=== PATIENT | female | born 1995 | race Hispanic/Latino ===

== ENCOUNTER 2018-05-22 01:10 | Emergency (ER) | payer OTHER ==
--- NOTE | 2018-05-22 01:23 | ER ---
Nurse's Notes [facility] Name: Roberto Traore Age: 23 yrs Sex: Female : 1995 Arrival Date: 05/22/2018 Time: 01:12 Bed 7 Private MD: Diagnosis: Lower abdominal pain, unspecified;Urinary tract infection, site not specified Presentation: 05/22 01:25 Presenting complaint: Patient states: having back pain pain for 2 weeks on and off. but rr5 today 0100H started severe cramping and back pain pain score of 9/10. . Presenting complaint:. Transition of care: patient was not received from another setting of care. Onset of symptoms was May 22, 2018. Risk Assessment: Do you want to hurt yourself or someone else? Patient reports no desire to harm self or others. Initial Sepsis Screen: Does the patient meet any 2 criteria? No. Patient's initial sepsis screen is negative. Initial Sepsis Screen: Does the patient have a suspected source of infection? No. Patient's initial sepsis screen is negative. Care prior to arrival: None. 01:25 Method Of Arrival: Wheelchair rr5 01:25 Note per ER physician will transport to L\T\D for evaluation. rr5 02:25 Acuity: MARANDA 3 rr5 Triage Assessment: 01:25 General: Appears in no apparent distress. Behavior is calm, cooperative, appropriate rr5 for age. Pain: Complains of pain in lower abdomen and back Pain currently is 9 out of 10 on a pain scale. Quality of pain is described as crampy, Pain began suddenly, Is intermittent. Cardiovascular: Capillary refill < 3 seconds Patient's skin is warm and dry. Respiratory: Airway is patent Respiratory effort is even, unlabored, Respiratory pattern is regular, symmetrical. Musculoskeletal: Capillary refill < 3 seconds, Range of motion: intact in all extremities. 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 - Social history:: Smoking status: Patient/guardian denies using tobacco, Patient/guardian denies using alcohol, street drugs. - Family history:: not pertinent. - Ebola Screening: : Patient negative for fever greater than or equal to 101.5 degrees Fahrenheit, and additional compatible Ebola Virus Disease symptoms Patient denies exposure to infectious person Patient denies travel to an Ebola-affected area in the 21 days before illness onset. - Hospitalizations: : No recent hospitalization is reported. Screenin:25 Abuse screen: Denies threats or abuse. Denies injuries from another. Nutritional rr5 screening: No deficits noted. Tuberculosis screening: No symptoms or risk factors identified. Fall Risk None identified. Assessment: 02:21 Reassessment: came back from Labor and delivery via wheelchair. General: Appears in no rr5 apparent distress. comfortable, Behavior is calm, cooperative, appropriate for age. Pain: Complains of pain in abdomen and lower back Pain currently is 7 out of 10 on a pain scale. Quality of pain is described as crampy, Pain began suddenly, Is intermittent. Neuro: Level of Consciousness is awake, alert, obeys commands, Oriented to person, place, time, situation, Appropriate for age. Cardiovascular: Capillary refill < 3 seconds Patient's skin is warm and dry. Respiratory: Airway is patent Respiratory effort is even, unlabored, Respiratory pattern is regular, symmetrical. GI: Abdomen is round 5 months. : No signs and/or symptoms were reported regarding the genitourinary system. EENT: No signs and/or symptoms were reported regarding the EENT system. Derm: No signs and/or symptoms reported regarding the dermatologic system. Musculoskeletal: Capillary refill < 3 seconds, Range of motion: intact in all extremities. 03:10 Reassessment: performed abdominal ultrasound tolerated well by the patient. rr5 04:14 Reassessment: Patient appears in no apparent distress at this time. discharge rr5 instruction and prescription explained with no question ask. vitally stable. Patient states feeling better. Patient states symptoms have improved. Vital Signs: 01:25 BP 147 / 84; Pulse 110; Resp 18; Pulse Ox 100% on R/A; Pain 9/10; rr5 02:25 BP 127 / 72; Pulse 105; Resp 17; Pulse Ox 99% ; rr5 04:00 BP 117 / 68; Pulse 111; Resp 18; Pulse Ox 99% on R/A; rr5 ED Course: 01:12 Patient arrived in ED. es 01:18 Ric Gentile MD is Attending Physician. rn 01:33 Ruel Recinos, RN is Primary Nurse. rr5 02:25 Patient has correct armband on for positive identification. Pulse ox on. NIBP on. rr5 02:26 Triage completed. rr5 02:31 Arm band placed on right wrist. rr5 04:16 No provider procedures requiring assistance completed. Patient did not have IV access rr5 during this emergency room visit. Administered Medications: No medications were administered Outcome: 03:44 Discharge ordered by MD. rn 04:16 Discharged to home ambulatory, with family. rr5 04:16 Condition: stable 04:16 Discharge instructions given to patient, family, Instructed on discharge instructions, follow up and referral plans. medication usage, Demonstrated understanding of instructions, follow-up care, medications, Prescriptions given X 1. 04:17 Patient left the ED. rr5 Signatures: Audelia Velez Roman, MD MD rn Ruel Recinos, RN RN rr5 Corrections: (The following items were deleted from the chart) 04:17 04:00 BP 117 / 48; Pulse 111bpm; Resp 18bpm; Pulse Ox 99% RA; rr5 rr5
[2018-05-22 03:10] LABS: Urine Culture Reflex Order REFLEXED
[2018-05-22 03:11] LABS: Urine Bacteria 20-50 /HPF (<20); Urine RBC <5 /HPF (NONE SEEN); Urine Volume 0.5 ML
--- NOTE | 2018-05-22 03:44 | EDPHYS ---
Physician Documentation [facility] Name: Roberto Traore Age: 23 yrs Sex: Female : 1995 Arrival Date: 05/22/2018 Time: 01:12 Bed 7 Private MD: ED Physician Ric Gentile HPI: 05/22 01:24 This 23 yrs old Female presents to ER via Unassigned with complaints of Back rn Pain, 5MO PREG. 01:24 The patient presents with pain that is acute. The symptoms are located in the low back. rn Onset: The symptoms/episode began/occurred today. The pain radiates to the abdomen. Severity of symptoms: At their worst the symptoms were mild, moderate, in the emergency department the symptoms are unchanged. The patient has not experienced similar symptoms in the past. Reports 5 months , began with low back and abd cramping tonight, no urinary symptoms, concerned about baby. No trauma. . 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 - Social history:: Smoking status: Patient/guardian denies using tobacco, Patient/guardian denies using alcohol, street drugs. - Family history:: not pertinent. - Ebola Screening: : Patient negative for fever greater than or equal to 101.5 degrees Fahrenheit, and additional compatible Ebola Virus Disease symptoms Patient denies exposure to infectious person Patient denies travel to an Ebola-affected area in the 21 days before illness onset. - Hospitalizations: : No recent hospitalization is reported. ROS: 01:24 Constitutional: Negative for fever, chills, and weight loss, Eyes: Negative for injury, rn pain, redness, and discharge, Neck: Negative for injury, pain, and swelling, Cardiovascular: Negative for chest pain, palpitations, and edema, Respiratory: Negative for shortness of breath, cough, wheezing, and pleuritic chest pain, Abdomen/GI: + lower abd cramping Back: + lower back cramping MS/Extremity: Negative for injury and deformity, Skin: Negative for injury, rash, and discoloration, Neuro: Negative for headache, weakness, numbness, tingling, and seizure. Exam: 01:24 Constitutional: This is a well developed, well nourished patient who is awake, alert, rn and in no acute distress. Abdomen/GI: soft, gravid, non -tender Vital Signs: 01:25 BP 147 / 84; Pulse 110; Resp 18; Pulse Ox 100% on R/A; Pain 9/10; rr5 02:25 BP 127 / 72; Pulse 105; Resp 17; Pulse Ox 99% ; rr5 04:00 BP 117 / 68; Pulse 111; Resp 18; Pulse Ox 99% on R/A; rr5 Procedures: 03:41 Ultrasound: Type: OB, performed by the emergency department physician, FHT 130, good rn fluid and movement. Anterior placenta.. MDM: 01:18 Patient medically screened. rn 01:24 ED course: Pt decided to be evaluated by Labor and delivery given acute lower back and rn abd cramping, is > 20 weeks , L\T\D contacted, will eval patient and if patient wants to return, will be redirected back here. . 03:41 Differential diagnosis: UTI, . Data reviewed: vital signs, nurses notes, technical laboratory asst test result(s), urinalysis, radiologic studies, ultrasound, and as a result, I will discharge patient. Counseling: I had a detailed discussion with the patient and/or guardian regarding: the historical points, exam findings, and any diagnostic results supporting the discharge/admit diagnosis, lab results, radiology results, the need for outpatient follow up, to return to the emergency department if symptoms worsen or persist or if there are any questions or concerns that arise at home. Special discussion: I discussed with the patient/guardian in detail that at this point there is no indication for admission to the hospital. It is understood, however, that if the symptoms persist or worsen the patient needs to return immediately for re-evaluation. ED course: Bedside u/s shows well developed fetus with good movement, FHT 130, good fluid, shown images to mother. . 12 02:31 Order name: Urine Microscopic Only; Complete Time: 03:41 rn 12 02:31 Order name: Urine Dipstick-Ancillary (obtain specimen); Complete Time: 03:00 rn 05/22 03:13 Order name: Urine Culture EDMS Administered Medications: No medications were administered Disposition: 05/22/18 03:44 Discharged to Home. Impression: Lower abdominal pain, unspecified, Urinary tract infection, site not specified. - Condition is Stable. - Discharge Instructions: Urinary Tract Infection, Adult, and Urinary Tract Infection. - Prescriptions for Macrobid 100 mg Oral Capsule - take 1 capsule by ORAL route every 12 hours for 7 days; 14 capsule. - Medication Reconciliation Form, Thank You Letter, Antibiotic Education, Prescription Opioid Use form. - Follow up: Private Physician; When: As needed; Reason: Recheck today's complaints, Re-evaluation by your physician. - Problem is new. - Symptoms have improved. Signatures: Dispatcher [employer] EDMS Ric Gentile MD MD rn Krenek, Amber, RN RN ak1 Ruel Recinos RN RN rr5 Corrections: (The following items were deleted from the chart) 02:19 01:23 05/22/2018 01:23 Patient left the facility after being seen by provider. Reason rn stated they are leaving due to to labor and delivery. ak1 04:17 03:44 05/22/2018 03:44 Discharged to Home. Impression: Lower abdominal pain, rr5 unspecified; Urinary tract infection, site not specified. Condition is Stable. Forms are Medication Reconciliation Form, Thank You Letter, Antibiotic Education, Prescription Opioid Use. Follow up: Private Physician; When: As needed; Reason: Recheck today's complaints, Re-evaluation by your physician. Problem is new. Symptoms have improved. rn
== END 2018-05-22 04:17 | disposition home or self-care (01) ==
LOC: ER 01:10
DX: O23.42 Unspecified infection of urinary tract in pregnancy, second trimester (principal); O26.892 Other specified pregnancy related conditions, second trimester; R10.30 Lower abdominal pain, unspecified; Z3A.20 20 weeks gestation of pregnancy
CPT/HCPCS: 81015; 87086; 87088; 99283

== ENCOUNTER 2019-01-23 14:14 | Emergency (ER) | payer OTHER ==
--- OUTSIDE RECORDS SUMMARY | 2019-01-23 14:17 | XMS REPORT ---
:1995 [facility] Address [address] [place] [address] Dr. Tamayo [address] [place] [id number] Care Team Providers Name Role Phone Unavailable Unavailable Unavailable Problems This patient has no known problems. Allergies, Adverse Reactions, Alerts This patient has no known allergies or adverse reactions. Medications This patient has no known medications.
--- OUTSIDE RECORDS SUMMARY | 2019-01-23 14:17 | XMS REPORT | Summary of Care ---
:1995 Author Organization [facility] Address [address] [place] [id number] Care Team Providers Name Role Phone Ann Adams Insurance [employer] Pcp, Patient Does Not Have A Primary Care Provider Reason for Visit Reason Comments IRREGULAR BLEEDING Heavy Menses with Clots UNPROTECTED SEX 1 week ago Anxiety Encounter Details Date Type Department Care Team Description 01/17/2019 Office Visit [facility] Cassandra, Menorrhagia with irregular cycle (Primary Dx); [facility] [place] [facility] Unprotected sexual intercourse [address] [facility], [address] [facility] [address] [id number] [place], [place] [phone] [id number] Allergies No Known Allergiesdocumented as of this encounter (statuses as of 01/17/2019) Medications Medication Sig Dispensed Refills Start Date End Date Status sod [id number] Use 1 Bottle 1 Each 0 08/26/2017 Active bottle (NEILMED SINUS in each RINSE COMPLETE) pkdv nostril 2 (two) times daily. Use in hot shower 1 hour before bedtime hydroCHLOROthiazide 25 mg Take 1 tablet 42 tablet 0 10/12/2018 Active tabletIndications: by mouth Obesity (BMI 30-39.9), 38 daily. weeks gestation of , Liveborn , of gates , born in hospital by vaginal delivery, Full-term premature rupture of membranes with onset of labor within 24 hours of rupture, Normal labor, Pre-eclampsia, severe, delivered vitamin w/FA Take 1 tablet 100 tablet 3 10/11/2018 Active tabletIndications: by mouth Obesity (BMI 30-39.9), 38 daily. weeks gestation of , Liveborn infant, of gates , born in hospital by vaginal delivery, Full-term premature rupture of membranes with onset of labor within 24 hours of rupture, Normal labor, Pre-eclampsia, severe, delivered docusate calcium 240 mg Take 1 capsule 30 capsule 1 10/11/2018 Active capsuleIndications: by mouth once Obesity (BMI 30-39.9), 38 daily as weeks gestation of needed for , Liveborn Constipation. infant, of gates , born in hospital by vaginal delivery, Full-term premature rupture of membranes with onset of labor within 24 hours of rupture, Normal labor, Pre-eclampsia, severe, delivered ferrous sulfate 325 mg Take 1 tablet 60 tablet 2 10/11/2018 Active (65 mg iron) by mouth 2 tabletIndications: (two) times Obesity (BMI 30-39.9), 38 daily. weeks gestation of , Liveborn infant, of gates , born in hospital by vaginal delivery, Full-term premature rupture of membranes with onset of labor within 24 hours of rupture, Normal labor, Pre-eclampsia, severe, delivered ibuprofen 600 mg Take 1 tablet 30 tablet 1 10/11/2018 Active tabletIndications: by mouth every Obesity (BMI 30-39.9), 38 6 (six) hours weeks gestation of as needed for , Liveborn Pain (scale , of gates 1-3) or Pain , born in (scale 4-6) hospital by vaginal (Pain). Take delivery, Full-term with food or premature rupture of milk. membranes with onset of labor within 24 hours of rupture, Normal labor, Pre-eclampsia, severe, delivered traMADOL (ULTRAM) 50 mg Take 1 tablet 20 tablet 0 12/07/2018 Active tabletIndications: by mouth every Generalized abdominal 6 (six) hours pain, Chronic abdominal as needed for pain Pain (scale 7-10). ondansetron (ZOFRAN) 4 mg Take 1 tablet 12 tablet 0 12/07/2018 Active tabletIndications: by mouth every Generalized abdominal 8 (eight) pain, Chronic abdominal hours as pain needed for Nausea and Vomiting (N/V). metroNIDAZOLE (FLAGYL) Take 1 tablet 14 tablet 1 12/27/2018 Active 500 mg tabletIndications: by mouth 2 BV (bacterial vaginosis) (two) times daily. documented as of this encounter (statuses as of 01/17/2019) Active Problems Problem Noted Date depression 12/13/2018 Axillary accessory breast tissue 12/13/2018 Pre-eclampsia, severe, delivered 10/11/2018 Obesity (BMI 30-39.9) 11/06/2017 Thrombocytopenia 12/28/2014 Overview: ICD10 Diagnosis Term Liaison Planner Utility documented as of this encounter (statuses as of 01/17/2019) Resolved Problems Problem Noted Date Resolved Date Full-term premature rupture of membranes with onset of labor 10/10/201812/13 within 24 hours of rupture Normal labor 10/10/2018 12/13/2018 Liveborn infant, of gates , born in hospital by 11/07/201712/13 vaginal delivery (spontaneous vaginal delivery) 11/07/2017 07/09/2018 Pre-eclampsia in third trimester 11/07/2017 07/09/2018 Full-term premature rupture of membranes with onset of labor 11/06/201707/09 more than 24 hours following rupture 38 weeks gestation of 11/06/2017 07/09/2018 Mother's group B Streptococcus colonization status unknown 11/06/20172017 Full-term PROM with onset of labor more than 24 hours after 11/06/20172018 rupture Contraceptive management 01/01/2016 10/10/2018 Encounter for Nexplanon removal 12/28/2014 10/10/2018 Encounter for routine gynecological examination 12/28/2014 10/10/2018 Overview: ICD10 Diagnosis Term Liaison Planner Utility Dizziness 12/28/2014 10/10/2018 documented as of this encounter (statuses as of 01/17/2019) Immunizations Name Administration Dates Next Due Tdap 01/26/2012 documented as of this encounter Social History Tobacco Use Types Packs/Day Years Used Date Former Smoker Cigars Smokeless Tobacco: Never Used Comments: black and mild cigars Alcohol Use Drinks/Week oz/Week Comments No 0 Standard drinks or equivalent 0.0 Sex Assigned at Date Recorded Not on file Job Start Date Occupation Industry Not on file Not on file Not on file Travel History Travel Start Travel End No recent travel history available. documented as of this encounter Last Filed Vital Signs Vital Sign Reading Time Taken Comments Blood Pressure 130/89 01/17/2019 3:32 PM CDT Pulse 81 01/17/2019 3:32 PM CDT Temperature 36.9 C (98.5 F) 01/17/2019 3:32 PM CDT Respiratory Rate 20 01/17/2019 3:32 PM CDT Oxygen Saturation - - Inhaled Oxygen Concentration - - Weight 72.6 kg (160 lb) 01/17/2019 3:32 PM CDT Height 149.9 cm (4' 11") 01/17/2019 3:32 PM CDT Body Mass Index 32.32 01/17/2019 3:32 PM CDT documented in this encounter Progress Notes Cassandra Puckett PA-C - 01/17/2019 3:30 PM CDT Chief complaint: Chief Complaint Patient presents with IRREGULAR BLEEDING Heavy Menses with Clots UNPROTECTED SEX 1 week ago Anxiety HPI Roberto Traore is a 23 year old female coming in with concern of heavy menses with blood clots. Patient had a vaginal delivery on 09/2018. Patient reports since then she has not been onany control. Patient reports she had unprotected sex last week. Patient denies any vaginal discharge , vaginal pain. Patient reports since having her baby she has had irregular menses where it would last 5-7 days and she would past lots of blood clots. Patient is not breast feeding. Patient has a hx of anxiety and depression but denies any SI/HI. Patient saw Dr. Miller last OV and was offered control. Patient reports she has reviewed all the options and is most interested in the mirena IUD. Histories OB History Para Term AB Living 2 2 2 0 0 2 SAB TAB Ectopic Multiple Live Births 0 0 0 0 2 # Outcome Date GA Lbr Alexx/2nd Weight Sex Delivery Anes PTL Lv 2 Term 10/10/18 38w0d 3402 g M VAGINAL EPI, IV narcotic JANETH 1 Term 11/07/17 39w0d 3515 g M VAGINAL EPI JANETH Past Medical History: Diagnosis Date Axillary accessory breast tissue 12/13/2018 Depression Mental disorder Pre-eclampsia in third trimester 11/07/2017 Thrombocytopenia, unspecified 12/28/2014 Family History Problem Relation Age of Onset Arthritis Maternal Grandfather Colon Cancer Maternal Aunt Asthma NoFHx defects NoFHx Breast Cancer NoFHx Uterine Cancer NoFHx Depression NoFHx Diabetes NoFHx Genetic NoFHx Heart NoFHx High cholesterol NoFHx Hypertension NoFHx Mental retardation NoFHx Neurological NoFHx Osteoporosis NoFHx Psychiatry NoFHx Other - see comments NoFHx Family Status Relation Name Status MGFa (Not Specified) Mo Alive Fa Alive MAunt (Not Specified) NoFHx (Not Specified) Past Surgical History: Procedure Laterality Date APPENDECTOMY Social History Socioeconomic History Marital status: Single Spouse name: Not on file Number of children: 0 Years of education: Not on file Highest education level: Not on file Occupational History Occupation: none Social Needs Financial resource strain: Not on file Food insecurity: Worry: Not on file Inability: Not on file Transportation needs: Medical: Not on file Non-medical: Not on file Tobacco Use Smoking status: Former Smoker Types: Cigars Smokeless tobacco: Never Used Tobacco comment: black and mild cigars Substance and Sexual Activity Alcohol use: No Alcohol/week: 0.0 oz Drug use: Yes Types: Other-see comments Comment: synthetic marijuana(has stopped), denies Sexual activity: Yes Partners: Male control/protection: Implant Lifestyle Physical activity: Days per week: Not on file Minutes per session: Not on file Stress: Not on file Relationships Social connections: Talks on phone: Not on file Gets together: Not on file Attends muslim service: Not on file Active member of club or organization: Not on file Attends meetings of clubs or organizations: Not on file Relationship status: Not on file Intimate partner violence: Fear of current or ex partner: Not on file Emotionally abused: Not on file Physically abused: Not on file Forced sexual activity: Not on file Other Topics Concern Service Not Asked Blood Transfusions No Caffeine Concern Not Asked Occupational Exposure Not Asked Hobby Hazards Not Asked Sleep Concern Not Asked Stress Concern Not Asked Weight Concern Not Asked Special Diet Not Asked Back Care Not Asked Exercise Not Asked Bike Helmet Not Asked Seat Belt Not Asked Self-Exams Not Asked Social History Narrative No domestic violence or abuse Social History Substance and Sexual Activity Sexual Activity Yes Partners: Male control/protection: Implant Labs none Radiology none Allergies Roberto has No Known Allergies. Medications Roberto has a current medication list which includes the following prescription(s ): metronidazole, ondansetron, tramadol, docusate calcium, ferrous sulfate, hydrochlorothiazide, ibuprofen, vitamin w/fa, and sod chlor-bicarb- squeez bottle. Review of Systems Constitutional: Negative for appetite change, fatigue, fever, unexpected weight change, weight gain and weight loss. HENT: Negative for rhinorrhea and sore throat. Eyes: Negative for pain and itching. Respiratory: Negative for cough, chest tightness and shortness of breath. Breasts: Negative for discharge, mass and pain. Cardiovascular: Negative for chest pain, palpitations and leg swelling. Gastrointestinal: Negative for abdominal pain, constipation, diarrhea and nausea. Genitourinary: Positive for menstrual problem. Negative for bladder incontinence , dysuria, vaginal discharge, difficulty urinating, vaginal pain and pelvic pain. Musculoskeletal: Negative for gait problem and myalgias. Skin: Negative for rash. Neurological: Negative for dizziness and headaches. Psychiatric/Behavioral: Negative for suicidal ideas. The patient is nervous/ anxious. Endocrine: Negative for hair loss, weight gain and weight loss. BP 130/89 (BP Location: Left arm, Patient Position: Sitting) | Pulse 81 | Temp 36.9 C (98.5 F)(Oral) | Resp 20 | Ht 4' 11" (1.499 m) | Wt 160 lb ( 72.6 kg) | LMP 12/26/2018 (Approximate) | ? No | BMI 32.32 kg/m Pregravid BMI: Could not be calculated Physical Exam Vitals reviewed. Constitutional: She is oriented to person, place, and time. Her body habitus is obese. Neck: No mass. No thyromegaly palpated. No neck adenopathy. Cardiovascular: Regular rate and rhythm. Pulmonary/Chest: Normal inspiratory effort. Abdominal: Abdomen is soft. No tenderness present. No hernia palpated or inspected. Neuro/Psychiatric: She has a normal mood and affect. She is oriented to person, place, and time. Skin: Skin normal. Lymphadenopathy: No neck adenopathy present. No axillary adenopathy present. No inguinal adenopathy present. Assessment/Plan Menorrhagia with irregular cycle (primary encounter diagnosis) Comment: UPT NEG Plan: POCT TEST I discussed with the patient that there are 3 forms of IUD: Char (3 years duration); Mirena (5 yrsduration); and Paragard (10 yrs duration). Char and Mirena both have progesterone and Paragard is a hormone-free option. IUDs are as effective in preventing as tubal ligation and are an effective senior living contraceptive. Risks include but are not limited to uterine perforation during insertion (06/999) which may require surgery, bleeding, infection, IUD embedded in the uterus which may require surgery, expulsion, abnormal uterine bleeding, pelvic/abdominal pain. Benefits include possible decrease in menstrual flow and amount of bleeding, possible amenorrhea, and decrease dysmenorrhea for progesterone containing IUDs. For the copper IUD, long duration of use and effective as emergency contraception. However, the copper IUD may cause heavier menstrual bleeding and dysmenorrhea. Alternatives including pills, patch, ring, Nexplanon, Depo-provera discussed. Patient desires mirena Unprotected sexual intercourse Comment: UPT neg Plan: patient LMP was 12/26/18 Return to clinic in 2 weeks. W/ Dr Gordillo for IUD placement. Discussed treatment options. Reviewed patient instructions and provided printed copy. This visit did not involve counseling and coordination that comprised more than 50% of the visit time. Cassandra Puckett PA-C 01/17/2019 3:49 PM documented in this encounter Plan of Treatment Date Type Specialty Care Team Description 02/23/2019 Office Visit Obstetrics & Gynecology Luci Gordillo MD [address] [place] [address] [place] [address] [phone] Health Maintenance Due Date Last Done Comments MENINGOCOCCAL B VACCINES (1 of 2007 2 - Risk Bexsero 2-dose series) VARICELLA VACCINES (1 of 2 - 2010 13+ 2-dose series) HPV VACCINES (1 - Female 01/28/2012 3-dose series) PAP SMEAR 2018 INFLUENZA VACCINE 02/19/2019 CHLAMYDIA SCREENING 07/09/2019 07/09/2018, 10/17/2017, 12/25/2014 DTaP,Tdap,and Td Vaccines (2 - 01/25/2022 01/26/2012 Td) MENINGOCOCCAL VACCINE Aged Out No longer eligible based on patient's age to complete this topic PNEUMOCOCCAL 0-64 YEARS Aged Out No longer eligible based COMBINED SERIES on patient's age to complete this topic documented as of this encounter Procedures Procedure Name Priority Date/Time Associated Diagnosis Comments POCT TEST Routine 01/17/2019 Menorrhagia with Results for this irregular cycle procedure are in the results section. documented in this encounter Results POCT TEST (01/17/2019) POCT PREG Negative On board controls acceptable Yes with C Line POCT PREG LOT # POCT PREG TEST DATE Specimen Urine - URINE, CLEAN CATCH documented in this encounter Visit Diagnoses Diagnosis Menorrhagia with irregular cycle - Primary Excessive or frequent menstruation Unprotected sexual intercourse Problems related to high-risk sexual behavior documented in this encounter Insurance Payer Benefit Plan / Subscriber ID Effective Phone Address Type Group [facility] xxxxxxxxx 2018-Pres [address] Medicaid HEALTH CHOICE - HEALTH CHOICE [facility] [id number] MANAGED MEDICAID [place], [place] [phone] documented as of this encounter
--- NOTE | 2019-01-23 15:24 | RAD REPORT ---
EXAM DESCRIPTION: RAD - Ankle Left 3 View -01/23/2019 2:54 pm CLINICAL HISTORY: Left ankle pain status post injury FINDINGS: A 3 millimeter avulsion fracture fragment from the lateral malleolus. No dislocation Marked lateral soft tissue swelling
--- NOTE | 2019-01-23 15:25 | RAD REPORT ---
EXAM DESCRIPTION: Avery Nickerson Left01/23/2019 2:55 pm CLINICAL HISTORY: Left leg pain status post injury FINDINGS: A 3 millimeter avulsion fracture fragment from the lateral malleolus. No dislocation
--- NOTE | 2019-01-23 15:29 | ER ---
Nurse's Notes [facility] Name: Roberto Traore Age: 23 yrs Sex: Female : 1995 Arrival Date: 01/23/2019 Time: 14:18 Bed 10 Private MD: Unknown, Unknown Diagnosis: Fracture of lateral malleolus-avulsion fracture Presentation: 01/23 14:21 Presenting complaint: Slipped and fell in ditch 4 days ago, c/o left ankle pain that hb radiates to left foot and left knee. Transition of care: patient was not received from another setting of care. Onset of symptoms was January 19, 2019. Risk Assessment: Do you want to hurt yourself or someone else? Patient reports no desire to harm self or others. Initial Sepsis Screen: Does the patient meet any 2 criteria? No. Patient's initial sepsis screen is negative. Does the patient have a suspected source of infection? No. Patient's initial sepsis screen is negative. Care prior to arrival: None. 14:21 Method Of Arrival: Wheelchair hb 14:21 Acuity: MARANDA 4 hb MRP CONTROLLER: 14:23 LMP 01/15/2019 hb Historical: - Allergies: 14:23 No Known Allergies; hb - Home Meds: 14:23 None [Active]; hb - PMHx: 14:23 None; hb - PSHx: 14:23 Appendectomy; hb - Immunization history:: Adult Immunizations up to date. - Ebola Screening: : Patient denies travel to an Ebola-affected area in the 21 days before illness onset. Screenin:57 Abuse screen: Denies threats or abuse. Denies injuries from another. Nutritional aj1 screening: No deficits noted. Tuberculosis screening: No symptoms or risk factors identified. 16:39 Fall Risk None identified. aj1 Assessment: 14:57 General: Appears in no apparent distress. uncomfortable, Behavior is calm, cooperative, aj1 appropriate for age. Pain: Complains of pain in left ankle Pain radiates to left foot and left leg Pain currently is 10 out of 10 on a pain scale. Neuro: Level of Consciousness is awake, alert, obeys commands, Oriented to person, place, time, situation. Cardiovascular: Patient's skin is warm and dry. Respiratory: Airway is patent Respiratory effort is even, unlabored, Respiratory pattern is regular, symmetrical. GI: No signs and/or symptoms were reported involving the gastrointestinal system. : No signs and/or symptoms were reported regarding the genitourinary system. EENT: No signs and/or symptoms were reported regarding the EENT system. Derm: No signs and/or symptoms reported regarding the dermatologic system. Skin is pink, warm \T\ dry. normal. Musculoskeletal: Range of motion: limited in left ankle. 16:00 Reassessment: Patient appears in no apparent distress at this time. No changes from aj1 previously documented assessment. Patient and/or family updated on plan of care and expected duration. Pain level reassessed. Patient is alert, oriented x 3, equal unlabored respirations, skin warm/dry/pink. Vital Signs: 14:23 BP 145 / 75; Pulse 90; Resp 16; Temp 98.9; Pulse Ox 100% on R/A; Weight 72.57 kg; hb Height 4 ft. 11 in. (149.86 cm); Pain 10/10; 14:23 Body Mass Index 32.32 (72.57 kg, 149.86 cm) hb ED Course: 14:18 Patient arrived in ED. ag5 14:19 Unknown, Unknown is Private Physician. ag5 14:22 Triage completed. hb 14:23 Arm band placed on. hb 14:50 Mariama Shaw FNP-C [facility]. kb 14:50 Ruddy Ragland MD is Attending Physician. kb 14:54 Maci Brown, BENNIE is Primary Nurse. aj1 14:57 Tib Fib Left XRAY In Process Unspecified. EDMS 14:57 Ankle Left 3 View XRAY In Process Unspecified. EDMS 14:57 Patient has correct armband on for positive identification. Bed in low position. Call aj1 light in reach. 14:57 No provider procedures requiring assistance completed. aj1 16:12 Crutch training done. Orthoglass splint: Posterior short lleg splint applied on left em1 leg. 16:39 Patient did not have IV access during this emergency room visit. aj1 Administered Medications: No medications were administered Outcome: 15:28 Discharge ordered by . kb 16:41 Discharged to home with crutches. aj1 16:41 Condition: good 16:41 Discharge instructions given to patient, Instructed on discharge instructions, follow up and referral plans. medication usage, Demonstrated understanding of instructions, follow-up care, medications, Prescriptions given X 1. 16:42 Patient left the ED. aj1 Signatures: Dispatcher [employer] EDMariama Sweet, PAPER BOX CUTTER-C MAYLIN-Maci Pierre, BENNIE cali1 Yousuf Hendrickson 1 Leigh Brown RN RN hb Gaskin, Joanna 5
--- NOTE | 2019-01-23 15:29 | EDPHYS ---
Physician Documentation [facility] Name: Roberto Traore Age: 23 yrs Sex: Female : 1995 Arrival Date: 01/23/2019 Time: 14:18 Bed 10 Private MD: Unknown, Unknown ED Physician Ruddy Ragland HPI: 01/23 15:43 This 23 yrs old Female presents to ER via Wheelchair with complaints of Fall kb Injury, Foot Injury. 15:43 The patient presents with an injury, pain, swelling, tenderness. The complaints affect kb the left ankle. Onset: The symptoms/episode began/occurred 5 day(s) ago. Context: The problem was sustained outdoors, resulted from the patient falling, while walking, into a ditch. Associated signs and symptoms: Pertinent positives: swelling, Pertinent negatives: calf tenderness, fever, nausea, numbness, rash, tingling, vomiting, warmth, weakness. Modifying factors: The symptoms are alleviated by nothing, the symptoms are aggravated by weight bearing, movement. Severity of symptoms: At their worst the symptoms were moderate, in the emergency department the symptoms are unchanged. The patient has not experienced similar symptoms in the past. The patient has not recently seen a physician. Pt reports she tripped in a ditch on and hurt her ankle. Reports pain and swelling have been getting worse. . 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 - Ebola Screening: : Patient denies travel to an Ebola-affected area in the 21 days before illness onset. ROS: 15:41 Constitutional: Negative for fever, chills, and weight loss, Cardiovascular: Negative kb for chest pain, palpitations, and edema, Respiratory: Negative for shortness of breath, cough, wheezing, and pleuritic chest pain, Abdomen/GI: Negative for abdominal pain, nausea, vomiting, diarrhea, and constipation, Back: Negative for injury and pain, : Negative for injury, bleeding, discharge, and swelling, Neuro: Negative for headache, weakness, numbness, tingling, and seizure. 15:41 MS/extremity: Positive for injury or acute deformity, contusion, ecchymosis, pain, swelling, tenderness, of the left foot and left lateral ankle. Exam: 15:41 Constitutional: This is a well developed, well nourished patient who is awake, alert, kb and in no acute distress. Head/Face: Normocephalic, atraumatic. Neck: Trachea midline, no thyromegaly or masses palpated, and no cervical lymphadenopathy. Supple, full range of motion without nuchal rigidity, or vertebral point tenderness. No Meningismus. Chest/axilla: Normal chest wall appearance and motion. Nontender with no deformity. No lesions are appreciated. Cardiovascular: Regular rate and rhythm with a normal S1 and S2. No gallops, murmurs, or rubs. Normal PMI, no JVD. No pulse deficits. Respiratory: Lungs have equal breath sounds bilaterally, clear to auscultation and percussion. No rales, rhonchi or wheezes noted. No increased work of breathing, no retractions or nasal flaring. Abdomen/GI: Soft, non-tender, with normal bowel sounds. No distension or tympany. No guarding or rebound. No evidence of tenderness throughout. Neuro: Awake and alert, GCS 15, oriented to person, place, time, and situation. Cranial nerves II-XII grossly intact. Motor strength 5/5 in all extremities. Sensory grossly intact. Cerebellar exam normal. Normal gait. 15:41 Musculoskeletal/extremity: Extremities: grossly normal except: noted in the left ankle and left foot: ecchymosis, pain, swelling, tenderness, ROM: limited active range of motion due to pain, in the left ankle and left foot, Circulation is intact in all extremities. Sensation intact. Weight bearing: can bear weight with assistance only. Vital Signs: 14:23 BP 145 / 75; Pulse 90; Resp 16; Temp 98.9; Pulse Ox 100% on R/A; Weight 72.57 kg; hb Height 4 ft. 11 in. (149.86 cm); Pain 10/10; 14:23 Body Mass Index 32.32 (72.57 kg, 149.86 cm) hb MDM: 14:50 Patient medically screened. kb 15:27 Data reviewed: vital signs, nurses notes. Data interpreted: Pulse oximetry: on room air kb is 100 %. Interpretation: normal. Counseling: I had a detailed discussion with the patient and/or guardian regarding: the historical points, exam findings, and any diagnostic results supporting the discharge/admit diagnosis, radiology results, the need for outpatient follow up, a orthopedic surgeon, to return to the emergency department if symptoms worsen or persist or if there are any questions or concerns that arise at home. 01/23 14:28 Order name: Tib Fib Left XRAY; Complete Time: 15:26 hb 01/23 14:28 Order name: Ankle Left 3 View XRAY; Complete Time: 15:26 hb 01/23 15:27 Order name: Short Leg Splint; Complete Time: 16:12 kb 01/23 15:27 Order name: Crutches; Complete Time: 16:12 kb Administered Medications: No medications were administered Disposition: 01/24 07:41 Co-signature as Attending Physician, Ruddy Ragland MD I agree with the assessment and wa plan of care. Disposition: 01/23/19 15:28 Discharged to Home. Impression: Fracture of lateral malleolus - avulsion fracture. - Condition is Stable. - Discharge Instructions: Cast or Splint Care, [id number], Ankle Fracture, Pyzz-oi-Gyjc. - Prescriptions for Diclofenac Sodium 75 mg Oral Tablet, Delayed Release (E.C.) - take 1 tablet by ORAL route 2 times per day As needed; 30 tablet. - Medication Reconciliation Form, Thank You Letter, Antibiotic Education, Prescription Opioid Use form. - Follow up: Emergency Department; When: As needed; Reason: Worsening of condition. Follow up: Private Physician; When: 2 - 3 days; Reason: Recheck today's complaints, Continuance of care, Re-evaluation by your physician. Signatures: Dispatcher [employer] EDME Mariama Shaw, MAYLIN-C MAYLIN-Maci Pierre RN RN aj1 Leigh Brown RN RN hb Appiah, William, MD MD wa Corrections: (The following items were deleted from the chart) 01/23 16:42 15:28 01/23/2019 15:28 Discharged to Home. Impression: Fracture of lateral malleolus - aj1 avulsion fracture. Condition is Stable. Forms are Medication Reconciliation Form, Thank You Letter, Antibiotic Education, Prescription Opioid Use. Follow up: Emergency Department; When: As needed; Reason: Worsening of condition. Follow up: Private Physician; When: 2 - 3 days; Reason: Recheck today's complaints, Continuance of care, Re-evaluation by your physician. kb
== END 2019-01-23 16:42 | disposition home or self-care (01) ==
LOC: ER 14:14
PROC: 2W3RX1Z Immobilization of Left Lower Leg using Splint (ICD-10-PCS; principal; 2019-01-23)
DX: S82.62XA Displaced fracture of lateral malleolus of left fibula, initial encounter for closed fracture (principal); W01.0XXA Fall on same level from slipping, tripping and stumbling without subsequent striking against object, initial encounter; Y93.01 Activity, walking, marching and hiking; Y92.9 Unspecified place or not applicable
CPT/HCPCS: 99283

== ENCOUNTER 2019-02-27 14:57 | Emergency (ER) | payer OTHER, SELFPAY ==
--- OUTSIDE RECORDS SUMMARY | 2019-02-27 14:59 | XMS REPORT ---
:1995 [facility] Address [address] [place] [address] Dr. Tamayo [address] [place] [id number] Care Team Providers Name Role Phone Unavailable Unavailable Unavailable Problems This patient has no known problems. Allergies, Adverse Reactions, Alerts This patient has no known allergies or adverse reactions. Medications This patient has no known medications.
--- OUTSIDE RECORDS SUMMARY | 2019-02-27 14:59 | XMS REPORT | Summary of Care ---
:1995 Author Organization [facility] Address [address] [place] [id number] Care Team Providers Name Role Phone Ann Adams Insurance Hmo Pcp, Patient Does Not Have A Primary Care Provider Reason for Referral (Routine) Status Reason Specialty Diagnoses / Referred By Referred To Procedures Contact Contact New Request Orthopedic Surgery Diagnoses Closed avulsion fracture of left ankle, sequela [place], Procedures CONSULT/REFERRAL ORTHOPAEDIC SURGERY MD Rigoberto [address] [place] [address] Dr Choi [address] [place] [phone] (Routine) Status Reason Specialty Diagnoses / Referred By Referred To Procedures Contact Contact New Request Physical Therapy Diagnoses Closed avulsion fracture of left ankle, sequela [place], Procedures CONSULT/REFERRAL PHYSICAL THERAPY MD Rigoberto [address] [place] [address] Dr Choi [address] [place] [phone] Reason for Visit Reason Comments Establish Care Ankle Pain "hairline fracture" on 01/19/2019 after tripping & falling in ditch Referral/consult requesting orthopedic referral Encounter Details Date Type Department Care Team Description 2019 Office Visit [facility] Pediatric Rigoberto Carolina, Closed avulsion fracture of left ankle, sequela (Primary Dx); and Adult Primary MD Pain and swelling of left ankle Care- [address] [place] [address] Jimbo Silverio [address] [place], [place] [address] [place] [phone] Allergies No Known Allergiesdocumented as of this encounter (statuses as of 2019) Medications Medication Sig Dispensed Refills Start Date End Date Status sod cflyx-ysotvx-raiiaz Use 1 Bottle 1 Each 0 08/26/2017 [...] gestation of needed for , Liveborn Constipation. , of gates , born in hospital [...] as needed for , Liveborn Pain (scale infant, of gates 1-3) or Pain , born [...] 2 BV (bacterial vaginosis) (two) times daily. cyclobenzaprine 5 mg Take 1 tablet 7 tablet 0 2019 Active tabletIndications: Closed by mouth daily 9 avulsion fracture of left for 7 days. 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 documented as of this encounter (statuses as of 2019) Resolved Problems Problem Noted Date Resolved Date Full-term premature rupture of membranes with onset of labor 10/10/201812/13 within 24 hours of rupture Normal labor 10/10/2018 12/13/2018 Liveborn , of gates , born in [...] examination 12/28/2014 10/10/2018 Overview: ICD10 Diagnosis 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 Dizziness 12/28/2014 10/10/2018 documented as of this encounter (statuses as of 2019) Immunizations Name Administration Dates Next Due Tdap 01/26/2012 documented as of this encounter Social History Tobacco Use Types Packs/Day Years Used Date Current Some Day Smoker Cigars Smokeless Tobacco: Never Used Comments: [...] Sign Reading Time Taken Comments Blood Pressure 135/89 2019 3:55 PM CDT Pulse 80 2019 3:55 PM CDT Temperature 37.1 C (98.8 F) 2019 3:55 PM CDT Respiratory Rate 18 2019 3:55 PM CDT Oxygen Saturation 99% 2019 3:55 PM CDT Inhaled Oxygen Concentration - - Weight 71.6 kg (157 lb 14.4 oz) 2019 3:55 PM CDT Height 149.9 cm (4' 11") 2019 3:55 PM CDT Body Mass Index 31.89 2019 3:55 PM CDT documented in this encounter Patient Instructions Patient InstructionsEdRigoberto allen MD - 2019 3:30 PM CDT Treating Ankle Sprains Treatment will depend on how bad your sprain is. For a severe sprain, healing may take 3 months or more. Right after your injury: Use R.I.C.E. Rest: At first, keep weight off the ankle as much as you can. You may be given crutches to help you walk without putting weight on the ankle. Ice: Put an ice pack on the ankle for20 minutes. Remove the pack and wait at least 30 minutes. Repeat for up to 3 days. This helps reduce swelling. Compression: To reduce swelling and keep the joint stable, you may need to wrap the ankle with anelastic bandage. For more severe sprains, you may need an ankle brace, a boot,or a cast. Elevation: To reduce swelling, keep your ankle raised above your heart when you sit or lie down. Medicine Yourhealthcare providermay suggest oral nonsteroidal anti-inflammatory medicine (NSAIDs), such as ibuprofen. This relieves the pain and helps reduce swelling. Be sure to take your medicine as directed. Exercises After about 2 to 3 weeks, you may be given exercises to strengthen the ligaments and muscles in the ankle. Doing these exercises will help prevent another ankle sprain. Exercises may include standing on your toes and then on your heels and doing ankle curls. Ankle curls Sit on the edge of a sturdy table or lie on your back. Pull your toes toward you. Then point them away from you. Repeat for 2 to 3 minutes. Date Last Reviewed: 06/21/201719998192-4387 [employer]. [address] [place] [address]. All rights reserved. This information is not intended as a substitute for professional medical care. Always follow your healthcare professional's instructions. Ankle Fracture You have an ankle fracture. This means that one or more of the bones that make up the ankle joint are broken. This causes pain, swelling, and sometimes bruising. A fracture is treated with a splint or cast or special boot. It will take about 4 to 6 weeks for thefracture to heal. Surgery may be needed to fix severe injuries. Home care You will be given a splint, cast or boot to prevent movement at the ankle joint. Unless you were told otherwise, use crutches or a walker. Dont weight on the injured leg until cleared by your healthcare provider to do so. Crutches and walkers can be rented at many pharmacies and surgical or orthopedic supply stores. Dont put weight on a splint. It will break. Keep your leg elevated to reduce pain and swelling. When sleeping, place a pillow under the injured leg. When sitting, support the injured leg so it is level with your waist. This is very important during the first 48 hours. Apply an ice pack over the injured area forno more than15 to 20 minutes. Do this every3 to 6hoursfor the first24 to 48 hours. Continue with ice packs 3 to 4 times a day for the next 2 days, then as needed to ease pain and swelling. To make an ice pack, put ice cubes in a plasticbag that seals at the top. Wrap the bag in aclean, thintowel or cloth. Never put ice or an ice pack directly on the skin. You can place the ice pack directly over the cast or splint. As the ice melts, be careful that the cast or splint doesnt get wet. Keep the cast, splint, or boot completely dry at all times. Bathe with your cast, splint, or bootout of the water, protected ftyi4tyrle plastic bags. Place 1 bag outside of the other. Tape eachbag with duct tapeat the top end. Water can still leak in. So it's best to keep the cast, splint,or boot away from water.If a boot or fiberglass cast or splint gets wet, dry it with a hair dryeron a cool setting. You may xdzanuu-igw-jkztnsi pain medicineto control pain, unless another pain medicine was prescribed. Talk with your provider beforeusing these medicines if you have chronic liver or kidney disease or ever had a stomach ulcer or GI bleeding. Follow-up care Follow up with your healthcare provider in 1 week, or as advised. This is to be sure the bone is healing properly. If you were given a splint, it may be changed to a cast at your follow-up visit. If X-rays were taken, you will be told of any new findings that may affect your care. When to seek medical advice Call your healthcare provider right away if any of these occur: The plaster cast or splint becomes wet or soft The fiberglass cast or splint stays wet for more than 24 hours There is increased tightness, sore areas, or pain under the cast or splint Your toes become swollen, cold, blue, numb, or tingly The cast becomes loose The cast has a bad smell The cast developscracks or breaks Date Last Reviewed: 05/13/201519996567-9160 [employer]. [address] [place] [address], [place] [address]. All rights reserved. This information is not intended as a substitute for professional medical care. Always follow your healthcare professional's instructions. documented in this encounter Progress Notes Rigoberto Carolina MD - 2019 3:30 PM CDT Cc: Chief Complaint Patient presents with Establish Care Ankle Pain "hairline fracture" on 01/19/2019 after tripping & falling in ditch Referral/consult requesting orthopedic referral Roberto Traore is a 24 year old female. Patient presents with c/o left foot fracture 1 week ago. She returned back home , was getting out of her car at night, grass was wet and she slipped. She was seen at the [facility]. Denies pain at the moment. Denies hx MVA, trauma Allergies Roberto has No Known Allergies. Medications Outpatient Medications Prior to Visit Medication Sig Dispense Refill metroNIDAZOLE (FLAGYL) 500 mg tablet Take 1 tablet by mouth 2 (two) times daily. 14 tablet 1 ondansetron (ZOFRAN) 4 mg tablet Take 1 tablet by mouth every 8 (eight) hours as needed for Nausea and Vomiting (N/V). 12 tablet 0 traMADOL (ULTRAM) 50 mg tablet Take 1 tablet by mouth every 6 (six) hours as needed for Pain (scale 7-10). 20 tablet 0 docusate calcium 240 mg capsule Take 1 capsule by mouth once daily as needed for Constipation. 30 capsule 1 ferrous sulfate 325 mg (65 mg iron) tablet Take 1 tablet by mouth 2 (two) times daily. 60 tablet2 hydroCHLOROthiazide 25 mg tablet Take 1 tablet by mouth daily. 42 tablet 0 ibuprofen 600 mg tablet Take 1 tablet by mouth every 6 (six) hours as needed for Pain (scale 1-3) or Pain (scale 4-6) (Pain). Take with food or milk. 30 tablet 1 vitamin w/FA tablet Take 1 tablet by mouth daily. 100 tablet 3 sod diigk-ghagpe-jpezbq bottle (NEILMED SINUS RINSE COMPLETE) pkdv Use 1 Bottle in each nostril 2 (two) times daily. Use in hot shower 1 hour before bedtime 1 Each 0 No facility-administered medications prior to visit. Histories Past Medical History: Diagnosis Date Axillary accessory breast tissue 12/13/2018 Depression Mental disorder Pre-eclampsia in third trimester 11/07/2017 Thrombocytopenia, unspecified 12/28/2014 Past Surgical History: Procedure Laterality Date APPENDECTOMY [...] Not on file Tobacco Use Smoking status: Current Some Day Smoker Types: Cigars Smokeless tobacco: Never Used Tobacco comment: black and mild cigars Substance and Sexual Activity Alcohol use: No Alcohol/week: 0.0 oz Drug use: Not Currently Types: Other-see comments Comment: synthetic marijuana(has stopped), denies Sexual activity: Yes Partners: Male control/protection: Implant Lifestyle Physical activity: Days per week: Not on file Minutes per session: Not on file Stress: Not on file Relationships Social connections: Talks on phone: Not on file Gets together: Not on file Attends church service: Not on file Active member of [...] History Narrative No domestic violence or abuse Family History Problem Relation Age of Onset Arthritis Maternal Grandfather Colon Cancer Maternal Aunt Asthma NoFHx defects NoFHx Breast Cancer NoFHx Uterine Cancer NoFHx Depression NoFHx Diabetes NoFHx Genetic NoFHx Heart NoFHx High cholesterol NoFHx Hypertension NoFHx Mental retardation NoFHx Neurological NoFHx Osteoporosis NoFHx Psychiatry NoFHx Other - see comments NoFHx Review of Systems Constitutional: Negative. HENT: Negative. Eyes: Negative. Respiratory: Negative. Gastrointestinal: Negative. Genitourinary: Negative. Musculoskeletal: Positive for arthralgias, joint swelling and myalgias. Left ankle injury Skin: Negative. Neurological: Negative for tremors, weakness and numbness. Vital Signs BP 135/89 (BP Location: Left arm, Patient Position: Sitting, BP CUFF SIZE: Adult Medium) | Pulse 80 | Temp 37.1 C (98.8 F) (Temporal Artery) | Resp 18 | Ht 4' 11" (1.499 m) | Wt 157 lb 14.4 oz(71.6 kg) | LMP 01/17/2019 | SpO2 99% | BMI 31.89 kg/m Physical Exam Constitutional: She is oriented to person, place, and time. She appears well- developed and well-nourished. HENT: Head: Normocephalic and atraumatic. Eyes: Pupils are equal, round, and reactive to light. Conjunctivae and EOM are normal. Neck: Normal range of motion. Neck supple. Cardiovascular: Normal rate and regular rhythm. Pulmonary/Chest: Effort normal and breath sounds normal. Abdominal: Soft. Bowel sounds are normal. Musculoskeletal: She exhibits no edema or deformity. Left LE: LROM due to discomfort. Mild tenderness to palpation. Mild swelling of affected ankle noted. Strength 4/5. Sensation intact Neurological: She is alert and oriented to person, place, and time. She displays normal reflexes. Nocranial nerve deficit or sensory deficit. She exhibits normal muscle tone. Coordination normal. Skin: Skin is warm. Capillary refill takes less than 2 seconds. No rash noted. No erythema. Psychiatric: She has a normal mood and affect. Imaging: Xray Left Ankle FINDINGS: A 3 millimeter avulsion fracture fragment from the lateral malleolus. No dislocation Marked lateral soft tissue swelling Assessment/Plan Closed avulsion fracture of left ankle, sequela - Mild swelling of Left ankle - Referral: Orthopedic; Physical therapy - Outside Xray reviewed per patient's record. - cyclobenzaprine 5 mg tablet; Take 1 tablet by mouth daily for 7 days. Dispense: 7 tablet; Refill:0 - CONSULT/REFERRAL PHYSICAL THERAPY - AMBULATORY SURGICAL BOOT EAC RTC in 2 weeks, sooner with concerns Preventive Care: Medication reconciliation, patient education and anticipatory guidance completed. All questions and concerns addressed. >50% of visit was for counseling and coordination of care with patient as documented under plans above. Total visit time 15 Minutes. Rigoberto Carolina MD 2019 6:24 PM documented in this encounter Plan of Treatment Date Type Specialty Care Team Description 02/01/2019 Office Visit Orthopedic Surgery Sea Rogers MD [facility] [place] [phone] 02/10/2019 Office Visit Family Medicine Rigoberto Carolina MD [address] [place] [address] Dr Choi [address] [place] [address] 02/23/2019 Office Visit Obstetrics & Gynecology Luci Gordillo MD [address] [place] [address] DR. Choi [address] [place] [address] [phone] Health Maintenance Due Date Last Done Comments [...] this topic documented as of this encounter Results Not on filedocumented in this encounter Visit Diagnoses Diagnosis Closed avulsion fracture of left ankle, sequela - Primary Pain and swelling of left ankle documented in this encounter Insurance Payer Benefit Plan / Subscriber ID Effective Phone Address Type Group [facility] xxxxxxxxx 2018-Pres [address] Medicaid HEALTH CHOICE - HEALTH CHOICE ent [id number] MANAGED MEDICAID [place], [place] [phone] documented as of this encounter
--- OUTSIDE RECORDS SUMMARY | 2019-02-27 14:59 | XMS REPORT | Summary of Care ---
:1995 Author Organization [facility] - [facility] Address [address] [place] [id number] Care Team Providers Name Role Phone Ann Adams Insurance Hmo Pcp, Patient Does Not Have A Primary Care Provider Reason for Referral (Routine) Status Reason Specialty Diagnoses / Referred By Referred To Procedures Contact Contact New Request Orthopedic Surgery Diagnoses Closed avulsion fracture of left ankle, sequela [place], Procedures CONSULT/REFERRAL ORTHOPAEDIC SURGERY MD Rigoberto [address] [place] [address] Dr Choi [address] [place] [phone] (Routine) Status Reason Specialty Diagnoses / Referred By Referred To Procedures Contact Contact New Request Physical Therapy Diagnoses Closed avulsion fracture of left ankle, sequela [place], Procedures CONSULT/REFERRAL PHYSICAL THERAPY MD Rigoberto [address] [place] [address] Dr Choi [address] [place] [phone] Reason for Visit Reason Comments Establish Care Ankle Pain "hairline fracture" on 01/19/2019 after tripping & falling in ditch Referral/consult requesting orthopedic referral Encounter Details Date Type Department Care Team Description 2019 Office Visit [facility] Rigoberto Carolina, Closed avulsion fracture of left ankle, sequela (Primary Dx); and Adult Primary MD Pain and swelling of left ankle Care- [address] [place] [address] Jimbo Silverio [address] [place], [place] [id number] [place] [phone] Allergies No Known Allergiesdocumented as of this encounter (statuses as of 2019) Medications Medication Sig Dispensed Refills Start Date End Date Status sod zlghc-uvadgk-nvzues Use 1 Bottle 1 Each 0 08/26/2017 [...] 11/06/2017 Thrombocytopenia 12/28/2014 Overview: ICD10 Diagnosis 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 Date Last Reviewed: 06/21/201719999967-[address] [employer] [place] [address]. All rights reserved. This information is not [...] splint, or bootout of the water, protected leif0fjdxc plastic bags. Place 1 bag outside of the other. Tape eachbag with duct tapeat the top end. Water can still leak in. So it's best to keep the cast, splint,or boot away from water.If a boot or fiberglass cast or splint gets wet, dry it with a hair dryeron a cool setting. You may sxriumk-xot-xgfysyg pain medicineto control pain, unless another pain [...] cast developscracks or breaks Date Last Reviewed: 05/13/201519991133-0972 [employer]. [address] [place] [address], [place] [address]. All rights reserved. This information is not [...] she slipped. She was seen at the [facility]. Denies pain at the moment. Denies hx [...] by mouth daily. 100 tablet 3 sod cgwog-frdccw-cxgpyg bottle (NEILMED SINUS RINSE COMPLETE) pkdv Use [...] file Gets together: Not on file Attends nondenominational service: Not on file Active member of [...] Office Visit Orthopedic Surgery Sea Rogers MD [facility] [place] [address] 02/10/2019 Office Visit Family Medicine Rigoberto Carolina MD [address] [place] [address] Dr Choi [address] [place] [address] 02/23/2019 Office Visit Obstetrics & Gynecology Luci Gordillo MD [address] [place] [address] DR. Choi [address] [place] [address] [phone] Health Maintenance Due Date Last Done Comments [...] Subscriber ID Effective Phone Address Type Group [facility] xxxxxxxxx 2018-Pres [address] Medicaid HEALTH CHOICE - HEALTH CHOICE ent [id number] MANAGED MEDICAID [place], [place] [id number] documented as of this encounter
--- OUTSIDE RECORDS SUMMARY | 2019-02-27 15:11 | XMS REPORT ---
:1995 [facility] Address [address] [place] [address] Dr. Tamayo [address] [place] [address] Care Team Providers Name Role Phone Unavailable Unavailable Unavailable Problems This patient has no known problems. Allergies, Adverse Reactions, Alerts This patient has no known allergies or adverse reactions. Medications This patient has no known medications.
--- NOTE | 2019-02-27 17:03 | ER ---
Nurse's Notes [facility] Name: Roberto Traore Age: 24 yrs Sex: Female : 1995 Arrival Date: 02/27/2019 Time: 15:12 Bed DIS1 Private MD: Diagnosis: Chest pain, unspecified Presentation: 02/27 15:13 Presenting complaint: Patient states: "my is sick and I thought I would get aa5 checked too". Pt c/o slight cough. Transition of care: patient was not received from another setting of care. Onset of symptoms was February 2019. Risk Assessment: Do you want to hurt yourself or someone else? Patient reports no desire to harm self or others. Initial Sepsis Screen: Does the patient meet any 2 criteria? No. Patient's initial sepsis screen is negative. Does the patient have a suspected source of infection? No. Patient's initial sepsis screen is negative. Care prior to arrival: None. 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 - Social history:: Smoking status: Patient/guardian denies using tobacco. - Ebola Screening: : No symptoms or risks identified at this time. - Family history:: not pertinent. - Hospitalizations: : No recent hospitalization is reported. Screenin:20 Abuse screen: Denies threats or abuse. Denies injuries from another. Abuse screen: ca1 Denies threats or abuse. Nutritional screening: No deficits noted. 15:20 Tuberculosis screening: No symptoms or risk factors identified. Fall Risk None ca1 identified. Assessment: 15:20 General: Appears in no apparent distress. comfortable, Behavior is calm, cooperative, ca1 appropriate for age. Pain: Complains of pain in mid-sternal area Pain does not radiate. Pain currently is 5 out of 10 on a pain scale. Quality of pain is described as heavy, Pain began 1 day ago. Is continuous. Neuro: Level of Consciousness is awake, alert, obeys commands, Oriented to person, place, time, situation. Cardiovascular: Heart tones S1 S2 present Capillary refill < 3 seconds Patient's skin is warm and dry. Pulses are all present. Respiratory: Reports cough that is Airway is patent Respiratory effort is even, unlabored, Respiratory pattern is regular, symmetrical, Breath sounds are clear bilaterally. GI: Abdomen is round non-distended, Bowel sounds present X 4 quads. Abd is soft and non tender X 4 quads. : No deficits noted. No signs and/or symptoms were reported regarding the genitourinary system. EENT: No deficits noted. No signs and/or symptoms were reported regarding the EENT system. Derm: Skin is intact, is healthy with good turgor, Skin is pink, warm \\T\\ dry. Musculoskeletal: Circulation, motion, and sensation intact. Capillary refill < 3 seconds, Range of motion: intact in all extremities. 16:32 Reassessment: Patient appears in no apparent distress at this time. Patient and/or ca1 family updated on plan of care and expected duration. Pain level reassessed. Patient is alert, oriented x 3, equal unlabored respirations, skin warm/dry/pink. Vital Signs: 15:15 BP 123 / 77; Pulse 83; Resp 16 S; Temp 98.0(TE); Pulse Ox 100% on R/A; Weight 72.57 kg aa5 (R); Height 4 ft. 11 in. (149.86 cm); Pain 0/10; 16:39 BP 119 / 72; Pulse 79; Resp 16 S; Temp 99(O); Pulse Ox 100% on R/A; ca1 15:15 Body Mass Index 32.31 (72.57 kg, 149.86 cm) aa5 ED Course: 15:12 Patient arrived in ED. mr 15:13 Arm band placed on. aa5 15:14 Triage completed. aa5 15:17 Louise Carmichael, BENNIE is Primary Nurse. ca1 15:20 Ric Gentile MD is Attending Physician. rn 15:20 Patient has correct armband on for positive identification. Bed in low position. Call ca1 light in reach. Side rails up X 1. Pulse ox on. NIBP on. Warm blanket given. 15:20 No provider procedures requiring assistance completed. Patient did not have IV access ca1 during this emergency room visit. Patient maintains SpO2 saturation greater than 95% on room air. Administered Medications: No medications were administered Outcome: 16:39 Discharge ordered by . rn 16:47 Discharged to home ambulatory, with significant other. ca1 16:47 Condition: stable 16:47 Discharge instructions given to patient, Instructed on discharge instructions, follow up and referral plans. Demonstrated understanding of instructions, follow-up care. 16:47 Patient left the ED. ca1 Signatures: Deidra Hill mr SchwabRic yung MD MD rn Calderon, Audri RN RN aa5 Louise Carmichael RN RN ca1
--- NOTE | 2019-02-27 17:04 | EDPHYS ---
Physician Documentation [facility] Name: Roberto Traore Age: 24 yrs Sex: Female : 1995 Arrival Date: 02/27/2019 Time: 15:12 Bed DIS1 Private MD: ED Physician Ric Gentile HPI: 02/27 15:47 This 24 yrs old Female presents to ER via Ambulatory with complaints of Cough. rn 15:47 The patient or guardian reports chest pain that is located primarily in the anterior rn chest wall, left. The pain does not radiate. Associated signs and symptoms: The patient has no apparent associated signs or symptoms, Pertinent negatives: abdominal pain, cough, diaphoresis, dizziness, headache, lower extremity pain, lower extremity swelling, lightheadedness, nausea, near syncope, palpitations, recent travel, shortness of breath, syncope, vomiting. The chest pain is described as sharp. Duration: The patient or guardian reports multiple episodes, that are intermittent. Modifying factors: The symptoms are alleviated by nothing. the symptoms are aggravated by nothing. Severity of pain: At its worst the pain was very mild in the emergency department the pain is unchanged. The patient has not experienced similar symptoms in the past. Reports doesn't feel sick or something is wrong but signed in for flu like symptoms and she reports felt chest pain and an area on her left arm was hurting. No previous cardiac problems, no medical problems, no fever/cough/sob/neck pain. No famhx of early cardiac problems.. 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 - Social history:: Smoking status: Patient/guardian denies using tobacco. - Ebola Screening: : No symptoms or risks identified at this time. - Family history:: not pertinent. - Hospitalizations: : No recent hospitalization is reported. ROS: 15:47 Constitutional: Negative for fever, chills, and weight loss, Eyes: Negative for injury, rn pain, redness, and discharge, Neck: Negative for injury, pain, and swelling, Cardiovascular: Negative for palpitations, and edema, Respiratory: Negative for shortness of breath, cough, wheezing, and pleuritic chest pain, Abdomen/GI: Negative for abdominal pain, nausea, vomiting, diarrhea, and constipation, MS/Extremity: Negative for injury and deformity, Skin: Negative for injury, rash, and discoloration, Neuro: Negative for headache, weakness, numbness, tingling, and seizure. Exam: 15:47 Constitutional: This is a well developed, well nourished patient who is awake, alert, rn and in no acute distress. Ambulatory to room without difficulty or assistance. Head/Face: Normocephalic, atraumatic. Eyes: Pupils equal round and reactive to light, extra-ocular motions intact. Lids and lashes normal. Conjunctiva and sclera are non-icteric and not injected. Cornea within normal limits. Periorbital areas with no swelling, redness, or edema. ENT: Nares patent. No nasal discharge, no septal abnormalities noted. Oropharynx with no redness, swelling, or masses, exudates, or evidence of obstruction, uvula midline. Mucous membranes moist. Neck: Trachea midline, no thyromegaly or masses palpated, and no cervical lymphadenopathy. Supple, full range of motion without nuchal rigidity, or vertebral point tenderness. No Meningismus. Cardiovascular: Regular rate and rhythm. No pulse deficits. Respiratory: Lungs have equal breath sounds bilaterally, clear to auscultation. No increased work of breathing, no retractions or nasal flaring. Skin: Warm, dry with normal turgor. Normal color with no rashes, no lesions, and no evidence of cellulitis. MS/ Extremity: Pulses equal, no cyanosis. Neurovascular intact. Full, normal range of motion. Equal circumference. Neuro: Awake and alert, GCS 15, oriented to person, place, time, and situation. Cranial nerves II-XII grossly intact. Motor strength 5/5 in all extremities. Sensory grossly intact. Cerebellar exam normal. Normal gait. Vital Signs: 15:15 BP 123 / 77; Pulse 83; Resp 16 S; Temp 98.0(TE); Pulse Ox 100% on R/A; Weight 72.57 kg aa5 (R); Height 4 ft. 11 in. (149.86 cm); Pain 0/10; 16:39 BP 119 / 72; Pulse 79; Resp 16 S; Temp 99(O); Pulse Ox 100% on R/A; ca1 15:15 Body Mass Index 32.31 (72.57 kg, 149.86 cm) aa5 MDM: 15:20 Patient medically screened. rn 16:38 Differential diagnosis: viral syndrome. Data reviewed: vital signs, nurses notes, and rn as a result, I will discharge patient. Counseling: I had a detailed discussion with the patient and/or guardian regarding: the historical points, exam findings, and any diagnostic results supporting the discharge/admit diagnosis, the need for outpatient follow up, to return to the emergency department if symptoms worsen or persist or if there are any questions or concerns that arise at home. Special discussion: I discussed with the patient/guardian in detail that at this point there is no indication for admission to the hospital. It is understood, however, that if the symptoms persist or worsen the patient needs to return immediately for re-evaluation. Administered Medications: No medications were administered Disposition: 02/27/19 16:39 Discharged to Home. Impression: Chest pain, unspecified. - Condition is Stable. - Discharge Instructions: Nonspecific Chest Pain. - Medication Reconciliation Form, Thank You Letter, Antibiotic Education, Prescription Opioid Use form. - Follow up: Private Physician; When: As needed; Reason: Recheck today's complaints, Re-evaluation by your physician. - Problem is new. - Symptoms have improved. Signatures: Ric Gentile MD MD rn Calderon, Audri, RN RN aa5 Louise Carmichael RN RN ca1 Corrections: (The following items were deleted from the chart) 16:47 16:39 02/27/2019 16:39 Discharged to Home. Impression: Chest pain, unspecified. ca1 Condition is Stable. Forms are Medication Reconciliation Form, Thank You Letter, Antibiotic Education, Prescription Opioid Use. Follow up: Private Physician; When: As needed; Reason: Recheck today's complaints, Re-evaluation by your physician. Problem is new. Symptoms have improved. rn
[2019-02-27 19:20] VITALS: O2SAT 100
[2019-02-27 19:21] VITALS: BP 119/72; TEMP 99
== END 2019-02-27 16:47 | disposition home or self-care (01) ==
LOC: ER 14:57
DX: R07.9 Chest pain, unspecified (principal)
CPT/HCPCS: 99284

== ENCOUNTER 2019-10-05 14:23 | Emergency (ER) | payer OTHER, SELFPAY ==
--- OUTSIDE RECORDS SUMMARY | 2019-10-05 14:38 | XMS REPORT ---
:1995 Author Organization [facility] t Address [address] [place] [address] Dr. Tamayo [address] [place] [address] Care Team Providers Name Role Phone Unavailable Unavailable Unavailable Problems This patient has no known problems. Allergies, Adverse Reactions, Alerts This patient has no known allergies or adverse reactions. Medications This patient has no known medications.
--- OUTSIDE RECORDS SUMMARY | 2019-10-05 14:39 | XMS REPORT | Summary of Care ---
:1995 Author Organization [facility] - [facility] Address [address] [place] [address] Care Team Providers Name Role Phone Yuki Adams Insurance Hmo Pcp, Does Not Have A Primary Care Provider Reason for Visit Reason Comments Anxiety Auth/Cert Status Reason Specialty Diagnoses / Referred By Referred To Procedures Contact Contact Emergency Medicine Adc Em ergency Dept [address] [facility] [place] [address] Fax: Encounter Details Date Type Department Care Team Description 03/01/2019 Emergency ADC-Emergency Anamaria Bennett S, Anxiety ( Primary Dx); Department Hyperventilation syndrome [address] [place] [address] [address] [place] [address] [id number] [place], [place] [id number] Allergies No Known Allergiesdocumented as of this encounter (statuses as of 03/01/2019) Medications Medication Sig Dispensed Refills Start Date End Date Status sod huybx-uibzoo-twnwtz Use 1 Bottle 1 Each 0 08/26/2017 [...] as of this encounter (statuses as of 03/01/2019) Active Problems Problem Noted Date Closed avulsion fracture of left ankle, sequela 2018 Pain and swelling of left ankle 2019 depression 12/13/2018 Axillary accessory breast tissue 12/13/2018 Pre-eclampsia, severe, delivered 10/11/2018 Obesity (BMI 30-39.9) 11/06/2017 Thrombocytopenia 12/28/2014 Overview: ICD10 Diagnosis Term 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 documented as of this encounter (statuses as of 03/01/2019) Resolved Problems Problem Noted Date Resolved Date Full-term premature rupture of membranes with onset of labor 10/10/2018 12/13/2018 within 24 hours of rupture Normal labor 10/10/2018 12/13/2018 Liveborn infant, of gates , born in hospital by 11/07/2017 12/13/2018 vaginal delivery (spontaneous vaginal delivery) 11/07/201707/09 Pre-eclampsia in third trimester 11/07/2017 019 Full-term premature rupture of membranes with onset of labor 11/06/2017 07/09/2018 more than 24 hours following rupture 38 weeks gestation of 11/06/2017 07/09/19 19 Mother's group B Streptococcus colonization status unknown 0 11/06/2017 11/06/2017 Full-term PROM with onset of labor more than 24 hours after 11/06/2017 10/10/2018 rupture Contraceptive management 01/01/2016 10/10/2018 Encounter for Nexplanon removal 12/28/2014 10/11/19 Encounter for routine gynecological examination 12/28/2014 10/10/2018 Overview: ICD10 Diagnosis Term 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 Dizziness 12/28/2014 10/10/2018 documented as of this encounter (statuses as of 03/01/2019) Immunizations Name Administration Dates Next Due Tdap [...] Sign Reading Time Taken Comments Blood Pressure 130/86 03/01/2019 4:43 AM CDT Pulse 80 03/01/2019 4:43 AM CDT Temperature 36.7 C (98.1 F) 03/01/2019 4:43 AM CDT Respiratory Rate 18 03/01/2019 4:43 AM CDT Oxygen Saturation 98% 03/01/2019 4:43 AM CDT Inhaled Oxygen Concentration - - Weight 75.8 kg (167 lb) 03/01/2019 4:43 AM CDT Height - - Body Mass Index 33.73 2019 3:55 PM CDT documented in this encounter Discharge Instructions Anamaria Conn MD - 03/01/2019 DIAGNOSIS Diagnoses that have been ruled out: None Diagnoses that are still under consideration: None Final diagnoses: Anxiety NO LIFE-THREATENING FINDINGS ON TODAY'S EXAM. PROCEDURES IN THE ER TODAY: No orders of the defined types were placed in this encounter. MEDICATIONS ADMINISTERED IN THE ER TODAY AND DISCHARGE MEDICATIONS: Orders Placed This Encounter Medications LORazepam (ATIVAN) tablet 1 mg FOLLOW-UP RECOMMENDATIONS: RECOMMEND FOLLOW-UP WITH A PRIMARY CARE PROVIDER OR SPECIALIST IN 2-5 DAYS, ESPECIALLY IF NO IMPROVEMENT IN SYMPTOMS. MAY FOLLOW-UP WITH A PROVIDER OF YOUR CHOICE, SUCH : 1. A PHYSICIAN OF YOUR CHOICE 2. [facility], . LOCATIONS IN [facility] 3. [facility], [address] [place] [address]; [phone] OR, IF YOU WISH TO FOLLOW-UP WITHIN THE [facility], MAY TRY THESE OPTIONS (CLINIC APPOINTMENTS AVAILABLE ON JYGI-AR-BYPS BASIS): 1. SCHEDULE AN APPOINTMENT ONLINE AT [facility] 2. OR CALL THE [facility] AT OR 3. OR CALL YOUR [facility] PHYSICIAN'S OFFICE DIRECTLY IF YOU ARE ALREADY AN ESTABLISHED [facility] PATIENT. RETURN TO ER FOR WORSENING OF SYMPTOMS AttachmentsThe following attachments cannot be sent through Care Everywhere. Anxiety Disorders, Understanding (Kosovan)Anxiety, Your Body's Response to (Kosovan)documented in this encounter Plan of Treatment Health Maintenance Due Date Last Done Comments PNEUMOCOCCAL 0-64 YEARS 2003 COMBINED SERIES (1 of 1 - PPSV23) MENINGOCOCCAL B VACCINES (1 of 2007 2 - Risk Bexsero 2-dose series) VARICELLA VACCINES (1 of 2 - 2010 13+ 2-dose series) HPV VACCINES (1 - Female 01/28/2012 3-dose series) PAP SMEAR 2018 INFLUENZA VACCINE (#1) 2019 CHLAMYDIA SCREENING 07/09/2019 07/09/2018, 10/17/2017, 12/25/2014 DTaP,Tdap,and Td Vaccines (2 - 01/25/2022 01/26/2012 Td) MENINGOCOCCAL VACCINE Aged Out No longer eligible based on patient's age to complete this to pic documented as of this encounter Procedures Procedure Name Priority Date/Time Associated Diagnosis Comme nts NOTICE OF PRIVACY Routine 03/01/2019 4:30 AM CDT PRACTICES CONSENT/REFUSAL FOR Routine 03/01/2019 4:30 AM CDT DIAGNOSIS AND TREATMENT documented in this encounter Results Not on filedocumented in this encounter Visit Diagnoses Diagnosis Anxiety - Primary Anxiety state, unspecified Hyperventilation syndrome Respiratory malfunction arising from men scotty factors documented in this encounter Administered Medications Medication Order MAR Action Action Date Dose Rate Site LORazepam (ATIVAN) tablet 1 mg Given 03/01/2019 5:12 AM CDT 1 mg 1 mg, Oral, ONCE, 1 dose, Wed03/01/19 at 0615, JOE documented in this encounter Insurance Payer Benefit Plan Subscriber ID Effective Phone Address Typ e / Group Dates [place] xxxxxxxxx 2019-Preskerri [phone] P O AMANDA X Medicaid WOMEN WOMEN nt [address] [place] [address] documented as of this encounter
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
--- OUTSIDE RECORDS SUMMARY | 2019-10-05 14:40 | XMS REPORT | Summary of Care ---
:1997 Author Organization [facility] - [facility] Address [address] [place] [address] Care Team Providers Name Role Phone Yuki Adams Insurance Hmo Pcp, Does Not Have A Primary Care Provider Reason for Visit Radiology Services (Routine) Status Reason Specialty Diagnoses / Referred By Referred To Procedures Contact Contact New Request Diagnostic Diagnoses Injury of left ankle, initial encounter Chucho Baer, Radiology Procedures XR ANKLE <3 VW LEFT PAC [address] [place] [address] Encounter Details Date Type Department Care Team Description 03/01/2019 Hospital Encounter [facility] Chucho Baer , [facility] Orthopedics - PAC Radiology [address] [place] [address] [place], [place] [phone] Allergies No Known Allergiesdocumented as of this encounter (statuses as of 03/02/2019) Medications Medication Sig Dispensed Refills Start Date End Date Status sod tbjyu-twiqaz-khmaiq Use 1 Bottle 1 Each 0 08/26/2017 [...] as of this encounter (statuses as of 03/02/2019) Active Problems Problem Noted Date Closed avulsion fracture of left ankle, sequela 2018 Pain and swelling of left ankle 2019 depression 12/13/2018 Axillary accessory breast tissue 12/13/2018 Pre-eclampsia, severe, delivered 10/11/2018 Obesity (BMI 30-39.9) 11/06/2017 Thrombocytopenia 12/28/2014 Overview: ICD10 Diagnosis 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 documented as of this encounter (statuses as of 03/02/2019) Resolved Problems Problem Noted Date Resolved Date [...] 10/10/2018 Encounter for Nexplanon removal 12/28/2014 10/11/19 19 Encounter for routine gynecological examination 12/28/2014 10/10/2018 Overview: ICD10 Diagnosis 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 Dizziness 12/28/2014 10/10/2018 documented as of this encounter (statuses as of 03/02/2019) Immunizations Name Administration Dates Next Due Tdap [...] of this encounter Last Filed Vital Signs Not on filedocumented in this encounter Plan of Treatment Date Type Specialty Care Team Description 03/03/2019 Office Visit Family Medicine Rigoberto Carolina MD [address] [place] [address] Dr Iniguez [place], [place] [address] [phone] Name Type Priority Associated Diagnoses Date/Ti me XR ANKLE <3 VW LEFT IMAGING Routine Injury of left ankle, 03/01/2019 3:40 PM CDT initial encounter Name Type Priority Associated Diagnoses Order S chedule XR ANKLE <3 VW LEFT IMAGING Routine Injury of left ankle, 1 Occurrences starting initial encounter 03/01/2019 until 03/01/2019 Health Maintenance Due Date Last Done Comments [...] to pic documented as of this encounter Results Not on filedocumented in this encounter Visit Diagnoses Diagnosis Injury of left ankle, initial encounter documented in this encounter Insurance Payer Benefit Plan Subscriber ID Effective Phone Address Typ e / Group Dates [place] xxxxxxxxx 2019-Prese [phone] P O AMANDA X Medicaid WOMEN WOMEN nt [address] [place] [address] documented as of this encounter
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
--- OUTSIDE RECORDS SUMMARY | 2019-10-05 14:41 | XMS REPORT | Summary of Care ---
:1997 Author Organization [facility] - Health Address [address] [place] [address] Care Team Providers Name Role Phone Yuki Adams Insurance Hmo Pcp, Does Not Have A Primary Care Provider Encounter Details Date Type Department Care Team Description 03/02/2019 Orders Only [facility] Doctor Unassigned, No [address] [facility] [place] [address] [address] [place] [address] Allergies No Known Allergiesdocumented as of this encounter (statuses as of 03/02/2019) Medications Medication Sig Dispensed Refills Start Date End Date Status sod isgdu-cplqtb-zchykq Use 1 Bottle 1 Each 0 08/26/2017 [...] Thrombocytopenia 12/28/2014 Overview: ICD10 Diagnosis 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 documented as of this encounter (statuses [...] 12/28/2014 10/10/2018 Overview: ICD10 Diagnosis 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 Dizziness 12/28/2014 10/10/2018 documented as of [...] Office Visit Family Medicine Rigoberto Carolina MD [address] [place] [address] Dr Choi [address] [place], [place] [address] [phone] Health Maintenance Due Date Last Done Comments [...] Name Priority Date/Time Associated Diagnosis Comme nts CONSENT/REFUSAL FOR Routine 03/02/2019 2:51 PM CDT DIAGNOSIS AND TREATMENT documented in this encounter Results Not on filedocumented in this encounter Insurance Payer Benefit Plan Subscriber ID Effective Phone Address Typ e / Group Dates [place] xxxxxxxxx 2019-Josue [phone] P O AMANDA X Medicaid WOMEN WOMEN nt [address] [place] [address] documented as of this encounter
--- OUTSIDE RECORDS SUMMARY | 2019-10-05 14:41 | XMS REPORT | Summary of Care ---
:1995 Author Organization [facility] - Health Address [address] [place] [id number] Care Team Providers Name Role Phone Yuki Adams Insurance Hmo Yuki Adams Primary Care Provider Reason for Visit Reason Comments Sore Throat SWOLLEN GLANDS Auth/Cert Status Reason Specialty Diagnoses / Referred By Referred To Procedures Contact Contact Emergency Medicine [facility] Dept [address] [place] [address] [place] [address] Fax: Encounter Details Date Type Department Care Team Description 03/02/2019 Emergency [facility] Manoj Mcintosh III, Allerg ic rhinitis with postnasal drip (Primary Dx); Department PA [place] exposure [address] [place] [address] [place] [address] [place], [place] [id number] Allergies No Known Allergiesdocumented as of this encounter (statuses as of 03/02/2019) Medications Medication Sig Dispensed Refills Start End Date Status Date hydroCHLOROthiazide 25 Take 1 42 tablet 0 Active mg tabletIndications: tablet by 9 Obesity (BMI 30-39.9), mouth daily. 38 weeks gestation of , Liveborn infant, of gates , born in hospital by vaginal delivery, Full-term premature rupture of membranes with onset of labor within 24 hours of rupture, Normal labor, Pre-eclampsia, severe, delivered vitamin w/FA Take 1 100 tablet 3 Active tabletIndications: tablet by 9 Obesity (BMI 30-39.9), mouth daily. 38 weeks gestation of , Liveborn , of gates , born in hospital by vaginal delivery, Full-term premature rupture of membranes with onset of labor within 24 hours of rupture, Normal labor, Pre-eclampsia, severe, delivered docusate calcium 240 mg Take 1 30 capsule 1 Active capsuleIndications: capsule by 9 Obesity (BMI 30-39.9), mouth once 38 weeks gestation of daily as , Liveborn needed for infant, of gates Constipation , born in . hospital by vaginal delivery, Full-term premature rupture of membranes with onset of labor within 24 hours of rupture, Normal labor, Pre-eclampsia, severe, delivered ferrous sulfate 325 mg Take 1 60 tablet 2 Active (65 mg iron) tablet by 9 tabletIndications: mouth 2 Obesity (BMI 30-39.9), (two) times 38 weeks gestation of daily. , Liveborn , of gates , born in hospital by vaginal delivery, Full-term premature rupture of membranes with onset of labor within 24 hours of rupture, Normal labor, Pre-eclampsia, severe, delivered ibuprofen 600 mg Take 1 30 tablet 1 Act rosio tabletIndications: tablet by 9 Obesity (BMI 30-39.9), mouth every 38 weeks gestation of 6 (six) , Liveborn hours as , of gates needed for , born in Pain (scale hospital by vaginal 1-3) or Pain delivery, Full-term (scale 4-6) premature rupture of (Pain). Take membranes with onset of with food or labor within 24 hours of milk. rupture, Normal labor, Pre-eclampsia, severe, delivered traMADOL (ULTRAM) 50 mg Take 1 20 tablet 0 Active tabletIndications: tablet by 9 Generalized abdominal mouth every pain, Chronic abdominal 6 (six) pain hours as needed for Pain (scale 7-10). ondansetron (ZOFRAN) 4 Take 1 12 tablet 0 Active mg tabletIndications: tablet by 9 Generalized abdominal mouth every pain, Chronic abdominal 8 (eight) pain hours as needed for Nausea and Vomiting (N/V). metroNIDAZOLE (FLAGYL) Take 1 14 tablet 1 Active 500 mg tablet by 9 tabletIndications: BV mouth 2 (bacterial vaginosis) (two) times daily. sod jmzdv-tfppol-nsrwvm Use 1 Bottle 1 Each 0 Active bottle (NEILMED SINUS in each 9 RINSE COMPLETE) nostril 2 pkdvIndications: (two) times Allergic rhinitis with daily. Use postnasal drip, [place] in hot exposure shower 1 hour before bedtime loratadine 10 mg Take 1 30 tablet 0 Act rosio tabletIndications: tablet by 9 Allergic rhinitis with mouth daily. postnasal drip, [place] exposure predniSONE 10 mg Take 4 12 tablet 0 03/05/20 Act rosio tabletIndications: tablets by 9 19 Allergic rhinitis with mouth daily postnasal drip, [place] for 3 days. exposure sod xtcxw-yazqts-tqndqv Use 1 Bottle 1 Each 0 06/09 Discontinued bottle (NEILMED SINUS in each 8 19 RINSE COMPLETE) pkdv nostril 2 (two) times daily. 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 Dizziness 12/28/2014 10/10/2018 documented as of [...] Sign Reading Time Taken Comments Blood Pressure 135/82 03/02/2019 3:04 PM CDT Pulse 77 03/02/2019 3:04 PM CDT Temperature 37.1 C (98.7 F) 03/02/2019 3:04 PM CDT Respiratory Rate 18 03/02/2019 3:04 PM CDT Oxygen Saturation 100% 03/02/2019 3:04 PM CDT Inhaled Oxygen Concentration - - Weight 72.6 kg (160 lb) 03/02/2019 3:04 PM CDT Height - - Body Mass Index 33.44 03/01/2019 3:46 PM CDT documented in this encounter Discharge Instructions InstructionsMoManoj dunn III, PA - 03/02/2019 @@@@@@@@@@@@@@@@@@@@@@@@@@@@@@@@@@@@@@@@@@@@@@@@@@@@@ [facility] RETURN TO WORK / SCHOOL EXCUSE Roberto Traore WAS SEEN IN THE ER AND DISCHARGED 03/02/2019 TODAY, 3:42 PM & May return to Work / School / Incarceration on 03/03/19 with No limitations unless indicated below. ___The following limitations apply until pt is seen by Physician and cleared to return to normal activity. ___ Light duty ___ No Sports ___ No work ___ Do not return until fever free for 24 hours. ___ No school Ed Arnaldo [facility] [address] [place] [address] [place] [address] If you are unprepared to return to work tomorrow due to pain please give this note to your employer and make a follow up appointment with your MD for further evaluation and limitations. ### The patient may have been given Narcotic pain medications during their stay in the ED that may show up on a Drug Screen. The hospital discharge paper work will identify these medications. @@@@@@@@@@@@@@@@@@@@@@@@@@@@@@@@@@@@@@@@@@@@@@@@@@@@@ Thank you for trusting us with your care. The emergency room is the first stop in the medical management of your complaint . Our primary pupose is to identify life threatening emergancies and to rapidly address those issues. We are releasing you today after evaluation for emergency or life threatening problems related to your complaint. At this time we are comfortable that your condition is stable enough to go home, take oral medications and follow up for further care. If you can't afford a doctor OR MEDICATIONS consider [facility], [address] [place] [address]; [phone] Medications VISup WILL SHOW YOU WHERE YOU CAN GET YOUR MEDICATIONS CHEAPEST. 1. Call your doctor and let them know you were seen for ICD-10-CM ICD-9-CM 1. Allergic rhinitis with postnasal drip J30.9 477.9 R09.82 784.91 2. [place] exposure Z20.828 V01.79 2. Schedule a follow up within 3 days of your ER visit. 3. Take your prescriptions to the pharmacy and get them filled today. 4. Take the medications as prescribed and until completed. 5. You have been referred for further care 6. You may need additional tests Your doctors will help you figure out what you need and how to get them done. 7. Please read all paperwork provided to you. Additional instructions See Attached AttachmentsThe following attachments cannot be sent through Care Everywhere. ([place]), Mononucleosis ([place])Allergic Rhinitis ([place])documented in this encounter Plan of Treatment Date Type Specialty Care Team Description 03/03/2019 Office Visit Family Medicine Rigoberto Carolina MD [address] [place] [address] Dr Choi Stone [place], [place] [address] [phone] Health Maintenance Due Date Last Done Comments [...] filedocumented in this encounter Visit Diagnoses Diagnosis Allergic rhinitis with postnasal drip - Primary [place] exposure Contact with or exposure to other viral diseases documented in this encounter
--- OUTSIDE RECORDS SUMMARY | 2019-10-05 14:42 | XMS REPORT | Summary of Care ---
:[address] [facility] - Health Address [address] [place] [address] Care Team Providers Name Role Phone Yuki Adams Insurance Hmo Yuki Adams Primary Care Provider Encounter Details Date Type Department Care Team Description 03/07/[address] [facility] Doctor Unassigned, No [address] [facility] [place] [address] [address] [place] [address] Allergies No Known Allergiesdocumented as of this encounter (statuses as of 03/07/2019) Medications Medication Sig Dispensed Refills Start Date End Date Status ibuprofen 600 mg Take 1 tablet by 30 tablet 1 10/11/2018 Active tabletIndications: mouth every 6 Obesity (BMI 30-39.9), (six) hours as 38 weeks gestation of needed for Pain , Liveborn (scale 1-3) or , of gates Pain (scale 4-6) , born in (Pain). Take with hospital by vaginal food or milk. delivery, Full-term premature rupture of membranes with onset of labor within 24 hours of rupture, Normal labor, Pre-eclampsia, severe, delivered traMADOL (ULTRAM) 50 mg Take 1 tablet by 20 tablet 0 9 Active tabletIndications: mouth every 6 Generalized abdominal (six) hours as pain, Chronic abdominal needed for Pain pain (scale 7-10). DM/p-ephed/acetaminoph/ Take by mouth. 0 Active doxylam (NYQUIL ORAL) aspirin 81 mg chewable Take 81 mg by 0 Active tablet mouth daily. 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 Screening examination for STD (sexually transmitted di sease) 12/28/2014 Overview: ICD10 Diagnosis 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 Director [employer] 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 documented as of this encounter (statuses as of 03/07/2019) Resolved Problems Problem Noted Date Resolved Date [...] than 24 hours after 11/06/2017 10/10/2018 rupture Encounter for Nexplanon removal 12/28/2014 10/11/19 19 Dizziness 12/28/2014 10/10/2018 documented as of this encounter (statuses as of 03/07/2019) Immunizations Name Administration Dates Next Due HPV9 03/07/2019 Tdap 01/26/2012 documented as of this encounter Social History Tobacco Use Types Packs/Day Years Used Date Former Smoker Cigarettes 03/07/2012 - 0 10/19/2018 Smokeless Tobacco: Never Used Alcohol Use Drinks/Week oz/Week Comments No 0 [...] Treatment Date Type Specialty Care Team Description 03/21/2019 Office Visit [facility] Jennifer Hamilton, [employer] [address] [id number] [phone] Health Maintenance Due Date Last Done Comments [...] Name Priority Date/Time Associated Diagnosis Comme nts PATIENT QUESTIONNAIRE Routine 03/07/2019 12:01 AM CDT documented in this encounter Results Not on filedocumented in this encounter Insurance Payer Benefit Plan Subscriber ID Effective Phone Address Typ e / Group Dates [facility] [place] [id number] xxxxxxxxx 2019-Prese [phone] Medicaid WOMEN [address] [place] [address] [facility] [place] [facility] [place] xxxxxxxxx 2019-Prese [phone] [address] [place] X Medicaid WOMEN WOMEN [address] [place] [address] documented as of this encounter
--- OUTSIDE RECORDS SUMMARY | 2019-10-05 14:42 | XMS REPORT | Summary of Care ---
:1995 Author Organization [facility] Address [address] [place] [id number] Care Team Providers Name Role Phone Yuki Adams Insurance [employer] Yuki Adams Primary Care Provider Reason for Visit Reason Comments Well Woman Exam Encounter Details Date Type Department Care Team Description 03/07/2019 Office Visit [facility]- Jennifer Hamilton We ll woman exam (Primary Dx); [facility] control counseling; [address] [place] [address] [facility] Screening examination for ST D (sexually transmitted disease); [place], [place] Need for HPV vaccination; [id number] [place] [address] History of depression [phone] Allergies No Known Allergiesdocumented as of this encounter (statuses as of 03/08/2019) Medications Medication Sig Dispensed Refills Start End Date Status Date ibuprofen 600 mg Take 1 30 tablet [...] hours as needed for Pain (scale 7-10). DM/p-ephed/acetaminoph/d Take by 0 Active oxylam (NYQUIL ORAL) mouth. aspirin 81 mg chewable Take 81 mg 0 Active tablet by mouth daily. hydroCHLOROthiazide 25 Take 1 42 tablet 0 0 Discontinued mg tabletIndications: tablet by 19 Obesity (BMI 30-39.9), mouth daily. 38 weeks gestation of , Liveborn , of gates , born in hospital by vaginal delivery, Full-term premature rupture of membranes with onset of labor within 24 hours of rupture, Normal labor, Pre-eclampsia, severe, delivered vitamin w/FA Take 1 100 tablet 3 0 Discontinued tabletIndications: tablet by 03 09 Obesity (BMI 30-39.9), mouth daily. 38 weeks gestation of , Liveborn infant, of gates , born in hospital by vaginal delivery, Full-term premature rupture of membranes with onset of labor within 24 hours of rupture, Normal labor, Pre-eclampsia, severe, delivered docusate calcium 240 mg Take 1 30 capsule 1 03/07 Discontinued capsuleIndications: capsule by 03 09 Obesity (BMI 30-39.9), mouth once 38 weeks gestation of daily as , Liveborn needed for infant, of gates Constipation , born in . hospital by vaginal delivery, Full-term premature rupture of membranes with onset of labor within 24 hours of rupture, Normal labor, Pre-eclampsia, severe, delivered ferrous sulfate 325 mg Take 1 60 tablet 2 0 Discontinued (65 mg iron) tablet by 03 09 tabletIndications: mouth 2 Obesity (BMI 30-39.9), (two) times 38 weeks gestation of daily. , Liveborn infant, of gates , born in hospital by vaginal delivery, Full-term premature rupture of membranes with onset of labor within 24 hours of rupture, Normal labor, Pre-eclampsia, severe, delivered ondansetron (ZOFRAN) 4 Take 1 12 tablet 0 0 Discontinued mg tabletIndications: tablet by 03 09 Generalized abdominal mouth every pain, Chronic abdominal 8 (eight) pain hours as needed for Nausea and Vomiting (N/V). metroNIDAZOLE (FLAGYL) Take 1 14 tablet 1 0 Discontinued 500 mg tablet by 03 09 tabletIndications: BV mouth 2 (bacterial vaginosis) (two) times daily. sod oaktq-woxupf-gscroc Use 1 Bottle 1 Each 0 Discontinued bottle (NEILMED SINUS in each 03 09 RINSE COMPLETE) nostril 2 pkdvIndications: (two) times Allergic rhinitis with daily. Use postnasal drip, [place] in hot exposure shower 1 hour before bedtime loratadine 10 mg Take 1 30 tablet 0 03/07/20 Dis continued tabletIndications: tablet by 03 09 Allergic rhinitis with mouth daily. postnasal drip, [place] exposure documented as of this encounter (statuses as of 03/08/2019) Active Problems Problem Noted Date Well woman exam 03/07/2019 Need for HPV vaccination 03/07/2019 History of depression 03/07/2019 Closed avulsion fracture of left ankle, sequela 2018 Pain and swelling of left ankle 2019 depression 12/13/2018 Axillary accessory breast tissue 12/13/2018 Pre-eclampsia, severe, delivered 10/11/2018 Obesity (BMI 30-39.9) 11/06/2017 control counseling 01/01/2016 Thrombocytopenia 12/28/2014 Overview: ICD10 Diagnosis Term [employer] Screening examination for STD (sexually transmitted di sease) 12/28/2014 Overview: ICD10 Diagnosis Term [employer] documented as of this encounter (statuses as of 03/08/2019) Resolved Problems Problem Noted Date Resolved Date [...] as of this encounter (statuses as of 03/08/2019) Immunizations Name Administration Dates Next Due HPV9 03/07/2019 Tdap 01/26/2012 documented as of this encounter Social History Tobacco Use Types Packs/Day Years Used Date Former Smoker Cigarettes 03/07/2012 - 0 10/19/2018 Smokeless Tobacco: Never Used Tobacco Cessation: Counseling Given: No Alcohol Use Drinks/Week oz/Week Comments No 0 Standard drinks or equivalent 0.0 Sex Assigned at Date Recorded Not on file Job Start Date Occupation Industry Not on file Not on file Not on file Travel History Travel Start Travel End No recent travel history available. documented as of this encounter Last Filed Vital Signs Vital Sign Reading Time Taken Comments Blood Pressure 123/77 03/07/2019 2:45 PM CDT Pulse 84 03/07/2019 2:45 PM CDT Temperature 36.8 C (98.3 F) 03/07/2019 2:45 PM CDT Respiratory Rate 18 03/07/2019 2:45 PM CDT Oxygen Saturation - - Inhaled Oxygen Concentration - - Weight 73.1 kg (161 lb 2 oz) 03/07/2019 2:45 PM CDT Height 149.9 cm (4' 11") 03/07/2019 2:45 PM CDT Body Mass Index 32.54 03/07/2019 2:45 PM CDT documented in this encounter Patient Instructions Patient InstructionsBelinda Thompson LVN - 03/07/2019 3:30 PM CDT Clinical Breast Exam Many health organizations recommend a yearly clinical breast exam. This exam may be done by a application administrator, family healthcare provider, nurse practitioner, nurse provider relations manager, or specially trained nurse. Yearly breast exams help tomake surethat breast conditions are found early. Your healthcare providers role A healthcare professional knows the tests and follow-up care needed if a problem is found. Your clinical exam is also a great time to ask questions about breast self-exams. You can find out if yourechecking your breasts in the best way. Or you may want to ask how , breast implants, or breast reduction surgery affect the way you should check your breasts. Diagnostic tests If a clinical exam reveals a breast change, you may have other tests to find out more. These tests may include: Mammography. A low-dose X-ray of your breast tissue. Ultrasound. An imaging test that uses sound waves to create images of your breast. Biopsy. A small amount of breast tissue is removed by needle or by a cut (incision). The tissue is then checked under a microscope. Guidelines for having clinical breast exams The [place] [employer] recommends that starting at age 29, you should have a clinical breast exam every 1 to 3 years. After age 40, have a clinical breast exam each year. If youre at higher risk for breast cancer, you may need exams more often. Risk factors for breast cancer may include: Being over 50 or postmenopausal Having a family history of breast cancer Having the BRCA1 or BRCA2 gene mutation or certain other gene mutations Having more menstrual periods due to starting menstruation early(before age 12) or having a late menopause (after age 55) Having no pregnancies Having a first after age 30 Being obese Having a history of radiation treatment to your chest area Exposure to EMETERIO during your mother's Not being active Drinking too much alcohol Having dense breast tissue Taking hormone therapy after menopause Other health organizations have different recommendations. Talk with your healthcare provider about what is best for you. Date Last Reviewed: 01/19/201719991689-2602 [employer]. [address] [place], [place] [id number]. All rights reserved. This information is not intended as a substitute for professional medical care. Always follow your healthcare professional's instructions. Breast Health: Breast Self-Awareness What is breast self-awareness? Breast self-awareness is knowing how your breasts normally look and feel. Your breasts change as yougo through different stages of your life. So its important to learn what is normal for your breasts. Breast self-awareness helps you notice any changes in your breasts right away. Report any changesto your healthcare provider. Why is breast self-awareness important? Many experts now say that women should focus on breast self-awareness instead of doing a breast self-examination (BSE). These experts include the [place] [employer], the U.S. Preventive Services Task Force, and the [place] [employer] Gynec[employer]. Some experts even advise notteaching women to do a BSE. Thats because research hasnt shown a clear benefit to doing BSEs. Breast self-awareness is different than a BSE. Breast self-awareness isnt about following a certain method and schedule. Its about knowing what's normal for your breasts. That way you can notice even small changes right away. If you see any changes, report them to your healthcare provider. Changes to look for Call your healthcare provider if you find any changes in your breasts that concern you. These changes may include: A lump Nipple discharge other than breastmilk, especially a bloody discharge Swelling A change in size or shape Skin irritation, such as redness, thickening, or dimpling of the skin Swollen lymph nodes in the armpit Nipple problems, such as pain or redness If you find a lump Contact your provider if you find lumpiness in one breast, feel something different in the tissue, or feel a definite lump. Sometimes lumpiness may be due to menstrual changes. But there may be reason for concern. Your provider may want to see you right away if you have: Nipple discharge that is bloody Skin changes on your breast, such as dimpling or puckering Its normal to be upset if you find a lump. But its important to contact your provider right away. Remember that most breast lumps are benign. This means they are not cancer. Date Last Reviewed: 01/19/201719992767-3280 [employer]. [address] [place] [address], [place] [address]. All rights reserved. This information is not intended as a substitute for professional medical care. Always follow your healthcare professional's instructions. Prevention Guidelines,Women Ages 18 to 39 Screening tests and vaccines are an important part of managing your health. A screening test is doneto find possible disorders or diseases in people who don't have any symptoms. The goal is to find a disease early so lifestyle changes can be made and you can be watched more closely to reduce the riskof disease, or to detect it early enough to treat it most effectively. Screening tests are not considered diagnostic, but are used to determine if more testing is needed. Health counseling is essential, too. Below are guidelines for these, for women ages 18 to 39. Talk with your healthcare provider tomake sure youre up-to-date on what you need. Screening Who needs it How often Alcohol misuse All women in this age group At routine exams Blood pressure All women in this age group Yearly checkup if your blood pressure is normal Normal blood pressure is less than 120/80 mm Hg If your blood pressure reading is higher than normal, follow the advice of your healthcare provider Breast cancer All women in this age group should talk with their healthcare providers about the needfor clinical breast exams (CBE)1 Clinical breast exam every 3 years1 Cervical cancer Women ages 21 and older Women between ages 21 and 29 should have a Pap test every 3 years; women between ages 30 and 65 are advised to have a Pap test plus an HPV test every 5 years Chlamydia Sexually active women ages 25 and younger, and women at increased risk for infection (suchas having multiple sex partners) Every year if you're at risk or have symptoms Depression All women in this age group At routine exams Type 2 diabetes, prediabetes All women with no symptoms who are overweight or obese and have 1 or more other risk factors for diabetes At least every 3 years. Also, testing for diabetes during after the 24th week. Type 2 diabetes, prediabetes All women diagnosed with gestational diabetes Lifelong testing every 3 years Type 2 diabetes All women with prediabetes Every year Gonorrhea Sexually active women at increased risk for infection At routine exams Hepatitis C Anyone at increased risk At routine exams HIV All women should be tested at least once for HIV between the ages of 13 and 64 At routine exams.Those with risk factors for HIV should be tested at least annually. Obesity All women in this age group At routine exams Syphilis Women at increased risk for infection should talk with their healthcare provider At routineexams Tuberculosis Women at increased risk for infection should talk with their healthcare provider Ask your healthcare provider Vision All women in this age group At least 1 complete exam in your 20s, and 2 in your 30s Vaccine2 Who needs it How often Chickenpox (varicella) All women in this age group who have no record of this infection or vaccine 2doses; the second dose should be given 4 to 8 weeks after the first dose Hepatitis A Women at increased risk for infection should talk with their healthcare provider 2 dosesgiven at least 6 months apart Hepatitis B Women at increased risk for infection should talk with their healthcare provider 3 dosesover 6 months; second dose should be given 1 month after the first dose; the third dose should be given at least 2 months after the second dose and at least 4 months after the first dose Haemophilus influenzaeType B (HIB) Women at increased risk for infection should talk with their healthcare provider 1 to 3 doses Human papillomavirus (HPV) All women in this age group up to age 26 3 doses; the second dose should be given 1 to 2 months after the first dose and the third dose given 6 months after the first dose Influenza (flu) All women in this age group Once a year Measles, mumps, rubella (MMR) All women in this age group who have no record of these infections or vaccines 1 or 2 doses Meningococcal Women at increased risk for infection should talk with their healthcare provider 1 or more doses Pneumococcal conjugate vaccine (PCV13)and pneumococcal polysaccharidevaccine(PPSV23) Women at increased risk for infection should talk with their healthcare provider PCV13: 1 dose ages 19 to 65 (protects against 13 types of pneumococcal bacteria) PPSV23: 1 to2 doses through age 64, or 1 dose at 65 or older (protects against 23 types of pneumococcal bacteria) Tetanus/diphtheria/pertussis (Td/Tdap) booster All women in this age group Td every 10 years, or a one-time dose of Tdap instead of a Td booster after age 18, then Td every 10 years Counseling Who needs it How often BRCA gene mutation testing for breast and ovarian cancer susceptibility Women with increased risk for having gene mutation When your risk is known Breast cancer and chemoprevention Women at high risk for breast cancer When your risk is known Diet and exercise Women who are overweight or obese When diagnosed, and then at routine exams Domestic violence Women at the age in which they are able to have children At routine exams Sexually transmitted infection prevention Women who are sexually active At routine exams Skin cancer Prevention of skin cancer in fair-skinned adults At routine exams Use of tobacco and the health effects it can cause All women in this age group Every visit 1 According to the ACS, women ages 20 to 39 years should have a clinical breast exam (CBE) as part of their routine health exam every 3 years. Breast self-exams are an option for women starting in their 20s.But the USPSTF does not recommend CBE. Date Last Reviewed: 03/21/201719994358-8815 [employer]. [address] [place] [address], [place] [address]. All rights reserved. This information is not intended as a substitute for professional medical care. Always follow your healthcare professional's instructions. Understanding STDs When it comes to sex, nothing is risk-free. Any sexual contact with the penis, vagina, anus, or mouth can spread a sexually transmitted disease (STD). The only sure way to prevent STDs is abstinence (not having sex). But there are ways to make sex safer. Use a latex condom each time you have sex. And choose your partner wisely. Use condoms for safer sex If you have sex, latex condoms provide the best protection against STDs. Latex condoms stop the exchange of body fluids that carry certain STDs. They also limit contact with affected skin. Be aware though, a condom doesnt cover all skin. So, affected skin that is not covered can still transfer disease. But youre safer with a condom than without one. Use a condom even if you use other control. While control methods like the pill or IUD help prevent , they do not protect against STDs. Choose the right condom Condoms made of latex prevent disease best. If youre allergic to latex, use polyurethane condoms instead. Male condoms fit over the penis. Female condoms line the vagina. Before buying a condom, read the label to be sure it prevents disease. Some novelty condoms dont. The right lubricant helps Buy lubricated condoms or use lubricant. This provides greater comfort and reduces the risk of condom breakage. Use only water-based lubricants. Dont use oil, lotion, or petroleum jelly. They can weaken the condom, causing breakage. Also, you may want to choose lubricants without nonoxynol-9. Its now known that this spermicide does not prevent disease and may cause irritation. Use condoms correctly For condoms to work, they must be used the right way. Keep these tips in mind: Use a new latex condom each time you have sex. Slip the condom on the penis before any contact ismade. When ready to withdraw, hold the rim of the condom as the penis pulls out. This prevents the condom from slipping off. Check the expiration date before using a condom. Dont store condoms in places that can get hot, such as a car or a wallet that is carried in a back pocket. Get to know your partner Safer sex is a process. It involves getting to know your partner and making informed choices. Ask each other how many partners you have had in the past, and how many you have now. Find out if either ofyou has an STD. If you decide to have sex, use a condom each time. Dont stop using condoms unlessyoure sure neither of you has other partners and youve both been tested to confirm you donthave STDs. Then stay free of disease by having sex only with each other (monogamy). Keep your cool Dont let alcohol or drugs cloud your judgment. They could lead you to have sex with someone you wouldnt have chosen if you were sober. Or, you might forget to use a condom. If you do plan to havesex, keep a latex condom with you. Dont wait until youre in the heat of passion to try to findone. Consider abstinence The only way to be sure you wont get an STD is to abstain from sex. Abstinence is a choice that many people make at some point in their lives. Maybe you want to wait until you are sure youre ready before you have sex. Maybe youd like a break from the responsibilities of sex for a while. Or maybe you just want to know your partner better before taking the next step. Abstinence is a choice youcan make now to protect your future. Date Last Reviewed: 05/21/201619992510-1704 [employer]. [address] [place] [address], [place] [address]. All rights reserved. This information is not intended as a substitute for professional medical care. Always follow your healthcare professional's instructions. Understanding HIV and AIDS If you know how HIV (human immunodeficiency virus) can get into your body and what happens once its there, youll be better prepared to protect yourself or others against this virus. A person withHIV can look and feel perfectly healthy. But that person can give HIV to others as soon as he or sheis infected with the virus. Note: Having unsafe or unprotected sex or sharing needles put you at risk for HIV. Talk with your healthcare provider about ways to protect yourself or a loved one from getting HIV. How HIV enters the body HIV is carried in semen, vaginal fluid, blood, and breast milk. During sex, HIV can enter the body through the fragile tissue that lines the vagina, penis, anus,and mouth. During drug use, tattooing, or body piercing, the virus can enter the bloodstream through a shared needle. A mother who has HIV can infect her child during childbirth and through . How HIV infection progresses After HIV enters the body, it attacks the immune system in stages. A person with HIV can infect others once the virus enters the bloodstream. HIV with no symptoms. A person with HIV may have no symptoms for years. A positive blood test for HIV antibodies 6 weeks to 6 months after HIV enters the body may be the only sign of infection. HIV with symptoms.Some people develop an illness similar to mononucleosis (or "mono") 2 to 4 weeksafter the virus enters the body. Symptoms may include swollen lymph glands, chills, fever, night sweats, weakness, weight loss, skin rashes, mouth ulcers, or sore throat. Symptoms may be mild at first and then slowly go away. In a very few individuals, symptoms may get progressively worse and last forlonger and longer periods. AIDS. AIDS is the last stage of HIV infection. Diseases and cancers begin to overcome the body. It is these diseases, not the virus itself, that cause . HIV may also attack the brain and nervous system, causing seizures and loss of memory and body movement. Date Last Reviewed: 04/21/201619999843-7350 [employer]. [address] [place] [address], [place] [address]. All rights reserved. This information is not intended as a substitute for professional medical care. Always follow your healthcare professional's instructions. Eating Heart-Healthy Foods Eating has a big impact on your heart health. In fact, eating healthier can improve several of your heart risks at once. For instance, it helps you manage weight, cholesterol, and blood pressure. Here are ideas to help you make heart- healthy changes without giving up allthe foods and flavors you love. Getting started Talk with your healthcare provider about eating plans, such as the DASH or Mediterranean diet. You may also be referred to a dietitian. Change a few things at a time. Give yourself time to get used to a few eating changes before adding more. Work to create a tasty, healthy eating plan that you can stick to for the rest of your life. Goals for healthy eating Below are some tips to improve your eating habits: Limit saturated fats and trans fats. Saturated fats raise your levels of cholesterol, so keep these fats to a minimum. They are found in foods such as fatty meats, whole milk, cheese, and palm and coconut oils. Avoid trans fats because they lower good cholesterol as well as raise bad cholesterol. Trans fats are most often found in processed foods. Reduce sodium (salt) intake. Eating too much salt may increase your blood pressure. Limit your sodium intake to 2,300 milligrams (mg) per day(the amount in 1 teaspoon of salt), or less if your healthcare provider recommends it. Dining out less often and eating fewer processed foods are two great ways to decrease the amount of salt you consume. Managing calories. A calorie is a unit of energy. Your body handley calories for fuel, but if you eat more calories than your body handley, the extras are stored as fat. Your healthcare provider can help you create a diet plan to manage your calories. This will likely include eating healthier foods as well as exercising regularly. To help you track your progress, keep a diary to record what you eat and how often you exercise. Choose the right foods Aim to make these foods dick of your diet. If you have diabetes, you may have different recommendations than what is listed here: Fruits and vegetables provide plenty of nutrients without a lot of calories. At meals, fill half your plate with these foods. Split the other half of your plate between whole grains and lean protein. Whole grains are high in fiber and rich in vitamins and nutrients. Good choices include whole-wheat bread, pasta, and brown rice. Lean proteins give you nutrition with less fat. Good choices include fish, skinless chicken, and beans. Low-fat or nonfat dairy provides nutrients without a lot of fat. Try low-fat or nonfat milk, cheese, or yogurt. Healthy fats can be good for you in small amounts. These are unsaturated fats, such as olive oil,nuts, and fish. Try to have at least 2 servings per week of fatty fish, such as salmon, sardines, mackerel, rainbow trout, and albacore tuna. These contain omega-3 fatty acids, which are good for your heart. Flaxseed is another source of a heart-healthy fat. More on heart-healthy eating Read food labels Healthy eating starts at the grocery store. Be sure to pay attention to food labels on packaged foods. Look for products that are high in fiber and protein, and low in saturated fat, cholesterol, and sodium. Avoid products that contain trans fat. And pay close attention to serving size. For instance, if you plan to eat two servings, double all the numbers on the label. Prepare food right A hayes part of healthy cooking is cutting down on added fat and salt. Look on the internet for lower-fat, lower-sodium recipes. Also, try these tips: Remove fat from meat and skin from poultry before cooking. Skim fat from the surface of soups and sauces. Broil, boil, bake, steam, grill, and microwave food without added fats. Choose ingredients that spice up your food without adding calories, fat, or sodium. Try these items: horseradish, hot sauce, lemon, mustard, nonfat salad dressings, and vinegar. For salt-free herbs and spices, try basil, cilantro, cinnamon, pepper, and armond. Date Last Reviewed: 03/21/201719994334-8137 [employer]. [address] [place] [address]. All rights reserved. This information is not intended as a substitute for professional medical care. Always follow your healthcare professional's instructions. Understanding USDA MyPlate The USDA (U.S. Department of Agriculture) has guidelines to help you make healthy food choices. These are called MyPlate. MyPlate shows the food groups that make up healthy meals using the image of a place setting. Before you eat, think about the healthiest choices for what to put onto your plate or into your cup or bowl. To learn more about building a healthy plate, visit www.choosemyplate.gov. The food groups Fruits. Any fruit or 100% fruit juice counts as part of the Fruit Group. Fruits may be fresh, canned, frozen, or dried, and may be whole, cut-up, or pureed. Make half your plate fruits and vegetables. Vegetables. Any vegetable or 100% vegetable juice counts as a member of the Vegetable Group. Vegetables may be fresh, frozen, canned, or dried. They can be served raw or cooked and may be whole, cut-up, or mashed. Make half your plate fruits and vegetables. Grains. All foods made from grains are part of the Grains Group. These include wheat, rice, oats,cornmeal, and barley such as bread, pasta, oatmeal, cereal, tortillas, and grits. Grains should be no more than a quarter of your plate. At least half of your grains should be whole grains. Protein. This group includes meat, poultry, seafood, beans and peas, eggs, processed soy products(like tofu), nuts (including nut butters), and seeds. Make protein choices no more than a quarter ofyour plate. Meat and poultry choices should be lean or low fat. Dairy. All fluid milk products and foods made from milk that contain calcium, like yogurt and cheese, are part of the Dairy Group. (Foods that have little calcium, such as cream, butter, and cream cheese, are not part of the group.) Most dairy choices should be low-fat or fat-free. Oils. These are fats that are liquid at room temperature. They include canola, corn, olive, soybean, and sunflower oil. Foods that are mainly oil include mayonnaise, certain salad dressings, and soft margarines. You should have only 5 to 7 teaspoons of oils a day. You probably already get this muchfrom the food you eat. Date Last Reviewed: 01/19/201719992282-9179 [employer]. [address] [place] [address]. All rights reserved. This information is not intended as a substitute for professional medical care. Always follow your healthcare professional's instructions. 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 Patient denies any complaints at this time. Patient reports some excess tissue noted under right arm pit. Patient desires it removed. Patient denies sherine complaints about the extra skin. Patient desires STD testing. Patient desires IUD for BCM. Patient denies current or past physical, sexual or emotional abuse. Histories OB History Para Term AB Living 2 2 2 0 0 2 SAB TAB Ectopic Multiple Live Births 0 0 0 0 2 # Outcome Date GA Lbr Alexx/2nd Weight Sex Delivery Anes PTL Lv 2 Term 10/10/18 38w0d 7 lb 8 oz (3.402 kg) M VAGINAL EPI, IV narcotic JANETH 1 Term 11/07/17 39w0d 7 lb 12 oz (3.515 kg) M VAGINAL EPI JANETH Past Medical History: Diagnosis Date Axillary accessory breast tissue 12/13/2018 right breast Depression 2019 Currently going to therapy, pt not on meds. Seen by [facility] Mental disorder Pre-eclampsia in third trimester 11/07/2017 [...] Past Surgical History: Procedure Laterality Date APPENDECTOMY 2013 Pt not sure age or year Social History Socioeconomic History Marital status: Single [...] Tobacco Use Smoking status: Former Smoker Types: Cigarettes Start date: 03/07/2012 Last attempt to quit: 10/19/2018 Years since quittin.3 Smokeless tobacco: Never Used Substance and Sexual Activity Alcohol use: No Alcohol/week: 0.0 oz Drug use: Not Currently Types: Other-see comments Comment: synthetic marijuana(has stopped), denies Sexual activity: Yes Partners: Male control/protection: None Comment: Last intercourse: 03/05/2019 Lifestyle Physical activity: Days per week: Not on file Minutes per session: Not on file Stress: Not on file Relationships Social connections: Talks on phone: Not on file Gets together: Not on file Attends zoroastrian service: Not on file Active member of [...] History Narrative No domestic violence or abuse Patient lives with mother in law. Patient feels safe at home. Social History Substance and Sexual Activity Sexual Activity Yes Partners: Male control/protection: None Comment: Last intercourse: 03/05/2019 Labs Labs are pending. Radiology No new radiology. Allergies Roberto has No Known Allergies. Medications Roberto has a current medication list which includes the following prescription(s): aspirin, dm/p-ephed/acetaminoph/doxylam, tramadol, and ibuprofen. Review of Systems Constitutional: Negative for activity change, appetite change, fatigue, unexpected weight change, weight gain and weight loss. HENT: Negative for sore throat. Eyes: Negative for visual disturbance. Respiratory: Negative for cough and shortness of breath. Breasts: Negative for discharge, mass, pain and unequal size. Cardiovascular: Negative for chest pain, palpitations and leg swelling. Gastrointestinal: Negative. Negative for abdominal pain, anal bleeding, blood in stool, constipation, diarrhea, nausea, rectal pain and vomiting. Genitourinary: Negative for bladder incontinence, dysuria, urgency, flank pain, vaginal bleeding, vaginal discharge, genital sores, vaginal pain and pelvic pain. Skin: Negative for color change and rash. Neurological: Negative. Negative for dizziness, syncope and headaches. Psychiatric/Behavioral: Negative for confusion, self-injury and sleep disturbance. The patient is not nervous/anxious. Hematological: Negative for cold intolerance and heat intolerance. Endocrine: Negative for hair loss, cold intolerance, heat intolerance, weight gain and weight loss. BP 123/77 (BP Location: Right arm, Patient Position: Sitting, BP CUFF SIZE: Adult Small) | Pulse 84 | Temp 36.8 C (98.3 F) (Oral) | Resp 18 | Ht 4' 11" (1.499 m) | Wt 161 lb 2 oz (73.1 kg) | LMP 02/17/2019 (Approximate) | BMI 32.54 kg/m Pregravid BMI: Could not be calculated Physical Exam Vitals reviewed. Constitutional: She is oriented to person, place, and time. She appears well- developed, well-nourished and well-groomed. She has no deformities. Neck: No tenderness and no mass. No thyroid nodules and no thyromegaly palpated. Cardiovascular: Regular rate and rhythm. No murmur auscultated. Pulmonary/Chest: Breath sounds clear to auscultation. Normal inspiratory effort. Abdominal: Abdomen is soft. No mass palpated. No tenderness present. There is no guarding. Neuro/Psychiatric: She has a normal mood and affect. She is oriented to person, place, and time. Skin: Skin normal. No lesion and no rash present. Fatty Tissue noted under right arm pit. No pain or tenderness noted to palpation. Breast: Right breast exhibits no mass, no nipple discharge and no tenderness. Left breast exhibits no mass, no nipple discharge and no tenderness. Normal left breast and normal right breast Rectal: normal rectum External genitalia: Normal external genitalia appropriate for age. Normal hair distribution. No labial lesion. Provider Relations Manager present for the exam: Tisha Thompson LVN Vagina:Normal vagina. No lesion inspected. No abnormal vaginal discharge found. Cervix: Normal cervix. No lesion. No tenderness and no discharge present. Closed/50/-3 Uterus: Uterus is normal size and non-tender. 6cm Normal uterus Adnexa: Right adnexa without tenderness or mass. Left adnexa without tenderness or mass. Normal leftadnexa and normal right adnexa Anus/perineum: Normal perineum. Assessment/Plan Rubella: Immune VZV: N/A, resources given BMI: 32.54 Td:2011 Pap Smear: pap smear done today Gardasil: given today Mammogram:N/A Guaiac: N/A Colonoscopy:N/A Well woman exam (primary encounter diagnosis) Comment: Routine WWE Plan: PAP Smear-Liquid Based, LAB ONLY PAP SMEAR-LIQUID BASED control counseling Comment: patient desires IUD insertion Plan: POCT TEST Screening examination for STD (sexually transmitted disease) Comment: patient desires testing Plan: GC & CHLAMYDIA AMPLIFIED ASSAY, TRICHOMONAS AMPLIFIED ASSAY, HIV 1/2 AG-AB WITH REFLEX, GALV ONLY - SYPHILIS IGG/IGM Need for HPV vaccination Comment: patient desires injection Plan: GARDASIL 9 (HPV 9V) VACCINE History of depression Comment: patient report previous history of depression, denies any SI/HI thoughts or feelings Plan: Patient given resources but denies any symptoms now. Return to clinic in 2 weeks for IUD insertion. Discussed treatment options. Medications as ordered. Reviewed patient instructions and provided printed copy. This visit did not involve counseling and coordination that comprised more than 50% of the visit time. MAYLIN Onofre 03/08/2019 9:47 AM Johnna Stovall RN - 03/07/2019 3:30 PM CDTPt here for HPV # 1 VIS given and reviewed with patient. Vaccine given to left deltoid via IM, pt tolerated well. The site was cleaned with alcohol and bandage was applied. ER warnings given and RTC in 1 months for next HPV vaccine. Pt verbalized understanding. JOHNNA STOVALL RN 03/07/2019 3:30 PM Belinda Thompson LVN - 03/07/2019 3:30 PM CDTPt here for HPV #1 VIS given and reviewed with patient. Vaccine given to left deltoid via IM, pt tolerated well. The site was cleaned with alcohol and bandage was applied. ER warnings given and RTC in 1 month for next HPV vaccine. Pt verbalized understanding. ohnna Nieto RN - 03/07/2019 3:30 PM CDT24 year old presents to the clinic for Control consult, pp/wwe done by Dr. Miller on . 1) Previous BCM: None 2) Desired BCM: IUD 3) LMP: 02/17/2019 4) Last [place]: 03/05/2019 without a condom 5) Last Pap: Never Results: N/A 6) Tdap: 2011 7) Gardasil: Patient desires today. 8) C/O: Pt having right breast lump 9) Patient denies history of physical, emotional, or sexual abuse. Patient states that she currently feels safe at home. JOHNNA STOVALL RN 03/07/2019 3:01 PM documented in this encounter Plan of Treatment Date Type Specialty Care Team Description 03/21/2019 Office Visit [facility] Jennifer Hamilton, NAPHTHALENE OPERATOR HELPER [address] [place], [place] [address] [phone] Name Type Priority Associated Diagnoses Date/Ti me GC & CHLAMYDIA AMPLIFIED LAB Routine Screening examin ation 03/07/2019 3:24 PM ASSAY for STD (sexually CDT transmitted disease) TRICHOMONAS AMPLIFIED LAB Routine Screening examinati on 03/07/2019 3:24 PM ASSAY for STD (sexually CDT transmitted disease) GALV ONLY - SYPHILIS LAB Routine Screening examinatio n 03/07/2019 3:31 PM IGG/IGM for STD (sexually CDT transmitted disease) LAB ONLY PAP SMEAR-LIQUID LAB Routine Well woman exam 03/07/2019 3:24 PM BASED CDT Health Maintenance Due Date Last Done Comments MENINGOCOCCAL B VACCINES (1 of 2007 2 - Risk Bexsero 2-dose series) VARICELLA VACCINES (1 of 2 - 2010 13+ 2-dose series) PAP SMEAR 2018 INFLUENZA VACCINE (#1) 2019 HPV VACCINES (2 - Female 04/04/2019 03/07/2019 3-dose series) CHLAMYDIA SCREENING 07/09/2019 07/09/2018, 10/17/2017, 12/25/2014 DTaP,Tdap,and Td Vaccines (2 - 01/25/2022 01/26/2012 Td) MENINGOCOCCAL VACCINE Aged Out No longer eligible based on patient's age to complete this to pic PNEUMOCOCCAL 0-64 YEARS Aged Out No longe r eligible based COMBINED SERIES on patient's age to complete this to pic documented as of this encounter Procedures Procedure Name Priority Date/Time Associated Diagnosis Comme nts HIV 1/2 AG-AB WITH Routine 03/07/2019 3:31 PM Screening Re sults for this REFLEX CDT examination for STD procedur e are in (sexually the results transmitted disease) section . PAP SMEAR-LIQUID Routine 03/07/2019 3:24 PM Well woman exam BASED-CP CDT POCT TEST Routine 03/07/2019 3:08 PM control Results for this CDT counseling procedure are i n the results section. GARDASIL 9 (HPV 9V) Routine 03/07/2019 3:02 PM Need for HPV VACCINE CDT vaccination documented in this encounter Results HIV 1/2 AG-AB WITH REFLEX (03/07/2019 3:31 PM CDT) Pathologist Sig nature HIV 1/2 Ag-Ab with Negative Negative [facility] Reflex SERVICES HIV Semi-quantitative 0.06 [facility] Specimen Blood Narrative Performed At Non-reactive for HIV-1 antigen and HIV-1/HIV-2 [facility] antibodies.No laboratory evidence of HIV infection.Repeat in 2-4 weeks if acute HIV infecti on is suspected. Performing Organization Address City/State/Zipcode Phone Number [facility] CLIA: [id number], [address] [place] [phone] [facility] PAP Smear-Liquid Based (03/07/2019 3:24 PM CDT) Specimen Swab - CERVIX Performing Organization Address City/State/Zipcode Phone Number [facility] CLIA: [id number], [address] [place] [phone] [facility] POCT TEST (03/07/2019 3:08 PM CDT) Pathologist Sig nature POCT PREG Negative On board controls acceptable Yes with C Line POCT PREG LOT # POCT PREG TEST DATE Specimen Urine - URINE, CLEAN CATCH documented in this encounter Visit Diagnoses Diagnosis Well woman exam - Primary Routine general medical examination at a health care facility control counseling General counseling for initiation of oth er contraceptive measures Screening examination for STD (sexually transmitted disease) Screening examination for venereal disea se Need for HPV vaccination Need for prophylactic vaccination and in oculation against other viral diseases History of depression Personal history of other mental disorde r documented in this encounter Insurance Payer Benefit Plan Subscriber ID Effective Phone Address Typ e / Group Dates [facility] x[facility] 2019-Prese [phone] Medicaid WOMEN nt [address] [place] [address] documented as of this encounter
--- OUTSIDE RECORDS SUMMARY | 2019-10-05 14:42 | XMS REPORT | Summary of Care ---
:[address] [facility] Address [address] [place] [address] Care Team Providers Name Role Phone Yuki Adams Insurance Hmo Yuki Adams Primary Care Provider Reason for Visit Reason Comments Well Woman Exam Encounter Details Date Type Department Care Team Description 03/07/2019 Office Visit [facility]- Jennifer Hamilton We ll woman exam (Primary Dx); [facility] control counseling; [address] [place] [address] [facility] Screening examination for ST D (sexually transmitted disease); [place] Need for HPV vaccination; [id number] [place] [address] History of depression [phone] Allergies No Known Allergiesdocumented as of this [...] 2 (bacterial vaginosis) (two) times daily. sod [id number] Use 1 Bottle 1 Each 0 Discontinued bottle (NEILMED SINUS in each 03 09 RINSE COMPLETE) nostril 2 pkdvIndications: (two) times Allergic rhinitis with daily. Use postnasal drip, Travis in hot exposure shower 1 hour before bedtime loratadine 10 mg Take 1 30 tablet 0 03/07/20 Dis continued tabletIndications: tablet by 03 09 Allergic rhinitis with mouth daily. postnasal drip, Travis exposure documented as of this encounter (statuses [...] 01/01/2016 Thrombocytopenia 12/28/2014 Overview: ICD10 Diagnosis Term Loft Worker Utility Screening examination for STD (sexually transmitted di sease) 12/28/2014 Overview: ICD10 Diagnosis Term Loft Worker Utility documented as of this encounter (statuses [...] This exam may be done by a water resource project manager, family healthcare provider, nurse practitioner, nurse director financial planning, or specially trained nurse. Yearly breast exams [...] Guidelines for having clinical breast exams The [employer] recommends that [...] is best for you. Date Last Reviewed: 01/19/201719994482-1216 [employer]. [address] [place], [place] [id number]. All rights reserved. This information is not [...] breast self-examination (BSE). These experts include the [place], the U.S. Preventive Services Task Force, and the [place] [employer]stetric[employer] Gynecologists. Some experts [...] they are not cancer. Date Last Reviewed: 01/19/201719994209-6325 [employer]. [address] [place] [address], [place] [address]. All rights reserved. This information is not [...] does not recommend CBE. Date Last Reviewed: 03/21/201719991458-7553 [employer]. [address] [place] [address], [place] [address]. All rights reserved. This information is not [...] to protect your future. Date Last Reviewed: 05/21/201619991502-6369 [employer]. [address] [place] [address], [place] [address]. All rights reserved. This information is not [...] memory and body movement. Date Last Reviewed: 04/21/201619996727-8842 [employer]. [address] [place] [address], [place] [address]. All rights reserved. This information is not [...] cinnamon, pepper, and armond. Date Last Reviewed: 03/21/201719995860-[address]70 [employer]. [address] [place] [address]. All rights reserved. This information is not [...] the food you eat. Date Last Reviewed: 01/19/201719998996-[address] [employer] [place] [address]. All rights reserved. This information is not [...] 12 oz (3.515 kg) M VAGINAL EPI JNAETH Past Medical History: Diagnosis Date Axillary accessory breast tissue 12/13/2018 right breast Depression 2019 Currently going to therapy, pt not on meds. Seen by [facility] Mental disorder Pre-eclampsia in third trimester 11/07/2017 [...] file Gets together: Not on file Attends bahai service: Not on file Active member of [...] age. Normal hair distribution. No labial lesion. Shaper And Presser present for the exam: Tisha Thompson LVN [...] BCM: IUD 3) LMP: 02/17/2019 4) Last [place]: 03/05/2019 without a condom 5) Last Pap: [...] 03/21/2019 Office Visit [facility] Jennifer Hamilton, CELL LEAD [address] [place], [place] [address] [phone] Name Type Priority Associated Diagnoses Date/Ti me [...] nature HIV 1/2 Ag-Ab with Negative Negative [facility] Reflex SERVICES HIV Semi-quantitative 0.06 [facility] Specimen Blood Narrative Performed At Non-reactive for HIV-1 antigen and HIV-1/HIV-2 [facility] antibodies.No laboratory evidence of HIV infection.Repeat in 2-4 weeks if acute HIV infecti on is suspected. Performing Organization Address City/State/Zipcode Phone Number [facility] CLIA: [id number], [address] [place] [phone] [facility] PAP Smear-Liquid Based (03/07/2019 3:24 PM CDT) Specimen Swab - CERVIX Performing Organization Address City/State/Zipcode Phone Number [facility] CLIA: [id number], [address] [place] [phone] [facility] POCT TEST (03/07/2019 3:08 PM CDT) Pathologist [...] Address Typ e / Group Dates [facility] x[facility] 2019-Prese [phone] Medicaid WOMEN nt [address] [place] [address] documented as of this encounter
--- OUTSIDE RECORDS SUMMARY | 2019-10-05 14:43 | XMS REPORT | Summary of Care ---
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 CONTROL Encounter Details Date Type Department Care Team Description 07/11/2019 Office Visit [facility] Health RMCH[facility]- Jennifer Hamilton Bi rth control [facility] counseling (Primary [address]) [facility] [phone] [place] [phone] Allergies No Known Allergiesdocumented as of this encounter (statuses as of 07/11/2019) Medications Medication Sig Dispensed Refills Start Date End Date Status ibuprofen 600 mg Take 1 tablet by 30 tablet 1 10/11/2018 Active tabletIndications: mouth every 6 Obesity (BMI 30-39.9), (six) hours as 38 weeks gestation of needed for Pain , Liveborn (scale 1-3) or infant, of gates Pain (scale 4-6) , born in (Pain). Take with hospital by vaginal food or milk. delivery, Full-term premature rupture of membranes with onset of labor within 24 hours of rupture, Normal labor, Pre-eclampsia, severe, delivered traMADOL (ULTRAM) 50 mg Take 1 tablet by 20 tablet 0 06/19/201 9 Active tabletIndications: mouth every 6 Generalized abdominal (six) hours as pain, Chronic abdominal needed for Pain pain (scale 7-10). DM/p-ephed/acetaminoph/ Take by mouth. 0 Active doxylam (NYQUIL ORAL) aspirin 81 mg chewable Take 81 mg by 0 Active tablet mouth daily. documented as of this encounter (statuses as of 07/11/2019) Active Problems Problem Noted Date Well woman exam 03/07/2019 Need for HPV vaccination 03/07/2019 History of depression 03/07/2019 Closed avulsion fracture of left ankle, sequela 2018 Pain and swelling of left ankle 2019 depression 12/13/2018 Axillary accessory breast tissue 12/13/2018 Pre-eclampsia, severe, delivered 10/11/2018 Obesity (BMI 30-39.9) 11/06/2017 control counseling 01/01/2016 Thrombocytopenia 12/28/2014 Overview: ICD10 Diagnosis Term Health Safety Manager Utility Screening examination for STD (sexually transmitted di sease) 12/28/2014 Overview: ICD10 Diagnosis Term Health Safety Manager Utility documented as of this encounter (statuses as of 07/11/2019) Resolved Problems Problem Noted Date Resolved Date [...] as of this encounter (statuses as of 07/11/2019) Immunizations Name Administration Dates Next Due HPV9 [...] Sign Reading Time Taken Comments Blood Pressure 125/85 07/11/2019 1:01 PM NUTS AND BOLTS ASSEMBLER Pulse 90 07/11/2019 1:01 PM NUTS AND BOLTS ASSEMBLER Temperature 36.6 C (97.9 F) 07/11/2019 1:01 PM NUTS AND BOLTS ASSEMBLER Respiratory Rate 16 07/11/2019 1:01 PM NUTS AND BOLTS ASSEMBLER Oxygen Saturation - - Inhaled Oxygen Concentration - - Weight 79.8 kg (176 lb) 07/11/2019 1:01 PM NUTS AND BOLTS ASSEMBLER Height 149.9 cm (4' 11") 07/11/2019 1:01 PM NUTS AND BOLTS ASSEMBLER Body Mass Index 35.55 07/11/2019 1:01 PM NUTS AND BOLTS ASSEMBLER documented in this encounter Progress Notes Jennifer Hamilton, MAYLIN - 07/11/2019 12:45 PM CST Chief complaint: Chief Complaint Patient 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 Patient admits to having sexual intercourse yesterday without protection. Patient denies any complaints. Histories OB History Para Term AB Living [...] accessory breast tissue 12/13/2018 right breast Depression 2018 Currently going to therapy, pt not on meds. Seen by [facility] Mental disorder Pre-eclampsia in third trimester 11/07/2017 [...] Last attempt to quit: 10/19/2018 Years since quittin.7 Smokeless tobacco: Never Used Substance and Sexual Activity Alcohol use: No Alcohol/week: 0.0 standard drinks Drug use: Not Currently Types: Other-see comments Comment: synthetic marijuana(has stopped), denies Sexual activity: Yes Partners: Male control/protection: None Comment: Last intercourse: 03/05/2019 Lifestyle Physical activity: Days per week: Not on file Minutes per session: Not on file Stress: Not on file Relationships Social connections: Talks on phone: Not on file Gets together: Not on file Attends orthodoxy service: Not on file Active member of [...] control/protection: None Comment: Last intercourse: 03/05/2019 Labs No new labs Radiology No new radiology. Allergies Roberto has [...] intolerance, weight gain and weight loss. BP 125/85 (BP Location: Right arm, Patient Position: Sitting, BP CUFF SIZE: Adult Medium) | Pulse 90 | Temp 36.6 C (97.9 F) (Oral) | Resp 16 | Ht 4' 11" (1.499 m) | Wt 176 lb (79.8 kg) | BMI 35.55 kg/m Pregravid BMI: Could not be calculated Physical Exam Vitals reviewed. Constitutional: She is oriented to person, place, and time. She appears well- developed and well-nourished. Her body habitus is normal. Cardiovascular: Regular rate and rhythm. No peripheral edema present. Pulmonary/Chest: Normal inspiratory effort. Neuro/Psychiatric: Inappropriate mood and affect. She is oriented to person, place, and time. Skin: Skin normal. No lesion, no rash and no ulceration present. Assessment/Plan control counseling (primary encounter diagnosis) Comment: patient had UPT, negative. Plan: POCT TEST Patient will RTC in 2 wks for Nexplanon iinsertion Return to clinic in 2 weeks. Discussed treatment options. Medications as ordered. Reviewed patient instructions and provided printed copy. This visit did not involve counseling and coordination that comprised more than 50% of the visit time. MAYLIN Onofre 07/11/2019 2:00 PM AND BOLTS ASSEMBLER documented in this encounter Plan of Treatment Date Type Specialty Care Team Description 07/25/2019 Office Visit OB Satellites Jennifer Hamilton FNP [address] [place], [place] [address] [phone] Health Maintenance Due Date Last Done Comments VARICELLA VACCINES (1 of 2 - 1998 2-dose childhood series) MENINGOCOCCAL B VACCINES (1 2007 of 2 - Risk Bexsero 2-dose series) INFLUENZA VACCINE (#1) 2019 HPV VACCINES (2 - Female 04/04/2019 03/07/2019 3-dose series) CHLAMYDIA SCREENING 03/07/2020 03/07/2019, 07/09/2018, 10/17/2017, Additional history exists DTaP,Tdap,and Td Vaccines (2 01/25/2022 01/26/2012 - Td) PAP SMEAR 03/07/2022 03/07/2019 MENINGOCOCCAL VACCINE Aged Out No longer eligible based on patient 's age to complete this topic PNEUMOCOCCAL 0-64 YEARS Aged Out No longe r eligible COMBINED SERIES based on patient 's age to complete this topic documented as of this encounter Procedures Procedure Name Priority Date/Time Associated Diagnosis Comme nts POCT TEST Routine 07/11/2019 1:11 PM control Results for this NUTS AND BOLTS ASSEMBLER counseling procedure are i n the results section. documented in this encounter Results POCT TEST (07/11/2019 1:11 PM NUTS AND BOLTS ASSEMBLER) Pathologist Sig nature POCT PREG Negative On board controls acceptable Yes with C Line POCT PREG LOT # POCT PREG TEST DATE Specimen Urine - URINE, CLEAN CATCH documented in this encounter Visit Diagnoses Diagnosis control counseling - Primary General counseling for initiation of oth er contraceptive measures documented in this encounter Insurance Payer Benefit Plan / Subscriber ID Effective Phone Address T e Group [facility] xxxxxxxxx 2019-Prese P.OWolf BOX Medic aid HEALTH CHOICE - HEALTH CHOICE nt [id number] 1 MANAGED MEDICAID [place], [place] MEDICAID [phone] documented as of this encounter
--- OUTSIDE RECORDS SUMMARY | 2019-10-05 14:43 | XMS REPORT | Summary of Care ---
:1995 Author [address] [facility] Address [address] [place] [address] Care Team Providers Name Role Phone Yuki Adams Insurance Hmo Yuki Adams Primary Care Provider Reason for Visit Reason Comments Appointment Nexplanon insertion Encounter Details Date Type Department Care Team Description 07/11/2019 Telephone [facility] TASNEEM- Jennifer Hamilton Ap pointment (Nexplanon [place] FINANCIAL UNDERWRITER insertion) [address] [facility] [address] [place], [place] [phone] Allergies No Known Allergiesdocumented as of this [...] 01/01/2016 Thrombocytopenia 12/28/2014 Overview: ICD10 Diagnosis Term Continuous Drier Helper Utility Screening examination for STD (sexually transmitted di sease) 12/28/2014 Overview: ICD10 Diagnosis Term Continuous Drier Helper Utility documented as of this encounter (statuses [...] 07/25/2019 Office Visit OB Satellites Jennifer Hamilton R, FINANCIAL UNDERWRITER [address] [place] [phone] [phone] Health Maintenance Due Date Last Done Comments [...] / Subscriber ID Effective Phone Address T ype Group [facility] xxxxxxxxx 2019-Prese P.O. BOX Medic aid HEALTH CHOICE - HEALTH CHOICE nt [id number] 1 MANAGED MEDICAID [place], [place] MED[place]ID [phone] documented as of this encounter
--- OUTSIDE RECORDS SUMMARY | 2019-10-05 14:43 | XMS REPORT | Summary of Care ---
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 CONTROL Encounter Details Date Type Department Care Team Description 07/11/2019 Office Visit [facility] Health RMCHP- Jennifer Hamilton Bi rth control [facility] counseling (Primary [address] [facility] [phone] [place] [phone] Allergies No Known Allergiesdocumented as of this [...] 01/01/2016 Thrombocytopenia 12/28/2014 Overview: ICD10 Diagnosis Term Vein Access Technician Utility Screening examination for STD (sexually transmitted di sease) 12/28/2014 Overview: ICD10 Diagnosis Term Vein Access Technician Utility documented as of this encounter (statuses [...] Comments Blood Pressure 125/85 07/11/2019 1:01 PM SENIOR WINDOWS ENGINEER Pulse 90 07/11/2019 1:01 PM SENIOR WINDOWS ENGINEER Temperature 36.6 C (97.9 F) 07/11/2019 1:01 PM SENIOR WINDOWS ENGINEER Respiratory Rate 16 07/11/2019 1:01 PM SENIOR WINDOWS ENGINEER Oxygen Saturation - - Inhaled Oxygen Concentration - - Weight 79.8 kg (176 lb) 07/11/2019 1:01 PM SENIOR WINDOWS ENGINEER Height 149.9 cm (4' 11") 07/11/2019 1:01 PM SENIOR WINDOWS ENGINEER Body Mass Index 35.55 07/11/2019 1:01 PM SENIOR WINDOWS ENGINEER documented in this encounter Progress Notes Jennifer Hamilton, MAYLIN - 07/11/2019 12:45 PM CST Chief complaint: Chief Complaint Patient 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 Seen by [facility] Mental disorder Pre-eclampsia in third trimester [...] file Gets together: Not on file Attends moravian service: Not on file Active member of [...] visit time. MAYLIN Onofre 07/11/2019 2:00 PM OR WINDOWS ENGINEER documented in this encounter Plan of Treatment Date Type Specialty Care Team Description 07/25/2019 Office Visit OB Satellites Jennifer Hamilton FNP [address] [place], [place] [address] [phone] Health Maintenance Due Date Last Done Comments [...] 07/11/2019 1:11 PM control Results for this SENIOR WINDOWS ENGINEER counseling procedure are i n the results section. documented in this encounter Results POCT TEST (07/11/2019 1:11 PM SENIOR WINDOWS ENGINEER) Pathologist Sig nature POCT PREG Negative On [...] ID Effective Phone Address T e Group [facility] xxxxxxxxx 2019-Prese P.OWolf BOX Medic aid HEALTH CHOICE - HEALTH CHOICE nt [id number] 1 MANAGED MEDICAID [place], [place] MEDICAID [phone] documented as of this encounter
--- OUTSIDE RECORDS SUMMARY | 2019-10-05 14:43 | XMS REPORT | Summary of Care ---
:1995 Author Organization [facility] - Health Address [address] [place] [address] Care Team Providers Name Role Phone Yuki Adams Insurance Hmo Yuki Adams Primary Care Provider Reason for Visit Reason Comments Cough Congestion Other hair falling out Auth/Cert Status Reason Specialty Diagnoses / Referred By Referred To Procedures Contact Contact Emergency Medicine Diagnoses POSS [facility] Emergency Dept [address] [facility] [place] [address] Fax: Encounter Details Date Type Department Care Team Description 03/10/2019 Emergency [facility]-Emergency Alexia Benitez, Chest juanis estion (Primary Dx); Department PAC [place] exposure; [address] [place] [address] [address] [place] [address] [facility] [address] [place] [address] Allergies No Known Allergiesdocumented as of this encounter (statuses as of 03/10/2019) Medications Medication Sig Dispensed Refills Start Date [...] as of this encounter (statuses as of 03/10/2019) Active Problems Problem Noted Date Well woman exam 03/07/2019 Need for HPV vaccination 03/07/2019 History of depression 03/07/2019 Closed avulsion fracture of left ankle, sequela 2018 Pain and swelling of left ankle 2019 depression 12/13/2018 Axillary accessory breast tissue 12/13/2018 Pre-eclampsia, severe, delivered 10/11/2018 Obesity (BMI 30-39.9) 11/06/2017 control counseling 01/01/2016 Thrombocytopenia 12/28/2014 Overview: ICD10 Diagnosis Term Speech Pathology Assistant Utility Screening examination for STD (sexually transmitted di sease) 12/28/2014 Overview: ICD10 Diagnosis Term Speech Pathology Assistant Utility documented as of this encounter (statuses as of 03/10/2019) Resolved Problems Problem Noted Date Resolved Date [...] as of this encounter (statuses as of 03/10/2019) Immunizations Name Administration Dates Next Due HPV9 [...] Sign Reading Time Taken Comments Blood Pressure 121/81 03/10/2019 4:01 PM CDT Pulse 91 03/10/2019 4:01 PM CDT Temperature 36.8 C (98.2 F) 03/10/2019 4:01 PM CDT Respiratory Rate 18 03/10/2019 4:01 PM CDT Oxygen Saturation 99% 03/10/2019 4:01 PM CDT Inhaled Oxygen Concentration - - Weight 73 kg (161 lb) 03/10/2019 4:01 PM CDT Height - - Body Mass Index 32.52 03/07/2019 2:45 PM CDT documented in this encounter Discharge Instructions AttachmentsThe following attachments cannot be sent through Care Everywhere. Cough, Chronic, Uncertain Cause (Adult) (Citizen Of [place])documented in this encounter Plan of Treatment Date Type Specialty Care Team Description 03/21/2019 Office Visit OB Satellites Jennifer Hamilton, MULTIPLE PRESSURE RIVETER OPERATOR [address] [place] [address] [phone] Health Maintenance Due Date Last Done Comments MENINGOCOCCAL B VACCINES (1 2007 of 2 - Risk Bexsero 2-dose series) VARICELLA VACCINES (1 of 2 - 2010 13+ 2-dose series) PAP SMEAR 2018 INFLUENZA VACCINE (#1) 2019 HPV VACCINES (2 - Female 04/04/2019 03/07/2019 3-dose series) CHLAMYDIA SCREENING 03/07/2020 03/07/2019, 07/09/2018, 10/17/2017, Additional history exists DTaP,Tdap,and Td Vaccines (2 01/25/2022 01/26/2012 - Td) MENINGOCOCCAL VACCINE Aged Out No longer eligible based on patient 's age to complete this topic PNEUMOCOCCAL 0-64 YEARS Aged Out No longe r eligible COMBINED SERIES based on patient 's age to complete this topic documented as of this encounter Procedures Procedure Name Priority Date/Time Associated Diagnosis Comme nts EBV-MONONUCLEOSIS STAT 03/10/2019 4:24 PM [place] expos ure Results for this SCREEN CDT Cough procedure are i n the results section. NOTICE OF PRIVACY Routine 03/10/2019 3:53 PM PRACTICES CDT documented in this encounter Results EBV-MONONUCLEOSIS SCREEN (03/10/2019 4:24 PM CDT) Pathologist Sig nature EBV Mononucleosis Screen Negative Negative [facility] Specimen Blood - VENOUS Performing Organization Address City/State/Zipcode Phone Number [facility] CLIA: [id number], [address] [place], [place] [address] documented in this encounter Visit Diagnoses Diagnosis Chest congestion - Primary Other symptoms involving respiratory sys tem and chest [place] exposure Contact with or exposure to other viral diseases Cough documented in this encounter
--- OUTSIDE RECORDS SUMMARY | 2019-10-05 14:44 | XMS REPORT | Summary of Care ---
:1995 Author Organization [facility] - [facility] Address [address] [place] [address] Care Team Providers Name Role Phone Yuki Adams Insurance Hmo Yuki Adams Primary Care Provider Reason for Visit Reason Comments Assessment Bleeding Encounter Details Date Type Department Care Team Description 10/05/2019 Telephone [facility] Women's GordilloLuci MD Assessment (Bleeding) Healthcare- [address], [facility] [address] [facility] [address] [place], [place] [phone] Allergies No Known Allergiesdocumented as of this encounter (statuses as of 10/05/2019) Medications Medication Sig Dispensed Refills Start Date [...] as of this encounter (statuses as of 10/05/2019) Active Problems Problem Noted Date Well woman exam 03/07/2019 Need for HPV vaccination 03/07/2019 History of depression 03/07/2019 Closed avulsion fracture of left ankle, sequela 2018 Pain and swelling of left ankle 2019 depression 12/13/2018 Axillary accessory breast tissue 12/13/2018 Pre-eclampsia, severe, delivered 10/11/2018 Obesity (BMI 30-39.9) 11/06/2017 control counseling 01/01/2016 Thrombocytopenia 12/28/2014 Overview: ICD10 Diagnosis Term Telesales Professional Utility Screening examination for STD (sexually transmitted di sease) 12/28/2014 Overview: ICD10 Diagnosis Term Telesales Professional Utility documented as of this encounter (statuses as of 10/05/2019) Resolved Problems Problem Noted Date Resolved Date [...] as of this encounter (statuses as of 10/05/2019) Immunizations Name Administration Dates Next Due HPV9 [...] filedocumented in this encounter Plan of Treatment Health [...] / Subscriber ID Effective Phone Address T [facility] xxxxxxxxx 2019-Pres [address]OX Medic aid HEALTH CHOICE - HEALTH CHOICE ent [id number] 1 MANAGED MEDICAID [place], [place] MED[place]ID [phone] documented as of this encounter
--- OUTSIDE RECORDS SUMMARY | 2019-10-05 14:44 | XMS REPORT | Summary of Care ---
:1995 Author Organization [facility] Address [address] [place] [address] Care Team Providers Name Role Phone Yuki Adams Insurance Hmo Yuki Adams Primary Care Provider Reason for Visit Reason Comments Appointment Reschedule Nexplanon inserti on, in 2 weeks if possible Encounter Details Date Type Department Care Team Description 08/14/2019 Telephone [facility] TASNEEM- Jennifer Hamilton Ap pointment [facility] (Reschedule Nexplanon [address] insertion, in 2 weeks [place], [place] [address] if possible) [phone] Allergies No Known Allergiesdocumented as of this encounter (statuses as of 08/14/2019) Medications Medication Sig Dispensed Refills Start Date [...] as of this encounter (statuses as of 08/14/2019) Active Problems Problem Noted Date Well woman exam 03/07/2019 Need for HPV vaccination 03/07/2019 History of depression 03/07/2019 Closed avulsion fracture of left ankle, sequela 2018 Pain and swelling of left ankle 2019 depression 12/13/2018 Axillary accessory breast tissue 12/13/2018 Pre-eclampsia, severe, delivered 10/11/2018 Obesity (BMI 30-39.9) 11/06/2017 control counseling 01/01/2016 Thrombocytopenia 12/28/2014 Overview: ICD10 Diagnosis Term Hobber Utility Screening examination for STD (sexually transmitted di sease) 12/28/2014 Overview: ICD10 Diagnosis Term Hobber Utility documented as of this encounter (statuses as of 08/14/2019) Resolved Problems Problem Noted Date Resolved Date [...] as of this encounter (statuses as of 08/14/2019) Immunizations Name Administration Dates Next Due HPV9 [...] Treatment Date Type Specialty Care Team Description 08/30/2019 Office Visit OB Satellites Jennifer Hamilton R, BABCOCK TESTER [address] [place] [address] Health Maintenance Due Date Last Done Comments [...] ID Effective Phone Address T e Group [facility] xxxxxxxxx 2019-Pres [address] Medic aid HEALTH CHOICE - HEALTH CHOICE ent [id number] 1 MANAGED MEDICAID [place], [place] MEDICAID [phone] documented as of this encounter
[2019-10-05 15:16] LABS: Absolute Lymphocytes (CBC) 2.7 K/uL (0.7-4.9); Basophils % 0.7 % (0-1.3); Hematocrit 36.4 % (36.0-45.0); Lymphocytes % 27.7 % (15.3-44.8); MPV 11.2 fL (7.6-11.3); RBC Red Blood Cell Count 4.61 M/uL (3.86-4.86)
[2019-10-05 15:18] LABS: Urine Blood 2+ (NEG); Urine Glucose NEGATIVE (NEG); Urine Protein NEGATIVE (NEG); Urine Specific Gravity 1.005 (1.005-1.030)
--- NOTE | 2019-10-05 15:50 | ER ---
Nurse's Notes [facility] Name: Roberto Traore Age: 24 yrs Sex: Female : 1995 Arrival Date: 10/05/2019 Time: 14:27 Bed 14 Private MD: None, None Diagnosis: Vaginal bleeding Presentation: 10/04 14:37 Chief complaint: Patient states: I'm on my menstrual cycle and I am passing a lot of ph clots and that's not normal for me." Pt also reports abnormally strong cramps prior to cycle starting and some nausea. Coronavirus screen: Patient denies a cough. Patient denies shortness of breath or difficulty breathing. Patient denies measured and/or subjective temperature greater than 100.4F prior to today's visit. Patient denies travel on a cruise ship or to a country the [facility] currently lists as an affected area. Patient denies contact with known and/or suspected case of COVID-19. Ebola Screen: No symptoms or risks identified at this time. Initial Sepsis Screen: Does the patient meet any 2 criteria? No. Patient's initial sepsis screen is negative. Does the patient have a suspected source of infection? No. Patient's initial sepsis screen is negative. Risk Assessment: Do you want to hurt yourself or someone else? Patient reports no desire to harm self or others. Onset of symptoms was October 05, 2019. 14:37 Method Of Arrival: Ambulatory 14:37 Acuity: MARANDA 3 ph PATHOLOGY ASSISTANT: 14:43 LMP 10/05/2019 ph Historical: - Allergies: 14:44 No Known Allergies; ph - PMHx: 14:44 Depression; ph - PSHx: 14:44 Appendectomy; ph - Immunization history:: Adult Immunizations unknown. - Social history:: Smoking status: Patient denies any tobacco usage or history of. Screenin:34 Abuse screen: Denies threats or abuse. Nutritional screening: No deficits noted. ll1 Tuberculosis screening: No symptoms or risk factors identified. Fall Risk None identified. Total Bajwa Fall Scale indicates No Risk (0-24 pts). Assessment: 14:49 General: Appears in no apparent distress. Behavior is calm, cooperative. Pain: Denies ll1 pain. Neuro: No deficits noted. Cardiovascular: No deficits noted. Respiratory: No deficits noted. GI: Abdomen is flat, Bowel sounds present X 4 quads. Reports. : Urine is clear, Reports cramping, vaginal bleeding that is with clots. Vital Signs: 14:43 BP 125 / 75; Pulse 83; Resp 18; Temp 98.0; Pulse Ox 99% on R/A; ph 15:25 BP 100 / 69; Pulse 77; Resp 17; Pulse Ox 100% ; ll1 15:59 BP 108 / 65; Pulse 73; Resp 17; Pulse Ox 99% ; Pain 0/10; ll1 ED Course: 14:27 Patient arrived in ED. dp 14:29 None, None is Private Physician. dp 14:33 Renate Sanders, RN is Primary Nurse. ll1 14:34 Patient has correct armband on for positive identification. Bed in low position. Call ll1 light in reach. Side rails up X 1. 14:38 Triage completed. ph 14:41 Tino Easley MD is Attending Physician. ps1 14:50 Inserted saline lock: 20 gauge in right antecubital area, using aseptic technique. ll1 Blood collected. 15:20 Arm band placed on Patient placed in an exam room, on a stretcher. ll1 16:00 No provider procedures requiring assistance completed. IV discontinued, intact, ll1 bleeding controlled, No redness/swelling at site. Pressure dressing applied, Patient pulled out her own IV. Catheter was intact. Pressure held over site. Band aid applied. Administered Medications: No medications were administered Outcome: 15:49 Discharge ordered by . ps1 16:01 Discharged to home ambulatory. ll1 16:01 Condition: stable 16:01 Discharge instructions given to patient, Instructed on discharge instructions, follow up and referral plans. Demonstrated understanding of instructions, follow-up care. 16:02 Patient left the ED. ll1 Signatures: Jelly Peña, RN RN ph Tino Easley MD MD ps1 [place] May Lynsay, BENNIE RN [facility]
--- NOTE | 2019-10-05 15:50 | EDPHYS ---
Physician Documentation [facility] Name: Roberto Traore Age: 24 yrs Sex: Female : 1995 Arrival Date: 10/05/2019 Time: 14:27 Bed 14 Private MD: None, None ED Physician Tino Easley HPI: 10/04 15:02 This 24 yrs old Female presents to ER via Ambulatory with complaints of ps1 Nausea, Other, Blood clots from menstral cycle.. 15:02 patient states that she is currently on her menstrual cycle and her clots are larger ps1 than usual. Associated with nausea and vomiting. No pain. Unsure if she is . Called Dr. Gordillo and was asked about OCP and then came to the ED for evaluation. No lightheaded or shortness of breath. . 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 - Social history:: Smoking status: Patient denies any tobacco usage or history of. ROS: 15:02 Constitutional: Negative for fever, chills, and weight loss, Eyes: Negative for injury, ps1 pain, redness, and discharge, Cardiovascular: Negative for chest pain, palpitations, and edema, Respiratory: Negative for shortness of breath, cough, wheezing, and pleuritic chest pain, MS/Extremity: Negative for injury and deformity, Skin: Negative for injury, rash, and discoloration. 15:02 Abdomen/GI: Positive for nausea and vomiting. 15:02 : Positive for vaginal bleeding. Exam: 15:02 Constitutional: This is a well developed, well nourished patient who is awake, alert, ps1 and in no acute distress. Head/Face: Normocephalic, atraumatic. Eyes: Pupils equal round and reactive to light, extra-ocular motions intact. Lids and lashes normal. Conjunctiva and sclera are non-icteric and not injected. 15:02 Chest/axilla: Inspection: normal. 15:02 Cardiovascular: Rate: normal, Rhythm: regular. 15:02 Respiratory: the patient does not display signs of respiratory distress, Respirations: normal. 15:02 Abdomen/GI: Inspection: abdomen appears normal. 15:02 Musculoskeletal/extremity: Extremities: all appear grossly normal, with no appreciated pain with palpation. Vital Signs: 14:43 BP 125 / 75; Pulse 83; Resp 18; Temp 98.0; Pulse Ox 99% on R/A; ph 15:25 BP 100 / 69; Pulse 77; Resp 17; Pulse Ox 100% ; ll1 15:59 BP 108 / 65; Pulse 73; Resp 17; Pulse Ox 99% ; Pain 0/10; ll1 MDM: 15:05 Patient medically screened. ps1 15:25 Data reviewed: vital signs, nurses notes, lab test result(s), and as a result, I will ps1 discharge patient. Counseling: I had a detailed discussion with the patient and/or guardian regarding: the historical points, exam findings, and any diagnostic results supporting the discharge/admit diagnosis, lab results, the need for outpatient follow up, an OB/Gyne specialist. ED course: Hgb stable. . 10/04 14:49 Order name: Urine Dipstick--Ancillary (enter results); Complete Time: 15:25 eb 10/04 14:49 Order name: Test, Serum; Complete Time: 15:48 eb 10/04 14:48 Order name: Urine Dipstick-Ancillary (obtain specimen); Complete Time: 14:49 ps1 10/04 14:48 Order name: Urine Test (obtain specimen); Complete Time: 14:48 ps1 10/04 14:49 Order name: CBC with Diff; Complete Time: 15:25 eb Administered Medications: No medications were administered Disposition: 10/05/19 15:49 Discharged to Home. Impression: Vaginal bleeding. - Condition is Stable. - Discharge Instructions: Dysmenorrhea. - Medication Reconciliation Form, Thank You Letter, Antibiotic Education, Prescription Opioid Use form. - Follow up: Emergency Department; When: As needed; Reason: Fever > 102 F, Trouble breathing, Worsening of condition. Follow up: Private Physician; When: As needed; Reason: Further diagnostic work-up, Recheck today's complaints, Continuance of care, Re-evaluation by your physician. - Problem is new. - Symptoms are unchanged. Signatures: Dispatcher [employer] EDAK Jelly Peña RN RN ph Tino Easley MD MD ps1 Renate Sanders RN RN ll1 Corrections: (The following items were deleted from the chart) 16:02 15:49 10/05/2019 15:49 Discharged to Home. Impression: Vaginal bleeding. Condition is ll1 Stable. Forms are Medication Reconciliation Form, Thank You Letter, Antibiotic Education, Prescription Opioid Use. Follow up: Emergency Department; When: As needed; Reason: Fever > 102 F, Trouble breathing, Worsening of condition. Follow up: Private Physician; When: As needed; Reason: Further diagnostic work-up, Recheck today's complaints, Continuance of care, Re-evaluation by your physician. Problem is new. Symptoms are unchanged. ps1
[2019-10-05 16:09] VITALS: TEMP 98
[2019-10-05 16:13] VITALS: BP 108/65; O2SAT 99
== END 2019-10-05 16:02 | disposition home or self-care (01) ==
LOC: ER 14:23
DX: N93.9 Abnormal uterine and vaginal bleeding, unspecified (principal)
CPT/HCPCS: 36415; 81003; 84703; 85025; 99283

== ENCOUNTER 2020-03-01 17:18 | Emergency (ER) | payer OTHER ==
--- OUTSIDE RECORDS SUMMARY | 2020-03-01 17:20 | XMS REPORT | Continuity of Care Document ---
:1995 Author Organization [facility] t Address [address] [place] [address] Care Team Providers Name Role Phone Shelia AVERY Attending Clinician Unavailable Parker CARLISLE Attending Clinician Yuki Adams Attending Clinician Lab, Fam Pob I Attending Clinician Unavailable Sonia AVERY, M Attending Clinician Unavailable Alfonso CARLISLE, R Attending Clinician Duy MCDOWELL, Ranulfo Attending Clinician Problems This patient has no known problems. Allergies, Adverse Reactions, Alerts This patient has no known allergies or adverse reactions. Medications This patient has no known medications. Procedures This patient has no known procedures. Encounters Start End Encounter Admission Attending Care Care Encounter Source Date/Time Date/Time Type Type Clinicians Facility Department ID 2020-01-26 2020-01-26 Nurse Radha Bass [id number] 00:00:00 00:00:00 Triage OBED [id number] [facility] [id number] 2020-01-18 2020-01-18 Emergency CHAD Canales [id number] 18:33:40 19:28:00 Virginia Zabala [id number] [place] [id number] [place] [id number] 2020-01-08 2020-01-08 Telephone CORDELL Adams [id number] 00:00:00 00:00:00 Ann C OBED [id number] [facility] [id number] 2020-01-07 2020-01-07 Laboratory Lab, [facility] [id number] 16:14:25 16:34:25 Only Fam Pob I Health [id number] [place] [id number] Professio [phone] nal [facility] Office Building One 2019-10-20 2019-10-20 Nurse Diamond Scott [id number] 00:00:00 00:00:00 Triage OBED [id number] [facility] [id number] 2019-10-13 2019-10-13 Telephone Alfonso [facility] [id number] 00:00:00 00:00:00 Roshunda R INTERFACE CONTROL OFFICER [id number] [facility] [id number] MATERNAL [id number] & CHILD 107 [facility] 2019-10-05 2019-10-05 Telephone Anila Gordilloen [facility] [id number] 00:00:00 00:00:00 Cam [place] [id number] [place] 4.2.7.2.686 Professio [id number] [place] [address] Building 2019-08-14 2019-08-14 Telephone [place], [facility] [id number] 00:00:00 00:00:00 Roshunda R INTERFACE CONTROL OFFICER [id number] [facility] [id number] MATERNAL [id number] & CHILD 107 [facility] 2019-07-11 2019-07-11 [facility] [id number] 12:48:46 13:19:03 Visit Roshunda R INTERFACE CONTROL OFFICER 350.1.13.10 [facility] [id number] MATERNAL [id number] & CHILD 107 [facility] 2019-07-11 2019-07-11 Telephone CHAD [place] [id number] 00:00:00 00:00:00 Jennifer Arguello INTERFACE CONTROL OFFICER [id number] [facility] [id number] MATERNAL [id number] & CHILD 107 [facility] Results This patient has no known results.
--- OUTSIDE RECORDS SUMMARY | 2020-03-01 17:21 | XMS REPORT | Summary of Care ---
:1995 Author Organization [facility] Address [address] [place] [address] Care Team Providers Name Role Phone Yuki Adams Insurance Hmo Yuki Adams Primary Care Provider Reason for Visit Reason Comments TEST RESULTS Encounter Details Date Type Department Care Team Description 01/08/2020 Telephone ACCESS CENTER Ann Adams TEST RESULTS [address] [facility] [address] [address] [place], [place] [phone] Allergies No Known Allergiesdocumented as of this encounter (statuses as of 01/14/2020) Medications Medication Sig Dispensed Refills Start Date [...] as of this encounter (statuses as of 01/14/2020) Active Problems Problem Noted Date Well woman exam 03/07/2019 Need for HPV vaccination 03/07/2019 History of depression 03/07/2019 Closed avulsion fracture of left ankle, sequela 2018 Pain and swelling of left ankle 2019 depression 12/13/2018 Axillary accessory breast tissue 12/13/2018 Pre-eclampsia, severe, delivered 10/11/2018 Obesity (BMI 30-39.9) 11/06/2017 control counseling 01/01/2016 Thrombocytopenia 12/28/2014 Overview: ICD10 Diagnosis Term Chief Information Officer Utility Screening examination for STD (sexually transmitted di sease) 12/28/2014 Overview: ICD10 Diagnosis Term Chief Information Officer Utility documented as of this encounter (statuses as of 01/14/2020) Resolved Problems Problem Noted Date Resolved Date [...] as of this encounter (statuses as of 01/14/2020) Immunizations Name Administration Dates Next Due HPV9 03/07/2019 TDAP 01/26/2012 documented as of this encounter Social [...] Travel End No recent travel history available. COVID-19 Exposure Response Date Recorded In the last month, have you been in contact with Yes 01/07/2020 12:19 PM CDT someone who was confirmed or suspected to have Coronavirus / COVID-19? documented as of this encounter Last Filed Vital Signs Not on filedocumented in this encounter Plan of Treatment Health Maintenance Due Date Last Done Comments VARICELLA VACCINES (1 of 2 - 1998 2-dose childhood series) MENINGOCOCCAL B VACCINES (1 2007 of 2 - Risk Bexsero 2-dose series) HPV VACCINES (2 - Female 04/04/2019 03/07/2019 3-dose series) INFLUENZA VACCINE (#1) 2020 CHLAMYDIA SCREENING 03/07/2020 03/07/2019, 07/09/2018, 10/17/2017, Additional history exists Depression Screening 07/11/2020 07/11/2019 DTaP,Tdap,and Td Vaccines (2 01/25/2022 01/26/2012 - Td) PAP SMEAR 03/07/2022 03/07/2019 MENINGOCOCCAL VACCINE Aged Out No longer eligible based on patient 's age to complete this topic PNEUMOCOCCAL 0-64 YEARS Aged Out No longe r eligible COMBINED SERIES based on patient 's age to complete this topic documented as of this encounter Results Not on filedocumented in this encounter Additional Health Concerns Infection Onset Date Last Indicated Resolved Time COVID-19 Rule Out 01/07/2020 01/07/2020 01/08/2020 12: 33 PM CDT COVID-19 Confirmed 01/07/2020 01/07/2020 documented as of this encounter Insurance Payer Benefit Plan / Subscriber ID Effective Phone Address T [facility] xxxxxxxxx 2019-Pres [address] Medic aid HEALTH CHOICE - HEALTH CHOICE ent [id number] 1 MANAGED MEDICAID [place], [place] MEDICAID [phone] documented as of this encounter
--- OUTSIDE RECORDS SUMMARY | 2020-03-01 17:21 | XMS REPORT | Summary of Care ---
:1995 Author Organization [facility] - Health Address [address] [place] [address] Care Team Providers Name Role Phone Yuki Adams Insurance Hmo Yuki Adams Primary Care Provider Reason for Visit Reason Comments Exposure Encounter Details Date Type Department Care Team Description 01/07/2020 Laboratory Only [facility] Health Family Alin Angelo, MAYLIN [address] [address] Exposure to Covid-19 Medicine - [facility], Adc Fam Pob I Virus (Primary Dx) [address] [place] [address] Allergies No Known Allergiesdocumented as of this encounter (statuses as of 01/07/2020) Medications Medication Sig Dispensed Refills Start Date [...] as of this encounter (statuses as of 01/07/2020) Active Problems Problem Noted Date Well woman exam 03/07/2019 Need for HPV vaccination 03/07/2019 History of depression 03/07/2019 Closed avulsion fracture of left ankle, sequela 2018 Pain and swelling of left ankle 2019 depression 12/13/2018 Axillary accessory breast tissue 12/13/2018 Pre-eclampsia, severe, delivered 10/11/2018 Obesity (BMI 30-39.9) 11/06/2017 control counseling 01/01/2016 Thrombocytopenia 12/28/2014 Overview: ICD10 Diagnosis Term 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 Screening examination for STD (sexually transmitted di sease) 12/28/2014 Overview: ICD10 Diagnosis Term 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 documented as of this encounter (statuses as of 01/07/2020) Resolved Problems Problem Noted Date Resolved Date [...] as of this encounter (statuses as of 01/07/2020) Immunizations Name Administration Dates Next Due HPV9 [...] filedocumented in this encounter Plan of Treatment Name Type Priority Associated Diagnoses Order S chedule COVID-19 (PCR MOLECULAR LAB Routine Exposure to Covid -19 Expected: 01/07/2020, TESTING) Virus Expires: 2020 Health Maintenance Due Date Last Done Comments [...] filedocumented in this encounter Visit Diagnoses Diagnosis Exposure to Covid-19 Virus - Primary documented in this encounter Additional Health Concerns Infection Onset Date Last Indicated Resolved Time COVID-19 Rule Out 01/07/2020 01/07/2020 documented as of this encounter Insurance Payer Benefit Plan / Subscriber ID Effective Phone Address [facility] xxxxxxxxx 2019-Pres [address] Medic aid HEALTH CHOICE - HEALTH CHOICE ent [id number] 1 MANAGED MEDICAID [place] [phone] documented as of this encounter
--- OUTSIDE RECORDS SUMMARY | 2020-03-01 17:21 | XMS REPORT | Summary of Care ---
:1995 Author Organization [facility] - [facility] Address [address] [place] [address] Care Team Providers Name Role Phone Yuki Adams Insurance Hmo Yuki Adams Primary Care Provider Reason for Visit Reason Comments Nausea COVID + Auth/Cert Status Reason Specialty Diagnoses / Referred By Referred To Procedures Contact Contact Emergency Medicine Diagnoses L CHEST WALL PAIN [facility] [address] [place] [address] Fax: Encounter Details Date Type Department Care Team Description 01/18/2020 Emergency ADC-Emergency Parker, Cynise, Nausea (Agata cadet Dx); Department RIVET SORTER Educated About Covid-19 Virus Infection; [address] [place] [address] Dr avelar [address] [facility] COVID-19; [place] [phone] Myalgia [phone] [place] [address] Allergies No Known Allergiesdocumented as of this encounter (statuses as of 01/18/2020) Medications Medication Sig Dispensed Refills Start Date [...] mg by 0 Active tablet mouth daily. ondansetron 4 mg Take 1 tablet by 9 tablet 0 01/18/2020 Active disintegrating mouth every 12 tabletIndications: (twelve) hours as Nausea, COVID-19 needed for Nausea and Vomiting (N/V). documented as of this encounter (statuses as of 01/18/2020) Active Problems Problem Noted Date Well woman exam 03/07/2019 Need for HPV vaccination 03/07/2019 History of depression 03/07/2019 Closed avulsion fracture of left ankle, sequela 2018 Pain and swelling of left ankle 2019 depression 12/13/2018 Axillary accessory breast tissue 12/13/2018 Pre-eclampsia, severe, delivered 10/11/2018 Obesity (BMI 30-39.9) 11/06/2017 control counseling 01/01/2016 Thrombocytopenia 12/28/2014 Overview: ICD10 Diagnosis Term Ticket Taker Utility Screening examination for STD (sexually transmitted di sease) 12/28/2014 Overview: ICD10 Diagnosis Term Ticket Taker Utility documented as of this encounter (statuses as of 01/18/2020) Resolved Problems Problem Noted Date Resolved Date [...] as of this encounter (statuses as of 01/18/2020) Immunizations Name Administration Dates Next Due HPV9 [...] have you been in contact with Yes 01/18/2020 6:27 PM CDT someone who was confirmed or suspected to have Coronavirus / COVID-19? documented as of this encounter Last Filed Vital Signs Vital Sign Reading Time Taken Comments Blood Pressure 110/77 01/18/2020 6:29 PM CDT Pulse 91 01/18/2020 6:29 PM CDT Temperature 36.7 C (98 F) 01/18/2020 6:29 PM CDT Respiratory Rate 14 01/18/2020 6:29 PM CDT Oxygen Saturation 97% 01/18/2020 6:29 PM CDT Inhaled Oxygen Concentration - - Weight 77.1 kg (170 lb) 01/18/2020 6:29 PM CDT Height 149.9 cm (4' 11") 01/18/2020 6:29 PM CDT Body Mass Index 34.34 01/18/2020 6:29 PM CDT documented in this encounter Discharge Instructions AttachmentsThe following attachments cannot be sent through Care Everywhere. Coronavirus Disease 2018 (COVID-19) (Angolan)Viral Syndrome (Adult) (Angolan) documented in this encounter Plan of Treatment Health [...] encounter Procedures Procedure Name Priority Date/Time Associated Comments Diagnosis POCT TEST JOE 01/18/2020 6:39 PM Nausea R esults for this CDT procedure are i n the results section. ASSIGNMENT OF Routine 01/18/2020 6:12 PM BENEFITS CDT NOTICE OF PRIVACY Routine 01/18/2020 6:11 PM PRACTICES CDT CONSENT/REFUSAL FOR Routine 01/18/2020 6:11 PM DIAGNOSIS AND CDT TREATMENT documented in this encounter Results POCT TEST (01/18/2020 6:39 PM CDT) Pathologist Sig nature POCT PREG negative On board controls acceptable present with C Line POCT PREG LOT # [id number] POCT PREG TEST DATE 01-18-2021 Specimen Urine - URINE, CLEAN CATCH documented in this encounter Visit Diagnoses Diagnosis Nausea - Primary Nausea alone Educated About Covid-19 Virus Infection COVID-19 Myalgia Mylagia and myositis, unspecified documented in this encounter Administered Medications Medication Order MAR Action Action Date Dose Rate Site ibuprofen (IBU) tablet 800 mg Given 01/18/2020 6:43 PM CDT 800 mg 800 mg, Oral, ONCE, 1 dose, Ann 01/18/20 at 1945, JOE ondansetron (ZOFRAN-ODT) disintegrating tablet Given 0 01/18/2020 6:43 PM CDT 4 mg 4 mg 4 mg, Oral, ONCE, 1 dose, Ann 01/18/20 at 1945, Routine documented in this encounter Additional Health Concerns Infection Onset Date Last Indicated Resolved Time COVID-19 Confirmed 01/07/2020 01/07/2020 documented as of this encounter Insurance Payer Benefit Plan / Subscriber ID Effective Phone Address T [facility] xxxxxxxxx 2019-Pres [address] Medic aid HEALTH CHOICE - HEALTH CHOICE ent [id number] 1 MANAGED MEDICAID [place] [phone] documented as of this encounter
--- OUTSIDE RECORDS SUMMARY | 2020-03-01 17:21 | XMS REPORT | Summary of Care ---
:1995 Author Organization [facility] - [facility] Address [address] [place] [address] Care Team Providers Name Role Phone Yuki Adams Insurance Hmo Yuki Adams Primary Care Provider Reason for Visit Reason Onset Date Comments Abdominal Pain 01/26/2020 Encounter Details Date Type Department Care Team Description 01/26/2020 Nurse Triage ACCESS CENTER Radha Bass RN Abdominal Pain [address] [place] [address] Allergies No Known Allergiesdocumented as of this encounter (statuses as of 01/26/2020) Medications Medication Sig Dispensed Refills Start Date [...] as of this encounter (statuses as of 01/26/2020) Active Problems Problem Noted Date Well woman exam 03/07/2019 Need for HPV vaccination 03/07/2019 History of depression 03/07/2019 Closed avulsion fracture of left ankle, sequela 2018 Pain and swelling of left ankle 2019 depression 12/13/2018 Axillary accessory breast tissue 12/13/2018 Pre-eclampsia, severe, delivered 10/11/2018 Obesity (BMI 30-39.9) 11/06/2017 control counseling 01/01/2016 Thrombocytopenia 12/28/2014 Overview: ICD10 Diagnosis Term Recenterer Utility Screening examination for STD (sexually transmitted di sease) 12/28/2014 Overview: ICD10 Diagnosis Term Recenterer Utility documented as of this encounter (statuses as of 01/26/2020) Resolved Problems Problem Noted Date Resolved Date [...] as of this encounter (statuses as of 01/26/2020) Immunizations Name Administration Dates Next Due HPV9 03/07/2019 TDAP 01/26/2012 documented as of this encounter Social History Tobacco Use Types Packs/Day Years Used Date Former Smoker Cigarettes 03/07/2012 - 0 10/19/2018 Smokeless Tobacco: Never Used Alcohol Use Drinks/Week oz/Week Comments No 0 Standard drinks or equivalent 0.0 Sex Assigned at Date Recorded Not on file COVID-19 Exposure Response Date Recorded In the last month, have you been in contact with Yes 01/18/2020 6:27 PM CDT someone who was confirmed or suspected to have Coronavirus / COVID-19? documented as of this encounter Last Filed Vital Signs Not on filedocumented in this encounter Miscellaneous Notes Telephone Encounter - Radha Bass RN - 01/26/2020 4:31 AM CDTAdult Triage Assessment Last Clinic Visit: 01/18/2020 - ED - Nausea Primary Symptom: Abdominal pain Onset / Duration: 0408 Location / Description: lower pelvic in the middle Pain / Severity: 8/10 worse with movement Associated Symptoms: denies nausea and diarrhea Fever / Method: denies Hydration: 5 16 oz bottles of water in the last 12 hours, last void around 0400 Treatment so far: laid down to rest Effect on ADL's: some change LMP: 20 January 2020 Pre-existing condition / Immunocompromised: denies Reason for Disposition [1] SEVERE pain AND [2] present < 1 hour Roberto Traore is a 24 year old female who reports intermittent abdominal pain when she tries to sit up from lying down. Pain is located in center pelvic area. Assessment and triage completed per protocol. Patient verbalizes understanding and agrees to follow POC. Patient able to teach back plan of care and states that she will call back if pain does not resolve in a few hours. Protocols used: ABDOMINAL PAIN - [id number] elephone Encounter - Radha Bass RN - 01/26/2020 4:31 AM CDTRegarding: lower abdominal pain ----- Message from Haja Hernandez sent at 01/26/2020 4:06 AM CDT ----- Roberto Traore is a 24 year old female documented in this encounter Plan of Treatment Health Maintenance Due Date Last Done Comments VARICELLA VACCINES (1 of 2 - 1998 2-dose childhood series) MENINGOCOCCAL B VACCINES (1 2007 of 2 - Risk Bexsero 2-dose series) HPV VACCINES (2 - 3-dose 04/04/2019 03/07/2019 series) INFLUENZA VACCINE (#1) 2020 CHLAMYDIA SCREENING [...] Plan / Subscriber ID Effective Phone Address [facility] [id number] 2019-Pres [address] Medic aid HEALTH CHOICE - HEALTH CHOICE ent [id number] [facility] MEDICAID [place], [place] MEDICAID [phone] documented as of this encounter
[2020-03-01 19:20] LABS: Absolute Lymphocytes (CBC) 2.5 K/uL (0.7-4.9); Basophils % 0.8 % (0-1.3); Hematocrit 39.1 % (36.0-45.0); Lymphocytes % 23.3 % (15.3-44.8); RBC Red Blood Cell Count 4.92 M/uL (3.86-4.86)
[2020-03-01 19:24] LABS: Protime INR 1.02
--- NOTE | 2020-03-01 19:32 | RAD REPORT ---
EXAM DESCRIPTION: RAD - Forearm Left - 03/01/2020 7:14 pm CLINICAL HISTORY: Left forearm pain status post injury FINDINGS: No fracture is seen. Soft tissue swelling. No radiopaque foreign body
[2020-03-01 19:42] LABS: ALT/SGPT 22 U/L (12-78); AST/SGOT 8 U/L (15-37); Albumin 4.4 g/dL (3.4-5.0); Alkaline Phosphatase 95 U/L (45-117); BUN Blood Urea Nitrogen 12 mg/dL (7-18); Bicarbonate 23 mmol/L (21-32); Bilirubin Direct < 0.1 mg/dL (0-0.2); Bilirubin Total 0.2 mg/dL (0.2-1.0); Glucose Level 92 mg/dL (74-106); Potassium 3.9 mmol/L (3.5-5.1); Protein, Total 8.4 g/dL (6.4-8.2); Sodium Level 140 mmol/L (136-145)
[2020-03-01 20:25] LABS: Barbiturates NEGATIVE (NEGATIVE); Benzodiazepines NEGATIVE (NEGATIVE); Cocaine NEGATIVE (NEGATIVE); METHAMPHETAM NEGATIVE (NEGATIVE); Methadone NEGATIVE (NEGATIVE); Opiates NEGATIVE (NEGATIVE); Phencyclidine NEGATIVE (NEGATIVE); THC Cannibis NEGATIVE (NEGATIVE)
[2020-03-01 20:45] LABS: Blood Morphology Comment NOT SEEN (NOT SEEN); Platelet Estimate ADEQ; Platelets, Giant PRESENT; White Blood Cell Scan OK (OK)
[2020-03-01 21:54] LABS: Urine Blood NEGATIVE (NEG); Urine Glucose NEGATIVE (NEG); Urine Protein NEGATIVE (NEG); Urine pH 5.5 (5.0-7.0)
--- NOTE | 2020-03-01 22:02 | ER ---
Nurse's Notes [facility] Name: Roberto Traore Age: 25 yrs Sex: Female : 1995 Arrival Date: 03/01/2020 Time: 17:19 Bed 18 Private MD: Diagnosis: Depression;Puncture wound without foreign body of left forearm Presentation: 03/01 17:24 Chief complaint: Patient states: "I stabbed myself with some scissors. I have just been jd3 going through a lot and having thoughts of suicide.". Coronavirus screen: At this time, the client does not indicate any symptoms associated with coronavirus-19. Ebola Screen: Patient negative for fever greater than or equal to 101.5 degrees Fahrenheit, and additional compatible Ebola Virus Disease symptoms. Initial Sepsis Screen: Does the patient meet any 2 criteria? No. Patient's initial sepsis screen is negative. Does the patient have a suspected source of infection? No. Patient's initial sepsis screen is negative. Risk Assessment: Do you want to hurt yourself or someone else? Patient reports desire/thoughts of hurting themselves or someone else. Provider notified. Onset of symptoms was March 01, 2020. 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 - Social history:: Smoking status: Patient reports the use of cigarette tobacco products, denies chronic smoking, but will smoke occasionally. Screenin:10 Abuse screen: Denies threats or abuse. Denies injuries from another. Nutritional sv screening: No deficits noted. Tuberculosis screening: No symptoms or risk factors identified. Fall Risk None identified. Assessment: 18:10 General: Appears in no apparent distress. uncomfortable, well developed, Behavior is sv calm, cooperative, appropriate for age. Pain: Denies pain. Neuro: Level of Consciousness is awake, alert, obeys commands, Oriented to person, place, time, situation, Moves all extremities. Full function Gait is steady. Respiratory: Respiratory effort is even, unlabored, Respiratory pattern is regular, symmetrical. Derm: Skin is intact, Skin is pink, warm \\T\\ dry. Musculoskeletal: Range of motion: intact in all extremities. 19:00 Reassessment: Patient and/or family updated on plan of care and expected duration. Pain jb4 level reassessed. Patient is alert, oriented x 3, equal unlabored respirations, skin warm/dry/pink. PT is resting in bed comfortably with no s/s of pain or distress noted. 20:00 Reassessment: Patient appears in no apparent distress at this time. No changes from jb4 previously documented assessment. Patient and/or family updated on plan of care and expected duration. Pain level reassessed. 20:30 Reassessment: Patient and/or family updated on plan of care and expected duration. Pain jb4 level reassessed. Patient is alert, oriented x 3, equal unlabored respirations, skin warm/dry/pink. Pt verbalized feeling better after resting. Denies homicidal \\T\\ suicidal ideations. reports wanting to go home stating " I feel better now, I think it was more hormonal due to the depo show and the situation I was in." Reports having a safe place to go home to. 21:23 Reassessment: Patient appears in no apparent distress at this time. Patient and/or jb4 family updated on plan of care and expected duration. Pain level reassessed. Patient is alert, oriented x 3, equal unlabored respirations, skin warm/dry/pink. PT is currently speaking with [employer]. 22:21 Reassessment: Patient appears in no apparent distress at this time. Patient and/or jb4 family updated on plan of care and expected duration. Pain level reassessed. Patient is alert, oriented x 3, equal unlabored respirations, skin warm/dry/pink. PT verbalized understanding of D/c and follow up instructions. Went over belongings checklist with PT, reports having everything with the exception of her ID. States " I do not know if I brought it with me. If you guys find it can you call me." Pt informed that we would call her if her ID was found. Ambulated out of ED with steady gait. Patient states feeling better. Psych: 18:10 Subjective: Patient's mood is sad, hopeless, Delusions are denied, Hallucinations are sv denied Having thoughts of suicide. Plan for suicide is "I took the scissors and stabbed my arm.". Objective: Patient is cooperative, Speech is rambling, Affect is appropriate, Patient has mutilated themselves by stabbing herself with scissors. Interventions: Removed personal items and placed in bag. Patient placed in hospital gown. Searched person for dangerous items. Belonging list filled out. Patient reassessed during use of restraints. Patient is physically safe. Patient's cardiac status is stable. Patient's respirations are even and unlabored. Patient has good circulation in all extremities as indicated by capillary refill < 3 seconds. Patient's ROM assessed and is intact. Patient nutrition and hydration needs will continue to be monitored and addressed. Patient hygiene and elimination needs met. Patient assessed for signs of distress. Patient remains reasonably comfortable at this time. Suicide Risk Assessment: Sad Person Scale: Sex of patient: Female: Score 0 points. Age of patient: Score 1 point if patient 15-34. Depression: Score 1 point if signs of depression are present. Previous Attempt: Score 0 point if patient has not previously attempted suicide. Substance Abuse: Score 0 point if patient does not abuse alcohol or drugs. Rational Thinking: Score 1 point if patient is lacking rational thinking. Social Support: Score 1 point if social support is lacking and/or unavailable. Organized Plan: Score 1 point if patient had a plan in place. Relationship: Score 0 point if patient has a spouse or domestic partner. Chronic Sickness: Score 0 point if patient does not have a chronic illness, debilitating, or severe disorder. TOTAL POINTS: If total points are 5-6, proposed clinical action is to strongly consider hospitalization, depending upon confidence in the follow-up arrangement. Implement suicide precautions. Safety Checks: Personal items have been removed. Door is open. No visitors are present at this time. Pt denies substance abuse. Commitment: Patient will be a voluntary commitment. Vital Signs: 17:27 BP 148 / 109; Pulse 115; Resp 17 S; Temp 98.1(O); Pulse Ox 100% on R/A; Weight 77.11 kg jd3 (R); Height 4 ft. 11 in. (149.86 cm) (R); Pain 10/10; 22:15 BP 131 / 78; Pulse 78; Resp 16; Temp 99.2(O); Pulse Ox 100% on R/A; jb4 17:27 Body Mass Index 34.34 (77.11 kg, 149.86 cm) jd3 ED Course: 17:19 Patient arrived in ED. ds1 17:26 Triage completed. jd3 17:26 Mariama Shaw FNP-C [facility]. kb 17:26 John Maloney MD is Attending Physician. kb 17:28 Arm band placed on. jd3 17:50 Ann Lei RN is Primary Nurse. sv 18:10 Patient has correct armband on for positive identification. Placed in gown. Bed in low sv position. Head of bed elevated. 18:45 EKG done, by ED staff, reviewed by Mariama ASTUDILLO. Inserted saline lock: 20 sv gauge in right antecubital area, using aseptic technique. Blood collected. Flushed right antecubital with 5 ml normal saline. 19:14 Forearm Left XRAY In Process Unspecified. EDMS 19:17 One-on-one care X 60 minutes. sv 19:17 Report given to Garth AVERY. sv 19:19 Primary Nurse role handed off by Ann Lei RN jb4 19:19 Kurt Ellison, RN is Primary Nurse. jb4 20:36 Called [facility] to request screener to speak with pt. ar5 22:15 No provider procedures requiring assistance completed. IV discontinued, intact, jb4 bleeding controlled, No redness/swelling at site. Pressure dressing applied. Administered Medications: No medications were administered Outcome: 22:01 Discharge ordered by . kb 22:24 Discharged to home ambulatory. jb4 22:24 Condition: stable 22:24 Discharge instructions given to patient, Instructed on discharge instructions, follow up and referral plans. Demonstrated understanding of instructions, follow-up care. 22:24 Patient left the ED. jb4 Signatures: Dispatcher [employer] EDMS Mariama Shaw FNP-C FNP-Ann Guo RN RN sv Sanford, Demi ds1 Kurt Ellison, RN RN jbShawn Jefferson RN RN jd3 Robles, Autumn ar5
--- NOTE | 2020-03-01 22:02 | EDPHYS ---
Physician Documentation [facility] Name: Roberto Traore Age: 25 yrs Sex: Female : 1995 Arrival Date: 03/01/2020 Time: 17:19 Bed 18 Private MD: ED Physician John Maloney HPI: 03/01 18:32 This 25 yrs old Female presents to ER via Ambulatory with complaints of kb Suicidal Ideation, Laceration To Arm. 18:32 The patient presents to the emergency department with depression, issues with CPS, a kb history of a suicide gesture, stabbed forearm with scissors, suicide ideation. Onset: The symptoms/episode began/occurred today. Past psychiatric history: Prior diagnosis: depression, Psychiatric medications include: Celexa, the patient has not had a prior suicide gesture, the patient does not have a previous inpatient psychiatric history. Associated signs and symptoms: Pertinent positives; depression, suicide ideation. Severity of symptoms: At their worst the symptoms were moderate in the emergency department the symptoms are unchanged. The patient has not experienced similar symptoms in the past. The patient has not recently seen a physician. Pt reports she has been going through a lot and it is has become too much. States she has been having issues with CPS, her aunt has her 2 children. States she talked to the casework supervisor today and was told she wasn't going to be getting her kids back "even though I've been doing everything right." States she doesn't have anyone to talk to or anyone that cares and she is not doing ok right now. states she has been having suicidal thoughts and wishes she wouldn't wake up tomorrow. Today she stabbed her arm with scissors multiple times. . 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 - Social history:: Smoking status: Patient reports the use of cigarette tobacco products, denies chronic smoking, but will smoke occasionally. ROS: 18:32 Constitutional: Negative for fever, chills, and weight loss, Cardiovascular: Negative kb for chest pain, palpitations, and edema, Respiratory: Negative for shortness of breath, cough, wheezing, and pleuritic chest pain, Abdomen/GI: Negative for abdominal pain, nausea, vomiting, diarrhea, and constipation, Back: Negative for injury and pain, MS/Extremity: Negative for injury and deformity, Neuro: Negative for headache, weakness, numbness, tingling, and seizure. 18:32 Skin: Positive for hematoma, puncture, of the dorsal aspect of left forearm. 18:32 Psych: Positive for depression, suicide gesture, suicidal ideation. Exam: 18:32 Constitutional: This is a well developed, well nourished patient who is awake, alert, kb and in no acute distress. Head/Face: Normocephalic, atraumatic. Chest/axilla: Normal chest wall appearance and motion. Nontender with no deformity. No lesions are appreciated. Cardiovascular: Regular rate and rhythm with a normal S1 and S2. No gallops, murmurs, or rubs. Normal PMI, no JVD. No pulse deficits. Respiratory: Lungs have equal breath sounds bilaterally, clear to auscultation and percussion. No rales, rhonchi or wheezes noted. No increased work of breathing, no retractions or nasal flaring. Abdomen/GI: Soft, non-tender, with normal bowel sounds. No distension or tympany. No guarding or rebound. No evidence of tenderness throughout. MS/ Extremity: Pulses equal, no cyanosis. Neurovascular intact. Full, normal range of motion. Neuro: Awake and alert, GCS 15, oriented to person, place, time, and situation. Cranial nerves II-XII grossly intact. Motor strength 5/5 in all extremities. Sensory grossly intact. Cerebellar exam normal. Normal gait. 18:32 Skin: injury, puncture(s), that are superficial, of the dorsal aspect of left forearm, large hematoma to left forearm. No active bleeding. Pulses 2+ distally. Normal sensation and ROM . 18:32 Psych: Behavior/mood is cooperative, suicidal, Affect is animated, Oriented to person, place, time, Patient having thoughts of suicide. Judgement / Insight is normal. Memory is normal. Delusions/hallucinations are not present. Vital Signs: 17:27 BP 148 / 109; Pulse 115; Resp 17 S; Temp 98.1(O); Pulse Ox 100% on R/A; Weight 77.11 kg jd3 (R); Height 4 ft. 11 in. (149.86 cm) (R); Pain 10/10; 22:15 BP 131 / 78; Pulse 78; Resp 16; Temp 99.2(O); Pulse Ox 100% on R/A; jb4 17:27 Body Mass Index 34.34 (77.11 kg, 149.86 cm) jd3 MDM: 17:30 Patient medically screened. kb 18:40 Data reviewed: vital signs, nurses notes. Data interpreted: Pulse oximetry: on room air kb is 100 %. Interpretation: normal. 21:32 ED course: Pt reported she is feeling better after taking a nap and would like to go home. Denies suicidal ideations at this time. Reports she got her depo shot today and she thinks her hormones were causing her to be emotional. [facility] and [facility] on iPad with them now. . 21:50 Counseling: I had a detailed discussion with the patient and/or guardian regarding: the kb historical points, exam findings, and any diagnostic results supporting the discharge/admit diagnosis, lab results, the need for outpatient follow up, a psychiatrist, to return to the emergency department if symptoms worsen or persist or if there are any questions or concerns that arise at home. ED course: [facility] screener recommends outpatient treatment. States the pt is a current client of [facility] and has an appt scheduled for April 02 but she is going to get her appt moved up. Pt appears to be happier at this time. . 03/01 17:27 Order name: Acetaminophen; Complete Time: 19:43 kb 03/01 17:27 Order name: Basic Metabolic Panel; Complete Time: 19:43 kb 03/01 17:27 Order name: CBC with Diff; Complete Time: 21:05 kb 03/01 17:27 Order name: ETOH Level; Complete Time: 19:43 kb 03/01 17:27 Order name: Hepatic Function; Complete Time: 19:43 kb 03/01 17:27 Order name: PT-INR; Complete Time: 19:29 kb 03/01 17:27 Order name: Ptt, Activated; Complete Time: 19:29 kb 03/01 17:27 Order name: Salicylate; Complete Time: 19:43 kb 03/01 17:27 Order name: Urine Drug Screen; Complete Time: 20:31 kb 03/01 17:27 Order name: EKG; Complete Time: 17:28 kb 03/01 18:40 Order name: Forearm Left XRAY; Complete Time: 19:32 kb 03/01 20:08 Order name: Urine Dipstick--Ancillary (enter results); Complete Time: 22:01 [facility] 03/01 20:08 Order name: Urine --Ancillary (enter results); Complete Time: 22:01 [facility] 03/01 20:45 Order name: CBC Smear Scan; Complete Time: 21:05 EDMS 03/01 17:27 Order name: Urine Test (obtain specimen); Complete Time: 20:02 kb 03/01 17:27 Order name: EKG - Nurse/Tech; Complete Time: 19:17 kb 03/01 17:27 Order name: IV Saline Lock; Complete Time: 19:17 kb 03/01 17:27 Order name: Labs collected and sent; Complete Time: 19:17 kb 03/01 17:27 Order name: Urine Dipstick-Ancillary (obtain specimen); Complete Time: 20:02 kb Administered Medications: No medications were administered Disposition: 03/01/20 22:01 Discharged to Home. Impression: Depression, Puncture wound without foreign body of left forearm. - Condition is Stable. - Discharge Instructions: Major Depressive Disorder, Uvlw-it-Usst. - Medication Reconciliation Form, Thank You Letter, Antibiotic Education, Prescription Opioid Use form. - Follow up: Emergency Department; When: As needed; Reason: Worsening of condition. Follow up: Private Physician; When: 2 - 3 days; Reason: Recheck today's complaints, Continuance of care, Re-evaluation by your physician. Signatures: Dispatcher [employer] Mariama Vickers, MAYLIN-C MANAGER WELLNESS-Kurt Mas RN RN jb4 Shawn Ferreira RN RN jd3 Corrections: (The following items were deleted from the chart) 22:24 22:01 03/01/2020 22:01 Discharged to Home. Impression: Depression; Puncture wound jb4 without foreign body of left forearm. Condition is Stable. Forms are Medication Reconciliation Form, Thank You Letter, Antibiotic Education, Prescription Opioid Use. Follow up: Emergency Department; When: As needed; Reason: Worsening of condition. Follow up: Private Physician; When: 2 - 3 days; Reason: Recheck today's complaints, Continuance of care, Re-evaluation by your physician. kb
[2020-03-01 22:35] VITALS: O2SAT 100
[2020-03-01 22:37] VITALS: BP 131/78; TEMP 99.2
--- NOTE | 2020-03-03 09:48 | EKG ---
Test Date: 2020-03-01 Test Time: 18:57:50 Scarf Gluer: ONEAL MEASUREMENT RESULTS: Intervals: Rate: 93 UT: 140 QRSD: 72 QT: 344 QTc: 427 [place]: P: 42 UT: 140 QRS: 21 T: 42 INTERPRETIVE STATEMENTS: Normal sinus rhythm Minimal voltage criteria for LVH, may be normal variant Borderline ECG No previous ECG available for comparison Electronically Signed On 03-03-20 09:44:39 CDT by Alberto Islas
== END 2020-03-01 22:24 | disposition home or self-care (01) ==
LOC: ER 17:18
DX: S51.832A Puncture wound without foreign body of left forearm, initial encounter (principal); F32.9 Major depressive disorder, single episode, unspecified; X78.8XXA Intentional self-harm by other sharp object, initial encounter; Y93.9 Activity, unspecified; Y92.9 Unspecified place or not applicable; F17.210 Nicotine dependence, cigarettes, uncomplicated
CPT/HCPCS: 36415; 80048; 80076; 80307; 80320; 80329; 81003; 81025; 85025; 85610; 85730; 93005; 99285

== ENCOUNTER 2020-12-01 02:57 | Emergency (ER) | payer OTHER ==
[2020-12-01 03:33] LABS: Urine Blood Trace-intact (Negative); Urine Glucose Negative (Negative); Urine Protein Negative (Negative); Urine Specific Gravity >=1.030 (1.005-1.030)
[2020-12-01 04:03] LABS: Urine Specific Gravity/Preg >1.030 (1.005-1.030)
--- NOTE | 2020-12-01 04:35 | ER ---
Nurse's Notes [facility] Name: Roberto Traore Age: 25 yrs Sex: Female : 1995 Arrival Date: 12/01/2020 Time: 03:00 Bed 16 Private MD: Diagnosis: Vaginal Mucous Plug, Resolved;Hematuria, unspecified Presentation: 12/01 03:18 Chief complaint: Patient states: she was taking a shower and noticed she had "a mucous bb type plug with a red blood-like line through it" denies vaginal bleeding, abdominal pain, no vaginal discharge. Coronavirus screen: At this time, the client does not indicate any symptoms associated with coronavirus-19. Ebola Screen: No symptoms or risks identified at this time. Initial Sepsis Screen: Does the patient meet any 2 criteria? No. Patient's initial sepsis screen is negative. Does the patient have a suspected source of infection? No. Patient's initial sepsis screen is negative. Risk Assessment: Do you want to hurt yourself or someone else? Patient reports no desire to harm self or others. Onset of symptoms was December 01, 2020. 03:18 Method Of Arrival: Ambulatory bb 03:18 Acuity: MARANDA 4 bb Triage Assessment: 03:37 General: Appears in no apparent distress. Behavior is calm, cooperative. Pain: Denies bb pain. Neuro: Level of Consciousness is awake, alert, obeys commands, Oriented to person, place, time, situation. Cardiovascular: Capillary refill < 3 seconds Patient's skin is warm and dry. Respiratory: Airway is patent Respiratory effort is even, unlabored, Respiratory pattern is regular. GI: Abdomen is non-distended. : Denies vaginal bleeding. Derm: Skin is pink, warm \\T\\ dry. Musculoskeletal: Circulation, motion, and sensation intact. 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 - Social history:: Smoking status: Patient reports the use of cigarette tobacco products, denies chronic smoking, but will smoke occasionally. Screenin:36 Abuse screen: Denies threats or abuse. Nutritional screening: No deficits noted. bb Tuberculosis screening: No symptoms or risk factors identified. Fall Risk None identified. Assessment: 03:38 General: Appears in no apparent distress. Behavior is appropriate for age. Pain: Denies ea pain. Neuro: Level of Consciousness is awake, alert, obeys commands, Oriented to person, place, time. Respiratory: Airway is patent Respiratory effort is even, unlabored, Respiratory pattern is regular, symmetrical. Derm: Skin is pink, warm \\T\\ dry. 04:45 Reassessment: Patient and/or family updated on plan of care and expected duration. Pain ea level reassessed. Patient is alert, oriented x 3, equal unlabored respirations, skin warm/dry/pink. Discharge instruction given to patient verbalized the understanding of instruction. Vital Signs: 03:18 BP 132 / 95; Pulse 79; Resp 16 S; Temp 98.2(O); Pulse Ox 100% on R/A; Weight 77.11 kg bb (R); Height 4 ft. 11 in. (149.86 cm) (R); Pain 0/10; 03:18 Body Mass Index 34.34 (77.11 kg, 149.86 cm) ED Course: 03:00 Patient arrived in ED. bp1 03:20 Cholo Wong MD is Attending Physician[facility] 03:21 Triage completed. bb 03:22 Arm band placed on Patient placed in an exam room, on a stretcher, on pulse oximetry. bb 03:36 Patient has correct armband on for positive identification. Bed in low position. Call bb light in reach. 03:36 Urine collected: clean catch specimen. bb 03:39 Lo Patel, RN is Primary Nurse. ea 04:45 No provider procedures requiring assistance completed. Patient did not have IV access ea during this emergency room visit. Administered Medications: No medications were administered Outcome: 04:35 [facility] 04:45 Discharged to home ambulatory. ea 04:45 Condition: stable 04:45 Discharge instructions given to patient, Instructed on discharge instructions, follow up and referral plans. Demonstrated understanding of instructions, follow-up care. 04:46 Patient left the ED. ea Signatures: Mar Diaz RN RN bb Antunez, Elena, RN RN ea Paniauga, Jamila bp1 Wong, Cholo, MD MD [id number]
--- NOTE | 2020-12-01 04:35 | EDPHYS ---
Physician Documentation [facility] Name: Roberto Traore Age: 25 yrs Sex: Female : 1995 Arrival Date: 12/01/2020 Time: 03:00 Bed 16 Private MD: ED Physician Cholo Wong HPI: 12/01 03:42 This 25 yrs old Female presents to ER via Ambulatory with complaints of mh7 Test. 03:42 The patient presents with Had a mucous plug from vagina. Onset: The symptoms/episode mh7 began/occurred today. Modifying factors: The symptoms are alleviated by nothing, the symptoms are aggravated by nothing. Associated signs and symptoms: Pertinent negatives: constipation, cramping, diarrhea, dyspareunia, dysuria, fever, hematuria, nausea, urinary frequency, vaginal bleeding, vaginal discharge, vomiting. Severity of symptoms: At their worst the symptoms were very mild, earlier today, in the emergency department the symptoms have resolved. 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 - Social history:: Smoking status: Patient reports the use of cigarette tobacco products, denies chronic smoking, but will smoke occasionally. ROS: 03:42 Constitutional: Negative for fever, chills, and weight loss, Eyes: Negative for injury, mh7 pain, redness, and discharge, ENT: Negative for injury, pain, and discharge, Neck: Negative for injury, pain, and swelling, Cardiovascular: Negative for chest pain, palpitations, and edema, Respiratory: Negative for shortness of breath, cough, wheezing, and pleuritic chest pain, Abdomen/GI: Negative for abdominal pain, nausea, vomiting, diarrhea, and constipation, Back: Negative for injury and pain, MS/Extremity: Negative for injury and deformity, Skin: Negative for injury, rash, and discoloration, Neuro: Negative for headache, weakness, numbness, tingling, and seizure, Psych: Negative for depression, anxiety, suicide ideation, homicidal ideation, and hallucinations, Allergy/Immunology: Negative for hives, rash, and allergies, Endocrine: Negative for neck swelling, polydipsia, polyuria, polyphagia, and marked weight changes, Hematologic/Lymphatic: Negative for swollen nodes, abnormal bleeding, and unusual bruising. Exam: 03:42 Constitutional: This is a well developed, well nourished patient who is awake, alert, mh7 and in no acute distress. Head/Face: Normocephalic, atraumatic. Eyes: Pupils equal round and reactive to light, extra-ocular motions intact. Lids and lashes normal. Conjunctiva and sclera are non-icteric and not injected. Cornea within normal limits. Periorbital areas with no swelling, redness, or edema. Neck: Trachea midline, no thyromegaly or masses palpated, and no cervical lymphadenopathy. Supple, full range of motion without nuchal rigidity, or vertebral point tenderness. No Meningismus. Chest/axilla: Normal chest wall appearance and motion. Nontender with no deformity. No lesions are appreciated. Cardiovascular: Regular rate and rhythm with a normal S1 and S2. No gallops, murmurs, or rubs. Normal PMI, no JVD. No pulse deficits. Respiratory: Lungs have equal breath sounds bilaterally, clear to auscultation and percussion. No rales, rhonchi or wheezes noted. No increased work of breathing, no retractions or nasal flaring. Abdomen/GI: Soft, non-tender, with normal bowel sounds. No distension or tympany. No guarding or rebound. No evidence of tenderness throughout. Back: No spinal tenderness. No costovertebral tenderness. Full range of motion. Skin: Warm, dry with normal turgor. Normal color with no rashes, no lesions, and no evidence of cellulitis. MS/ Extremity: Pulses equal, no cyanosis. Neurovascular intact. Full, normal range of motion. Neuro: Awake and alert, GCS 15, oriented to person, place, time, and situation. Cranial nerves II-XII grossly intact. Motor strength 5/5 in all extremities. Sensory grossly intact. Cerebellar exam normal. Normal gait. Psych: Awake, alert, with orientation to person, place and time. Behavior, mood, and affect are within normal limits. 04:40 : CVA tenderness, is absent, Pelvic Exam: The exam is refused by the [facility]guardian. The risks and consequences are understood by the patient, Bladder: is normal. Vital Signs: 03:18 BP 132 / 95; Pulse 79; Resp 16 S; Temp 98.2(O); Pulse Ox 100% on R/A; Weight 77.11 kg bb (R); Height 4 ft. 11 in. (149.86 cm) (R); Pain 0/10; 03:18 Body Mass Index 34.34 (77.11 kg, 149.86 cm) MDM: 04:32 Differential diagnosis: ectopic , urinary tract infection. Data reviewed: [facility] vital signs, nurses notes, lab test result(s), urinalysis, UPT: negative. Counseling: I had a detailed discussion with the patient and/or guardian regarding: the historical points, exam findings, and any diagnostic results supporting the discharge/admit diagnosis, lab results, the need for outpatient follow up, to return to the emergency department if symptoms worsen or persist or if there are any questions or concerns that arise at home. Response to treatment: the patient's symptoms have resolved after treatment, the patient's blood pressure is in an acceptable range, mental status has returned to baseline, the patient no longer shows bradycardia, the patient is not short of breath, the patient is not tachycardic, the patient's pain is gone, the patient's temperature has normalized. 04:35 Patient medically screened. [facility] 12/01 03:32 Order name: Urine Dipstick-Ancillary; Complete Time: 03:41 EDMS 12/01 03:32 Order name: Urine --Ancillary (enter results) [facility] 12/01 03:32 Order name: Urine Dipstick-Ancillary (obtain specimen); Complete Time: 03:33 [facility] 12/01 03:32 Order name: Urine Test (obtain specimen); Complete Time: 03:33 [facility] 12/01 03:33 Order name: Urine --Ancillary; Complete Time: 04:42 EDMS Administered Medications: No medications were administered Disposition: 12/01/20 04:35 Discharged to Home. Impression: Vaginal Mucous Plug, Resolved, Hematuria, unspecified. - Condition is Stable. - Discharge Instructions: Hematuria, Adult. - Medication Reconciliation Form, Thank You Letter, Antibiotic Education, Prescription Opioid Use form. - Follow up: Private Physician; When: 1 - 2 days; Reason: Worsening of condition, Recheck today's complaints, Continuance of care, Re-evaluation by your physician. - Problem is new. - Symptoms are resolved. Signatures: Dispatcher [employer] Mar Arteaga, RN Lo Figueroa RN RN ea Aida Perez mw2 Cholo Wong MD MD mh7 Corrections: (The following items were deleted from the chart) 04:42 04:35 12/01/2020 04:35 Discharged to Home. Impression: Vaginal Mucous Plug, Resolved. mh7 Condition is Stable. Forms are Medication Reconciliation Form, Thank You Letter, Antibiotic Education, Prescription Opioid Use. Follow up: Private Physician; When: 1 - 2 days; Reason: Worsening of condition, Recheck today's complaints, Continuance of care, Re-evaluation by your physician. Problem is new. Symptoms are resolved. [facility] 04:46 04:42 12/01/2020 04:35 Discharged to Home. Impression: Vaginal Mucous Plug, Resolved; ea Hematuria, unspecified. Condition is Stable. Discharge Instructions: Hematuria, Adult. Forms are Medication Reconciliation Form, Thank You Letter, Antibiotic Education, Prescription Opioid Use. Follow up: Private Physician; When: 1 - 2 days; Reason: Worsening of condition, Recheck today's complaints, Continuance of care, Re-evaluation by your physician. Problem is new. Symptoms are resolved. mh7
[2020-12-01 04:51] VITALS: BP 132/95; TEMP 98.2; O2SAT 100
== END 2020-12-01 04:46 | disposition home or self-care (01) ==
LOC: ER 02:57
DX: R31.9 Hematuria, unspecified (principal)
CPT/HCPCS: 81003; 81025; 99283

== ENCOUNTER 2021-04-30 03:58 | Emergency (ER) | payer OTHER ==
[2021-04-30 04:11] LABS: Urine Blood Negative (Negative); Urine Glucose Negative (Negative); Urine Protein Negative (Negative); Urine Specific Gravity 1.025 (1.005-1.030); Urine pH 7.5 (5.0-7.0)
[2021-04-30] MEDS ORDERED: LORazepam 2 MG/ML VIAL ONE (04:48)
[2021-04-30] MEDS ORDERED: NA CHLORIDE 0.9% 1,000 ML ONE (04:48)
[2021-04-30 05:18] LABS: Barbiturates NEGATIVE (NEGATIVE); Benzodiazepines NEGATIVE (NEGATIVE); Cocaine NEGATIVE (NEGATIVE); METHAMPHETAM NEGATIVE (NEGATIVE); Methadone NEGATIVE (NEGATIVE); Opiates NEGATIVE (NEGATIVE); Phencyclidine NEGATIVE (NEGATIVE); THC Cannibis NEGATIVE (NEGATIVE)
--- NOTE | 2021-04-30 05:37 | EDPHYS ---
Physician Documentation [facility] Name: Roberto Traore Age: 26 yrs Sex: Female : 1995 Arrival Date: 04/30/2021 Time: 03:53 Bed 16 Private MD: ED Physician David Vanegas HPI: 04/30 05:12 This 26 yrs old Female presents to ER via EMS with complaints of Psych Problem.sp3 05:12 26-year-old female with history of bipolar disease presents via EMS for concerns of her sp3 cigarettes possibly being "laced". Patient suspects her may have done this because "he is on meth all the time". Patient denies any headache, neck pain, fever, chest pain, shortness of breath, abdominal pain, nausea, vomiting, diarrhea, rash, any other ROS at this time. Patient denies IV drug use and states that she only smokes. She has not missed any doses of her medications.. 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 - Social history:: Smoking status: Patient reports the use of cigarette tobacco products, smokes one pack cigarettes per day. ROS: 05:13 Constitutional: Negative for fever, chills, and weight loss, Eyes: Negative for injury, sp3 pain, redness, and discharge, ENT: Negative for injury, pain, and discharge, Neck: Negative for injury, pain, and swelling, Cardiovascular: Negative for chest pain, palpitations, and edema, Respiratory: Negative for shortness of breath, cough, wheezing, and pleuritic chest pain, Abdomen/GI: Negative for abdominal pain, nausea, vomiting, diarrhea, and constipation, Back: Negative for injury and pain, MS/Extremity: Negative for injury and deformity, Skin: Negative for injury, rash, and discoloration, Neuro: Negative for headache, weakness, numbness, tingling, and seizure, Allergy/Immunology: Negative for hives, rash, and allergies, Endocrine: Negative for neck swelling, polydipsia, polyuria, polyphagia, and marked weight changes, Hematologic/Lymphatic: Negative for swollen nodes, abnormal bleeding, and unusual bruising. 05:13 Psych: Negative for Patient states that she feels "weird" and again is suspicious of "bad cigarettes".. Exam: 05:14 Constitutional: This is a well developed, well nourished patient who is awake, alert, sp3 and in no acute distress. Head/Face: Normocephalic, atraumatic. Eyes: Pupils equal round and reactive to light, extra-ocular motions intact. Lids and lashes normal. Conjunctiva and sclera are non-icteric and not injected. Cornea within normal limits. Periorbital areas with no swelling, redness, or edema. ENT: Nares patent. No nasal discharge, no septal abnormalities noted. External auditory canals are clear. Oropharynx with no redness, swelling, or masses, exudates, or evidence of obstruction, uvula midline. Mucous membranes moist. Neck: Trachea midline, no thyromegaly or masses palpated, and no cervical lymphadenopathy. Supple, full range of motion without nuchal rigidity, or vertebral point tenderness. No Meningismus. Chest/axilla: Normal chest wall appearance and motion. Nontender with no deformity. No lesions are appreciated. Respiratory: Lungs have equal breath sounds bilaterally, clear to auscultation and percussion. No rales, rhonchi or wheezes noted. No increased work of breathing, no retractions or nasal flaring. Abdomen/GI: Soft, non-tender, with normal bowel sounds. No distension or tympany. No guarding or rebound. No evidence of tenderness throughout. Back: No spinal tenderness. No costovertebral tenderness. Full range of motion. Skin: Warm, dry with normal turgor. Normal color with no rashes, no lesions, and no evidence of cellulitis. MS/ Extremity: Pulses equal, no cyanosis. Neurovascular intact. Full, normal range of motion. Neuro: Awake and alert, GCS 15, oriented to person, place, time, and situation. Cranial nerves II-XII grossly intact. Motor strength 5/5 in all extremities. Sensory grossly intact. Cerebellar exam normal. Normal gait. 05:14 Cardiovascular: Other than mild tachycardia, patient has normal cardiac exam. Heart rate when patient is sleeping is in the 98-102 range.. 05:14 Psych: Patient is not suicidal or homicidal. She does have pressured speech and speaks rapidly which may indicate mild ashvin. She is not psychotic and is not responding to internal stimuli.. Vital Signs: 03:55 BP 142 / 107; Pulse 136; Resp 16; Temp 97.7; Pulse Ox 99% on R/A; Weight 63.5 kg; dc2 Height 5 ft. 0 in. (152.40 cm); Pain 1/10; 04:15 BP 135 / 91; Pulse 123; Resp 20; Pulse Ox 100% on R/A; Pain 0/10; dc2 05:30 BP 125 / 80; Pulse 101; Resp 18; Pulse Ox 100% on R/A; Pain 0/10; dc2 03:55 Body Mass Index 27.34 (63.50 kg, 152.40 cm) dc2 MDM: 04:31 Patient medically screened. sp3 05:15 Data reviewed: vital signs, nurses notes. ED course: 26-year-old female with bipolar sp3 disease who presents with concerns of laced cigarettes. I believe patient has mild ashvin at this time. I have given 1 mg of Ativan which seems to have calmed her down and lowered her heart rate. Will obtain UDS and hCG and if both demonstrate no significant abnormality, we will discharge patient home to primary psych team for further care and medication management.. 05:33 ED course: UDS demonstrates no positive results. Vital signs are normal with heart rate sp3 hovering right around 100 bpm. Patient is sleeping comfortably. Will discharge patient home.. 04/30 04:10 Order name: Urine Dipstick-Ancillary; Complete Time: 05:16 EDMS 04/30 05:06 Order name: Urine Drug Screen; Complete Time: 05:32 EDMS 04/30 04:40 Order name: Urine Dipstick-Ancillary (obtain specimen) dc2 04/30 04:41 Order name: Urine Test (obtain specimen); Complete Time: 04:43 sp3 Administered Medications: 04:45 Drug: Ativan (LORazepam) 1 mg Route: IVP; Site: left antecubital; dc2 05:00 Follow up: Response: Anxiety decreased dc2 Disposition Summary: 04/30/21 05:36 Discharge Ordered Location: Home sp3 Condition: Stable sp3 Diagnosis - Bipolar disorder, current episode manic without psychotic features, mild sp3 Discharge Instructions: - Discharge Summary Sheet sp3 - Managing Bipolar Disorder sp3 Forms: - Medication Reconciliation Form sp3 - Thank You Letter sp3 - Antibiotic Education sp3 - Prescription Opioid Use sp3 Signatures: Dispatcher [employer] EDDavid Marc MD MD sp3 Mohit, Maren RN RN dc2 Corrections: (The following items were deleted from the chart) 04:41 04:40 EKG - Nurse/Tech ordered. dc2 dc2 04:41 04:40 IV Saline Lock ordered. dc2 dc2 04:42 04:40 Labs collected and sent ordered. dc2 dc2 04:42 04:40 Suicide Screening ([place]) ordered. dc2 dc2 04:43 04:40 Suicide Precautions ordered. dc2 dc2
--- NOTE | 2021-04-30 05:37 | ER ---
Nurse's Notes [facility] Name: Roberto Traore Age: 26 yrs Sex: Female : 1995 Arrival Date: 04/30/2021 Time: 03:53 Bed 16 Private MD: Diagnosis: Bipolar disorder, current episode manic without psychotic features, mild Presentation: 04/30 03:55 Chief complaint: EMS states: per ems amrit bailey has been to pts residence several dc2 times tonight to report that her cigarettes have been drugged and are making her feel sick. also reported hearing dogs next door that are not there. police called ems and pt agreed to come to hospital for eval. pt denies drug use denies si/hi. Coronavirus screen: Vaccine status: Patient reports receiving the 2nd dose of the covid vaccine. Ebola Screen: Patient negative for fever greater than or equal to 101.5 degrees Fahrenheit, and additional compatible Ebola Virus Disease symptoms Patient denies exposure to infectious person. Patient denies travel to an Ebola-affected area in the 21 days before illness onset. Initial Sepsis Screen: Does the patient meet any 2 criteria? No. Patient's initial sepsis screen is negative. Does the patient have a suspected source of infection? No. Patient's initial sepsis screen is negative. Risk Assessment: Do you want to hurt yourself or someone else? Patient reports no desire to harm self or others. Onset of symptoms was April 30, 2021. 03:55 Method Of Arrival: EMS: [facility] dc2 03:55 Acuity: MARANDA 2 dc2 Triage Assessment: 04:01 General: Appears in no apparent distress. Behavior is anxious, restless. Pain: Denies dc2 pain. 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 - Social history:: Smoking status: Patient reports the use of cigarette tobacco products, smokes one pack cigarettes per day. Screenin:15 Abuse screen: Denies threats or abuse. Denies injuries from another. Nutritional dc2 screening: No deficits noted. Tuberculosis screening: No symptoms or risk factors identified. Never had TB. Fall Risk None identified. No fall in past 12 months (0 pts). Assessment: 04:00 General: Appears in no apparent distress. comfortable, well groomed, Behavior is dc2 anxious. Pain: Denies pain. Neuro: No deficits noted. Level of Consciousness is awake, alert, obeys commands, Oriented to person, place, time, situation. 04:00 Respiratory: No deficits noted. Airway is patent Breath sounds are clear. GI: No dc2 deficits noted. No signs and/or symptoms were reported involving the gastrointestinal system. Abdomen is non-distended. : No deficits noted. No signs and/or symptoms were reported regarding the genitourinary system. Derm: No deficits noted. No signs and/or symptoms reported regarding the dermatologic system. Skin is intact. Musculoskeletal: No deficits noted. Psych: 04:15 [place] Suicide Severity Screening: In the past month, have you wished you were dc2 or wished you could go to sleep and not wake up? Patient responds "No." "In the past month, have you actually had any thoughts of killing yourself?" Patient responds "no." "In your lifetime, have you ever done anything, started to do anything, or prepared to do anything to end your life?" Patient responds "no.". Subjective: Patient's mood is anxious and talkative. 04:15 Objective: Patient is cooperative, Speech is rambling, Affect is appropriate. dc2 Interventions:. Safety Checks: Curtain opened for observation . Pt denies SI or HI. Patient uses tobacco Frequency daily. Commitment: no commitment, pt denies hi or si , is aox4. When asked these questions, pt looked at me as if I were crazy and said no, I just feel differrent after smoking my cigarettes.. Vital Signs: 03:55 BP 142 / 107; Pulse 136; Resp 16; Temp 97.7; Pulse Ox 99% on R/A; Weight 63.5 kg; dc2 Height 5 ft. 0 in. (152.40 cm); Pain 1/10; 04:15 BP 135 / 91; Pulse 123; Resp 20; Pulse Ox 100% on R/A; Pain 0/10; dc2 05:30 BP 125 / 80; Pulse 101; Resp 18; Pulse Ox 100% on R/A; Pain 0/10; dc2 03:55 Body Mass Index 27.34 (63.50 kg, 152.40 cm) dc2 ED Course: 03:53 Patient arrived in ED. dc2 03:54 Maren Rueda, RN is Primary Nurse. dc2 04:01 Triage completed. dc2 04:01 Arm band placed on. dc2 04:04 David Vanegas MD is Attending Physician. sp3 04:15 Patient has correct armband on for positive identification. Bed in low position. Call dc2 light in reach. Side rails up X 1. compliance monitor on. Pulse ox on. NIBP on. Door closed. Lights dimmed. 04:30 compliance monitor on. Pulse ox on. NIBP on. Door closed. Lights dimmed. dc2 04:36 No provider procedures requiring assistance completed. dc2 04:45 Inserted saline lock: 20 gauge in left antecubital area, using aseptic technique. dc2 05:02 ED physician to see patient. dc2 05:48 IV discontinued, intact, bleeding controlled, No redness/swelling at site. Pressure dc2 dressing applied. Administered Medications: 04:45 Drug: Ativan (LORazepam) 1 mg Route: IVP; Site: left antecubital; dc2 05:00 Follow up: Response: Anxiety decreased dc2 Outcome: 05:36 Discharge ordered by . sp3 05:48 Discharged to home ambulatory. dc2 05:48 Condition: stable 05:48 Discharge instructions given to patient, Instructed on discharge instructions, Demonstrated understanding of instructions. 05:50 Patient left the ED. dc2 Signatures: David Vanegas MD MD sp3 Maren Rueda, RN RN dc2
[2021-04-30 06:15] VITALS: O2SAT 100
[2021-04-30 06:17] VITALS: BP 125/80
--- OUTSIDE RECORDS SUMMARY | 2021-05-03 18:54 | XMS REPORT | Continuity of Care Document ---
:1995 Author Organization [facility] t Address [address] [place] [address] Care Team Providers Name Role Juan Vo RN Attending Clinician Unavailable Ezio Chavarria DO Attending Clinician Saundra JOSEPH Attending Clinician Unavailable Shelia AVERY Attending Clinician Unavailable Parker CARLISLE Attending Clinician Yuki Adams Attending Clinician GI Attending Clinician Unavailable Lab, Fam Pob I Attending Clinician Unavailable Gi PEREIRAP Attending Clinician Sonia AVERY, M Attending Clinician Unavailable Jake CARLISLE, R Attending Clinician Ranulfo Gordillo MD Attending Clinician Samara Mcintyre Attending Clinician Doctor Unassigned, Name Attending Clinician Unavailable Toño Mendoza Attending Clinician Kennedy Gibson Attending Clinician Kennedy Bennett MD Attending Clinician Ge MCDOWELL Attending Clinician Lavern SANFORD Attending Clinician Payers Payer Name Policy Type Policy Number Effective Date Expiration Date [facility] [id number] 2019 CHOICE MEDICAID 00:00:00 Problems Condition Condition Condition Status Onset Resolution Last Treating Co mments Source Name Details Category Date Date Treatment Clinician Date Well woman Well woman Disease Active U nivers exam exam 9-17 ity of 00:00: [place] 00 Medical Branch Need for Need for Disease Active Unive rs HPV HPV 9-17 ity [place] vacc[place] History of History of Disease Active U nivers depression depression 9-17 it y of 00:00: [place] 00 Medical Branch Well woman Well woman Disease Active U nivers exam exam 9-17 ity of 00:00: [place] [facility] Closed Closed Disease Active Univers avulsion avulsion 8- ity of fracture fracture 00:00: [place] of left of left 00 Medical ankle, ankle, Branch sequela sequela Pain and Pain and Disease Active Unive rs swelling swelling 8- ity of of left of left 00:00: [place] ankle ankle 00 Medical Branch Disease Active U nivers depression depression 6-25 it y of 00:00: [place] 00 Medical Branch 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 00:00: [place] tissue tissue 00 Medical Branch Pre-eclamp Pre-eclamp Disease Active U nivers jeanine, jeanine, 4-23 ity of severe, severe, 00:00: [place] delivered delivered 00 [facility] Branch Obesity Obesity Disease Active Univers (BMI (BMI 5-19 ity of 30-39.9) 30-39.9) 00:00: [place] 00 Medical Branch Disease Active Univers control control 713 ity of counseling counseling 00:[place] [facility] [place] Disease Active Univers control control 713 ity of counseling counseling 00:[place] [facility] Screening Screening Disease Active Overview: Univers examinatio examinatio 7-10 Formattin ity of n for STD n for STD 00:00: [place] (sexually (sexually 00 note [facility] transmitte transmitte might be Branch d disease) d disease) different from the original. ICD10 Diagnosis Term [employer] Utility Thrombocyt Thrombocyt Disease Active Overview : [facility] openia openia 7-10 Formattin ity of 00:00: g of this [place] 00 note Medical might be Branch different from the original. ICD10 Diagnosis Term [employer] Utility Allergies, Adverse Reactions, Alerts Allergy Allergy Status Severity Reaction(s) Onset Inactive Treating Comm ents Source Name Type Date Date Clinician NO KNOWN Drug Active Univers ALLERGIE Class ity of S [facility]ly [facility] Social History Social Habit Start Date Stop Date Quantity Comments Source Exposure to Yes [facility] SARS-CoV-2 [place] [facility] (event) Branch Tobacco use and 2020-01-18 2020-01-18 Never used Universit y of exposure 00:00:00 00:00:00 [facility] Alcohol intake 2020-01-18 2020-01-18 Current University of 00:00:00 00:00:00 non-drinker of [facility] alcohol (finding) Branch History of 2012-03-07 2018-10-19 Cigarette Smoker Universi ty of tobacco use 00:00:00 00:00:00 [facility] Tobacco Comment 2016-01-01 2016-01-01 black and mild Unive rsity of 00:00:00 00:00:00 cigars Formerly [facility] Sex Assigned At [birth year] Universit y of 00:00:00 00:00:00 [facility] Smoking Status Start Date Stop Date Source Former smoker 2020-01-18 00:00:00 2020-01-18 00:00:00 Universi ty of [facility] Current some day 2019-03-02 00:00:00 [facility] smoker [facility] Medications Ordered Filled Start Stop Current Ordering Indication Dosage Frequency Signature Comments Components Source Medication Medication Date Date Medication? Clinician (SIG) Name Name ondansetron 2019- No 4mg 4 mg, Univ ers (ZOFRAN-ODT 01-18 Oral, ity of ) 00:45: 23:43 ONCE, 1 [place] disintegrat 00 :00 dose, Ann Med ical ing tablet 01/18/20 at [facility] 4 mg 1944, Routine ibuprofen 2019- No 800mg 800 mg, Uni vers (IBU) 01-18 Oral, ity of tablet 800 00:45: 23:43 ONCE, 1 [place] as mg 00 :00 dose, Ann Medical 01/18/20 at Branch 1945, JOE ondansetron 2020-0 Yes [id number] 4mg Take 1 Univers 4 mg 7-30 tablet by ity of disintegrat 00:00: mouth [place] ing tablet 00 every 12 Medic al (twelve) Branch hours as needed for Nausea and Vomiting (N/V). ondansetron 2020-0 Yes [id number] 4mg Take 1 Univers 4 mg 7-30 tablet by ity of disintegrat 00:00: mouth [place] ing tablet 00 every 12 Medic al (twelve) Branch hours as needed for Nausea and Vomiting (N/V). ondansetron 2020-0 Yes [id number] 4mg Take 1 Univers 4 mg 7-30 tablet by ity of disintegrat 00:00: mouth [place] ing tablet 00 every 12 Medic al (twelve) Branch hours as needed for Nausea and Vomiting (N/V). ondansetron 2020-0 Yes [id number] 4mg Take 1 Univers 4 mg 7-30 tablet by ity of disintegrat 00:00: mouth [place] ing tablet 00 every 12 Medic al (twelve) Branch hours as needed for Nausea and Vomiting (N/V). DM/p-ephed/ 2019-0 Yes Take by Un clementina acetaminoph 9-17 mouth. ity of /doxylam 19:53: [place] ([facility] 05 Medical ORAL) [place] aspirin 81 2018-0 Yes 81mg Take 81 mg U nivers mg chewable 9-17 by mouth ity of tablet 19:53: daily. [address] DM/p-ephed/ 2018-0 Yes Take by Un clementina acetaminoph 9-17 mouth. ity of /doxylam 19:53: [place] ([place] [address] Medical ORAL) [place] aspirin 81 2019-0 Yes 81mg Take 81 mg U nivers mg chewable 9-17 by mouth ity of tablet 19:53: daily. [address] DM/p-ephed/ 2019-0 Yes Take by Un [place]lement[place] acetaminoph 9-17 mouth. ity of /doxylam 19:53: [place] ([facility] 05 Medical ORAL) [place] aspirin 81 2019-0 Yes 81mg Take 81 mg U nivers mg chewable 9-17 by mouth ity of tablet 19:53: daily. [address] DM/p-ephed/ 2018-0 Yes Take by Un [place]lement[place] acetaminoph 9-17 mouth. ity of /doxylam 19:53: [place] ([place] [address] Medical ORAL) Branch aspirin 81 2018-0 Yes 81mg Take 81 mg U nivers mg chewable 9-17 by mouth ity of tablet 19:53: daily. [address] Branch DM/p-ephed/ 2018-0 Yes Take by Un clement[place] acetaminoph 9-17 mouth. ity of /doxylam 19:53: [place] ([place] [address] Medical ORAL) Branch aspirin 81 0 Yes 81mg Take 81 mg U nivers mg chewable 9-17 by mouth ity of tablet 19:53: daily. [address] DM/p-ephed/ 2018- Yes Take by Un [place]lement[place] acetaminoph 9-17 mouth. ity of /doxylam 19:53: [place] ([place] [address] Medical ORAL) Branch aspirin 81 Yes 81mg Take 81 mg U nivers mg chewable 9-17 by mouth ity of tablet 19:53: daily. [address] DM/p-ephed/ Yes Take by Un clement[place] acetaminoph 9-17 mouth. ity of /doxylam 19:53: [place] ([place] [address] Medical ORAL) Branch aspirin 81 Yes 81mg Take 81 mg U nivers mg chewable 9-17 by mouth ity of tablet 19:53: daily. [address] DM/p-ephed/ Yes Take by Un clement[place] acetaminoph 9-17 mouth. ity of /doxylam 19:53: [place] ([place] [address] Medical ORAL) Branch aspirin 81 2018-0 Yes 81mg Take 81 mg U nivers mg chewable 9-17 by mouth ity of tablet 19:53: daily. [address] DM/p-ephed/ 2018- Yes Take by Un [place] acetaminoph 9-17 mouth. ity of /doxylam 19:53: [place] ([facility] 05 Medical ORAL) Branch aspirin 81 2018-0 Yes 81mg Take 81 mg U nivers mg chewable 9-17 by mouth ity of tablet 19:53: daily. [address] DM/p-ephed/ Yes Take by Un clement[place] acetaminoph 9-17 mouth. ity of /doxylam 19:53: [place] ([facility] 05 Medical ORAL) Branch aspirin 81 2018-0 Yes 81mg Take 81 mg U nivers mg chewable 9-17 by mouth ity of tablet 19:53: daily. [place] [address] Medical Branch DM/p-ephed/ 2019-0 Yes Take by Un clementina acetaminoph 9-17 mouth. ity of /doxylam 19:53: [place] ([facility] Medical [facility]) Branch aspirin 81 2018-0 Yes 81mg Take 81 mg U nivers mg chewable 9-17 by mouth ity of tablet 19:53: daily. [address] Branch DM/p-ephed/ 2018-0 Yes Take by Un [place]lement[place] acetaminoph 9-17 mouth. ity of /doxylam 19:53: [place] ([facility]) Branch aspirin 81 2018-0 Yes 81mg Take 81 mg U nivers mg chewable 9-17 by mouth ity of tablet 19:53: daily. [address] DM/p-ephed/ 2018- Yes Take by Un [place] acetaminoph 9-17 mouth. ity of /doxylam 19:53: [place] ([facility] Medical [facility]) Branch aspirin 81 2018-0 Yes 81mg Take 81 mg U nivers mg chewable 9-17 by mouth ity of tablet 19:53: daily. [address] Branch DM/p-ephed/ 2018-0 Yes Take by Un [place] acetaminoph 9-17 mouth. ity of /doxylam 19:53: [place] ([facility] Medical [facility]) Branch aspirin 81 2018-0 Yes 81mg Take 81 mg U nivers mg chewable 9-17 by mouth ity of tablet 19:53: daily. [address] Branch DM/p-ephed/ 2019-0 Yes Take by Un [place]lement[place] acetaminoph 9-17 mouth. ity of /doxylam 19:53: [place] ([facility] 05 Medical ORAL) Branch aspirin 81 2018-0 Yes 81mg Take 81 mg U nivers mg chewable 9-17 by mouth ity of tablet 19:53: daily. [address] DM/p-ephed/ 2019-0 Yes Take by Un [place]lement[place] acetaminoph 9-17 mouth. ity of /doxylam 19:53: [place] ([facility] 05 Medical ORAL) Branch aspirin 81 Yes 81mg Take 81 mg U nivers mg chewable 9-17 by mouth ity of tablet 19:53: daily. [place] [facility] Branch DM/p-ephed/ Yes Take by Un clementina acetaminoph 9-17 mouth. ity of /doxylam 19:53: [place] ([facility] 05 Medical ORAL) Branch aspirin 81 Yes 81mg Take 81 mg U nivers mg chewable 9-17 by mouth ity of tablet 19:53: daily. [place] [facility] Branch sod Yes [id number] 1{bottl Use 1 Univ ers chlor-bicar 03-02 e} Bottle in ity of b-squeez 00:00: each [place] bottle 00 nostril 2 Medical (NEILMED (two) Branch SINUS RINSE times COMPLETE) daily. Use pkdv in hot shower 1 hour before bedtime loratadine Yes [id number] 10mg Take 1 Univers 10 mg -12 tablet by ity of tablet 00:00: mouth [place] 00 daily. Medical Branch sod 2019- No [id number] 1{bottl Use 1 Uni vers chlor-bicar 03-02 e} Bottle in it y of b-squeez 00:00: 00:00 each [place] bottle 00 :00 nostril 2 Medical (NEILMED (two) Branch SINUS RINSE times COMPLETE) daily. Use pkdv in hot shower 1 hour before bedtime loratadine 2019- No [id number] 10mg Take 1 Univers 10 mg 03-02 tablet by ity of tablet 00:00: 00:00 mouth [place] 00 :00 daily. Medical Branch sod 2019- No [id number] 1{bottl Use 1 Uni vers chlor-bicar 03-02 e} Bottle in it y of b-squeez 00:00: 00:00 each [place] bottle 00 :00 nostril 2 Medical (NEILMED (two) Branch SINUS RINSE times COMPLETE) daily. Use pkdv in hot shower 1 hour before bedtime loratadine 2019- No [id number] 10mg Take 1 Univers 10 mg 03-02 tablet by ity of tablet 00:00: 00:00 mouth [place] 00 :00 daily. Medical Branch predniSONE 2019- No [id number] 40mg Take 4 Univers 10 mg 03-02-16 tablets by ity of tablet 00:00: 04:59 mouth [place] 00 :00 daily for Medical 3 days. Branch LORazepam 2019- No 1mg 1 mg, Univer s (ATIVAN) 03-01 Oral, ity of tablet 1 mg 11:15: 10:12 ONCE, 1 [place] 00 :00 dose, Wed Medical 03/01/19 at Branch 0615, JOE cyclobenzap 2019- No [id number] 5mg Take 1 Univers rine 5 mg 01-27 tablet by ity of tablet 00:00: 04:59 mouth [place] 00 :00 daily for Medical 7 days. Branch cyclobenzap 2019- No [id number] 5mg Take 1 Univers rine 5 mg 01-27 tablet by ity of tablet 00:00: 04:59 mouth [place] 00 :00 daily for Medical 7 days. Branch metroNIDAZO Yes [id number] 500mg Take 1 Univers LE (FLAGYL) 7-09 tablet by ity of 500 mg 00:00: mouth 2 [place] tablet 00 (two) Medical times Branch daily. metroNIDAZO Yes [id number] 500mg Take 1 Univers LE (FLAGYL) 7-09 tablet by ity of 500 mg 00:00: mouth 2 [place] tablet 00 (two) Medical times Branch daily. metroNIDAZO Yes [id number] 500mg Take 1 Univers LE (FLAGYL) 7-09 tablet by ity of 500 mg 00:00: mouth 2 [place] tablet 00 (two) Medical times Branch daily. metroNIDAZO Yes [id number] 500mg Take 1 Univers LE (FLAGYL) 7-09 tablet by ity of 500 mg 00:00: mouth 2 [place] tablet 00 (two) Medical times Branch daily. metroNIDAZO Yes [id number] 500mg Take 1 Univers LE (FLAGYL) 7-09 tablet by ity of 500 mg 00:00: mouth 2 [place] tablet 00 (two) Medical times Branch daily. metroNIDAZO 2018- Yes [id number] 500mg Take 1 Univers LE (FLAGYL) 7-09 tablet by ity of 500 mg 00:00: mouth 2 [place] tablet 00 (two) Medical times Branch daily. metroNIDAZO 2018-0 Yes [id number] 500mg Take 1 Univers LE (FLAGYL) 7-09 tablet by ity of 500 mg 00:00: mouth 2 [place] tablet 00 (two) Medical times Branch daily. metroNIDAZO 2018-0 Yes [id number] 500mg Take 1 Univers LE (FLAGYL) 7-09 tablet by ity of 500 mg 00:00: mouth 2 [place] tablet 00 (two) Medical times Branch daily. metroNIDAZO 2018-0 Yes [id number] 500mg Take 1 Univers LE (FLAGYL) 7-09 tablet by ity of 500 mg 00:00: mouth 2 [place] tablet 00 (two) Medical times Branch daily. metroNIDAZO 2018-0 Yes [id number] 500mg Take 1 Univers LE (FLAGYL) 7-09 tablet by ity of 500 mg 00:00: mouth 2 [place] tablet 00 (two) Medical times Branch daily. metroNIDAZO 2019- No [id number] 500mg Take 1 Univers LE (FLAGYL) 7-02 27-17 tablet by it y of 500 mg 00:00: 00:00 mouth 2 [place] tablet 00 :00 (two) Medical times Branch daily. metroNIDAZO 2019- No [id number] 500mg Take 1 Univers LE (FLAGYL) 7-02 27-17 tablet by it y of 500 mg 00:00: 00:00 mouth 2 [place] tablet 00 :00 (two) Medical times Branch daily. traMADOL Yes [id number] 50mg Take 1 Un clementina (ULTRAM) 50 6-19 tablet by ity of mg tablet 00:00: mouth [place] 00 every 6 Medical (six) Branch hours as needed for Pain (scale 7-10). ondansetron Yes [id number] 4mg Take 1 Univers (ZOFRAN) 4 6-19 tablet by ity of mg tablet 00:00: mouth [place] 00 every 8 Medical (eight) Branch hours as needed for Nausea and Vomiting (N/V). traMADOL 2019-0 Yes [id number] 50mg Take 1 Un clementina (ULTRAM) 50 6-19 tablet by ity of mg tablet 00:00: mouth [place] 00 every 6 Medical (six) Branch hours as needed for Pain (scale 7-10). ondansetron 2018-0 Yes [id number] 4mg Take 1 Univers (ZOFRAN) 4 6-19 tablet by ity of mg tablet 00:00: mouth [place] 00 every 8 Medical (eight) Branch hours as needed for Nausea and Vomiting (N/V). traMADOL 2019-0 Yes [id number] 50mg Take 1 Un clementina (ULTRAM) 50 6-19 tablet by ity of mg tablet 00:00: mouth [place] 00 every 6 Medical (six) Branch hours as needed for Pain (scale 7-10). ondansetron 2019-0 Yes [id number] 4mg Take 1 Univers (ZOFRAN) 4 6-19 tablet by ity of mg tablet 00:00: mouth [place] 00 every 8 Medical (eight) Branch hours as needed for Nausea and Vomiting (N/V). traMADOL 2019-0 Yes [id number] 50mg Take 1 Un clementina (ULTRAM) 50 6-19 tablet by ity of mg tablet 00:00: mouth [place] 00 every 6 Medical (six) Branch hours as needed for Pain (scale 7-10). ondansetron 2019-0 Yes [id number] 4mg Take 1 Univers (ZOFRAN) 4 6-19 tablet by ity of mg tablet 00:00: mouth [place] 00 every 8 Medical (eight) Branch hours as needed for Nausea and Vomiting (N/V). traMADOL 2019-0 Yes [id number] 50mg Take 1 Un clementina (ULTRAM) 50 6-19 tablet by ity of mg tablet 00:00: mouth [place] 00 every 6 Medical (six) Branch hours as needed for Pain (scale 7-10). ondansetron 2019-0 Yes [id number] 4mg Take 1 Univers (ZOFRAN) 4 6-19 tablet by ity of mg tablet 00:00: mouth [place] 00 every 8 Medical (eight) Branch hours as needed for Nausea and Vomiting (N/V). traMADOL 2019-0 Yes [id number] 50mg Take 1 Un clementina (ULTRAM) 50 6-19 tablet by ity of mg tablet 00:00: mouth [place] 00 every 6 Medical (six) Branch hours as needed for Pain (scale 7-10). ondansetron 2019-0 Yes [id number] 4mg Take 1 Univers (ZOFRAN) 4 6-19 tablet by ity of mg tablet 00:00: mouth [place] 00 every 8 Medical (eight) Branch hours as needed for Nausea and Vomiting (N/V). traMADOL 2019-0 Yes [id number] 50mg Take 1 Un clementina (ULTRAM) 50 6-19 tablet by ity of mg tablet 00:00: mouth [place] 00 every 6 Medical (six) Branch hours as needed for Pain (scale 7-10). traMADOL 2019-0 Yes [id number] 50mg Take 1 Un clement[place] (ULTRAM) 50 6-19 tablet by ity of mg tablet 00:00: mouth [place] 00 every 6 Medical (six) Branch hours as needed for Pain (scale 7-10). traMADOL 2019-0 Yes [id number] 50mg Take 1 Un clement[place] (ULTRAM) 50 6-19 tablet by ity of mg tablet 00:00: mouth [place] 00 every 6 Medical (six) Branch hours as needed for Pain (scale 7-10). ondansetron 2019-0 Yes [id number] 4mg Take 1 Univers (ZOFRAN) 4 6-19 tablet by ity of mg tablet 00:00: mouth [place] 00 every 8 Medical (eight) Branch hours as needed for Nausea and Vomiting (N/V). traMADOL 2019-0 Yes [id number] 50mg Take 1 Un clementina (ULTRAM) 50 6-19 tablet by ity of mg tablet 00:00: mouth [place] 00 every 6 Medical (six) Branch hours as needed for Pain (scale 7-10). traMADOL 2019-0 Yes [id number] 50mg Take 1 Un clement[place] (ULTRAM) 50 6-19 tablet by ity of mg tablet 00:00: mouth [place] 00 every 6 Medical (six) Branch hours as needed for Pain (scale 7-10). traMADOL 2019-0 Yes [id number] 50mg Take 1 Un clementina (ULTRAM) 50 6-19 tablet by ity of mg tablet 00:00: mouth [place] 00 every 6 Medical (six) Branch hours as needed for Pain (scale 7-10). traMADOL 2019-0 Yes [id number] 50mg Take 1 Un clementina (ULTRAM) 50 6-19 tablet by ity of mg tablet 00:00: mouth [place] 00 every 6 Medical (six) Branch hours as needed for Pain (scale 7-10). traMADOL 2019-0 Yes [id number] 50mg Take 1 Un clement[place] (ULTRAM) 50 6-19 tablet by ity of mg tablet 00:00: mouth [place] 00 every 6 Medical (six) Branch hours as needed for Pain (scale 7-10). traMADOL 2019-0 Yes [id number] 50mg Take 1 Un [place] (ULTRAM) 50 6-19 tablet by ity of mg tablet 00:00: mouth [place] 00 every 6 Medical (six) Branch hours as needed for Pain (scale 7-10). traMADOL 2019-0 Yes [id number] 50mg Take 1 Un clementina (ULTRAM) 50 6-19 tablet by ity of mg tablet 00:00: mouth [place] 00 every 6 Medical (six) Branch hours as needed for Pain (scale 7-10). traMADOL 2019-0 Yes [id number] 50mg Take 1 Un clementina (ULTRAM) 50 6-19 tablet by ity of mg tablet 00:00: mouth [place] 00 every 6 Medical (six) Branch hours as needed for Pain (scale 7-10). traMADOL 2019-0 Yes [id number] 50mg Take 1 Un clemenitna (ULTRAM) 50 6-19 tablet by ity of mg tablet 00:00: mouth [place] 00 every 6 Medical (six) Branch hours as needed for Pain (scale 7-10). traMADOL 2019-0 Yes [id number] 50mg Take 1 Un clementina (ULTRAM) 50 6-19 tablet by ity of mg tablet 00:00: mouth [place] 00 every 6 Medical (six) Branch hours as needed for Pain (scale 7-10). traMADOL 2019-0 Yes [id number] 50mg Take 1 Un clementina (ULTRAM) 50 6-19 tablet by ity of mg tablet 00:00: mouth [place] 00 every 6 Medical (six) Branch hours as needed for Pain (scale 7-10). traMADOL 2019-0 Yes [id number] 50mg Take 1 Un clementina (ULTRAM) 50 6-19 tablet by ity of mg tablet 00:00: mouth [place] 00 every 6 Medical (six) Branch hours as needed for Pain (scale 7-10). traMADOL 2019-0 Yes [id number] 50mg Take 1 Un clementina (ULTRAM) 50 6-19 tablet by ity of mg tablet 00:00: mouth [place] 00 every 6 Medical (six) Branch hours as needed for Pain (scale 7-10). traMADOL 2019-0 Yes [id number] 50mg Take 1 Un clementina (ULTRAM) 50 6-19 tablet by ity of mg tablet 00:00: mouth [place] 00 every 6 Medical (six) Branch hours as needed for Pain (scale 7-10). traMADOL 2019-0 Yes [id number] 50mg Take 1 Un clementina (ULTRAM) 50 6-19 tablet by ity of mg tablet 00:00: mouth [place] 00 every 6 Medical (six) Branch hours as needed for Pain (scale 7-10). traMADOL 2019-0 Yes [id number] 50mg Take 1 Un clementina (ULTRAM) 50 6-19 tablet by ity of mg tablet 00:00: mouth [place] 00 every 6 Medical (six) Branch hours as needed for Pain (scale 7-10). ondansetron 2018-0 Yes [id number] 4mg Take 1 Univers (ZOFRAN) 4 6-19 tablet by ity of mg tablet 00:00: mouth [place] 00 every 8 Medical (eight) Branch hours as needed for Nausea and Vomiting (N/V). traMADOL 2018-0 Yes [id number] 50mg Take 1 Un clementina (ULTRAM) 50 6-19 tablet by ity of mg tablet 00:00: mouth [place] 00 every 6 Medical (six) Branch hours as needed for Pain (scale 7-10). ondansetron 2018-0 Yes [id number] 4mg Take 1 Univers (ZOFRAN) 4 6-19 tablet by ity of mg tablet 00:00: mouth [place] 00 every 8 Medical (eight) Branch hours as needed for Nausea and Vomiting (N/V). traMADOL 2019-0 Yes [id number] 50mg Take 1 Un clementina (ULTRAM) 50 6-19 tablet by ity of mg tablet 00:00: mouth [place] 00 every 6 Medical (six) Branch hours as needed for Pain (scale 7-10). ondansetron 2019-0 Yes [id number] 4mg Take 1 Univers (ZOFRAN) 4 6-19 tablet by ity of mg tablet 00:00: mouth [place] 00 every 8 Medical (eight) Branch hours as needed for Nausea and Vomiting (N/V). ondansetron 2019- 2019- No [id number] 4mg Take 1 Univers (ZOFRAN) 4 6-19 -17 tablet by ity of mg tablet 00:00: 00:00 mouth [place] 00 :00 every 8 Medical (eight) Branch hours as needed for Nausea and Vomiting (N/V). ondansetron 2019- No [id number] 4mg Take 1 Univers (ZOFRAN) 4 6-19 -17 tablet by ity of mg tablet 00:00: 00:00 mouth [place] 00 :00 every 8 Medical (eight) Branch hours as needed for Nausea and Vomiting (N/V). hydroCHLORO 2019- Yes [id number] 25mg Take 1 Univers thiazide 25 4-24 tablet by ity of mg tablet 00:00: mouth [place] 00 daily. Medical Branch hydroCHLORO 2019-0 Yes [id number] 25mg Take 1 Univers thiazide 25 4-24 tablet by ity of mg tablet 00:00: mouth [place] 00 daily. Medical Branch hydroCHLORO 2019-0 Yes [id number] 25mg Take 1 Univers thiazide 25 4-24 tablet by ity of mg tablet 00:00: mouth [place] 00 daily. Medical Branch hydroCHLORO 2019-0 Yes [id number] 25mg Take 1 Univers thiazide 25 4-24 tablet by ity of mg tablet 00:00: mouth [place] 00 daily. Medical Branch hydroCHLORO 2019-0 Yes [id number] 25mg Take 1 Univers thiazide 25 4-24 tablet by ity of mg tablet 00:00: mouth [place] 00 daily. Medical Branch hydroCHLORO 2019-0 Yes [id number] 25mg Take 1 Univers thiazide 25 4-24 tablet by ity of mg tablet 00:00: mouth [place] 00 daily. Medical Branch hydroCHLORO 2019-0 Yes [id number] 25mg Take 1 Univers thiazide 25 4-24 tablet by ity of mg tablet 00:00: mouth [place] 00 daily. Medical Branch hydroCHLORO 2019-0 Yes [id number] 25mg Take 1 Univers thiazide 25 4-24 tablet by ity of mg tablet 00:00: mouth [place] 00 daily. Medical Branch hydroCHLORO 2019-0 Yes [id number] 25mg Take 1 Univers thiazide 25 4-24 tablet by ity of mg tablet 00:00: mouth [place] 00 daily. [facility] Branch hydroCHLORO 2019-0 Yes [id number] 25mg Take 1 Univers thiazide 25 4-24 tablet by ity of mg tablet 00:00: mouth [place] 00 daily. Medical Branch hydroCHLORO 2019-0 2019- No [id number] 25mg Take 1 Univers thiazide 25 4-24 -17 tablet by it y of mg tablet 00:00: 00:00 mouth [place] 00 :00 daily. Medical Branch hydroCHLORO 2019- No [id number] 25mg Take 1 Univers thiazide 25 4-24 -17 tablet by it y of mg tablet 00:00: 00:00 mouth [place] 00 :00 daily. Medical Branch 2019-0 Yes [id number] 1{tbl} Take 1 Univers vitamin 4-23 tablet by ity of w/FA tablet 00:00: mouth [place] 00 daily. Medical Branch docusate Yes [id number] 240mg Take 1 U nivers calcium 240 4-23 capsule by it y of mg capsule 00:00: mouth [place] 00 daily as Medical needed for Branch Constipati on. ferrous Yes [id number] 325mg Take 1 Un clementina sulfate 325 4-23 tablet by ity of mg (65 mg 00:00: mouth 2 [place] iron) 00 (two) Medical tablet times Branch daily. ibuprofen Yes [id number] 600mg Take 1 Univers 600 mg 4-23 tablet by ity of tablet 00:00: mouth [place] 00 every 6 Medical (six) Branch hours as needed for Pain (scale 1-3) or Pain (scale 4-6) (Pain). Take with food or milk. 2018- Yes [id number] 1{tbl} Take 1 [facility] vitamin 4-23 tablet by ity of w/FA tablet 00:00: mouth [place] 00 daily. Medical Branch docusate Yes [id number] 240mg Take 1 U nivers calcium 240 4-23 capsule by it y of mg capsule 00:00: mouth once [place] 00 daily as Medical needed for Branch Constipati on. ferrous 2018- Yes [id number] 325mg Take 1 Un clementina sulfate 325 4-23 tablet by ity of mg (65 mg 00:00: mouth 2 [place] iron) 00 (two) Medical tablet times Branch daily. ibuprofen Yes [id number] 600mg Take 1 [facility] 600 mg 4-23 tablet by ity of tablet 00:00: mouth [place] 00 every 6 Medical (six) Branch hours as needed for Pain (scale 1-3) or Pain (scale 4-6) (Pain). Take with food or milk. 2019-0 Yes [id number] 1{tbl} Take 1 [facility] vitamin 4-23 tablet by ity of w/FA tablet 00:00: mouth [place] 00 daily. Medical Branch docusate 0 Yes [id number] 240mg Take 1 U nivers calcium 240 4-23 capsule by it y of mg capsule 00:00: mouth once [place] 00 daily as Medical needed for Branch Constipati on. ferrous 2019 Yes [id number] 325mg Take 1 Un clementina sulfate 325 4-23 tablet by ity of mg (65 mg 00:00: mouth 2 [place] iron) 00 (two) Medical tablet times Branch daily. ibuprofen 2019- Yes [id number] 600mg Take 1 [facility] 600 mg 4-23 tablet by ity of tablet 00:00: mouth [place] 00 every 6 Medical (six) Branch hours as needed for Pain (scale 1-3) or Pain (scale 4-6) (Pain). Take with food or milk. Yes [id number] 1{tbl} Take 1 [facility] vitamin 4-23 tablet by ity of w/FA tablet 00:00: mouth [place] 00 daily. Medical Branch docusate Yes [id number] 240mg Take 1 U nivers calcium 240 4-23 capsule by it y of mg capsule 00:00: mouth once [place] 00 daily as Medical needed for Branch Constipati on. ferrous Yes [id number] 325mg Take 1 Un clementina sulfate 325 4-23 tablet by ity of mg (65 mg 00:00: mouth 2 [place] iron) 00 (two) Medical tablet times Branch daily. ibuprofen 0 Yes [id number] 600mg Take 1 [facility] 600 mg 4-23 tablet by ity of tablet 00:00: mouth [place] 00 every 6 Medical (six) Branch hours as needed for Pain (scale 1-3) or Pain (scale 4-6) (Pain). Take with food or milk. 2019-0 Yes [id number] 1{tbl} Take 1 [facility] vitamin 4-23 tablet by ity of w/FA tablet 00:00: mouth [place] 00 daily. Medical Branch docusate 0 Yes [id number] 240mg Take 1 U nivers calcium 240 4-23 capsule by it y of mg capsule 00:00: mouth once [place] 00 daily as Medical needed for Branch Constipati on. ferrous Yes [id number] 325mg Take 1 Un clementina sulfate 325 4-23 tablet by ity of mg (65 mg 00:00: mouth 2 [place] iron) 00 (two) Medical tablet times Branch daily. ibuprofen Yes [id number] 600mg Take 1 [facility] 600 mg 4-23 tablet by ity of tablet 00:00: mouth [place] 00 every 6 Medical (six) Branch hours as needed for Pain (scale 1-3) or Pain (scale 4-6) (Pain). Take with food or milk. 2019-0 Yes [id number] 1{tbl} Take 1 [facility] vitamin 4-23 tablet by ity of w/FA tablet 00:00: mouth [place] 00 daily. Medical Branch 2018-0 Yes [id number] 1{tbl} Take 1 [facility] vitamin 4-23 tablet by ity of w/FA tablet 00:00: mouth [place] 00 daily. Medical Branch docusate Yes [id number] 240mg Take 1 U nivers calcium 240 4-23 capsule by it y of mg capsule 00:00: mouth once [place] 00 daily as Medical needed for Branch Constipati on. ferrous Yes [id number] 325mg Take 1 Un clementina sulfate 325 4-23 tablet by ity of mg (65 mg 00:00: mouth 2 [place] iron) 00 (two) Medical tablet times Branch daily. ibuprofen Yes [id number] 600mg Take 1 [facility] 600 mg 4-23 tablet by ity of tablet 00:00: mouth [place] 00 every 6 Medical (six) Branch hours as needed for Pain (scale 1-3) or Pain (scale 4-6) (Pain). Take with food or milk. docusate Yes [id number] 240mg Take 1 U nivers calcium 240 4-23 capsule by it y of mg capsule 00:00: mouth once [place] 00 daily as Medical needed for Branch Constipati on. ferrous 2018-0 Yes [id number] 325mg Take 1 Un clementina sulfate 325 4-23 tablet by ity of mg (65 mg 00:00: mouth 2 [place] iron) 00 (two) Medical tablet times Branch daily. ibuprofen Yes [id number] 600mg Take 1 [facility] 600 mg 4-23 tablet by ity of tablet 00:00: mouth [place] 00 every 6 Medical (six) Branch hours as needed for Pain (scale 1-3) or Pain (scale 4-6) (Pain). Take with food or milk. ibuprofen 0 Yes [id number] 600mg Take 1 [facility] 600 mg 4-23 tablet by ity of tablet 00:00: mouth [place] 00 every 6 Medical (six) Branch hours as needed for Pain (scale 1-3) or Pain (scale 4-6) (Pain). Take with food or milk. ibuprofen Yes [id number] 600mg Take 1 [facility] 600 mg 4-23 tablet by ity of tablet 00:00: mouth [place] 00 every 6 Medical (six) Branch hours as needed for Pain (scale 1-3) or Pain (scale 4-6) (Pain). Take with food or milk. ibuprofen Yes [id number] 600mg Take 1 [facility] 600 mg 4-23 tablet by ity of tablet 00:00: mouth [place] 00 every 6 Medical (six) Branch hours as needed for Pain (scale 1-3) or Pain (scale 4-6) (Pain). Take with food or milk. ibuprofen Yes [id number] 600mg Take 1 [facility] 600 mg 4-23 tablet by ity of tablet 00:00: mouth [place] 00 every 6 Medical (six) Branch hours as needed for Pain (scale 1-3) or Pain (scale 4-6) (Pain). Take with food or milk. ibuprofen 0 Yes [id number] 600mg Take 1 [facility] 600 mg 4-23 tablet by ity of tablet 00:00: mouth [place] 00 every 6 Medical (six) Branch hours as needed for Pain (scale 1-3) or Pain (scale 4-6) (Pain). Take with food or milk. ibuprofen 0 Yes [id number] 600mg Take 1 [facility] 600 mg 4-23 tablet by ity of tablet 00:00: mouth [place] 00 every 6 Medical (six) Branch hours as needed for Pain (scale 1-3) or Pain (scale 4-6) (Pain). Take with food or milk. ibuprofen 0 Yes [id number] 600mg Take 1 [facility] 600 mg 4-23 tablet by ity of tablet 00:00: mouth [place] 00 every 6 Medical (six) Branch hours as needed for Pain (scale 1-3) or Pain (scale 4-6) (Pain). Take with food or milk. ibuprofen 0 Yes [id number] 600mg Take 1 [facility] 600 mg 4-23 tablet by ity of tablet 00:00: mouth [place] 00 every 6 Medical (six) Branch hours as needed for Pain (scale 1-3) or Pain (scale 4-6) (Pain). Take with food or milk. ibuprofen 2018-0 Yes [id number] 600mg Take 1 [facility] 600 mg 4-23 tablet by ity of tablet 00:00: mouth [place] 00 every 6 Medical (six) Branch hours as needed for Pain (scale 1-3) or Pain (scale 4-6) (Pain). Take with food or milk. ibuprofen 2018-0 Yes [id number] 600mg Take 1 [facility] 600 mg 4-23 tablet by ity of tablet 00:00: mouth [place] 00 every 6 Medical (six) Branch hours as needed for Pain (scale 1-3) or Pain (scale 4-6) (Pain). Take with food or milk. ibuprofen 0 Yes [id number] 600mg Take 1 [facility] 600 mg 4-23 tablet by ity of tablet 00:00: mouth [place] 00 every 6 Medical (six) Branch hours as needed for Pain (scale 1-3) or Pain (scale 4-6) (Pain). Take with food or milk. ibuprofen 0 Yes [id number] 600mg Take 1 [facility] 600 mg 4-23 tablet by ity of tablet 00:00: mouth [place] 00 every 6 Medical (six) Branch hours as needed for Pain (scale 1-3) or Pain (scale 4-6) (Pain). Take with food or milk. ibuprofen 0 Yes [id number] 600mg Take 1 [facility] 600 mg 4-23 tablet by ity of tablet 00:00: mouth [place] 00 every 6 Medical (six) Branch hours as needed for Pain (scale 1-3) or Pain (scale 4-6) (Pain). Take with food or milk. ibuprofen 0 Yes [id number] 600mg Take 1 [facility] 600 mg 4-23 tablet by ity of tablet 00:00: mouth [place] 00 every 6 Medical (six) Branch hours as needed for Pain (scale 1-3) or Pain (scale 4-6) (Pain). Take with food or milk. ibuprofen 2018-0 Yes [id number] 600mg Take 1 [facility] 600 mg 4-23 tablet by ity of tablet 00:00: mouth [place] 00 every 6 Medical (six) Branch hours as needed for Pain (scale 1-3) or Pain (scale 4-6) (Pain). Take with food or milk. ibuprofen 0 Yes [id number] 600mg Take 1 [facility] 600 mg 4-23 tablet by ity of tablet 00:00: mouth [place] 00 every 6 Medical (six) Branch hours as needed for Pain (scale 1-3) or Pain (scale 4-6) (Pain). Take with food or milk. Yes [id number] 1{tbl} Take 1 [facility] vitamin 4-23 tablet by ity of w/FA tablet 00:00: mouth [place] 00 daily. Medical Branch ibuprofen Yes [id number] 600mg Take 1 [facility] 600 mg 4-23 tablet by ity of tablet 00:00: mouth [place] 00 every 6 Medical (six) Branch hours as needed for Pain (scale 1-3) or Pain (scale 4-6) (Pain). Take with food or milk. docusate Yes [id number] 240mg Take 1 [facility] nivers calcium 240 4-23 capsule by it y of mg capsule 00:00: mouth once [place] 00 daily as Medical needed for Branch Constipati on. ferrous 2018- Yes [id number] 325mg Take 1 Un clementina sulfate 325 4-23 tablet by ity of mg (65 mg 00:00: mouth 2 [place] iron) 00 (two) Medical tablet times Branch daily. ibuprofen Yes [id number] 600mg Take 1 [facility] 600 mg 4-23 tablet by ity of tablet 00:00: mouth [place] 00 every 6 Medical (six) Branch hours as needed for Pain (scale 1-3) or Pain (scale 4-6) (Pain). Take with food or milk. Yes [id number] 1{tbl} Take 1 [facility] vitamin 4-23 tablet by ity of w/FA tablet 00:00: mouth [place] 00 daily. Medical Branch docusate 0 Yes [id number] 240mg Take 1 U nivers calcium 240 4-23 capsule by it y of mg capsule 00:00: mouth once [place] 00 daily as Medical needed for Branch Constipati on. ferrous 2018-0 Yes [id number] 325mg Take 1 Un clementina sulfate 325 4-23 tablet by ity of mg (65 mg 00:00: mouth 2 [place] iron) 00 (two) Medical tablet times Branch daily. ibuprofen 2019- Yes [id number] 600mg Take 1 [facility] 600 mg 4-23 tablet by ity of tablet 00:00: mouth [place] 00 every 6 Medical (six) Branch hours as needed for Pain (scale 1-3) or Pain (scale 4-6) (Pain). Take with food or milk. Yes [id number] 1{tbl} Take 1 [facility] vitamin 4-23 tablet by ity of w/FA tablet 00:00: mouth [place] 00 daily. Medical Branch docusate Yes [id number] 240mg Take 1 U nivers calcium 240 4-23 capsule by it y of mg capsule 00:00: mouth once [place] 00 daily as Medical needed for Branch Constipati on. ferrous Yes [id number] 325mg Take 1 Un clementina sulfate 325 4-23 tablet by ity of mg (65 mg 00:00: mouth 2 [place] iron) 00 (two) Medical tablet times Branch daily. ibuprofen Yes [id number] 600mg Take 1 [facility] 600 mg 4-23 tablet by ity of tablet 00:00: mouth [place] 00 every 6 Medical (six) Branch hours as needed for Pain (scale 1-3) or Pain (scale 4-6) (Pain). Take with food or milk. 2019- No [id number] 1{tbl} Take 1 [facility] vitamin 4-23 09-17 tablet by ity of w/FA tablet 00:00: [place] :[facility] daily. [facility] [id number] 240mg Take 1 [facility] calcium 240 4-23 09-17 capsule by i ty of mg capsule 00:00: 00:00 mouth once [place] 00 :00 daily as Medical needed for Branch Constipati on. ferrous 2019- No [id number] 325mg Take 1 U nivers sulfate 325 4-23 09-17 tablet by it y of mg (65 mg 00:00: 00:00 mouth [place] iron[place] 00 :00 (two) Medical tablet times Branch daily. 2019- No [id number] 1{tbl} Take 1 [facility] vitamin 4-23 09-17 tablet by ity of w/FA tablet 00:00: 00:[place] :[facility]. [facility] No [id number] 240mg Take 1 [facility] calcium 240 10-11 capsule by i ty of mg capsule 00:00: 00:00 mouth once [place] 00 :00 daily as Medical needed for Branch Constipati on. ferrous 2019- No [id number] 325mg Take 1 U nivers sulfate 325 10-11 tablet by it y of mg (65 mg 00:00: 00:00 mouth [place] iron[place] 00 :00 (two) Medical tablet times Branch daily. sod Yes 1{bottl Use 1 [facility] chlor-bicar 3-08 e} Bottle in ity of b-squeez 00:00: each [place] bottle 00 nostril 2 Medical (NEILMED (two) Branch SINUS RINSE times COMPLETE) daily. Use pkdv in hot shower 1 hour before bedtime sod Yes 1{bottl Use 1 [facility] chlor-bicar 3-08 e} Bottle in ity of b-squeez 00:00: each [place] bottle 00 nostril 2 Medical (NEILMED (two) Branch SINUS RINSE times COMPLETE) daily. Use pkdv in hot shower 1 hour before bedtime sod Yes 1{bottl Use 1 [facility] chlor-bicar 3-08 e} Bottle in ity of b-squeez 00:00: each [place] bottle 00 nostril 2 Medical (NEILMED (two) Branch SINUS RINSE times COMPLETE) daily. Use pkdv in hot shower 1 hour before bedtime sod Yes 1{bottl Use 1 [facility] chlor-bicar 3-08 e} Bottle in ity of b-squeez 00:00: each [place] bottle 00 nostril 2 Medical (NEILMED (two) Branch SINUS RINSE times COMPLETE) daily. Use pkdv in hot shower 1 hour before bedtime sod Yes 1{bottl Use 1 [facility] chlor-bicar 3-08 e} Bottle in ity of b-squeez 00:00: each [place] bottle 00 nostril 2 Medical (NEILMED (two) Branch SINUS RINSE times COMPLETE) daily. Use pkdv in hot shower 1 hour before bedtime sod Yes 1{bottl Use 1 [facility] chlor-bicar 3-08 e} Bottle in ity of b-squeez 00:00: each [place] bottle 00 nostril 2 Medical (NEILMED (two) Branch SINUS RINSE times COMPLETE) daily. Use pkdv in hot shower 1 hour before bedtime sod Yes 1{bottl Use 1 [facility] chlor-bicar 3-08 e} Bottle in ity of b-squeez 00:00: each [place] bottle 00 nostril 2 Medical (NEILMED (two) Branch SINUS RINSE times COMPLETE) daily. Use pkdv in hot shower 1 hour before bedtime sod Yes 1{bottl Use 1 [facility] chlor-bicar 3-08 e} Bottle in ity of b-squeez 00:00: each [place] bottle 00 nostril 2 Medical (NEILMED (two) Branch SINUS RINSE times COMPLETE) daily. Use pkdv in hot shower 1 hour before bedtime sod Yes 1{bottl Use 1 [facility] chlor-bicar 3-08 e} Bottle in ity of b-squeez 00:00: each [place] bottle 00 nostril 2 Medical (NEILMED (two) Branch SINUS RINSE times COMPLETE) daily. Use pkdv in hot shower 1 hour before bedtime sod 2019- No 1{bottl Use 1 [facility] chlor-bicar 3-08 09-12 e} Bottle in it y of b-squeez 00:00: 00:00 each [place] bottle 00 :00 nostril 2 Medical (NEILMED (two) Branch SINUS RINSE times COMPLETE) daily. Use pkdv in hot shower 1 hour before bedtime Immunizations Ordered Immunization Filled Immunization Date Status Commen ts Source Name Name HPV9 2019-03-07 Completed [facility] 00:00:00 [facility] HPV9 2019-03-07 Completed [facility] of 00:00:00 [facility] HPV9 2019-03-07 Completed [facility] of 00:00:00 [facility] HPV9 2019-03-07 Completed [facility] of 00:00:00 [facility] HPV9 2019-03-07 Completed [facility] of 00:00:00 [facility] HPV9 2019-03-07 Completed University of 00:00:00 [facility] HPV9 2019-03-07 Completed University of 00:00:00 [facility] HPV9 2019-03-07 Completed [facility] of 00:00:00 [facility] HPV9 2019-03-07 Completed University of 00:00:00 [facility] HPV9 2019-03-07 Completed University of 00:00:00 [facility] HPV9 2019-03-07 Completed University of 00:00:00 [facility] HPV9 2019-03-07 Completed University of 00:00:00 [facility] HPV9 2019-03-07 Completed University of 00:00:00 [facility] HPV9 2019-03-07 Completed University of 00:00:00 [facility] HPV9 2019-03-07 Completed University of 00:00:00 [facility] HPV9 2019-03-07 Completed University of 00:00:00 [facility] HPV9 2019-03-07 Completed University of 00:00:00 [facility] Influenza Virus 2016-03-27 Completed Universit y of Vaccine 00:00:00 [facility] Pneumococcal 2016-03-27 Completed University o f Polysaccharide, 00:00:00 [facility] ical PPSV23 (PNEUMOVAX) [place] Influenza Virus 2016-03-27 Completed Universit y of Vaccine 00:00:00 [facility] Pneumococcal 2016-03-27 Completed University o f Polysaccharide, 00:00:00 [facility] PPSV23 (PNEUMOVAX) [place] Tdap 2012-01-26 Completed University of 00:00:00 [facility] Tdap 2012-01-26 Completed University of 00:00:00 [facility] Tdap 2012-01-26 Completed University of 00:00:00 [facility] Tdap 2012-01-26 Completed University of 00:00:00 [facility] Tdap 2012-01-26 Completed University of 00:00:00 [facility] Tdap 2012-01-26 Completed University of 00:00:00 [facility] Tdap 2012-01-26 Completed University of 00:00:00 [facility] Tdap 2012-01-26 Completed University of 00:00:00 [facility] Tdap 2012-01-26 Completed University of 00:00:00 [facility] Tdap 2012-01-26 Completed University of 00:00:00 [facility] Tdap 2012-01-26 Completed University of 00:00:00 [facility] Tdap 2012-01-26 Completed University of 00:00:00 [facility] Tdap 2012-01-26 Completed University of 00:00:00 [facility] Tdap 2012-01-26 Completed University of 00:00:00 [facility] Tdap 2012-01-26 Completed University of 00:00:00 [facility] Tdap 2012-01-26 Completed University of 00:00:00 [facility] Tdap 2012-01-26 Completed University of 00:00:00 [facility] Tdap 2012-01-26 Completed University of 00:00:00 [facility] TDAP 2012-01-26 Completed University of 00:00:00 [facility] TDAP 2012-01-26 Completed University of 00:00:00 [facility] TDAP 2012-01-26 Completed University of 00:00:00 [facility] TDAP 2012-01-26 Completed University of 00:00:00 [facility] TDAP 2012-01-26 Completed University of 00:00:00 [facility] TDAP 2012-01-26 Completed University of 00:00:00 [facility] Tdap 2012-01-26 Completed University of 00:00:00 [facility] Tdap 2012-01-26 [facility] HEPATITIS A 2009-11-12 Completed University of 00:00:00 [facility] HPV 2009-11-12 Completed University of 00:00:00 [facility] HEPATITIS A 2009-11-12 Completed University of 00:00:00 [facility] HPV 2009-11-12 Completed University of 00:00:00 [facility] HEPATITIS A 2009-04-08 Completed University of 00:00:00 [facility] HPV 2009-04-08 Completed University of 00:00:00 [facility] Varicella 2009-04-08 Completed University of (varivax)(chicken 00:00:00 [place] [facility] pox) Branch HEPATITIS A 2009-04-08 Completed University of 00:00:00 [facility] HPV 2009-04-08 Completed University of 00:00:00 [facility] Varicella 2009-04-08 Completed University of (varivax)(chicken 00:00:00 [place] [facility] pox) Branch HPV 2009-02-05 Completed University of 00:00:00 [facility] Meningococcal 2009-02-05 Completed University of Polysaccharide 00:00:[address] [facility] usha (groups A, C, Y and Branc h W-135) conjugate vaccine (MCV4P) TD 2009-02-05 Completed University of 00:00:00 [facility] HPV 2009-02-05 Completed University of 00:00:00 [facility] Meningococcal 2009-02-05 Completed University of Polysaccharide 00:00:[address] [facility] usha (groups A, C, Y and Branc h W-135) conjugate vaccine (MCV4P) TDAP 2009-02-05 Completed University of 00:00:00 [facility] DTP 2001-03-08 Completed University of 00:00:00 [facility] MMR 2001-03-08 Completed University of 00:00:00 [facility] Polio (IPV/OPV) 2001-03-08 Completed Universit y of 00:00:00 [facility] DTP 2001-03-08 Completed University of 00:00:00 [facility] MMR 2001-03-08 Completed University of 00:00:00 [facility] Polio (IPV/OPV) 2001-03-08 Completed Universit y of 00:00:00 [facility] MMR 1998-01-28 Completed University of 00:00:00 [facility] Varicella 1998-01-28 Completed University of (varivax)(chicken 00:00:00 [facility] [place] edical pox) Branch MMR 1998-01-28 Completed University of 00:00:00 [facility] Varicella 1998-01-28 Completed University of (varivax)(chicken 00:00:00 [facility] [place] edical pox) Branch Polio (IPV/OPV) 1997 Completed Universit y of 00:00:00 [facility] Polio (IPV/OPV) 1997 Completed Universit y of 00:00:00 [facility] DTP 1997 Completed University of 00:00:00 [facility] HIB 4 Dose Schedule 1997 Completed Unive rsity of 00:00:00 [facility] Hep B, Adol or Pedi 1997 Completed Unive rsity of Dosage 00:00:00 [facility] DTP 1997 Completed University of 00:00:00 [facility] HIB 4 Dose Schedule 1997 Completed Unive rsity of 00:00:00 [facility] Hep B, Adol or Pedi 1997 Completed Unive rsity of Dosage 00:00:00 [facility] DTP 1997 Completed University of 00:00:00 [facility] HIB 4 Dose Schedule 1997 Completed Unive rsity of 00:00:00 [facility] Polio (IPV/OPV) 1997 Completed Universit y of 00:00:00 [facility] DTP 1997 Completed University of 00:00:00 [facility] HIB 4 Dose Schedule 1997 Completed Unive rsity of 00:00:00 [facility] Polio (IPV/OPV) 1997 Completed Universit y of 00:00:[address] [facility] Branch Polio (IPV/OPV) 1997 Completed Universit y of 00:00:[address] [facility] Branch Polio (IPV/OPV) 1997 Completed Universit y of 00:00:[address] [facility] Branch DTP 1997 Completed University of 00:00:00 [facility] HIB 4 Dose Schedule 1997 Completed Unive rsity of 00:00:00 [facility] Hep B, Adol or Pedi 1997 Completed Unive rsity of Dosage 00:00:[address] [facility] Branch DTP 1997 Completed University of 00:00:[address] [facility] Branch HIB 4 Dose Schedule 1997 Completed Unive rsity of 00:00:[address] [facility] Branch Hep B, Adol or Pedi 1997 Completed Unive rsity of Dosage 00:00:00 [facility] Hep B, Adol or Pedi 1997 Completed Unive rsity of Dosage 00:00:00 [facility] Hep B, Adol or Pedi 1997 Completed Unive rsity of Dosage 00:00:00 [facility] Vital Signs Vital Name Observation Time Observation Value Comments Source Systolic blood 2020-01-18 23:29:00 110 mm[Hg] Univer sity of pressure [facility] Diastolic blood 2020-01-18 23:29:00 77 mm[Hg] Unive rsity of pressure [facility] Heart rate 2020-01-18 23:29:00 91 /min Universi ty of [facility] Body temperature 2020-01-18 23:29:00 36.67 [place] [facility] ersity of [facility] Respiratory rate 2020-01-18 23:29:00 14 /[facility] 2020-01-18 23:29:00 149.9 cm [facility] [place] [facility] Body weight 2020-01-18 23:29:00 77.111 kg [facility] [place] [facility] BMI 2020-01-18 23:29:00 34.34 kg/m2 [facility] [place] [facility] Oxygen saturation in 2020-01-18 23:29:00 97 /min University of Arterial blood by [facility] Pulse oximetry Branch Systolic blood 2020-01-18 23:29:00 110 mm[Hg] Univer [facility] Diastolic blood 2020-01-18 23:29:00 77 mm[Hg] Unive rsity [facility] Heart rate 2020-01-18 23:29:00 91 /min [facility] Body temperature 2020-01-18 23:29:00 36.67 Patti [facility] [place] [facility] Respiratory rate 2020-01-18 23:29:00 14 /min [facility] [place] [facility] Body height 2020-01-18 23:29:00 149.9 cm [facility] Body weight 2020-01-18 23:29:00 77.111 kg [facility] BMI 2020-01-18 23:29:00 34.34 kg/m2 [facility] Oxygen saturation in 2020-01-18 23:29:00 97 /min University of Arterial blood by [facility] oxim[facility] Systolic blood 2019-07-11 19:01:00 125 mm[Hg] [facility] Diastolic blood 2019-07-11 19:01:00 85 mm[Hg] Unive rs[facility] Heart rate 2019-07-11 19:01:00 90 /min [facility] Body temperature 2019-07-11 19:01:00 36.61 Patti [facility] Respiratory rate 2019-07-11 19:01:00 16 /min [facility] Body height 2019-07-11 19:01:00 149.9 cm [facility] Body weight 2019-07-11 19:01:00 79.833 kg [facility] BMI 2019-07-11 19:01:00 35.55 kg/m2 [facility] Systolic blood 2019-07-11 19:01:00 125 mm[Hg] [facility] Diastolic blood 2019-07-11 19:01:00 85 mm[Hg] Unive rs[facility] Heart rate 2019-07-11 19:01:00 90 /min Universi ty of [facility] Body temperature 2019-07-11 19:01:00 36.61 Patti Univ ersity of [facility] Respiratory rate 2019-07-11 19:01:00 16 /min [facility] Body height 2019-07-11 19:01:00 149.9 cm [facility] Body weight 2019-07-11 19:01:00 79.833 kg Universi ty of [facility] BMI 2019-07-11 19:01:00 35.55 kg/m2 Universi ty of [facility] Systolic blood 2019-03-10 21:01:00 121 mm[Hg] Univer sity of pressure [facility] Diastolic blood 2019-03-10 21:01:00 81 mm[Hg] Unive rs[facility] Heart rate 2019-03-10 21:01:00 91 /min Universi ty of [facility] Body temperature 2019-03-10 21:01:00 36.78 Patti Univ ersity of [facility] Respiratory rate 2019-03-10 21:01:00 18 /min [facility] Body weight 2019-03-10 21:01:00 73.029 kg [facility] BMI 2019-03-10 21:01:00 32.52 kg/m2 Universi ty of [facility] Oxygen saturation in 2019-03-10 21:01:00 99 /min University Arterial blood by [facility] oxim[facility] Systolic blood 2019-03-07 19:45:00 123 mm[Hg] Univer sity of pressure [facility] Diastolic blood 2019-03-07 19:45:00 77 mm[Hg] [facility]ive [facility] Heart rate 2019-03-07 19:45:00 84 /min Universi ty of [facility] Body temperature 2019-03-07 19:45:00 36.83 Patti Univ ersity of [facility] Respiratory rate 2019-03-07 19:45:00 18 /min Univ [facility] [place] [facility] Body height 2019-03-07 19:45:00 149.9 cm [facility] Body weight 2019-03-07 19:45:00 73.086 kg [facility] BMI 2019-03-07 19:45:00 32.54 kg/m2 [facility] Systolic blood 2019-03-02 20:04:00 135 mm[Hg] [facility] Diastolic blood 2019-03-02 20:04:00 82 mm[Hg] Unive [facility] Heart rate 2019-03-02 20:04:00 77 /min [facility] Body temperature 2019-03-02 20:04:00 37.06 Patti Univ ersity of [facility] Respiratory rate 2019-03-02 20:04:00 18 /min Univ [facility] Body weight 2019-03-02 20:04:00 72.576 kg [facility] BMI 2019-03-02 20:04:00 33.44 kg/m2 [facility] Oxygen saturation in 2019-03-02 20:04:00 100 /min University of Arterial blood by [facility] Systolic blood 2019-03-01 20:46:00 123 mm[Hg] [facility] Diastolic blood 2019-03-01 20:46:00 79 mm[Hg] Unive [facility] Heart rate 2019-03-01 20:46:00 98 /min [facility] Body height 2019-03-01 20:46:00 147.3 cm [facility] Body weight 2019-03-01 20:46:00 75.751 kg [facility] BMI 2019-03-01 20:46:00 34.90 kg/m2 [facility] Systolic blood 2019-03-01 09:43:00 130 mm[Hg] [facility] Diastolic blood 2019-03-01 09:43:00 86 mm[Hg] [facility]ive [facility] Heart rate 2019-03-01 09:43:00 80 /min Universi ty of [facility] Body temperature 2019-03-01 09:43:00 36.72 Patti [facility] Respiratory rate 2019-03-01 09:43:00 18 /min [facility] Body weight 2019-03-01 09:43:00 75.751 kg [facility] BMI 2019-03-01 09:43:00 33.73 kg/m2 [facility] Oxygen saturation in 2019-03-01 09:43:00 98 /min [facility] of Arterial blood by [facility] Systolic blood 2019 20:55:00 135 mm[Hg] [facility] Diastolic blood 2019 20:55:00 89 mm[Hg] Unive rsity [facility] Heart rate 2019 20:55:00 80 /min [facility] Body temperature 2019 20:55:00 37.11 Patti [facility] Respiratory rate 2019 20:55:00 18 /min [facility] Body height 2019 20:55:00 149.9 cm [facility] Body weight 2019 20:55:00 71.623 kg [facility] BMI 2019 20:55:00 31.89 kg/m2 [facility] Oxygen saturation in 2019 20:55:00 99 /min [facility] Arterial blood by [facility] Systolic blood 2019-01-17 20:32:00 130 mm[Hg] [facility] Diastolic blood 2019-01-17 20:32:00 89 mm[Hg] [facility]ive [facility] Heart rate 2019-01-17 20:32:00 81 /min [facility] Body temperature 2019-01-17 20:32:00 36.94 Patti [facility] Respiratory rate 2019-01-17 20:32:00 20 /min [facility] Body height 2019-01-17 20:32:00 149.9 cm [facility] Body weight 2019-01-17 20:32:00 72.576 kg [facility] BMI 2019-01-17 20:32:00 32.32 kg/m2 [facility] Procedures Procedure Date / Time Performing Clinician Source Performed POCT TEST 2020-01-18 23:39:00 Virginia Canales [facility] ASSIGNMENT OF BENEFITS 2020-01-18 23:12:18 Doctor Unassigned, No [facility] NOTICE OF PRIVACY 2020-01-18 23:11:57 [facility], [facility] FOR 2020-01-18 23:11:45 Doctor Unassigned, No [facility] [place] [facility] POCT TEST 2019-07-11 19:11:00 [facility] EBV-MONONUCLEOSIS SCREEN 2019-03-10 21:24:00 Alexia Benitez [facility] NOTICE OF PRIVACY 2019-03-10 20:53:11 Doctor Unassigned, No [facility] HIV 1/2 AG-AB WITH 2019-03-07 20:31:00 Jennifer Joseph [facility] REFLEX [facility] PAP SMEAR-LIQUID 2019-03-07 20:24:00 Jennifer Joseph [facility] POCT TEST 2019-03-07 20:08:00 Jennifer Joseph [facility] GARDASIL 9 (HPV 9V) 2019-03-07 20:02:54 Jennifer [facility] VACCINE [facility] PATIENT QUESTIONNAIRE 2019-03-07 05:01:00 Doctor Unassigned, No [facility] CONSENT/REFUSAL FOR 2019-03-02 19:51:43 Doctor Unassigned, No [facility] [place] [facility] NOTICE OF PRIVACY 2019-03-01 09:30:23 Doctor Unassigned, No Univ ersity [facility] CONSENT/REFUSAL FOR 2019-03-01 09:30:11 Doctor Unassigned, No [facility] [place] [facility] POCT TEST 2019-01-17 00:00:00 Cassandra Puckett [facility] Encounters Start End Encounter Admission Attending Care Care Encounter Source Date/Time Date/Time Type Type Clinicians Facility Department ID 2021-04-18 Emergency [facility] [id number] Univers 09:56:39 ity of [facility] 2020-12-01 2020-12-01 Nurse CORDELL Vo 1.2.840.114 [id number] Univers 00:00:00 00:00:00 Triage Nasra CLAY 350.1.13.10 it y [facility] 4.2.7.2.686 Steve as [id number] [address] 2020-09-10 2020-09-10 [facility] 1.2.840.114 [id number] Univers 00:00:00 00:00:00 Outreach Rico LOKESH 350.1.13.10 i ty of [facility] 4.2.7.2.[place] [phone] [address] 2020-09-09 2020-09-09 [id number] Univers 15:15:00 15:15:00 BELLOMARIANNEToño [id number] ity o f [facility] 2020-01-26 2020-01-26 Nurse Radha Bass 1.2.840.114 [id number] 00:00:00 00:00:00 Triage OBED 350.1.13.10 [facility] 4.2.7.2.686 [id number] 2020-01-26 2020-01-26 Radha Lemus 1.2.840.114 [id number] Univers 00:00:00 00:00:00 Triage OBED 350.1.13.10 it y [facility] 4.2.7.2.686 [place] as [id number] [address] 2020-01-18 2020-01-18 [facility] 1.2.069.001 [id number] Univers 18:33:40 19:28:00 Virginia Zabala 350.1.13.10 i ty [place]2.7.2.686 [place] [phone] [place] [id number] [place] 2020-01-18 2020-01-[address] [facility] 1.2.385.170 [id number] 18:33:40 19:28:00 Virginia Zabala 350.1.13.10 [place] 42.7.2.686 [place] [id number] [id number] 2020-01-08 2020-01-08 Telephone CORDELL Adams 1.2.840.114 [id number] Univers 00:00:00 00:00:00 Ann C OBED 350.1.13.10 ity [place] [address].7.2.686 Steve as [id number] [address] 2020-01-08 2020-01-08 Telephone CORDELL Adams 1.2.840.114 [id number] 00:00:00 00:00:00 Ann Yuki ARAUJOY [address].1.13.[address]68 [id number] 019 2020-01-07 2020-01-07 Outpatient [facility] [id number] Univers 17:00:00 17:00:00 [id number] ity [facility] 2020-01-07 2020-01-07 Outpatient R GI [facility] [id number] Univers 17:00:00 17:00:00 JEN pinto [facility] 2020-01-07 2020-01-07 Laboratory Lab, [facility] Fam Pob I [facility] 1.2. 840.114 [id number] [facility] 16:14:25 16:34:25 Only Jen Angelo 350.1.13.10 ity of [place] 4.2.7.2.686 Steve as Professio [phone] Nh dical [address] 2020-01-07 2020-01-07 Laboratory Lab, [facility] 1.2.840.114 [id number] 16:14:25 16:34:25 Only Fam Pob I Health 350.1.13.10 [place] 4.2.7.2.686 Professio [id number] [address] 2019-10-20 2019-10-20 Nurse Diamond [place] 1.2.840.114 [id number] [facility] 00:00:00 00:00:00 Triage OBED 350.1.13.10 it y of [facility] 4.2.7.2.686 [place] as [id number] [address] 2019-10-20 2019-10-20 Nurse Diamond [place] 1.2.840.114 [id number] 00:00:00 00:00:00 Triage OBED 350.1.13.10 [facility] 4.2.7.2.686 [id number] 2019-10-13 2019-10-13 Telephone [facility] 1.2.387.546 [id number] Univers 00:00:00 00:00:00 Roshunda R SUPERVISOR PIGMENT MAKING 350.1.13.10 ity [facility] 4.2.7.2.686 Steve as MATERNAL [phone] Med ical & CHILD [address] [place] [address] 2019-10-13 2019-10-13 [facility] [id number] 00:00:00 00:00:00 Rosnda R SUPERVISOR PIGMENT MAKING 350.1.13.10 [facility] 4.2.7.2.686 MATERNAL [id number] & CHILD [address] [place] [address] 2019-10-05 2019-10-05 Telephone Luci Gordillo [facility] 1.2.840.114 [id number] Univers 00:00:00 00:00:00 Cam Vj 350.1.13.10 i ty of [place]2.7.2.[place] [phone] Nh dical [address] 2019-10-05 2019-10-05 Telephone Luci Gordillo [facility] 1.2.840.114 [id number] 00:00:00 00:00:00 Cam Vj 350.1.13.10 [place] 4.2.7.2.686 Professio [id number] [address] 2019-08-30 2019-08-30 Outpatient R JAKE [facility] [id number] Univers 15:15:00 15:15:00 JENNIFER [id number] ity o f [facility] 2019-08-30 2019-08-30 Outpatient R JAKE [facility] [id number] Univers 15:15:00 15:15:00 CAMERONA ity o f [facility] 2019-08-16 2019-08-16 Outpatient R JAKE [facility] [id number] Univers 15:00:00 15:00:00 BANDARNDToño [id number] ity o gabriel [facility] 2019-08-15 2019-08-15 Outpatient R JAKE [facility] [id number] Univers 15:00:00 15:00:00 BANDARNDToño [id number] ity o gabriel [facility] 2019-08-15 2019-08-15 Outpatient R JAKE [facility] [id number] Univers 15:00:00 15:00:00 BANDARNDA itdenise o gabriel [facility] 2019-08-14 2019-08-14 Telephone [facility] [id number] [facility] 00:00:00 00:00:00 Rosaydeenda R SUPERVISOR PIGMENT MAKING 350.1.13.10 ity of [facility] 4.2.7.2.686 Steve as MATERNAL [phone] Med ical & CHILD [address] [place] [address] 2019-08-14 2019-08-14 Telephone [facility] [id number] 00:00:00 00:00:00 Rosnda R SUPERVISOR PIGMENT MAKING 350.1.13.10 [facility] 4.2.7.2.686 MATERNAL [id number] & CHILD 107 [facility] 2019-07-11 2019-07-11 Office Jake [facility] 1.2.840.114 [id number] 12:48:46 13:19:03 Visit Roshunda R SUPERVISOR PIGMENT MAKING 350.1.13.10 REGIONAL 4.2.7.2.686 MATERNAL [id number] & CHILD 107 [facility] 2019-07-11 2019-07-11 Office [facility] 1.2.840.114 [id number] Univers 12:48:46 13:19:03 Visit Roshunda R SUPERVISOR PIGMENT MAKING 350.1.13.10 ity [facility] 4.2.7.2.686 Steve as MATERNAL [phone] Med ical & CHILD [address] [place] [address] 2019-07-11 2019-07-11 Telephone [facility] [id number] [id number] 00:00:00 00:00:00 Roshunda R SUPERVISOR PIGMENT MAKING 350.1.13.10 REGIONAL 4.2.7.2.686 MATERNAL [id number] & CHILD [address] [place] [address] 2019-07-11 2019-07-11 Telephone Jake [facility] 1.2.231.676 [id number] Univers 00:00:00 00:00:00 Roshunda R SUPERVISOR PIGMENT MAKING 350.1.13.10 ity of [facility] 4.2.7.2.686 Steve as MATERNAL [phone] Med ical & CHILD [address] [place] [address] 2019-03-10 2019-03-10 Emergency Eli, K [facility] 1.2.840.114 [id number] Univers 15:52:59 18:03:00 Samara Zabala 350.1.13.10 i ty of [place] 4.2.7.2.686 [facility] [id number] [address] 2019-03-07 2019-03-07 Office Jake [facility] 1.2.840.114 [id number] Univers 14:38:06 15:33:58 Visit Jennifer R SUPERVISOR PIGMENT MAKING 350.1.13.10 ity of [facility] 4.2.7.2.686 Steve as MATERNAL [phone] [facility] & CHILD [address] [place] [address] 2019-03-07 2019-03-07 Orders Doctor LANDA 1.2.840.114 [id number] Univers 00:00:00 00:00:00 Only Unassigned, OBED 350.1.13.10 ity of [place] [facility] 4.2.7.2.686 Steve as [id number] [facility] [address] [place] 2019-03-02 2019-03-02 Emergency [facility] [id number] [id number] Univers 15:06:15 15:51:00 Manoj Zabala 350.1.13.10 i ty [place] 42.7.2.686 [place] [id number] [facility] [address] [place] 2019-03-02 2019-03-02 Orders Doctor CORDELL 1.2.840.114 [id number] Univers 00:00:00 00:00:00 Only Unassigned, OBED 350.1.13.10 ity of [place] [facility] 4.2.7.2.686 Steve as [phone] [facility] [address] [place] 2019-03-01 2019-03-01 Hospital [facility] 1.2.840.114 [id number] Univers 15:40:01 23:59:00 Encounter Chucho Padilla 350.1.13.10 ity of Surgical 4.2.7.2.686 [place] as Specialti [phone] Nh dical es 809 [facility] 2019-03-01 2019-03-01 Office [facility] 1.2.840.114 [id number] Univers 15:22:19 16:32:56 Visit Chucho Padilla 350.1.13.10 it y of Surgical 4.2.7.2.686 [place] as Specialti [id number] Nh dical es 198 [facility] 2019-03-01 2019-03-01 Emergency [facility] 1.2.239.965 [id number] Univers 04:34:00 05:32:00 Anamaria Kennedy [place] 350.1.13.10 ity of [place].2.[place] [phone] [facility] [address] [place] 2019 2019 Office [facility] 1.2.840.114 [id number] Univers 15:34:06 16:36:15 Visit Rigoberto Zabala 350.1.13.10 i ty of [place].2.[place] [phone] Nh dical nal 044 [facility] 2019-01-17 2019-01-17 Office [facility] 1.2.872.851 [id number] Univers 15:13:07 15:46:27 Visit Cassandra Zabala 350.1.13.10 i ty of [place].2.[place] [phone] Nh dical nal 134 [facility] Results Test Description Test Time Test Comments Results Result Comments Source POCT TEST 2020-01-18 23:39:00 Test Item Value Reference Range Interpretation Comme nts POCT PREG (test code = 1605) negative On board controls acceptable with C Line (test code = 3574) present POCT PREG LOT # (test code = 3575) [id number] POCT PREG TEST DATE (test code = 3576) 01-18-2021 Lab Interpretation (test code = 62188-5) [facility] [id number] 19:14:00 Test Item Value Reference Range Interpretation Comments POCT PREG (test code = 1605) Negative On board controls acceptable with C Yes Line (test code = 3574) POCT PREG LOT # (test code = 3575) POCT PREG TEST DATE (test code = 3576) [facility] [id number] 19:14:00 Test Item Value Reference Range Interpretation Comments POCT PREG (test code = 1605) Negative On board controls acceptable with C Yes Line (test code = 3574) POCT PREG LOT # (test code = 3575) POCT PREG TEST DATE (test code = 3576) [facility] [id number] 22:35:00 Test Item Value Reference Range Interpretation Comments EBV Mononucleosis Screen (test code Negative Negative = [id number]) Lab Interpretation (test code = Normal 86447-0) [facility] AG-AB WITH [id number] 12:04:00 Test Item Value Reference Range Interpretation Comments HIV Negative Negative Semi-quantitative (test code = 67245-1) LISA (test code = Non-reactive for HIV-1 LISA) antigen and HIV-1/HIV-2 antibodies.?No laboratory evidence of HIV infection.?Repeat in 2-4 weeks if acute HIV infection is suspected. [facility]-AB WITH [id number] 12:04:00 Test Item Value Reference Range Interpretation Comments HIV Negative Negative Semi-quantitative (test code = 09575-1) LISA (test code = Non-reactive for HIV-1 LISA) antigen and HIV-1/HIV-2 antibodies.?No laboratory evidence of HIV infection.?Repeat in 2-4 weeks if acute HIV infection is suspected. [facility] [id number] 20:08:00 Test Item Value Reference Range Interpretation Comments POCT PREG (test code = 1605) Negative On board controls acceptable with C Yes Line (test code = 3574) POCT PREG LOT # (test code = 3575) POCT PREG TEST DATE (test code = 3576) [facility] [id number] 20:08:00 Test Item Value Reference Range Interpretation Comments POCT PREG (test code = 1605) Negative On board controls acceptable with C Yes Line (test code = 3574) POCT PREG LOT # (test code = 3575) POCT PREG TEST DATE (test code = 3576) [facility] [id number] 20:35:00 Test Item Value Reference Range Interpretation Comments POCT PREG (test code = 1605) Negative On board controls acceptable with C Yes Line (test code = 3574) POCT PREG LOT # (test code = 3575) POCT PREG TEST DATE (test code = 3576) Lab Interpretation (test code = Normal 02531-8) [facility]
== END 2021-04-30 05:50 | disposition home or self-care (01) ==
LOC: ER 03:58
DX: F31.11 Bipolar disorder, current episode manic without psychotic features, mild (principal); F32.A Depression, unspecified; F17.210 Nicotine dependence, cigarettes, uncomplicated
CPT/HCPCS: 81003; 80307; 96374; 99284; J7030

== ENCOUNTER 2021-05-31 01:43 | Emergency (ER) | payer OTHER ==
--- OUTSIDE RECORDS SUMMARY | 2021-05-31 01:50 | XMS REPORT | Continuity of Care Document ---
:1995 Author Organization [facility] t Address [address] [place] [address] Care Team Providers Name Role Juan Vo [...] Type Policy Number Effective Date Expiration Date [facility] [id number] 2019 CHOICE MEDICAID 00:00:00 Problems Condition Condition [...] severe, severe, 00:00: [place] delivered delivered 00 [facility] Branch Obesity Obesity Disease Active Univers (BMI [...] this [place] (sexually (sexually 00 note [facility] transmitte transmitte might be Branch d disease) d disease) different from the original. ICD10 Diagnosis Term Registered Nurse Cardiac Utility Thrombocyt Thrombocyt Disease Active Overview : [facility] openia openia 7-10 Formattin ity of 00:00: g of this [place] 00 note Medical might be Branch different from the original. ICD10 Diagnosis Term Registered Nurse Cardiac Utility Allergies, Adverse Reactions, Alerts Allergy Allergy Status Severity Reaction(s) Onset Inactive Treating Comm ents Source Name Type Date Date Clinician NO KNOWN Drug Active Univers ALLERGIE Class ity of S [place] [facility] Social History Social Habit Start Date Stop Date Quantity Comments Source Exposure to Yes [facility] SARS-CoV-2 [place] [facility] (event) Branch Tobacco use and 2020-01-18 2020-01-18 Never used Universit y of exposure 00:00:00 00:00:00 [facility] Alcohol intake 2020-01-18 2020-01-18 Current University of 00:00:00 00:00:00 non-drinker of [facility] alcohol (finding) Branch History of 2012-03-07 2018-10-19 Cigarette Smoker Universi ty of tobacco use 00:00:00 00:00:00 [facility] Tobacco Comment 2016-01-01 2016-01-01 black and mild Unive rsity of 00:00:00 00:00:00 cigars [facility] Sex Assigned At [birth year] Universit y of 00:00:00 00:00:00 [facility] Smoking Status Start Date Stop Date Source Former smoker 2020-01-18 00:00:00 2020-01-18 00:00:00 Universi ty of [place] [facility] Current some day 2019-03-02 00:00:00 [facility] smoker [facility] Medications Ordered Filled Start Stop Current Ordering Indication Dosage Frequency Signature Comments Components Source Medication Medication Date Date Medication? Clinician (SIG) Name Name ondansetron 2019- No 4mg 4 mg, Univ ers (ZOFRAN-ODT 01-18 Oral, ity of ) 00:45: 23:43 ONCE, 1 [place] disintegrat 00 :00 dose, Ann Med ical ing tablet 01/18/20 at [facility] 4 mg 1944, Routine ibuprofen 2019- No 800mg 800 mg, Uni vers (IBU) 01-18 Oral, ity of tablet 800 00:45: 23:43 ONCE, 1 [place] as mg 00 :00 dose, Ann Medical 01/18/20 at Branch 1945, JOE ondansetron 2020-0 Yes [id number] 4mg Take 1 Univers 4 mg 7-30 tablet by ity of disintegrat 00:00: mouth [place] ing tablet 00 every 12 Medic al (twelve) Branch hours as needed for Nausea and Vomiting (N/V). ondansetron 2020-0 Yes [id number] 4mg Take 1 Univers 4 mg 7-30 tablet by ity of disintegrat 00:00: mouth [place] ing tablet 00 every 12 Medic al (twelve) Branch hours as needed for Nausea and Vomiting (N/V). ondansetron 2020-0 Yes [id number] 4mg Take 1 Univers 4 mg 7-30 tablet by ity of disintegrat 00:00: mouth [place] ing tablet 00 every 12 Medic al (twelve) Branch hours as needed for Nausea and Vomiting (N/V). ondansetron 2020-0 Yes [id number] 4mg Take 1 Univers 4 mg 7-30 tablet by ity of disintegrat 00:00: mouth [place] ing tablet 00 every 12 Medic al (twelve) Branch hours as needed for Nausea and Vomiting (N/V). DM/p-ephed/ 2019-0 Yes Take by Un [place] acetaminoph 9-17 mouth. ity of /doxylam 19:53: [place] ([facility] 05 Medical ORAL) [place] aspirin 81 2018-0 Yes 81mg Take 81 mg U nivers mg chewable 9-17 by mouth ity of tablet 19:53: daily. [address] DM/p-ephed/ 2018-0 Yes Take by Un [place] acetaminoph 9-17 mouth. ity of /doxylam 19:53: [place] ([place] [address] Medical ORAL) [place] aspirin 81 2019-0 Yes 81mg Take 81 mg U nivers mg chewable 9-17 by mouth ity of tablet 19:53: daily. [address] DM/p-ephed/ 2019-0 Yes Take by Un [place] acetaminoph 9-17 mouth. ity of /doxylam 19:53: [place] ([facility] 05 Medical ORAL) [place] aspirin 81 2019-0 Yes 81mg Take 81 mg U nivers mg chewable 9-17 by mouth ity of tablet 19:53: daily. [address] DM/p-ephed/ 2018-0 Yes Take by Un [place] acetaminoph 9-17 mouth. ity of /doxylam 19:53: [place] ([place] [address] Medical ORAL) Branch aspirin 81 2018-0 Yes 81mg Take 81 mg U nivers mg chewable 9-17 by mouth ity of tablet 19:53: daily. [address] Branch DM/p-ephed/ 2018-0 Yes Take by Un [place] acetaminoph 9-17 mouth. ity of /doxylam 19:53: [place] ([place] [address] Medical ORAL) Branch aspirin 81 0 Yes 81mg Take 81 mg U nivers mg chewable 9-17 by mouth ity of tablet 19:53: daily. [address] DM/p-ephed/ 2018- Yes Take by Un [place] acetaminoph 9-17 mouth. ity of /doxylam 19:53: [place] ([place] [address] Medical ORAL) Branch aspirin 81 Yes 81mg Take 81 mg U nivers mg chewable 9-17 by mouth ity of tablet 19:53: daily. [address] DM/p-ephed/ Yes Take by Un [place] acetaminoph 9-17 mouth. ity of /doxylam 19:53: [place] ([place] [address] Medical ORAL) Branch aspirin 81 Yes 81mg Take 81 mg U nivers mg chewable 9-17 by mouth ity of tablet 19:53: daily. [address] DM/p-ephed/ Yes Take by Un [place] acetaminoph 9-17 mouth. ity of /doxylam 19:53: [place] ([place] [address] Medical ORAL) Branch aspirin 81 2018-0 Yes 81mg Take 81 mg U nivers mg chewable 9-17 by mouth ity of tablet 19:53: daily. [address] DM/p-ephed/ 2018- Yes Take by Un [place] acetaminoph 9-17 mouth. ity of /doxylam 19:53: [place] ([facility] 05 Medical ORAL) Branch aspirin 81 2018-0 Yes 81mg Take 81 mg U nivers mg chewable 9-17 by mouth ity of tablet 19:53: daily. [address] DM/p-ephed/ Yes Take by Un [place] acetaminoph 9-17 mouth. ity of /doxylam 19:53: [place] ([facility] 05 Medical ORAL) Branch aspirin 81 2018-0 Yes 81mg Take 81 mg U nivers mg chewable 9-17 by mouth ity of tablet 19:53: daily. [place] [address] Medical Branch DM/p-ephed/ 2019-0 Yes Take by Un clementina acetaminoph 9-17 mouth. ity of /doxylam 19:53: [place] ([facility] 05 Medical ORAL) Branch aspirin 81 2018-0 Yes 81mg Take 81 mg U nivers mg chewable 9-17 by mouth ity of tablet 19:53: daily. [address] Branch DM/p-ephed/ 2018-0 Yes Take by Un [place] acetaminoph 9-17 mouth. ity of /doxylam 19:53: [place] ([facility] Medical ORAL) Branch aspirin 81 2018-0 Yes 81mg Take 81 mg U nivers mg chewable 9-17 by mouth ity of tablet 19:53: daily. [address] DM/p-ephed/ 2018- Yes Take by Un [place] acetaminoph 9-17 mouth. ity of /doxylam 19:53: [place] ([facility] Medical ORAL) Branch aspirin 81 2018-0 Yes 81mg Take 81 mg U nivers mg chewable 9-17 by mouth ity of tablet 19:53: daily. [address] Branch DM/p-ephed/ 2018-0 Yes Take by Un [place] acetaminoph 9-17 mouth. ity of /doxylam 19:53: [place] ([facility] Medical ORAL) Branch aspirin 81 2018-0 Yes 81mg Take 81 mg U nivers mg chewable 9-17 by mouth ity of tablet 19:53: daily. [address] Branch DM/p-ephed/ 2019-0 Yes Take by Un [place] acetaminoph 9-17 mouth. ity of /doxylam 19:53: [place] ([facility] 05 Medical ORAL) Branch aspirin 81 2018-0 Yes 81mg Take 81 mg U nivers mg chewable 9-17 by mouth ity of tablet 19:53: daily. [address] DM/p-ephed/ 2019-0 Yes Take by Un [place] acetaminoph 9-17 mouth. ity of /doxylam 19:53: [place] ([facility] 05 Medical ORAL) Branch aspirin 81 Yes 81mg Take 81 mg U nivers mg chewable 9-17 by mouth ity of tablet 19:53: daily. [place] [facility] Branch DM/p-ephed/ Yes Take by Un [place] acetaminoph 9-17 mouth. ity of /doxylam 19:53: [place] ([facility] 05 Medical ORAL) Branch aspirin 81 Yes 81mg Take 81 mg U nivers mg chewable 9-17 by mouth ity of tablet 19:53: daily. [place] Medical Branch sod Yes [id number] 1{bottl Use 1 Univ ers chlor-bicar 03-02 e} Bottle in ity of b-squeez 00:00: each [place] bottle 00 nostril 2 Medical (NEILMED (two) Branch SINUS RINSE times COMPLETE) daily. Use pkdv in hot shower 1 hour before bedtime loratadine Yes [id number] 10mg Take 1 Univers 10 mg -12 tablet by ity of tablet 00:00: mouth [place] 00 daily. Medical Branch sod 2019- No [id number] 1{bottl Use 1 Uni vers chlor-bicar 03-02 e} Bottle in it y of b-squeez 00:00: 00:00 each [place] bottle 00 :00 nostril 2 Medical (NEILMED (two) Branch SINUS RINSE times COMPLETE) daily. Use pkdv in hot shower 1 hour before bedtime loratadine 2019- No [id number] 10mg Take 1 Univers 10 mg 03-02 tablet by ity of tablet 00:00: 00:00 mouth [place] 00 :00 daily. Medical Branch sod 2019- No [id number] 1{bottl Use 1 Uni vers chlor-bicar 03-02 e} Bottle in it y of b-squeez 00:00: 00:00 each [place] bottle 00 :00 nostril 2 Medical (NEILMED (two) Branch SINUS RINSE times COMPLETE) daily. Use pkdv in hot shower 1 hour before bedtime loratadine 2019- No [id number] 10mg Take 1 Univers 10 mg 03-02 tablet by ity of tablet 00:00: 00:00 mouth [place] 00 :00 daily. Medical Branch predniSONE 2019- No [id number] 40mg Take 4 Univers 10 mg 03-02-16 tablets by ity of tablet 00:00: 04:59 mouth [place] 00 :00 daily for Medical 3 days. Branch LORazepam 2019- No 1mg 1 mg, Univer s (ATIVAN) 03-01 Oral, ity of tablet 1 mg 11:15: 10:12 ONCE, 1 [place] 00 :[place] dose, Wed Medical 03/01/19 at Branch 0615, JOE cyclobenzap 2019- No [id number] 5mg Take 1 Univers rine 5 mg 01-27 tablet by ity of tablet 00:00: 04:59 mouth [place] 00 :00 daily for Medical 7 days. Branch cyclobenzap 2019- No [id number] 5mg Take 1 Univers rine 5 mg 01-27 tablet by ity of tablet 00:00: 04:59 mouth [place] 00 :00 daily for Medical 7 days. Branch metroNIDAZO Yes [id number] 500mg Take 1 Univers LE (FLAGYL) 7-09 tablet by ity of 500 mg 00:00: mouth 2 [place] tablet 00 (two) Medical times Branch daily. metroNIDAZO Yes [id number] 500mg Take 1 Univers LE (FLAGYL) 7-09 tablet by ity of 500 mg 00:00: mouth 2 [place] tablet 00 (two) Medical times Branch daily. metroNIDAZO Yes [id number] 500mg Take 1 Univers LE (FLAGYL) 7-09 tablet by ity of 500 mg 00:00: mouth 2 [place] tablet 00 (two) Medical times Branch daily. metroNIDAZO Yes [id number] 500mg Take 1 Univers LE (FLAGYL) 7-09 tablet by ity of 500 mg 00:00: mouth 2 [place] tablet 00 (two) Medical times Branch daily. metroNIDAZO Yes [id number] 500mg Take 1 Univers LE (FLAGYL) 7-09 tablet by ity of 500 mg 00:00: mouth 2 [place] tablet 00 (two) Medical times Branch daily. metroNIDAZO 2018- Yes [id number] 500mg Take 1 Univers LE (FLAGYL) 7-09 tablet by ity of 500 mg 00:00: mouth 2 [place] tablet 00 (two) Medical times Branch daily. metroNIDAZO 2018-0 Yes [id number] 500mg Take 1 Univers LE (FLAGYL) 7-09 tablet by ity of 500 mg 00:00: mouth 2 [place] tablet 00 (two) Medical times Branch daily. metroNIDAZO 2018-0 Yes [id number] 500mg Take 1 Univers LE (FLAGYL) 7-09 tablet by ity of 500 mg 00:00: mouth 2 [place] tablet 00 (two) Medical times Branch daily. metroNIDAZO 2018-0 Yes [id number] 500mg Take 1 Univers LE (FLAGYL) 7-09 tablet by ity of 500 mg 00:00: mouth 2 [place] tablet 00 (two) Medical times Branch daily. metroNIDAZO 2018-0 Yes [id number] 500mg Take 1 Univers LE (FLAGYL) 7-09 tablet by ity of 500 mg 00:00: mouth 2 [place] tablet 00 (two) Medical times Branch daily. metroNIDAZO 2019- No [id number] 500mg Take 1 Univers LE (FLAGYL) 7-02 27-17 tablet by it y of 500 mg 00:00: 00:00 mouth 2 [place] tablet 00 :00 (two) Medical times Branch daily. metroNIDAZO 2019- No [id number] 500mg Take 1 Univers LE (FLAGYL) 7-02 27-17 tablet by it y of 500 mg 00:00: 00:00 mouth 2 [place] tablet 00 :00 (two) Medical times Branch daily. traMADOL Yes [id number] 50mg Take 1 Un clementina (ULTRAM) 50 6-19 tablet by ity of mg tablet 00:00: mouth [place] 00 every 6 Medical (six) Branch hours as needed for Pain (scale 7-10). ondansetron Yes [id number] 4mg Take 1 Univers (ZOFRAN) 4 6-19 tablet by ity of mg tablet 00:00: mouth [place] 00 every 8 Medical (eight) Branch hours as needed for Nausea and Vomiting (N/V). traMADOL 2019-0 Yes [id number] 50mg Take 1 Un [place] (ULTRAM) 50 6-19 tablet by ity of mg tablet 00:00: mouth [place] 00 every 6 Medical (six) Branch hours as needed for Pain (scale 7-10). ondansetron 2018-0 Yes [id number] 4mg Take 1 Univers (ZOFRAN) 4 6-19 tablet by ity of mg tablet 00:00: mouth [place] 00 every 8 Medical (eight) Branch hours as needed for Nausea and Vomiting (N/V). traMADOL 2019-0 Yes [id number] 50mg Take 1 Un [place] (ULTRAM) 50 6-19 tablet by ity of mg tablet 00:00: mouth [place] 00 every 6 Medical (six) Branch hours as needed for Pain (scale 7-10). ondansetron 2019-0 Yes [id number] 4mg Take 1 Univers (ZOFRAN) 4 6-19 tablet by ity of mg tablet 00:00: mouth [place] 00 every 8 Medical (eight) Branch hours as needed for Nausea and Vomiting (N/V). traMADOL 2019-0 Yes [id number] 50mg Take 1 Un [place] (ULTRAM) 50 6-19 tablet by ity of mg tablet 00:00: mouth [place] 00 every 6 Medical (six) Branch hours as needed for Pain (scale 7-10). ondansetron 2019-0 Yes [id number] 4mg Take 1 Univers (ZOFRAN) 4 6-19 tablet by ity of mg tablet 00:00: mouth [place] 00 every 8 Medical (eight) Branch hours as needed for Nausea and Vomiting (N/V). traMADOL 2019-0 Yes [id number] 50mg Take 1 Un [place] (ULTRAM) 50 6-19 tablet by ity of mg tablet 00:00: mouth [place] 00 every 6 Medical (six) Branch hours as needed for Pain (scale 7-10). ondansetron 2019-0 Yes [id number] 4mg Take 1 Univers (ZOFRAN) 4 6-19 tablet by ity of mg tablet 00:00: mouth [place] 00 every 8 Medical (eight) Branch hours as needed for Nausea and Vomiting (N/V). traMADOL 2019-0 Yes [id number] 50mg Take 1 Un [place] (ULTRAM) 50 6-19 tablet by ity of mg tablet 00:00: mouth [place] 00 every 6 Medical (six) Branch hours as needed for Pain (scale 7-10). ondansetron 2019-0 Yes [id number] 4mg Take 1 Univers (ZOFRAN) 4 6-19 tablet by ity of mg tablet 00:00: mouth [place] 00 every 8 Medical (eight) Branch hours as needed for Nausea and Vomiting (N/V). traMADOL 2019-0 Yes [id number] 50mg Take 1 Un [place] (ULTRAM) 50 6-19 tablet by ity of mg tablet 00:00: mouth [place] 00 every 6 Medical (six) Branch hours as needed for Pain (scale 7-10). traMADOL 2019-0 Yes [id number] 50mg Take 1 Un [place] (ULTRAM) 50 6-19 tablet by ity of mg tablet 00:00: mouth [place] 00 every 6 Medical (six) Branch hours as needed for Pain (scale 7-10). traMADOL 2019-0 Yes [id number] 50mg Take 1 Un [place] (ULTRAM) 50 6-19 tablet by ity of mg tablet 00:00: mouth [place] 00 every 6 Medical (six) Branch hours as needed for Pain (scale 7-10). ondansetron 2019-0 Yes [id number] 4mg Take 1 Univers (ZOFRAN) 4 6-19 tablet by ity of mg tablet 00:00: mouth [place] 00 every 8 Medical (eight) Branch hours as needed for Nausea and Vomiting (N/V). traMADOL 2019-0 Yes [id number] 50mg Take 1 Un [place] (ULTRAM) 50 6-19 tablet by ity of mg tablet 00:00: mouth [place] 00 every 6 Medical (six) Branch hours as needed for Pain (scale 7-10). traMADOL 2019-0 Yes [id number] 50mg Take 1 Un [place] (ULTRAM) 50 6-19 tablet by ity of mg tablet 00:00: mouth [place] 00 every 6 Medical (six) Branch hours as needed for Pain (scale 7-10). traMADOL 2019-0 Yes [id number] 50mg Take 1 Un [place] (ULTRAM) 50 6-19 tablet by ity of mg tablet 00:00: mouth [place] 00 every 6 Medical (six) Branch hours as needed for Pain (scale 7-10). traMADOL 2019-0 Yes [id number] 50mg Take 1 Un [place] (ULTRAM) 50 6-19 tablet by ity of mg tablet 00:00: mouth [place] 00 every 6 Medical (six) Branch hours as needed for Pain (scale 7-10). traMADOL 2019-0 Yes [id number] 50mg Take 1 Un [place] (ULTRAM) 50 6-19 tablet by ity of mg tablet 00:00: mouth [place] 00 every 6 Medical (six) Branch hours as needed for Pain (scale 7-10). traMADOL 2019-0 Yes [id number] 50mg Take 1 Un [place] (ULTRAM) 50 6-19 tablet by ity of mg tablet 00:00: mouth [place] 00 every 6 Medical (six) Branch hours as needed for Pain (scale 7-10). traMADOL 2019-0 Yes [id number] 50mg Take 1 Un [place] (ULTRAM) 50 6-19 tablet by ity of mg tablet 00:00: mouth [place] 00 every 6 Medical (six) Branch hours as needed for Pain (scale 7-10). traMADOL 2019-0 Yes [id number] 50mg Take 1 Un [place] (ULTRAM) 50 6-19 tablet by ity of mg tablet 00:00: mouth [place] 00 every 6 Medical (six) Branch hours as needed for Pain (scale 7-10). traMADOL 2019-0 Yes [id number] 50mg Take 1 Un [place] (ULTRAM) 50 6-19 tablet by ity of mg tablet 00:00: mouth [place] 00 every 6 Medical (six) Branch hours as needed for Pain (scale 7-10). traMADOL 2019-0 Yes [id number] 50mg Take 1 Un [place] (ULTRAM) 50 6-19 tablet by ity of mg tablet 00:00: mouth [place] 00 every 6 Medical (six) Branch hours as needed for Pain (scale 7-10). traMADOL 2019-0 Yes [id number] 50mg Take 1 Un [place] (ULTRAM) 50 6-19 tablet by ity of mg tablet 00:00: mouth [place] 00 every 6 Medical (six) Branch hours as needed for Pain (scale 7-10). traMADOL 2019-0 Yes [id number] 50mg Take 1 Un [place] (ULTRAM) 50 6-19 tablet by ity of mg tablet 00:00: mouth [place] 00 every 6 Medical (six) Branch hours as needed for Pain (scale 7-10). traMADOL 2019-0 Yes [id number] 50mg Take 1 Un [place] (ULTRAM) 50 6-19 tablet by ity of mg tablet 00:00: mouth [place] 00 every 6 Medical (six) Branch hours as needed for Pain (scale 7-10). traMADOL 2019-0 Yes [id number] 50mg Take 1 Un [place] (ULTRAM) 50 6-19 tablet by ity of mg tablet 00:00: mouth [place] 00 every 6 Medical (six) Branch hours as needed for Pain (scale 7-10). traMADOL 2019-0 Yes [id number] 50mg Take 1 Un [place] (ULTRAM) 50 6-19 tablet by ity of mg tablet 00:00: mouth [place] 00 every 6 Medical (six) Branch hours as needed for Pain (scale 7-10). traMADOL 2019-0 Yes [id number] 50mg Take 1 Un [place] (ULTRAM) 50 6-19 tablet by ity of mg tablet 00:00: mouth [place] 00 every 6 Medical (six) Branch hours as needed for Pain (scale 7-10). ondansetron 2018-0 Yes [id number] 4mg Take 1 Univers (ZOFRAN) 4 6-19 tablet by ity of mg tablet 00:00: mouth [place] 00 every 8 Medical (eight) Branch hours as needed for Nausea and Vomiting (N/V). traMADOL 2018-0 Yes [id number] 50mg Take 1 Un [place] (ULTRAM) 50 6-19 tablet by ity of mg tablet 00:00: mouth [place] 00 every 6 Medical (six) Branch hours as needed for Pain (scale 7-10). ondansetron 2018-0 Yes [id number] 4mg Take 1 Univers (ZOFRAN) 4 6-19 tablet by ity of mg tablet 00:00: mouth [place] 00 every 8 Medical (eight) Branch hours as needed for Nausea and Vomiting (N/V). traMADOL 2019-0 Yes [id number] 50mg Take 1 Un [place] (ULTRAM) 50 6-19 tablet by ity of mg tablet 00:00: mouth [place] 00 every 6 Medical (six) Branch hours as needed for Pain (scale 7-10). ondansetron 2019-0 Yes [id number] 4mg Take 1 Univers (ZOFRAN) 4 6-19 tablet by ity of mg tablet 00:00: mouth [place] 00 every 8 Medical (eight) Branch hours as needed for Nausea and Vomiting (N/V). ondansetron 2019- 2019- No [id number] 4mg Take 1 Univers (ZOFRAN) 4 6-19 -17 tablet by ity of mg tablet 00:00: 00:00 mouth [place] 00 :00 every 8 Medical (eight) Branch hours as needed for Nausea and Vomiting (N/V). ondansetron 2019- No [id number] 4mg Take 1 Univers (ZOFRAN) 4 6-19 -17 tablet by ity of mg tablet 00:00: 00:00 mouth [place] 00 :00 every 8 Medical (eight) Branch hours as needed for Nausea and Vomiting (N/V). hydroCHLORO 2019- Yes [id number] 25mg Take 1 Univers thiazide 25 4-24 tablet by ity of mg tablet 00:00: mouth [place] 00 daily. Medical Branch hydroCHLORO 2019-0 Yes [id number] 25mg Take 1 Univers thiazide 25 4-24 tablet by ity of mg tablet 00:00: mouth [place] 00 daily. Medical Branch hydroCHLORO 2019-0 Yes [id number] 25mg Take 1 Univers thiazide 25 4-24 tablet by ity of mg tablet 00:00: mouth [place] 00 daily. Medical Branch hydroCHLORO 2019-0 Yes [id number] 25mg Take 1 Univers thiazide 25 4-24 tablet by ity of mg tablet 00:00: mouth [place] 00 daily. Medical Branch hydroCHLORO 2019-0 Yes [id number] 25mg Take 1 Univers thiazide 25 4-24 tablet by ity of mg tablet 00:00: mouth [place] 00 daily. Medical Branch hydroCHLORO 2019-0 Yes [id number] 25mg Take 1 Univers thiazide 25 4-24 tablet by ity of mg tablet 00:00: mouth [place] 00 daily. Medical Branch hydroCHLORO 2019-0 Yes [id number] 25mg Take 1 Univers thiazide 25 4-24 tablet by ity of mg tablet 00:00: mouth [place] 00 daily. Medical Branch hydroCHLORO 2019-0 Yes [id number] 25mg Take 1 Univers thiazide 25 4-24 tablet by ity of mg tablet 00:00: mouth [place] 00 daily. Medical Branch hydroCHLORO 2019-0 Yes [id number] 25mg Take 1 Univers thiazide 25 4-24 tablet by ity of mg tablet 00:00: mouth [place] 00 daily. [facility] Branch hydroCHLORO 2019-0 Yes [id number] 25mg Take 1 Univers thiazide 25 4-24 tablet by ity of mg tablet 00:00: mouth [place] 00 daily. Medical Branch hydroCHLORO 2019-0 2019- No [id number] 25mg Take 1 Univers thiazide 25 4-24 -17 tablet by it y of mg tablet 00:00: 00:00 mouth [place] 00 :00 daily. Medical Branch hydroCHLORO 2019- No [id number] 25mg Take 1 Univers thiazide 25 4-24 -17 tablet by it y of mg tablet 00:00: 00:00 mouth [place] 00 :00 daily. Medical Branch 2019-0 Yes [id number] 1{tbl} Take 1 Univers vitamin 4-23 tablet by ity of w/FA tablet 00:00: mouth [place] 00 daily. Medical Branch docusate Yes [id number] 240mg Take 1 U nivers calcium 240 4-23 capsule by it y of mg capsule 00:00: mouth [place] 00 daily as Medical needed for Branch Constipati on. ferrous Yes [id number] 325mg Take 1 Un [facility] sulfate 325 4-23 tablet by ity of mg (65 mg 00:00: mouth 2 [place] iron) 00 (two) Medical tablet times Branch daily. ibuprofen Yes [id number] 600mg Take 1 Univers 600 mg 4-23 tablet by ity of tablet 00:00: mouth [place] 00 every 6 Medical (six) Branch hours as needed for Pain (scale 1-3) or Pain (scale 4-6) (Pain). Take with food or milk. 2018- Yes [id number] 1{tbl} Take 1 Univers vitamin 4-23 tablet by ity of w/FA tablet 00:00: mouth [place] 00 daily. Medical Branch docusate Yes [id number] 240mg Take 1 U nivers calcium 240 4-23 capsule by it y of mg capsule 00:00: mouth once [place] 00 daily as Medical needed for Branch Constipati on. ferrous 2018- Yes [id number] 325mg Take 1 Un [place] sulfate 325 4-23 tablet by ity of mg (65 mg 00:00: mouth 2 [place] iron) 00 (two) Medical tablet times Branch daily. ibuprofen Yes [id number] 600mg Take 1 Univers 600 mg 4-23 tablet by ity of tablet 00:00: mouth [place] 00 every 6 Medical (six) Branch hours as needed for Pain (scale 1-3) or Pain (scale 4-6) (Pain). Take with food or milk. 2019-0 Yes [id number] 1{tbl} Take 1 Univers vitamin 4-23 tablet by ity of w/FA tablet 00:00: mouth [place] 00 daily. Medical Branch docusate 0 Yes [id number] 240mg Take 1 U nivers calcium 240 4-23 capsule by it y of mg capsule 00:00: mouth once [place] 00 daily as Medical needed for Branch Constipati on. ferrous 2019 Yes [id number] 325mg Take 1 Un [place] sulfate 325 4-23 tablet by ity of mg (65 mg 00:00: mouth 2 [place] iron) 00 (two) Medical tablet times Branch daily. ibuprofen 2019- Yes [id number] 600mg Take 1 Univers 600 mg 4-23 tablet by ity of tablet 00:00: mouth [place] 00 every 6 Medical (six) Branch hours as needed for Pain (scale 1-3) or Pain (scale 4-6) (Pain). Take with food or milk. Yes [id number] 1{tbl} Take 1 Univers vitamin 4-23 tablet by ity of w/FA tablet 00:00: mouth [place] 00 daily. Medical Branch docusate Yes [id number] 240mg Take 1 U nivers calcium 240 4-23 capsule by it y of mg capsule 00:00: mouth once [place] 00 daily as Medical needed for Branch Constipati on. ferrous Yes [id number] 325mg Take 1 Un [place]lement[place] sulfate 325 4-23 tablet by ity of mg (65 mg 00:00: mouth 2 [place] iron) 00 (two) Medical tablet times Branch daily. ibuprofen 0 Yes [id number] 600mg Take 1 [facility] 600 mg 4-23 tablet by ity of tablet 00:00: mouth [place] 00 every 6 Medical (six) Branch hours as needed for Pain (scale 1-3) or Pain (scale 4-6) (Pain). Take with food or milk. 2019-0 Yes [id number] 1{tbl} Take 1 [facility] vitamin 4-23 tablet by ity of w/FA tablet 00:00: mouth [place] 00 daily. Medical Branch docusate 0 Yes [id number] 240mg Take 1 U nivers calcium 240 4-23 capsule by it y of mg capsule 00:00: mouth once [place] 00 daily as Medical needed for Branch Constipati on. ferrous Yes [id number] 325mg Take 1 Un clementina sulfate 325 4-23 tablet by ity of mg (65 mg 00:00: mouth 2 [place] iron) 00 (two) Medical tablet times Branch daily. ibuprofen Yes [id number] 600mg Take 1 [facility] 600 mg 4-23 tablet by ity of tablet 00:00: mouth [place] 00 every 6 Medical (six) Branch hours as needed for Pain (scale 1-3) or Pain (scale 4-6) (Pain). Take with food or milk. 2019-0 Yes [id number] 1{tbl} Take 1 [facility] vitamin 4-23 tablet by ity of w/FA tablet 00:00: mouth [place] 00 daily. Medical Branch 2018-0 Yes [id number] 1{tbl} Take 1 [facility] vitamin 4-23 tablet by ity of w/FA tablet 00:00: mouth [place] 00 daily. Medical Branch docusate Yes [id number] 240mg Take 1 U nivers calcium 240 4-23 capsule by it y of mg capsule 00:00: mouth once [place] 00 daily as Medical needed for Branch Constipati on. ferrous Yes [id number] 325mg Take 1 Un clementina sulfate 325 4-23 tablet by ity of mg (65 mg 00:00: mouth 2 [place] iron) 00 (two) Medical tablet times Branch daily. ibuprofen Yes [id number] 600mg Take 1 [facility] 600 mg 4-23 tablet by ity of tablet 00:00: mouth [place] 00 every 6 Medical (six) Branch hours as needed for Pain (scale 1-3) or Pain (scale 4-6) (Pain). Take with food or milk. docusate Yes [id number] 240mg Take 1 U nivers calcium 240 4-23 capsule by it y of mg capsule 00:00: mouth once [place] 00 daily as Medical needed for Branch Constipati on. ferrous 2018-0 Yes [id number] 325mg Take 1 Un clementina sulfate 325 4-23 tablet by ity of mg (65 mg 00:00: mouth 2 [place] iron) 00 (two) Medical tablet times Branch daily. ibuprofen Yes [id number] 600mg Take 1 [facility] 600 mg 4-23 tablet by ity of tablet 00:00: mouth [place] 00 every 6 Medical (six) Branch hours as needed for Pain (scale 1-3) or Pain (scale 4-6) (Pain). Take with food or milk. ibuprofen 0 Yes [id number] 600mg Take 1 [facility] 600 mg 4-23 tablet by ity of tablet 00:00: mouth [place] 00 every 6 Medical (six) Branch hours as needed for Pain (scale 1-3) or Pain (scale 4-6) (Pain). Take with food or milk. ibuprofen Yes [id number] 600mg Take 1 [facility] 600 mg 4-23 tablet by ity of tablet 00:00: mouth [place] 00 every 6 Medical (six) Branch hours as needed for Pain (scale 1-3) or Pain (scale 4-6) (Pain). Take with food or milk. ibuprofen Yes [id number] 600mg Take 1 [facility] 600 mg 4-23 tablet by ity of tablet 00:00: mouth [place] 00 every 6 Medical (six) Branch hours as needed for Pain (scale 1-3) or Pain (scale 4-6) (Pain). Take with food or milk. ibuprofen Yes [id number] 600mg Take 1 [facility] 600 mg 4-23 tablet by ity of tablet 00:00: mouth [place] 00 every 6 Medical (six) Branch hours as needed for Pain (scale 1-3) or Pain (scale 4-6) (Pain). Take with food or milk. ibuprofen 0 Yes [id number] 600mg Take 1 [facility] 600 mg 4-23 tablet by ity of tablet 00:00: mouth [place] 00 every 6 Medical (six) Branch hours as needed for Pain (scale 1-3) or Pain (scale 4-6) (Pain). Take with food or milk. ibuprofen 0 Yes [id number] 600mg Take 1 [facility] 600 mg 4-23 tablet by ity of tablet 00:00: mouth [place] 00 every 6 Medical (six) Branch hours as needed for Pain (scale 1-3) or Pain (scale 4-6) (Pain). Take with food or milk. ibuprofen 0 Yes [id number] 600mg Take 1 [facility] 600 mg 4-23 tablet by ity of tablet 00:00: mouth [place] 00 every 6 Medical (six) Branch hours as needed for Pain (scale 1-3) or Pain (scale 4-6) (Pain). Take with food or milk. ibuprofen 0 Yes [id number] 600mg Take 1 [facility] 600 mg 4-23 tablet by ity of tablet 00:00: mouth [place] 00 every 6 Medical (six) Branch hours as needed for Pain (scale 1-3) or Pain (scale 4-6) (Pain). Take with food or milk. ibuprofen 2018-0 Yes [id number] 600mg Take 1 [facility] 600 mg 4-23 tablet by ity of tablet 00:00: mouth [place] 00 every 6 Medical (six) Branch hours as needed for Pain (scale 1-3) or Pain (scale 4-6) (Pain). Take with food or milk. ibuprofen 2018-0 Yes [id number] 600mg Take 1 [facility] 600 mg 4-23 tablet by ity of tablet 00:00: mouth [place] 00 every 6 Medical (six) Branch hours as needed for Pain (scale 1-3) or Pain (scale 4-6) (Pain). Take with food or milk. ibuprofen 0 Yes [id number] 600mg Take 1 [facility] 600 mg 4-23 tablet by ity of tablet 00:00: mouth [place] 00 every 6 Medical (six) Branch hours as needed for Pain (scale 1-3) or Pain (scale 4-6) (Pain). Take with food or milk. ibuprofen 0 Yes [id number] 600mg Take 1 [facility] 600 mg 4-23 tablet by ity of tablet 00:00: mouth [place] 00 every 6 Medical (six) Branch hours as needed for Pain (scale 1-3) or Pain (scale 4-6) (Pain). Take with food or milk. ibuprofen 0 Yes [id number] 600mg Take 1 [facility] 600 mg 4-23 tablet by ity of tablet 00:00: mouth [place] 00 every 6 Medical (six) Branch hours as needed for Pain (scale 1-3) or Pain (scale 4-6) (Pain). Take with food or milk. ibuprofen 0 Yes [id number] 600mg Take 1 [facility] 600 mg 4-23 tablet by ity of tablet 00:00: mouth [place] 00 every 6 Medical (six) Branch hours as needed for Pain (scale 1-3) or Pain (scale 4-6) (Pain). Take with food or milk. ibuprofen 2018-0 Yes [id number] 600mg Take 1 [facility] 600 mg 4-23 tablet by ity of tablet 00:00: mouth [place] 00 every 6 Medical (six) Branch hours as needed for Pain (scale 1-3) or Pain (scale 4-6) (Pain). Take with food or milk. ibuprofen 0 Yes [id number] 600mg Take 1 [facility] 600 mg 4-23 tablet by ity of tablet 00:00: mouth [place] 00 every 6 Medical (six) Branch hours as needed for Pain (scale 1-3) or Pain (scale 4-6) (Pain). Take with food or milk. Yes [id number] 1{tbl} Take 1 [facility] vitamin 4-23 tablet by ity of w/FA tablet 00:00: mouth [place] 00 daily. Medical Branch ibuprofen Yes [id number] 600mg Take 1 [facility] 600 mg 4-23 tablet by ity of tablet 00:00: mouth [place] 00 every 6 Medical (six) Branch hours as needed for Pain (scale 1-3) or Pain (scale 4-6) (Pain). Take with food or milk. docusate Yes [id number] 240mg Take 1 U nivers calcium 240 4-23 capsule by it y of mg capsule 00:00: mouth once [place] 00 daily as Medical needed for Branch Constipati on. ferrous 2018- Yes [id number] 325mg Take 1 Un clementina sulfate 325 4-23 tablet by ity of mg (65 mg 00:00: mouth 2 [place] iron) 00 (two) Medical tablet times Branch daily. ibuprofen Yes [id number] 600mg Take 1 [facility] 600 mg 4-23 tablet by ity of tablet 00:00: mouth [place] 00 every 6 Medical (six) Branch hours as needed for Pain (scale 1-3) or Pain (scale 4-6) (Pain). Take with food or milk. Yes [id number] 1{tbl} Take 1 [facility] vitamin 4-23 tablet by ity of w/FA tablet 00:00: mouth [place] 00 daily. Medical Branch docusate 0 Yes [id number] 240mg Take 1 U nivers calcium 240 4-23 capsule by it y of mg capsule 00:00: mouth once [place] 00 daily as Medical needed for Branch Constipati on. ferrous 2018-0 Yes [id number] 325mg Take 1 Un clementina sulfate 325 4-23 tablet by ity of mg (65 mg 00:00: mouth 2 [place] iron) 00 (two) Medical tablet times Branch daily. ibuprofen 2019- Yes [id number] 600mg Take 1 [facility] 600 mg 4-23 tablet by ity of tablet 00:00: mouth [place] 00 every 6 Medical (six) Branch hours as needed for Pain (scale 1-3) or Pain (scale 4-6) (Pain). Take with food or milk. Yes [id number] 1{tbl} Take 1 [facility] vitamin 4-23 tablet by ity of w/FA tablet 00:00: mouth [place] 00 daily. Medical Branch docusate Yes [id number] 240mg Take 1 U nivers calcium 240 4-23 capsule by it y of mg capsule 00:00: mouth once [place] 00 daily as Medical needed for Branch Constipati on. ferrous Yes [id number] 325mg Take 1 Un clementina sulfate 325 4-23 tablet by ity of mg (65 mg 00:00: mouth 2 [place] iron) 00 (two) Medical tablet times Branch daily. ibuprofen Yes [id number] 600mg Take 1 [facility] 600 mg 4-23 tablet by ity of tablet 00:00: mouth [place] 00 every 6 Medical (six) Branch hours as needed for Pain (scale 1-3) or Pain (scale 4-6) (Pain). Take with food or milk. 2019- No [id number] 1{tbl} Take 1 [facility] vitamin 4-23 09-17 tablet by ity of w/FA tablet 00:00: 00:[place] :[facility] daily. [facility] No [id number] 240mg Take 1 [facility] calcium 240 4-23 09-17 capsule by i ty of mg capsule 00:00: 00:00 mouth once [place] 00 :00 daily as Medical needed for Branch Constipati on. ferrous 2019- No [id number] 325mg Take 1 U nivers sulfate 325 4-23 09-17 tablet by it y of mg (65 mg 00:00: 00:00 mouth [place] iron[place] 00 :00 (two) Medical tablet times Branch daily. 2019- No [id number] 1{tbl} Take 1 [facility] vitamin 4-23 09-17 tablet by ity of w/FA tablet 00:00: 00:[place] :[facility] daily. [facility] No [id number] 240mg Take 1 [facility] calcium 240 10-11 capsule by i ty of mg capsule 00:00: 00:00 mouth once [place] 00 :00 daily as Medical needed for Branch Constipati on. ferrous 2019- No [id number] 325mg Take 1 U nivers sulfate 325 [...] Name HPV9 2019-03-07 Completed University of 00:00:00 [place] [facility] HPV9 2019-03-07 Completed University of 00:00:00 [facility] HPV9 2019-03-07 Completed University of 00:00:00 [facility] HPV9 2019-03-07 Completed University of 00:00:00 [facility] HPV9 2019-03-07 Completed University of 00:00:00 [facility] HPV9 2019-03-07 Completed University of 00:00:00 [facility] HPV9 2019-03-07 Completed University of 00:00:00 [facility] HPV9 2019-03-07 Completed University of 00:00:00 [facility] HPV9 2019-03-07 Completed University of 00:00:00 [facility] HPV9 2019-03-07 Completed University of 00:00:00 [facility] HPV9 2019-03-07 Completed University of 00:00:00 [facility] HPV9 2019-03-07 Completed University of 00:00:00 [facility] HPV9 2019-03-07 Completed University of 00:00:00 [facility] HPV9 2019-03-07 Completed University of 00:00:00 [facility] HPV9 2019-03-07 Completed University of 00:00:00 [facility] HPV9 2019-03-07 Completed University of 00:00:00 [facility] HPV9 2019-03-07 Completed University of 00:00:00 [facility] Influenza Virus 2016-03-27 Completed Universit y of Vaccine 00:00:00 [facility] Pneumococcal 2016-03-27 Completed University o f Polysaccharide, 00:00:00 [facility] ical PPSV23 (PNEUMOVAX) [place] Influenza Virus 2016-03-27 Completed Universit y of Vaccine 00:00:00 [facility] Pneumococcal 2016-03-27 Completed University o f Polysaccharide, 00:00:00 [facility] PPSV23 (PNEUMOVAX) [place] Tdap 2012-01-26 Completed University of 00:00:00 [facility] Tdap 2012-01-26 Completed University of 00:00:00 [facility] Tdap 2012-01-26 Completed University of 00:00:00 [facility] Tdap 2012-01-26 Completed University of 00:00:00 [facility] Tdap 2012-01-26 Completed University of 00:00:00 [facility] Tdap 2012-01-26 Completed University of 00:00:00 [facility] Tdap 2012-01-26 Completed University of 00:00:00 [facility] Tdap 2012-01-26 Completed University of 00:00:00 [facility] Tdap 2012-01-26 Completed University of 00:00:00 [facility] Tdap 2012-01-26 Completed University of 00:00:00 [facility] Tdap 2012-01-26 Completed University of 00:00:00 [facility] Tdap 2012-01-26 Completed University of 00:00:00 [facility] Tdap 2012-01-26 Completed University of 00:00:00 [facility] Tdap 2012-01-26 Completed University of 00:00:00 [facility] Tdap 2012-01-26 Completed University of 00:00:00 [facility] Tdap 2012-01-26 Completed University of 00:00:00 [facility] Tdap 2012-01-26 Completed University of 00:00:00 [facility] Tdap 2012-01-26 Completed University of 00:00:00 [facility] TDAP 2012-01-26 Completed University of 00:00:00 [facility] TDAP 2012-01-26 Completed University of 00:00:00 [facility] TDAP 2012-01-26 Completed University of 00:00:00 [facility] TDAP 2012-01-26 Completed University of 00:00:00 [facility] TDAP 2012-01-26 Completed University of 00:00:00 [facility] TDAP 2012-01-26 Completed University of 00:00:00 [facility] Tdap 2012-01-26 Completed University of 00:00:00 [facility] Tdap 2012-01-26 Completed [facility] 00:00:00 [facility] HEPATITIS A 2009-11-12 Completed University of 00:00:00 [facility] HPV 2009-11-12 Completed University of 00:00:00 [facility] HEPATITIS A 2009-11-12 Completed University of 00:00:00 [facility] HPV 2009-11-12 Completed University of 00:00:00 [facility] HEPATITIS A 2009-04-08 Completed University of 00:00:00 [facility] HPV 2009-04-08 Completed University of 00:00:00 [facility] Varicella 2009-04-08 Completed University of (varivax)(chicken 00:00:00 [place] [facility] pox) Branch HEPATITIS A 2009-04-08 Completed University of 00:00:00 [facility] HPV 2009-04-08 Completed University of 00:00:00 [facility] Varicella 2009-04-08 Completed University of (varivax)(chicken 00:00:00 [place] [facility] edical pox) Branch HPV 2009-02-05 Completed University of 00:00:00 [facility] Meningococcal 2009-02-05 Completed University of Polysaccharide 00:00:00 [facility] [place] [facility] usha (groups A, C, Y and Branc h W-135) conjugate vaccine (MCV4P) TD 2009-02-05 Completed University of 00:00:00 [facility] HPV 2009-02-05 Completed University of 00:00:00 [facility] Meningococcal 2009-02-05 Completed University of Polysaccharide 00:00:00 [facility] [place] [facility] usha (groups A, C, Y and Branc h W-135) conjugate vaccine (MCV4P) TDAP 2009-02-05 Completed University of 00:00:00 [facility] DTP 2001-03-08 Completed University of 00:00:00 [facility] MMR 2001-03-08 Completed University of 00:00:00 [facility] Polio (IPV/OPV) 2001-03-08 Completed Universit y of 00:00:00 [facility] DTP 2001-03-08 Completed University of 00:00:00 [facility] MMR 2001-03-08 Completed University of 00:00:00 [facility] Polio (IPV/OPV) 2001-03-08 Completed Universit y of 00:00:00 [facility] MMR 1998-01-28 Completed University of 00:00:00 [facility] Varicella 1998-01-28 Completed University of (varivax)(chicken 00:00:00 [facility] edical pox) Branch MMR 1998-01-28 Completed University of 00:00:00 [facility] Varicella 1998-01-28 Completed University of (varivax)(chicken 00:00:00 [facility] edical pox) Branch Polio (IPV/OPV) 1997 Completed Universit y of 00:00:00 [facility] Polio (IPV/OPV) 1997 Completed Universit y of 00:00:00 [facility] DTP 1997 Completed University of 00:00:00 [facility] HIB 4 Dose Schedule 1997 Completed Unive rsity of 00:00:00 [facility] Hep B, Adol or Pedi 1997 Completed Unive rsity of Dosage 00:00:00 [facility] DTP 1997 Completed University of 00:00:00 [facility] HIB 4 Dose Schedule 1997 Completed Unive rsity of 00:00:00 [facility] Hep B, Adol or Pedi 1997 Completed Unive rsity of Dosage 00:00:00 [facility] DTP 1997 Completed University of 00:00:00 [facility] HIB 4 Dose Schedule 1997 Completed Unive rsity of 00:00:00 [facility] Polio (IPV/OPV) 1997 Completed Universit y of 00:00:00 [facility] DTP 1997 Completed University of 00:00:00 [facility] HIB 4 Dose Schedule 1997 Completed Unive rsity of 00:00:00 [facility] Polio (IPV/OPV) 1997 Completed Universit y of 00:00:00 [facility] Branch Polio (IPV/OPV) 1997 Completed Universit y of 00:00:00 [facility] Branch Polio (IPV/OPV) 1997 Completed Universit y of 00:00:00 [facility] Branch DTP 1997 Completed University of 00:00:00 [facility] HIB 4 Dose Schedule 1997 Completed Unive rsity of 00:00:00 [facility] Hep B, Adol or Pedi 1997 Completed Unive rsity of Dosage 00:00:00 [facility] Branch DTP 1997 Completed University of 00:00:00 [facility] Branch HIB 4 Dose Schedule 1997 Completed Unive rsity of 00:00:00 [facility] Branch Hep B, Adol or Pedi 1997 Completed Unive rsity of Dosage 00:00:00 [facility] Hep B, Adol or Pedi 1997 Completed Unive rsity of Dosage 00:00:00 [facility] Hep B, Adol or Pedi 1997 Completed Unive rsity of Dosage 00:00:00 [facility] Vital Signs Vital Name Observation Time Observation Value Comments Source Systolic blood 2020-01-18 23:29:00 110 mm[Hg] Univer sity of pressure [facility] Diastolic blood 2020-01-18 23:29:00 77 mm[Hg] Unive rsity of pressure [facility] Heart rate 2020-01-18 23:29:00 91 /min Universi ty of [facility] Body temperature 2020-01-18 23:29:00 36.67 Patti Univ ersity of [facility] Respiratory rate 2020-01-18 23:29:00 14 /[facility] 2020-01-18 23:29:00 149.9 cm Universi ty of [place] [facility] Body weight 2020-01-18 23:29:00 77.111 kg Universi ty of [place] [facility] BMI 2020-01-18 23:29:00 34.34 kg/m2 Universi ty of [place] [facility] Oxygen saturation in 2020-01-18 23:29:00 97 /min University of Arterial blood by [facility] Pulse oximetry Branch Systolic blood 2020-01-18 23:29:00 110 mm[Hg] Univer sity of pressure [place] [facility] Diastolic blood 2020-01-18 23:29:00 77 mm[Hg] Unive rsity of pressure [place] [facility] Heart rate 2020-01-18 23:29:00 91 /min Universi ty of [place] [facility] Body temperature 2020-01-18 23:29:00 36.67 [place] Univ ersity of [place] [facility] Respiratory rate 2020-01-18 23:29:00 14 /min Univ ersity of [place] [facility] Body height 2020-01-18 23:29:00 149.9 cm Universi ty of [place] [facility] Body weight 2020-01-18 23:29:00 77.111 kg Universi ty of [place] [facility] BMI 2020-01-18 23:29:00 34.34 kg/m2 Universi ty of [place] [facility] Oxygen saturation in 2020-01-18 23:29:00 97 /min University of Arterial blood by [facility] Pulse oximetry Branch Systolic blood 2019-07-11 19:01:00 125 mm[Hg] Univer sity of pressure [place] [facility] Diastolic blood 2019-07-11 19:01:00 85 mm[Hg] Unive rsity of pressure [place] [facility] Heart rate 2019-07-11 19:01:00 90 /min Universi ty of [place] [facility] Body temperature 2019-07-11 19:01:00 36.61 [place] Univ ersity of [place] [facility] Respiratory rate 2019-07-11 19:01:00 16 /min Univ ersity of [place] [facility] Body height 2019-07-11 19:01:00 149.9 cm Universi ty of [place] [facility] Body weight 2019-07-11 19:01:00 79.833 kg Universi ty of [place] [facility] BMI 2019-07-11 19:01:00 35.55 kg/m2 Universi ty of [place] [facility] Systolic blood 2019-07-11 19:01:00 125 mm[Hg] Univer sity of pressure [place] [facility] Diastolic blood 2019-07-11 19:01:00 85 mm[Hg] Unive rsity of pressure [place] [facility] Heart rate 2019-07-11 19:01:00 90 /min Universi ty of [place] [facility] Body temperature 2019-07-11 19:01:00 36.61 Patti Univ ersity of [facility] Branch Respiratory rate 2019-07-11 19:01:00 16 /min Univ ersity of [place] [facility] Body height 2019-07-11 19:01:00 149.9 cm Universi ty of [place] [facility] Body weight 2019-07-11 19:01:00 79.833 kg Universi ty of [facility] Branch BMI 2019-07-11 19:01:00 35.55 kg/m2 Universi ty of [facility] Systolic blood 2019-03-10 21:01:00 121 mm[Hg] Univer sity of pressure [facility] Branch Diastolic blood 2019-03-10 21:01:00 81 mm[Hg] Unive rsity of pressure [place] [facility] Heart rate 2019-03-10 21:01:00 91 /min Universi ty of [facility] Body temperature 2019-03-10 21:01:00 36.78 Patti Univ ersity of [facility] Branch Respiratory rate 2019-03-10 21:01:00 18 /min Univ ersity of [place] [facility] Body weight 2019-03-10 21:01:00 73.029 kg Universi ty of [place] [facility] BMI 2019-03-10 21:01:00 32.52 kg/m2 Universi ty of [facility] Branch Oxygen saturation in 2019-03-10 21:01:00 99 /min University Arterial blood by [facility] Pulse oximetry Branch Systolic blood 2019-03-07 19:45:00 123 mm[Hg] Univer sity of pressure [facility] Branch Diastolic blood 2019-03-07 19:45:00 77 mm[Hg] Unive rsity of pressure [place] [facility] Heart rate 2019-03-07 19:45:00 84 /min Universi ty of [facility] Body temperature 2019-03-07 19:45:00 36.83 Patti Univ ersity of [facility] Branch Respiratory rate 2019-03-07 19:45:00 18 /min Univ ersity of [place] [facility] Body height 2019-03-07 19:45:00 149.9 cm Universi ty of [place] [facility] Body weight 2019-03-07 19:45:00 73.086 kg Universi ty of [place] [facility] BMI 2019-03-07 19:45:00 32.54 kg/m2 Universi ty [facility] [place] [facility] Systolic blood 2019-03-02 20:04:00 135 mm[Hg] Univer sity of pressure [place] [facility] Diastolic blood 2019-03-02 20:04:00 82 mm[Hg] [facility] Heart rate 2019-03-02 20:04:00 77 /min [facility] Body temperature 2019-03-02 20:04:00 37.06 Patti Univ [facility] Respiratory rate 2019-03-02 20:04:00 18 /min [facility] Body weight 2019-03-02 20:04:00 72.576 kg [facility] BMI 2019-03-02 20:04:00 33.44 kg/m2 [facility] Oxygen saturation in 2019-03-02 20:04:00 100 /min University of Arterial blood by [facility] Pulse oximetry Branch Systolic blood 2019-03-01 20:46:00 123 mm[Hg] [facility] Diastolic blood 2019-03-01 20:46:00 79 mm[Hg] [facility] Heart rate 2019-03-01 20:46:00 98 /min [facility] Body height 2019-03-01 20:46:00 147.3 cm [facility] Body weight 2019-03-01 20:46:00 75.751 kg [facility] BMI 2019-03-01 20:46:00 34.90 kg/m2 [facility] Systolic blood 2019-03-01 09:43:00 130 mm[Hg] [facility] Diastolic blood 2019-03-01 09:43:00 86 mm[Hg] [facility] Heart rate 2019-03-01 09:43:00 80 /min [facility] Body temperature 2019-03-01 09:43:00 36.72 Patti [facility] Respiratory rate 2019-03-01 09:43:00 18 /min [facility] Body weight 2019-03-01 09:43:00 75.751 kg [facility] BMI 2019-03-01 09:43:00 33.73 kg/m2 [facility] Oxygen saturation in 2019-03-01 09:43:00 98 /min [facility] of Arterial blood by [facility] Pulse oximetry Branch Systolic blood 2019 20:55:00 135 mm[Hg] [facility] Diastolic blood 2019 20:55:00 89 mm[Hg] [facility] Heart rate 2019 20:55:00 80 /min [facility] Body temperature 2019 20:55:00 37.11 Patti [facility] Respiratory rate 2019 20:55:00 18 /min [facility] Body height 2019 20:55:00 149.9 cm [facility] Body weight 2019 20:55:00 71.623 kg [facility] BMI 2019 20:55:00 31.89 kg/m2 [facility] Oxygen saturation in 2019 20:55:00 99 /min [facility] Arterial blood by [facility] Pulse oximetry Branch Systolic blood 2019-01-17 20:32:00 130 mm[Hg] [facility] Diastolic blood 2019-01-17 20:32:00 89 mm[Hg] [facility] Heart rate 2019-01-17 20:32:00 81 /min [facility] Body temperature 2019-01-17 20:32:00 36.94 Patti [facility] Respiratory rate 2019-01-17 20:32:00 20 /min [facility] Body height 2019-01-17 20:32:00 149.9 cm [facility] Body weight 2019-01-17 20:32:00 72.576 kg [facility] BMI 2019-01-17 20:32:00 32.32 kg/m2 [facility] Procedures Procedure Date / Time Performing Clinician Source Performed POCT TEST 2020-01-18 23:39:00 Virginia Canales [facility] ASSIGNMENT OF BENEFITS 2020-01-18 23:12:18 Doctor Unassigned, No [facility] NOTICE OF PRIVACY 2020-01-18 23:11:57 Doctor Unassigned, No [facility]REF[facility] FOR 2020-01-18 23:11:45 Doctor Unassigned, No [facility] [place] [facility] POCT TEST 2019-07-11 19:11:00 [facility] EBV-MONONUCLEOSIS SCREEN 2019-03-10 21:24:00 Alexia Benitez [facility] NOTICE OF PRIVACY 2019-03-10 20:53:11 Doctor Unassigned, No [facility] 1/2 AG-AB WITH 2019-03-07 20:31:00 Jennifer Joseph [facility] REFLEX [facility] PAP SMEAR-LIQUID 2019-03-07 20:24:00 Jennifer Joseph [facility] POCT TEST 2019-03-07 20:08:00 Jennifer Joseph [facility] GARDASIL 9 (HPV 9V) 2019-03-07 20:02:54 [facility] VACCINE [facility] PATIENT QUESTIONNAIRE 2019-03-07 05:01:00 Doctor Unassigned, No [facility] CONSENT/REFUSAL FOR 2019-03-02 19:51:43 Doctor Unassigned, No [facility] [place] [facility] NOTICE OF PRIVACY 2019-03-01 09:30:23 Doctor Unassigned, No Univ ersity [facility] CONSENT/REFUSAL FOR 2019-03-01 09:30:11 Doctor Unassigned, No [facility] [place] [facility] POCT TEST 2019-01-17 00:00:00 Cassandra Puckett [facility] Encounters Start End Encounter Admission Attending Care Care Encounter Source Date/Time Date/Time Type Type Clinicians Facility Department ID 2021-04-18 Emergency [facility] [id number] Univers 09:56:39 ity of [facility] 2020-12-01 2020-12-01 Nurse CORDELL Vo [id number] Univers 00:00:00 00:00:00 Triage Nasra CLAY 350.1.13.10 it y [facility] 4.2.7.2.686 Steve as [id number] [address] 2020-09-10 2020-09-10 [facility] [id number] Univers 00:00:00 00:00:00 Outreach Rico LOKESH 350.1.13.10 i ty of [facility] [place].7.2.[place] SEGUNDO [id number] [address] 2020-09-09 2020-09-09 [facility] [id number] Univers 15:15:00 15:15:00 BELLOMARIANNEToño [id number] ity o f [facility] 2020-01-26 2020-01-26 Nurse Radha Bass 1.2.840.114 [id number] 00:00:00 00:00:00 Triage OBED 350.1.13.10 [facility] 4.2.7.2.686 [id number] 2020-01-26 2020-01-26 Radha Lemus 1.2.840.114 [id number] Univers 00:00:00 00:00:00 Triage OBED 350.1.13.10 it y [facility] 4.2.7.2.686 Steve as [id number] [address] 2020-01-18 2020-01-[address] [facility] [id number] Univers 18:33:40 19:28:00 Virginia Zabala 350.1.13.10 i ty [place].2.686 [place] [id number] [place] [address]194 [place] 2020-01-18 2020-01-[address] [facility] [id number] 18:33:40 19:28:00 Virginia Zabala 350.1.13.10 [place] 42.7.2.686 [place] [id number] 2020-01-08 2020-01-08 Telephone CORDELL Adams 1.2.840.114 [id number] Univers 00:00:00 00:00:00 Ann C OBED 350.1.13.10 ity [place] [address].7.2.686 Steve as [id number] [address] 2020-01-08 2020-01-08 Telephone CORDELL Adams 1.2.840.114 [id number] 00:00:00 00:00:00 Ann Yuki ARAUJOY [address].13.[address] [id number] 019 2020-01-07 2020-01-07 Outpatient [facility] [id number] Univers 17:00:00 17:00:00 [id number] ity [facility] 2020-01-07 2020-01-07 Outpatient R GI [facility] [id number] Univers 17:00:00 17:00:00 JEN pinto [facility] 2020-01-07 2020-01-07 Laboratory Lab, [facility] Fam Pob I [facility] 1.2. 840.114 [id number] [facility] 16:14:25 16:34:25 Only Jen Angelo 350.1.13.10 ity of [place] 4.2.7.2.686 Steve as Professio [id number] Sc dical [address] 2020-01-07 2020-01-07 Laboratory Lab, [facility] 1.2.840.114 [id number] 16:14:25 16:34:25 Only Fam Pob I Health 350.1.13.10 [place] 4.2.7.2.686 Professio [id number] [address] 2019-10-20 2019-10-20 Nurse Diamond [place] 1.2.840.114 [id number] [facility] 00:00:00 00:00:00 Triage OBED 350.1.13.10 it y of [facility] 4.2.7.2.686 Steve as [id number] [address] 2019-10-20 2019-10-20 Nurse Diamond [place] 1.2.840.114 [id number] 00:00:00 00:00:00 Triage OBED 350.1.13.10 [facility] 4.2.7.2.686 [id number] 2019-10-13 2019-10-13 Telephone [facility] [id number] Univers 00:00:00 00:00:00 Roshunda R [employer] 350.1.13.10 ity [facility] 4.2.7.2.686 Steve as MATERNAL [id number] Med ical & CHILD [address] [place] [address] 2019-10-13 2019-10-13 [facility] [id number] 00:00:00 00:00:00 Rosnda R [employer] 350.1.13.10 [facility] 4.2.7.2.686 MATERNAL [id number] & CHILD [address] [place] [address] 2019-10-05 2019-10-05 Telephone Luci Gordillo [facility] 1.2.840.114 [id number] Univers 00:00:00 00:00:00 Cam Vj 350.1.13.10 i ty [place].7.2.686 [place] Profess[place] [id number] Sc dical [address] 2019-10-05 2019-10-05 Telephone Luci Gordillo [facility] 1.2.840.114 [id number] 00:00:00 00:00:00 Cam Vj 350.1.13.10 [place] 4.2.7.2.686 Professio [id number] [address] 2019-08-30 2019-08-30 Outpatient R JAKE [facility] [id number] Univers 15:15:00 15:15:00 JENNIFER [id number] ity o f [facility] 2019-08-30 2019-08-30 Outpatient R JAKE [facility] [id number] Univers 15:15:00 15:15:00 CAEMRONA ity o f [facility] 2019-08-16 2019-08-16 Outpatient R JAKE [facility] [id number] Univers 15:00:00 15:00:00 BANDARNDToño [id number] ity o gabriel [facility] 2019-08-15 2019-08-15 Outpatient R JAKE [facility] [id number] Univers 15:00:00 15:00:00 BANDARNDToño [id number] ity o gabriel [facility] 2019-08-15 2019-08-15 Outpatient R JAKE [facility] [id number] Univers 15:00:00 15:00:00 BANDARNDA itdenise o gabriel [facility] 2019-08-14 2019-08-14 [facility] [id number] [facility] 00:00:00 00:00:00 Rosaydeenda R [employer] 350.1.13.10 ity of [facility] 4.2.7.2.686 Steve as MATERNAL [id number] Med ical & CHILD [address] [place] [address] 2019-08-14 2019-08-14 [facility] [id number] 00:00:00 00:00:00 Rosnda R [employer] 350.1.13.10 REGIONAL 4.2.7.2.686 MATERNAL [id number] & CHILD 107 [facility] 2019-07-11 2019-07-11 Office Jake [facility] 1.2.840.114 [id number] 12:48:46 13:19:03 Visit Roshunda R [employer] 350.1.13.10 REGIONAL 4.2.7.2.686 MATERNAL [id number] & CHILD 107 [facility] 2019-07-11 2019-07-11 Office [facility] 1.2.840.114 [id number] Univers 12:48:46 13:19:03 Visit Roshunda R [employer] 350.1.13.10 ity [facility] 4.2.7.2.686 Steve as MATERNAL [id number] Med ical & CHILD [address] [place] [address] 2019-07-11 2019-07-11 Telephone [facility] [id number] 00:00:00 00:00:00 Roshunda R [employer] 350.1.13.10 REGIONAL 4.2.7.2.686 MATERNAL [id number] & CHILD [address] [place] [address] 2019-07-11 2019-07-11 Telephone Jake [facility] [id number] Univers 00:00:00 00:00:00 Roshunda R [employer] 350.1.13.10 ity of [facility] 4.2.7.2.686 Steve as MATERNAL [id number] Med ical & CHILD [address] [place] [address] 2019-03-10 2019-03-10 Emergency Eli, K [facility] 1.2.840.114 [id number] Univers 15:52:59 18:03:00 Samara Zabala 350.1.13.10 i ty of [place] 4.2.7.2.686 [facility] [id number] [address] 2019-03-07 2019-03-07 Office Jake [facility] 1.2.840.114 [id number] Univers 14:38:06 15:33:58 Visit Jennifer R [employer] 350.1.13.10 ity of [facility] 4.2.7.2.686 Steve as MATERNAL [id number] [facility] & CHILD [address] [place] [address] 2019-03-07 2019-03-07 Orders Doctor LANDA 1.2.840.114 [id number] Univers 00:00:00 00:00:00 Only Unassigned, OBED 350.1.13.10 ity of [place] [facility] 4.2.7.2.686 Steve as [id number] [facility] 009 [place] 2019-03-02 2019-03-02 Emergency [facility] [id number] Univers 15:06:15 15:51:00 Manoj Zabala 350.1.13.10 i [place] 42.7.2.686 [place] [id number] [facility] 084 [place] 2019-03-02 2019-03-02 Orders Doctor CORDELL 1.2.840.114 [id number] Univers 00:00:00 00:00:00 Only Unassigned, OBED 350.1.13.10 ity of [place] [facility] 4.2.7.2.686 Steve as [id number] [facility] 009 [place] 2019-03-01 2019-03-01 Hospital [facility] 1.2.840.114 [id number] Univers 15:40:01 23:59:00 Encounter Chucho Padilla 350.1.13.10 ity of Surgical 4.2.7.2.686 Steve as Specialti [id number] Sc dical es 809 [facility] 2019-03-01 2019-03-01 Office [facility] 1.2.840.114 [id number] Univers 15:22:19 16:32:56 Visit Chucho Padilla 350.1.13.10 it y of Surgical 4.2.7.2.686 Steve as Specialti [id number] Sc dical es 198 [facility] 2019-03-01 2019-03-01 Emergency [facility] [id number] Univers 04:34:00 05:32:00 [place]aria [place] 350.1.13.10 ity [place].2.[place] [id number] [facility] 084 [place] 2019 2019 Office [facility] 1.2.840.114 [id number] Univers 15:34:06 16:36:15 Visit Rigoberto Zabala 350.1.13.10 i ty [place]2.7.2.[place] [id number] Sc dical nal 044 [facility] 2019-01-17 2019-01-17 Office [facility] [id number] [id number] Univers 15:13:07 15:46:27 Visit Cassandra Zabala 350.1.13.10 i ty of [place]2.7.2.[place] [phone] Sc dical nal 134 [facility] Results Test Description Test Time Test Comments Results Result Comments Source POCT TEST 2020-01-18 23:39:00 Test Item Value Reference Range Interpretation Comme nts POCT PREG (test code = 1605) negative On board controls acceptable with C Line (test code = 3574) present POCT PREG LOT # (test code = 3575) [id number] POCT PREG TEST DATE (test code = 3576) 01-18-2021 Lab Interpretation (test code = 95954-6) [id number] 19:14:00 Test Item Value Reference Range Interpretation Comments POCT PREG (test code = 1605) Negative On board controls acceptable with C Yes Line (test code = 3574) POCT PREG LOT # (test code = 3575) POCT PREG TEST DATE (test code = 3576) [facility] [id number] 19:14:00 Test Item Value Reference Range Interpretation Comments POCT PREG (test code = 1605) Negative On board controls acceptable with C Yes Line (test code = 3574) POCT PREG LOT # (test code = 3575) POCT PREG TEST DATE (test code = 3576) [facility] [id number] 22:35:00 Test Item Value Reference Range Interpretation Comments EBV Mononucleosis Screen (test code Negative Negative = [id number]) Lab Interpretation (test code = Normal 32674-8) [facility]-AB WITH [id number] 12:04:00 Test Item Value Reference Range Interpretation Comments HIV Negative Negative Semi-quantitative (test code = 91663-3) LISA (test code = Non-reactive for HIV-1 LISA) antigen and HIV-1/HIV-2 antibodies.?No laboratory evidence of HIV infection.?Repeat in 2-4 weeks if acute HIV infection is suspected. [facility]-AB WITH [id number] 12:04:00 Test Item Value Reference Range Interpretation Comments HIV Negative Negative Semi-quantitative (test code = 64157-2) LISA (test code = Non-reactive for HIV-1 LISA) antigen and HIV-1/HIV-2 antibodies.?No laboratory evidence of HIV infection.?Repeat in 2-4 weeks if acute HIV infection is suspected. [facility] [id number] 20:08:00 Test Item Value Reference Range Interpretation Comments POCT PREG (test code = 1605) Negative On board controls acceptable with C Yes Line (test code = 3574) POCT PREG LOT # (test code = 3575) POCT PREG TEST DATE (test code = 3576) [facility] [id number] 20:08:00 Test Item Value Reference Range Interpretation Comments POCT PREG (test code = 1605) Negative On board controls acceptable with C Yes Line (test code = 3574) POCT PREG LOT # (test code = 3575) POCT PREG TEST DATE (test code = 3576) [facility] [id number] 20:35:00 Test Item Value Reference Range Interpretation Comments POCT PREG (test code = 1605) Negative On board controls acceptable with C Yes Line (test code = 3574) POCT PREG LOT # (test code = 3575) POCT PREG TEST DATE (test code = 3576) Lab Interpretation (test code = Normal 11489-7) [facility]
[2021-05-31 03:02] LABS: Urine Blood Negative (Negative); Urine Glucose Negative (Negative); Urine Protein Negative (Negative); Urine Specific Gravity 1.025 (1.005-1.030)
[2021-05-31 03:04] LABS: Absolute Lymphocytes (CBC) 2.5 K/uL (0.7-4.9); Basophils % 1.4 % (0-1.3); Hematocrit 36.9 % (36.0-45.0); Lymphocytes % 28.5 % (15.3-44.8); MPV 11.7 fL (7.6-11.3); RBC Red Blood Cell Count 4.51 M/uL (3.86-4.86)
[2021-05-31 03:06] LABS: Urine Specific Gravity/Preg 1.025 (1.005-1.030)
[2021-05-31 03:07] LABS: Protime INR 0.98
[2021-05-31 03:26] LABS: Barbiturates NEGATIVE (NEGATIVE); Benzodiazepines NEGATIVE (NEGATIVE); Cocaine NEGATIVE (NEGATIVE); METHAMPHETAM NEGATIVE (NEGATIVE); Methadone NEGATIVE (NEGATIVE); Opiates NEGATIVE (NEGATIVE); Phencyclidine NEGATIVE (NEGATIVE); THC Cannibis NEGATIVE (NEGATIVE)
[2021-05-31 03:28] LABS: ALT/SGPT 29 U/L (12-78); AST/SGOT 12 U/L (15-37); Albumin 3.4 g/dL (3.4-5.0); Alkaline Phosphatase 81 U/L (45-117); BUN Blood Urea Nitrogen 10 mg/dL (7-18); Bicarbonate 25 mmol/L (21-32); Bilirubin Direct < 0.1 mg/dL (0-0.2); Bilirubin Total 0.2 mg/dL (0.2-1.0); Glucose Level 120 mg/dL (74-106); Potassium 3.6 mmol/L (3.5-5.1); Protein, Total 7.4 g/dL (6.4-8.2); Sodium Level 142 mmol/L (136-145)
--- NOTE | 2021-05-31 03:45 | ER ---
Nurse's Notes [facility] Name: Roberto Traore Age: 26 yrs Sex: Female : 1995 Arrival Date: 05/31/2021 Time: 01:44 Bed 13 Private MD: Diagnosis: Anxiety disorder, unspecified Presentation: 05/31 01:51 Chief complaint: Patient states: Pt feels somebody put drugs in her food or drink 1 da3 hour ago. Possibly meth. Coronavirus screen: Vaccine status: Patient reports receiving the 1st dose of the Covid vaccine. Ebola Screen: No symptoms or risks identified at this time. Initial Sepsis Screen: Does the patient meet any 2 criteria? No. Patient's initial sepsis screen is negative. Risk Assessment: Do you want to hurt yourself or someone else?. Onset of symptoms was May 31, 2021 at 01:00. 01:51 Method Of Arrival: Ambulatory da3 01:51 Acuity: MARANDA 4 da3 02:00 Initial Sepsis Screen: Does the patient have a suspected source of infection? No. mr2 Patient's initial sepsis screen is negative. Triage Assessment: 01:51 General: Appears in no apparent distress. comfortable, Behavior is calm, cooperative, da3 anxious. Pain: Denies pain. 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 - Social history:: Smoking status: Patient reports the use of cigarette tobacco products, smokes one-half pack cigarettes per day. - Family history:: not pertinent. Screenin:30 Abuse screen: Denies threats or abuse. Denies injuries from another. Nutritional mr2 screening: No deficits noted. Tuberculosis screening: No symptoms or risk factors identified. Fall Risk None identified. Vital Signs: 01:51 BP 145 / 92; Pulse 83; Resp 20; Temp 99.0; Pulse Ox 100% on R/A; Weight 77.11 kg; da3 Height 4 ft. 10 in. (147.32 cm); 02:45 BP 130 / 84; Pulse 80; Resp 17; Temp 98.3; Pulse Ox 99% on R/A; mr2 01:51 Body Mass Index 35.53 (77.11 kg, 147.32 cm) da3 ED Course: 01:44 Patient arrived in ED. bp1 01:58 Triage completed. da3 02:00 No provider procedures requiring assistance completed. mr2 02:00 Arm band placed on. mr2 02:18 Jean Taveras MD is Attending Physician. nati 02:30 Patient has correct armband on for positive identification. Call light in reach. Side mr2 rails up X2. 02:51 Initial lab(s) drawn, by me, sent to lab. EKG done, by ED staff, reviewed by Jean Taveras MD. Inserted saline lock: 20 gauge in right antecubital area, using aseptic technique. 02:53 Jesus Manuel López, RN is Primary Nurse. mr2 03:44 Rajan Omalley MD is Referral Physician. nati 04:00 IV discontinued. mr2 Administered Medications: 03:40 Drug: Rocephin (cefTRIAXone) 1 grams Route: IV; Rate: per protocol; Site: right mr2 antecubital; Outcome: 03:44 Discharge ordered by . nati 03:55 Discharged to home ambulatory, with family. mr2 03:55 Condition: good mr2 03:55 Discharge instructions given to patient, Prescriptions given X 2. 04:27 Patient left the ED. mr2 Signatures: Jean Taveras MD MD cha Paniauga, Brittany bp1 Jaime Mejia RN RN 3 Jesus Manuel López, BENNIE RN mr2 Denise Johnson 3
--- NOTE | 2021-05-31 03:46 | EDPHYS ---
Physician Documentation [facility] Name: Roberto Traore Age: 26 yrs Sex: Female : 1995 Arrival Date: 05/31/2021 Time: 01:44 Bed 13 Private MD: ED Physician Jean Taveras HPI: 05/31 02:48 This 26 yrs old Female presents to ER via Ambulatory with complaints of nati Doesn't Feel Right. 02:48 feels like om meth. The patient presents with agitation. Onset: The symptoms/episode nati began/occurred just prior to arrival. Possible causes: drug use, amphetamines. Associated signs and symptoms: Pertinent positives: dizziness, lightheadedness. Patient's baseline: Neuro: alert and fully oriented. 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 - Social history:: Smoking status: Patient reports the use of cigarette tobacco products, smokes one-half pack cigarettes per day. - Family history:: not pertinent. ROS: 02:48 Constitutional: Negative for fever, chills, and weight loss, Eyes: Negative for injury, nati pain, redness, and discharge, ENT: Negative for injury, pain, and discharge, Neck: Negative for injury, pain, and swelling, Cardiovascular: Negative for chest pain, palpitations, and edema, Respiratory: Negative for shortness of breath, cough, wheezing, and pleuritic chest pain, Abdomen/GI: Negative for abdominal pain, nausea, vomiting, diarrhea, and constipation, Back: Negative for injury and pain, : Negative for injury, bleeding, discharge, and swelling, MS/Extremity: Negative for injury and deformity, Skin: Negative for injury, rash, and discoloration, Neuro: Negative for headache, weakness, numbness, tingling, and seizure, Allergy/Immunology: Negative for hives, rash, and allergies, Endocrine: Negative for neck swelling, polydipsia, polyuria, polyphagia, and marked weight changes, Hematologic/Lymphatic: Negative for swollen nodes, abnormal bleeding, and unusual bruising. 02:48 Psych: Positive for anxiety, insomnia. Exam: 02:48 Constitutional: This is a well developed, well nourished patient who is awake, alert, nati and in no acute distress. Head/Face: Normocephalic, atraumatic. Eyes: Pupils equal round and reactive to light, extra-ocular motions intact. Lids and lashes normal. Conjunctiva and sclera are non-icteric and not injected. Cornea within normal limits. Periorbital areas with no swelling, redness, or edema. ENT: Nares patent. No nasal discharge, no septal abnormalities noted. Tympanic membranes are normal and external auditory canals are clear. Oropharynx with no redness, swelling, or masses, exudates, or evidence of obstruction, uvula midline. Mucous membranes moist. Neck: Trachea midline, no thyromegaly or masses palpated, and no cervical lymphadenopathy. Supple, full range of motion without nuchal rigidity, or vertebral point tenderness. No Meningismus. Chest/axilla: Normal chest wall appearance and motion. Nontender with no deformity. No lesions are appreciated. Cardiovascular: Regular rate and rhythm with a normal S1 and S2. No gallops, murmurs, or rubs. Normal PMI, no JVD. No pulse deficits. Respiratory: Lungs have equal breath sounds bilaterally, clear to auscultation and percussion. No rales, rhonchi or wheezes noted. No increased work of breathing, no retractions or nasal flaring. Abdomen/GI: Soft, non-tender, with normal bowel sounds. No distension or tympany. No guarding or rebound. No evidence of tenderness throughout. Back: No spinal tenderness. No costovertebral tenderness. Full range of motion. Skin: Warm, dry with normal turgor. Normal color with no rashes, no lesions, and no evidence of cellulitis. MS/ Extremity: Pulses equal, no cyanosis. Neurovascular intact. Full, normal range of motion. Neuro: Awake and alert, GCS 15, oriented to person, place, time, and situation. Cranial nerves II-XII grossly intact. Motor strength 5/5 in all extremities. Sensory grossly intact. Cerebellar exam normal. Normal gait. Psych: Awake, alert, with orientation to person, place and time. Behavior, mood, and affect are within normal limits. 02:54 ECG was reviewed by the Attending Physician. [facility] Vital Signs: 01:51 BP 145 / 92; Pulse 83; Resp 20; Temp 99.0; Pulse Ox 100% on R/A; Weight 77.11 kg; da3 Height 4 ft. 10 in. (147.32 cm); 02:45 BP 130 / 84; Pulse 80; Resp 17; Temp 98.3; Pulse Ox 99% on R/A; mr2 01:51 Body Mass Index 35.53 (77.11 kg, 147.32 cm) da3 MDM: 02:18 Patient medically screened. nati 02:50 Differential Diagnosis altered mental status. Differential Diagnosis: electrolyte nati abnormality, alcohol intoxication, intracranial bleed, overdose, TIA, volume depletion. Data reviewed: vital signs, nurses notes, lab test result(s), EKG. Data interpreted: radiation monitor: rate is 83 beats/min, rhythm is regular, Pulse oximetry: on room air is 100 %. Test interpretation: by ED physician or midlevel provider: ECG, plain radiologic studies. Counseling: I had a detailed discussion with the patient and/or guardian regarding: the historical points, exam findings, and any diagnostic results supporting the discharge/admit diagnosis, lab results, radiology results, the need for outpatient follow up, for definitive care, a family practitioner, a psychiatrist. 05/31 02:18 Order name: Acetaminophen [facility] 05/31 02:18 Order name: Basic Metabolic Panel; Complete Time: 03:41 [facility] 05/31 02:18 Order name: CBC with Diff; Complete Time: 03:19 [facility] 05/31 02:18 Order name: ETOH Level; Complete Time: 03:19 [facility] 05/31 02:18 Order name: Hepatic Function; Complete Time: 03:41 [facility] 05/31 02:18 Order name: PT-INR; Complete Time: 03:19 [facility] 05/31 02:18 Order name: Ptt, Activated; Complete Time: 03:19 [facility] 05/31 02:18 Order name: Salicylate; Complete Time: 03:41 [facility] 05/31 02:18 Order name: Urine Drug Screen; Complete Time: 03:41 [facility] 05/31 02:19 Order name: Acetaminophen Level; Complete Time: 03:41 [facility] 05/31 03:00 Order name: Urine Dipstick-Ancillary; Complete Time: 03:19 [facility] 05/31 03:01 Order name: Test, Serum [facility] 05/31 03:03 Order name: Urine --Ancillary (enter results) cs9 05/31 03:04 Order name: Urine --Ancillary; Complete Time: 03:19 [facility] 05/31 02:18 Order name: EKG; Complete Time: 02:19 [facility] 05/31 02:18 Order name: EKG - Nurse/Tech; Complete Time: 02:51 [facility] 05/31 02:18 Order name: IV Saline Lock; Complete Time: 02:51 [facility] 05/31 02:18 Order name: Labs collected and sent; Complete Time: 02:51 [facility] 05/31 02:18 Order name: Suicide Screening ([place]) [facility] 05/31 02:18 Order name: Urine Dipstick-Ancillary (obtain specimen); Complete Time: 03:06 [facility] 05/31 02:18 Order name: Urine Test (obtain specimen); Complete Time: 03:07 [facility] EC:54 Rate is 66 beats/min. Rhythm is regular. QRS [place] is Normal. LA interval is normal. QRS nati interval is normal. QT interval is normal. No Q waves. T waves are Normal. No ST changes noted. Clinical impression: Normal ECG and No evidence of ischemia. Interpreted by me. Reviewed by me. Administered Medications: 03:40 Drug: Rocephin (cefTRIAXone) 1 grams Route: IV; Rate: per protocol; Site: right mr2 antecubital; Disposition Summary: 05/31/21 03:44 Discharge Ordered Location: Home nati Problem: new nati Symptoms: have improved nati Condition: Stable nati Diagnosis - Anxiety disorder, unspecified nati Followup: nati - With: Private Physician - When: 2 - 3 days - Reason: Recheck today's complaints, Continuance of care, Re-evaluation by your physician Followup: nati - With: - When: 2 - 3 days - Reason: Recheck today's complaints, Continuance of care, Re-evaluation by your physician Discharge Instructions: - Discharge Summary Sheet nati - Finding Treatment for Addiction nati - Supporting Someone With an Addiction nati - Illegal Drug Use Information, Adult nati - Urinary Tract Infection, Adult nati - Urinary Tract Infection, Adult, [id number] nati - Supporting Someone With Substance Use Disorder nati Forms: - Medication Reconciliation Form nati - Thank You Letter nati - Antibiotic Education nati - Prescription Opioid Use nati Prescriptions: - Bactrim DS 800-160 mg Oral Tablet - take 1 tablet by ORAL route every 12 hours for 7 days; 14 tablet; Refills: 0, [facility] Product Selection Permitted - Hydroxyzine HCl 25 mg Oral Tablet - take 1 tablet by ORAL route every 6 hours As needed; 20 tablet; Refills: 0, [facility] Product Selection Permitted Signatures: Dispatcher [employer] Jean Quezada MD MD cha Allan, David RN RN da3 Jesus Manuel López RN RN mr2
[2021-05-31] MEDS ORDERED: CEFTRIAXONE 1000 MG/VIAL ONE (04:00)
[2021-05-31 04:36] VITALS: BP 145/92; TEMP 99; O2SAT 100
== END 2021-05-31 04:27 | disposition home or self-care (01) ==
LOC: ER 01:43
DX: F41.9 Anxiety disorder, unspecified (principal); F17.210 Nicotine dependence, cigarettes, uncomplicated
CPT/HCPCS: 36415; 80048; 80076; 80307; 80320; 80329; 81003; 81025; 84703; 85025; 85610; 85730; 93005; 96374; 99284

== ENCOUNTER 2021-10-22 19:03 | Emergency (ER) | payer OTHER ==
--- OUTSIDE RECORDS SUMMARY | 2021-10-22 19:06 | XMS REPORT | Continuity of Care Document ---
:1995 Author Organization [facility] t Address [address] [place] [address] Care Team Providers Name Role Phone Saundra JOSEPH Primary Care Physician Unavailable Saundra JOSEPH Attending Clinician Unavailable Jake CAMPUS RECRUITER, R Attending Clinician Shelia RN Attending Clinician Unavailable Parker CARLISLE Attending Clinician Yuki Adams Attending Clinician Lab, Fam Pob I Attending Clinician Unavailable Sonia AVERY, M Attending Clinician Unavailable Duy MCDOWELL, Cam Attending Clinician Payers Payer Name Policy Type Policy Number Effective Date Expiration Date [facility] [id number] 2019 CHOICE MEDICAID 00:00:00 Advance Directives Directive Decision Effective Termination Comments Source Date Date Healthcare Agents on N/A Univ ersity FileNameRelationshipHealthcare [facility] Agent Medical RelationshipCommunicationMemorial Hospital West ContactHealth Care [phone] (Mobile) Problems Condition Condition Condition Status Onset Resolution Last Treating Co mments Source Name Details Category Date Date Treatment Clinician Date Rubella Rubella Disease Active Overview: Univ ers non-immune non-immune 4-13 Formattin ity of status, status, 00:00: g of this [place] antepartum antepartum 00 note Me dical might be Branch different from the original. Address in PP. Supervisio Supervisio Disease Active U nivers n of high n of high 4-12 ity of risk risk 00:00: [place] , , 00 Me dical antepartum antepartum Br anch Multiparit Multiparit Disease Active U nivers y y 4-12 ity of 00:00: [place] 00 Medical Branch H/O H/O Disease Active Univers pre-eclamp pre-eclamp 4-12 it y of jeanine in jeanine in 00:00: [place] prior prior 00 Medical , , Br anch currently currently , , first first trimester trimester Obesity in Obesity in Disease Active U nivers 4-12 ity of 00:00: [place] [address] Medical Branch Need for Need for Disease Active Unive rs HPV HPV 9-17 ity of vaccinatio vaccin[place] 00 Medical Branch Well woman Well woman Disease Active U nivers exam exam 9-17 ity of 00:00: [place] 00 Medical Branch History of History of Disease Active U nivers bipolar bipolar 9-17 ity of disorder disorder 00:00: [place] 00 Medical Branch Closed Closed Disease Active 2018- Univers avulsion avulsion 8-09 ity of fracture fracture 00:00: [place] of left of left 00 Medical ankle, ankle, Branch sequela sequela Pain and Pain and Disease Active Unive rs swelling swelling 8-09 ity of of left of left 00:00: [place] ankle ankle 00 Medical Branch Disease Active 2019- U nivers depression depression 6-25 it y of 00:00: [place] 00 Medical Branch Axillary Axillary Disease Active 2018- Unive rs accessory accessory 6-25 ity of breast breast 00:00: [place] tissue tissue 00 Medical Branch Pre-eclamp Pre-eclamp Disease Active 2018- U nivers jeanine, jeanine, 4-23 ity of severe, severe, 00:00: [place] delivered delivered 00 [facility] Branch Obesity Obesity Disease Active Univers (BMI (BMI 5-19 ity of 30-39.9) 30-39.9) 00:00: [place] 00 Medical Branch Disease Active [facility] control control 7-13 ity of counseling [place] [facility] Screening Screening Disease Active Overview: [facility] examinatio examinatio 10 Formattin ity of n for STD n for STD 00:00: [place] (sexually (sexually 00 note Medi usha transmitte transmitte might be Branch d disease) d disease) different from the original. ICD10 Diagnosis Term Nurse Clinician Utility Thrombocyt Thrombocyt Disease Active Overview : [facility] openia openia 7-10 Formattin ity of 00:00: g of this [place] 00 note Medical might be Branch different from the original. ICD10 Diagnosis Term Nurse Clinician Utility Allergies, Adverse Reactions, Alerts Allergy Allergy Status Severity Reaction(s) Onset Inactive Treating Comm ents Source Name Type Date Date Clinician NO KNOWN Drug Active Univers ALLERGIE Class ity of S [facility] Social History Social Habit Start Date Stop Date Quantity Comments Source ASSERTION 2021-09-01 [facility] 00:00:00 [facility] Exposure to Not sure [facility] SARS-CoV-2 [facility] (event) [place] Alcohol intake 2021-09-30 2021-09-30 0 /d University of 00:00:00 00:00:00 [facility] Tobacco use and 2019-03-07 2019-03-07 Never used Universit y of exposure 00:00:00 00:00:00 [facility] History of 2012-03-07 2018-10-19 Cigarette Smoker Universi ty of tobacco use 00:00:00 00:00:00 [facility] Sex Assigned At [birth year] Universit y of 00:00:00 00:00:00 [facility] Smoking Status Start Date Stop Date Source Former smoker 2019-03-07 00:00:00 2019-03-07 00:00:00 Universi ty of [facility] Medications Ordered Filled Start Stop Current Ordering Indication Dosage Frequency Signature Comments Components Source Medication Medication Date Date Medication? Clinician (SIG) Name Name Yes [id number] 1{packe Take 1 Univers vit 4-12 t} Packet by ity of 33-iron-fol 00:00: mouth [place] ic-dha 00 daily. Medical (SELECT-OB Branch + DHA) 29 mg iron-1 mg -250 mg combo pack Immunizations Ordered Immunization Filled Immunization Date Status Commen ts Source Name Name HPV9 2019-03-07 Completed University of 00:00:00 [facility] Influenza Virus 2016-03-27 Completed Universit y of Vaccine 00:00:00 [facility] Pneumococcal 2016-03-27 Completed University o f Polysaccharide, 00:00:00 [facility] ical PPSV23 (PNEUMOVAX) Branch TDAP 2012-01-26 Completed University of 00:00:00 [facility] HEPATITIS A 2009-11-12 Completed University of 00:00:00 [facility] HPV 2009-11-12 Completed University of 00:00:00 [facility] HEPATITIS A 2009-04-08 Completed University of 00:00:00 [facility] HPV 2009-04-08 Completed University of 00:00:00 [facility] Varicella 2009-04-08 Completed University of (varivax)(chicken 00:00:00 [place] M edical pox) Branch HPV 2009-02-05 Completed University of 00:00:00 [facility] Meningococcal 2009-02-05 Completed University of Polysaccharide 00:00:00 [facility] usha (groups A, C, Y and Branc h W-135) conjugate vaccine (MCV4P) TDAP 2009-02-05 Completed University of 00:00:00 [facility] DTP 2001-03-08 Completed University of 00:00:00 [facility] MMR 2001-03-08 Completed University of 00:00:00 [facility] Polio (IPV/OPV) 2001-03-08 Completed Universit y of 00:00:00 [facility] MMR 1998-01-28 Completed University of 00:00:00 [facility] Varicella 1998-01-28 Completed University of (varivax)(chicken 00:00:00 [place] M edical pox) Branch Polio (IPV/OPV) 1995 Completed Universit y of 00:00:00 [facility] DTP 1995 Completed University of 00:00:00 [facility] HIB 4 Dose Schedule 1995 Completed Unive rsity of 00:00:00 [facility] Hep B, Adol or Pedi 1995 Completed Unive rsity of Dosage 00:00:00 [facility] DTP 1995 Completed University of 00:00:00 [facility] HIB 4 Dose Schedule 1995 Completed Unive rsity of 00:00:00 [facility] Polio (IPV/OPV) 1995 Completed Universit y of 00:00:00 [facility] Polio (IPV/OPV) 1995 Completed Universit y of 00:00:00 [facility] DTP 1995 Completed University of 00:00:00 [facility] HIB 4 Dose Schedule 1995 Completed Unive rsity of 00:00:00 [facility] Hep B, Adol or Pedi 1995 Completed Unive rsity of Dosage 00:00:00 [facility] Hep B, Adol or Pedi 1995 Completed Unive rsity of Dosage 00:00:00 [facility] Procedures This patient has no known procedures. Encounters Start End Encounter Admission Attending Care Care Encounter Source Date/Time Date/Time Type Type Clinicians Facility Department ID 2021-11-07 2021-11-07 Outpatient P [facility] [id number] Univers 11:00:00 11:00:00 [id number] ity [facility] 2021-11-07 2021-11-07 Outpatient P [facility] [id number] Univers [facility]:00[facility]-10-[facility] 2021-10-28 Outpatient R JAKE [facility] [id number] Univers 15:45:00 15:45:00 JENNIFER pinto o [facility] 2021-10-06 2021-10-06 [id number] Univers 14:30:00 14:30:00 JENNIFER ity o [facility] 2021-10-01 2021-10-01 [facility] [id number] Univers 00:00:00 00:00:00 Jennifer Arguello [employer] [id number] ity [facility] [id number] Steve as MATERNAL [phone] Med ical & CHILD [address] [place] [address] 2020-01-26 2020-01-26 Nurse Radha Bass [id number] 00:00:00 00:00:00 Triage OBED [id number] [facility] [id number] 2020-01-18 2020-01-18 [facility] [id number] 18:33:40 19:28:00 Virginia Zabala [id number] [place] [id number] [place] [id number] 2020-01-08 2020-01-08 Telephone CORDELL Adams [id number] 00:00:00 00:00:00 nAn CLAY [id number] [facility] [id number] [id number] 2020-01-07 2020-01-07 Laboratory Lab, [facility] [id number] 16:14:25 16:34:25 Only Fam Pob I Health [id number] [place] [id number] Professio [phone] nal [facility] Office Building One 2019-10-20 2019-10-20 Nurse Diamond Scott [id number] 00:00:00 00:00:00 Triage OBED [id number] [facility] [id number] 2019-10-13 2019-10-13 Telephone Joseph [facility] [id number] 00:00:00 00:00:00 Roshunda R [employer] [id number] [facility] [id number] MATERNAL [id number] & CHILD [address] [place] [address] 2019-10-05 2019-10-05 Telephone Luci Gordillo [facility] [id number] 00:00:00 00:00:00 Cam Vj [id number] [place] [id number] Professio [id number] [place] [address] Building 2019-08-14 2019-08-14 Telephone Jake [facility] [id number] 00:00:00 00:00:00 Roshunda R [employer] [id number] REGIONAL [id number] MATERNAL [id number] & CHILD [address] [facility] 2019-07-11 2019-07-11 Office Jake [facility] [id number] 12:48:46 13:19:03 Visit Jennifer Arguello [employer] [id number] REGIONAL [id number] MATERNAL [id number] & CHILD 107 [facility] 2019-07-11 2019-07-11 Telephone Jake [facility] [id number] 00:00:00 00:00:00 Fidelinanaty Arguello [employer] [id number] REGIONAL [id number] MATERNAL [id number] & CHILD 107 [facility] Results This patient has no known results.
[2021-10-22 20:20] LABS: Urine Blood Negative (Negative); Urine Glucose Negative (Negative); Urine Protein Negative (Negative)
[2021-10-22 20:37] LABS: Absolute Lymphocytes (CBC) 2.7 K/uL (0.7-4.9); Hematocrit 32.7 % (36.0-45.0); Lymphocytes % 23.8 % (15.3-44.8); MPV 11.4 fL (7.6-11.3); RBC Red Blood Cell Count 3.99 M/uL (3.86-4.86)
[2021-10-22 21:26] LABS: ALT/SGPT 19 U/L (12-78); AST/SGOT 9 U/L (15-37); Albumin 3.4 g/dL (3.4-5.0); Alkaline Phosphatase 72 U/L (45-117); BUN Blood Urea Nitrogen 7 mg/dL (7-18); Bicarbonate 22 mmol/L (21-32); Bilirubin Total 0.1 mg/dL (0.2-1.0); Glucose Level 82 mg/dL (74-106); Lipase 115 U/L (73-393); Potassium 3.4 mmol/L (3.5-5.1); Protein, Total 6.9 g/dL (6.4-8.2); Sodium Level 136 mmol/L (136-145)
[2021-10-22 21:27] LABS: Bilirubin Direct < 0.1 mg/dL (0-0.2)
--- NOTE | 2021-10-22 21:50 | RAD REPORT ---
EXAM DESCRIPTION: US - 1St Trimest Single 1St Fetus - 10/22/2021 9:36 pm CLINICAL HISTORY: ABD CRAMPING, COMPARISON: AXILLA ONLY dated 11/26/2017 FINDINGS: Single IUP identified with positive heart tones. Dresser-rump length measures 8 weeks 2 days. A yolk sac is identified. Small subchronic hemorrhage measuring less than 25% of the surface area of the gestational sac. heart tones estimate at 166 beats/minute. Left ovary is unremarkab le. The right ovary was not visualized. IMPRESSION: Single viable IUP with positive heart tones measuring 8 week 2 days with OLIVA of . Small subchorionic hemorrhage typically of little clinical significance.
[2021-10-22] MEDS ORDERED: POTASSIUM 25 MEQ EFFERV TAB ONE (22:08)
[2021-10-22 22:10] LABS: HCG, Quantitative 70809 mIU/mL (1-3)
--- NOTE | 2021-10-22 22:21 | ER ---
Nurse's Notes [facility] Name: Roberto Traore Age: 26 yrs Sex: Female : 1995 Arrival Date: 10/22/2021 Time: 19:08 Bed 18 Private MD: Diagnosis: related conditions, unspecified, first trimester Presentation: 10/22 19:16 Chief complaint: Patient states: "I've been working a lot and my feet are swollen I vc1 also was told before I got your liver were very low and yesterday my left side was hurting and under neath my stomach on my right side was hurting a lot. I just want to make sure everything is ok.". Coronavirus screen: Vaccine status: Patient reports receiving the 1st dose of the Covid vaccine. unsure of brand At this time, the client does not indicate any symptoms associated with coronavirus-19. Ebola Screen: No symptoms or risks identified at this time. Onset of symptoms is unknown. 19:16 Method Of Arrival: Ambulatory vc1 19:16 Acuity: MARANDA 4 vc1 20:34 Initial Sepsis Screen: Does the patient meet any 2 criteria? No. Patient's initial wyatt sepsis screen is negative. Does the patient have a suspected source of infection? No. Patient's initial sepsis screen is negative. Risk Assessment: Do you want to hurt yourself or someone else? Patient reports no desire to harm self or others. Triage Assessment: 19:20 General: Appears in no apparent distress. Behavior is calm, cooperative, appropriate vc1 for age. Pain: Denies pain. EENT: No deficits noted. Neuro: Level of Consciousness is awake, alert, obeys commands, Oriented to person, place, time, situation, Appropriate for age. Neuro:. Cardiovascular: No deficits noted. Cardiovascular:. Respiratory: No deficits noted. GI: No deficits noted. : No deficits noted. Derm:. Musculoskeletal:. 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 - Social history:: Smoking status: Patient/guardian denies using tobacco, but has a distant history of tobacco abuse. Screenin:33 Abuse screen: Denies threats or abuse. Denies injuries from another. Nutritional wyatt screening: No deficits noted. Tuberculosis screening: No symptoms or risk factors identified. Fall Risk None identified. Assessment: 20:32 Reassessment: Patient appears in no apparent distress at this time. I recv'd the pt to wyatt room #18 \\[id number]\\ [id number]. She is in NAD. She reports having missed her US appointment on the , thinking it was on the , so she came "to see the baby and see if he's alright". Pt watching TV and waiting on US. 21:16 Reassessment: US is at bedside performing exam. wyatt 21:33 Reassessment: The US has been completed. The pt is watching TV and awaiting dispo. wyatt Vital Signs: 19:24 BP 133 / 89 RA Sitting (auto/reg); Pulse 79 RA; Resp 18 S; Temp 98.4(O); Pulse Ox 100% vc1 on R/A; Weight 81.65 kg; Height 4 ft. 11 in. (149.86 cm) (R); Pain 0/10; 21:37 BP 116 / 62; Pulse 75; Resp 16; Temp 98.5; Pulse Ox 99% on R/A; Pain 0/10; wyatt 22:37 BP 107 / 51; Pulse 70; Resp 18; Temp 98.5; Pulse Ox 99% on R/A; Pain 0/10; wyatt 19:24 Body Mass Index 36.36 (81.65 kg, 149.86 cm) vc1 ED Course: 19:08 Patient arrived in ED. ja2 19:20 Triage completed. vc1 19:23 Arm band placed on right wrist. vc1 19:37 Jean Clark PA is PHCP. cp 19:37 Bk Abbott MD is Attending Physician. cp 20:08 Mar Wall, RN is Primary Nurse. wyatt 20:19 Lipase Sent. wyatt 20:19 LFT's Sent. wyatt 20:19 Abo/rh Typing Sent. wyatt 20:20 Basic Metabolic Panel Sent. wyatt 20:20 CBC with Diff Sent. wyatt 20:20 Quantitative Hcg Sent. wyatt 20:34 No provider procedures requiring assistance completed. wyatt 20:35 Bed in low position. Call light in reach. Side rails up X 1. wyatt 20:35 Urine --Ancillary (enter results) Sent. wyatt 20:35 Lipase Sent. wyatt 20:35 LFT's Sent. wyatt 20:35 Abo/rh Typing Sent. wyatt 20:35 Basic Metabolic Panel Sent. wyatt 20:35 CBC with Diff Sent. wyatt 20:35 Quantitative Hcg Sent. wyatt 20:35 Inserted saline lock: 20 gauge in right antecubital area, using aseptic technique. wyatt 21:37 1St Trimest Single 1St Fetus In Process Unspecified. EDMS 22:39 intact, bleeding controlled, No redness/swelling at site. Pressure dressing applied. wyatt Administered Medications: 22:06 Drug: Potassium Effervescent Tablet 50 mEq Route: PO; wyatt 22:38 Follow up: Response: No adverse reaction wyatt Outcome: 20:34 Condition: stable wyatt 22:21 Discharge ordered by . cp 22:38 Discharged to home ambulatory. wyatt 22:38 Discharge instructions given to patient, Instructed on discharge instructions, follow up and referral plans. medication usage, Demonstrated understanding of instructions, follow-up care, medications, Prescriptions given X 2. 22:39 Patient left the ED. wyatt Signatures: Dispatcher [employer] EDMS Jean Clark PA PA cp Alexander, Jessica ja2 O'Farrell, Brenda, RN RN Tonya Balderrama RN RN vc1
--- NOTE | 2021-10-22 22:22 | EDPHYS ---
Physician Documentation [facility] Name: Roberto Traore Age: 26 yrs Sex: Female : 1995 Arrival Date: 10/22/2021 Time: 19:08 Bed 18 Private MD: ED Physician Bk Abbott HPI: 10/22 20:05 This 26 yrs old Female presents to ER via Ambulatory with complaints of cp PREGANCY HEALTH CHECK. 20:05 The patient presents to the emergency department with abdominal pain, of the right cp lower quadrant and left lower quadrant, that started yesterday, described as achy. 20:05 course: care: at a clinic, Leakage of Fluid: none appreciated, cp Ultrasound: the patient has not had an ultrasound. Previous pregnancies: in previous pregnancies patient has had no complications. Associated signs and symptoms: Pertinent positives: noticed blood when wiping after using restroom, Pertinent negatives: diarrhea, dysuria, fever, ruptured membranes. 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 - Social history:: Smoking status: Patient/guardian denies using tobacco, but has a distant history of tobacco abuse. ROS: 20:10 Constitutional: Negative for body aches, chills, fever, poor PO intake. cp 20:10 Eyes: Negative for injury, pain, redness, and discharge. cp 20:10 ENT: Negative for drainage from ear(s), ear pain, sore throat, difficulty swallowing, difficulty handling secretions. 20:10 Cardiovascular: Negative for chest pain, edema, palpitations. 20:10 Respiratory: Negative for cough, shortness of breath, wheezing. 20:10 Abdomen/GI: Positive for abdominal cramps, Negative for vomiting, diarrhea, constipation. 20:10 Back: Negative for pain at rest, pain with movement. 20:10 : Positive for vaginal spotting, Negative for urinary symptoms. 20:10 Neuro: Negative for altered mental status, headache, weakness. 20:10 All other systems are negative. Exam: 20:15 Constitutional: The patient appears in no acute distress, alert, awake, comfortable, cp non-toxic, well developed, well nourished. 20:15 Head/Face: Normocephalic, atraumatic. cp 20:15 Eyes: Periorbital structures: appear normal, Conjunctiva: normal, no exudate, no injection, Sclera: no appreciated abnormality, Lids and lashes: appear normal, bilaterally. 20:15 ENT: External ear(s): are unremarkable, Nose: is normal, Mouth: Lips: moist, Oral mucosa: moist, Posterior pharynx: Airway: no evidence of obstruction, patent. 20:15 Chest/axilla: Inspection: normal. 20:15 Cardiovascular: Rate: normal, Rhythm: regular. 20:15 Respiratory: the patient does not display signs of respiratory distress, Respirations: normal, no use of accessory muscles, no retractions, labored breathing, is not present. 20:15 Abdomen/GI: Inspection: abdomen appears normal, Bowel sounds: active, all quadrants, Palpation: soft, in all quadrants, mild abdominal tenderness, in the right lower quadrant and left lower quadrant, rebound tenderness, is not appreciated, involuntary guarding, is not appreciated. 20:15 Back: pain, is absent, ROM is normal. Vital Signs: 19:24 BP 133 / 89 RA Sitting (auto/reg); Pulse 79 RA; Resp 18 S; Temp 98.4(O); Pulse Ox 100% vc1 on R/A; Weight 81.65 kg; Height 4 ft. 11 in. (149.86 cm) (R); Pain 0/10; 21:37 BP 116 / 62; Pulse 75; Resp 16; Temp 98.5; Pulse Ox 99% on R/A; Pain 0/10; wyatt 22:37 BP 107 / 51; Pulse 70; Resp 18; Temp 98.5; Pulse Ox 99% on R/A; Pain 0/10; wyatt 19:24 Body Mass Index 36.36 (81.65 kg, 149.86 cm) vc1 MDM: 19:53 Patient medically screened. cp 21:00 Differential diagnosis: STD, ectopic , UTI. cp 22:20 Data reviewed: vital signs, nurses notes, lab test result(s), radiologic studies, cp ultrasound. 22:20 Counseling: I had a detailed discussion with the patient and/or guardian regarding: the cp historical points, exam findings, and any diagnostic results supporting the discharge/admit diagnosis, lab results, radiology results, the need for outpatient follow up, an OB/Gyne specialist, to return to the emergency department if symptoms worsen or persist or if there are any questions or concerns that arise at home. ED course: VSS. Discussed results of labs and US that showed single IUP. Will discharge to home for continued monitoring with pelvic rest precautions. 05 20:03 Order name: Abo/rh Typing; Complete Time: 21:46 05/ 21:47 Interpretation: Reviewed. 10/22 20:03 Order name: Basic Metabolic Panel; Complete Time: 22:14 / 21:46 Interpretation: Normal except: K 3.4; CRE 0.46. / 20:03 Order name: CBC with Diff; Complete Time: 21:46 05/04 21:46 Interpretation: Normal except: WBC 11.4; HGB 10.5; HCT 32.7; MCH 26.2; MPV 11.4. /04 20:03 Order name: Quantitative Hcg; Complete Time: 22:14 cp 05/04 22:14 Interpretation: Abnormal: HCGQ 49359. 05/04 20:03 Order name: LFT's; Complete Time: 22:14 cp 05/04 21:46 Interpretation: Normal except: BILIT 0.1; AST 9; A/G 1.0. cp 05/04 20:03 Order name: Lipase; Complete Time: 22:14 cp 05/04 22:15 Interpretation: LIP 115; Reviewed. / 20:03 Order name: IV Saline Lock; Complete Time: 20:19 cp 10/22 20:03 Order name: Labs collected and sent; Complete Time: 20:19 cp 10/22 20:03 Order name: NPO; Complete Time: 20:19 cp 10/22 20:19 Order name: Urine --Ancillary (enter results); Complete Time: 21:46 mw2 10/22 21:47 Interpretation: URINE PREG POS; Reviewed. cp 10/22 20:20 Order name: Urine Dipstick-Ancillary; Complete Time: 21:46 EDMS 10/22 21:37 Order name: 1St Trimest Single 1St Fetus; Complete Time: 22:00 EDMS 10/22 22:15 Interpretation: Report reviewed. cp 10/22 20:03 Order name: Urine Dipstick-Ancillary (obtain specimen); Complete Time: 20:19 cp 10/22 20:03 Order name: Urine Test (obtain specimen); Complete Time: 20:19 cp Administered Medications: 22:06 Drug: Potassium Effervescent Tablet 50 mEq Route: PO; wyatt 22:38 Follow up: Response: No adverse reaction wyatt Disposition: 10/23 00:28 Co-signature as Attending Physician, Bk Abbott MD I agree with the assessment and kdr plan of care. Disposition Summary: 10/22/21 22:21 Discharge Ordered Location: Home cp Problem: new cp Symptoms: have improved cp Condition: Stable cp Diagnosis - related conditions, unspecified, first trimester cp Followup: cp - With: Private Physician - When: 1 week - Reason: Recheck today's complaints Discharge Instructions: - Discharge Summary Sheet cp - Abdominal Pain During cp - Care cp - First Trimester of cp - Activity Restriction During cp Forms: - Medication Reconciliation Form cp - Thank You Letter cp - Antibiotic Education cp - Prescription Opioid Use cp Prescriptions: - Diclegis 10-10 mg Oral tablet,delayed release (DR/EC) - take 1 tablet by ORAL route as directed take 1 tablet before meals and 1 tablet cp at bedtime for nausea; 60 tablet; Refills: 0, Product Selection Permitted - 147-iron gluc-folic 13 mg iron- 1 mg Oral tablet - take 1 tablet by ORAL route once daily; 60 tablet; Refills: 0, Product cp Selection Permitted Signatures: Dispatcher [employer] [facility] Bk Abbott MD MD kdr Page, Corey, PA PA cp O'Farrell, Brenda, RN RN bo Calcote, Vanessa, RN RN vc1 Corrections: (The following items were deleted from the chart) 10/22 21:37 20:44 Transvaginal Ob+[id number] ordered. EDMS EDMS
[2021-10-22 23:47] VITALS: TEMP 98.5; O2SAT 99
[2021-10-22 23:48] VITALS: BP 107/51
== END 2021-10-22 22:39 | disposition home or self-care (01) ==
LOC: ER 19:03
DX: O26.891 Other specified pregnancy related conditions, first trimester (principal); O99.341 Other mental disorders complicating pregnancy, first trimester; F31.9 Bipolar disorder, unspecified; Z3A.09 9 weeks gestation of pregnancy
CPT/HCPCS: 36415; 76801; 80048; 80076; 81003; 81025; 83690; 84702; 85025; 86900; 86901; 99284

== ENCOUNTER 2021-12-11 02:51 | Emergency (ER) | payer OTHER ==
--- OUTSIDE RECORDS SUMMARY | 2021-12-11 02:55 | XMS REPORT | Continuity of Care Document ---
:1995 Author Organization [facility] t Address [address] [place] [address] Care Team Providers Name Role Phone Saundra JOSEPH Primary Care Physician Unavailable Saundra JOSEPH Attending Clinician Unavailable Jake CARLISLE R Attending Clinician Ultrasound Attending Clinician Unavailable Dre MCDOWELL Attending Clinician DRE Attending Clinician Unavailable DRE Attending Clinician Unavailable Shelia AVERY Attending Clinician Unavailable Parker CARLISLE Attending Clinician Kathia Adams Attending Clinician Lab, Fam Pob I Attending Clinician Unavailable Sonia AVERY, M Attending Clinician Unavailable Duy MCDOWELL, Cam Attending Clinician Payers Payer Name Policy Type Policy Number Effective Date Expiration Date Critical [facility] hospital [id number] 2019 [facility] MEDICAID 00:00:00 Problems Condition Condition Condition Status Onset Resolution Last Treating Co mments Source Name Details Category Date Date Treatment Clinician Date Rubella Rubella Disease Active Overview: Univ ers non-immune non-immune 4-13 Formattin ity of status, status, 00:00: g of this [place] antepartum antepartum 00 note Me dical might be Branch different from the original. Address in PP. Supervisio Supervisio Disease Active U nivers n of high n of high 4-12 ity of risk risk 00:00: [place] , , 00 Me dical antepartum antepartum Br anch Multiparit Multiparit Disease Active U nivers y y 4-12 ity of 00:00: [place] 00 Medical Branch H/O H/O Disease Active Univers pre-eclamp pre-eclamp 4-12 it y of jeanine in jeanine in 00:00: [place] prior prior 00 Medical , , Br anch currently currently , , first first trimester trimester Obesity in Obesity in Disease Active U nivers 4-12 ity of 00:00: [place] 00 Medical Branch History of History of Disease Active U nivers bipolar bipolar 9-17 ity of disorder disorder 00:00: [place] 00 Medical Branch Need for Need for Disease Active Unive rs HPV HPV 9-17 ity of vaccin[place] Well woman Well woman Disease Active U nivers exam exam 9-17 ity of 00:00: [place] 00 Medical Branch Closed Closed Disease Active Univers avulsion avulsion 8-09 ity of fracture fracture 00:00: [place] of left of left 00 Medical ankle, ankle, Branch sequela sequela Pain and Pain and Disease Active Unive rs swelling swelling 8-09 ity of of left of left 00:00: [place] ankle ankle 00 Medical Branch Disease Active U nivers depression depression 6-25 it y of 00:00: [place] [facility] 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 00:00: [place] tissue tissue 00 [facility] Branch Pre-eclamp Pre-eclamp Disease Active U nivers jeanine, jeanine, 4-23 ity of severe, severe, 00:00: [place] delivered delivered 00 [facility] BMI BMI Disease Active Univers 36.0-36.9, 36.0-36.9, 5-19 it y of adult adult 00:00: [place] 00 Medical Branch Disease Active Univers control control 7-13 ity of counseling counseling [place] [facility] Screening Screening Disease Active Overview: Univers examinatio examinatio 7-10 Formattin ity of n for STD n for STD 00:00: [place] (sexually (sexually 00 note Medi usha transmitte transmitte might be Branch d disease) d disease) different from the original. ICD10 Diagnosis Term Legal Compliance Officer Utility Thrombocyt Thrombocyt Disease Active Overview : Univers openia openia 7-10 Formattin ity of 00:00: g of this [place] 00 note Medical might be Branch different from the original. ICD10 Diagnosis Term Legal Compliance Officer Utility Allergies, Adverse Reactions, Alerts Allergy Allergy Status Severity Reaction(s) Onset Inactive Treating Comm ents Source Name Type Date Date Clinician NO KNOWN Drug Active [facility] ALLERGIE Class ity of S [facility] Social History Social Habit Start Date Stop Date Quantity Comments Source ASSERTION 2021-09-01 [facility] 00:00:00 [facility] Exposure to 2021-11-16 2021-11-26 Not sure [facility] SARS-CoV-2 00:00:00 13:25:00 [facility] (event) [place] Alcohol intake 2021-10-28 2021-10-28 0 /d University 00:00:00 00:00:00 [facility] Tobacco use and 2019-03-07 2019-03-07 Never used Universit y of exposure 00:00:00 00:00:00 [facility] History of 2012-03-07 2018-10-19 Cigarette Smoker Universi ty of tobacco use 00:00:00 00:00:00 [facility] Sex Assigned At [birth year] Universit y of 00:00:00 00:00:00 [facility] Smoking Status Start Date Stop Date Source Former smoker 2019-03-07 00:00:00 2019-03-07 00:00:00 Universi ty of [facility] Medications Ordered Filled Start Stop Current Ordering Indication Dosage Frequency Signature Comments Components Source Medication Medication Date Date Medication? Clinician (SIG) Name Name Yes [id number] 1{packe Take 1 Univers vit 4-12 t} Packet by ity of 33-iron-fol 00:00: mouth [place] ic-dha 00 daily. Medical (SELECT-OB Branch + DHA) 29 mg iron-1 mg -250 mg combo pack Yes [id number] 1{packe Take 1 Univers vit 4-12 t} Packet by ity of 33-iron-fol 00:00: mouth [place] ic-dha 00 daily. Medical (SELECT-OB Branch + DHA) 29 mg iron-1 mg -250 mg combo pack Yes [id number] 1{packe Take 1 Univers vit 4-12 t} Packet by ity of 33-iron-fol 00:00: mouth [place] ic-dha 00 daily. Medical (SELECT-OB Branch + DHA) 29 mg iron-1 mg -250 mg combo pack Yes [id number] 1{packe Take 1 Univers vit 4-12 t} Packet by ity of 33-iron-fol 00:00: mouth [place] ic-dha 00 daily. Medical (SELECT-OB Branch + DHA) 29 mg iron-1 mg -250 mg combo pack Yes [id number] 1{packe Take 1 Univers vit 4-12 t} Packet by ity of 33-iron-fol 00:00: mouth [place] ic-dha 00 daily. Medical (SELECT-OB Branch + DHA) 29 mg iron-1 mg -250 mg combo pack Immunizations Ordered Immunization Filled Immunization Date Status Commen ts Source Name Name HPV9 2019-03-07 Completed University of 00:00:00 [facility] HPV9 2019-03-07 Completed University of 00:00:00 [facility] HPV9 2019-03-07 Completed University of 00:00:00 [facility] HPV9 2019-03-07 Completed University of 00:00:00 [facility] HPV9 2019-03-07 Completed University of 00:00:00 [facility] Influenza Virus 2016-03-27 Completed Universit y of Vaccine 00:00:00 [facility] Pneumococcal 2016-03-27 Completed University o f Polysaccharide, 00:00:00 [place] Med ical PPSV23 (PNEUMOVAX) Branch Influenza Virus 2016-03-27 Completed Universit y of Vaccine 00:00:00 [facility] Pneumococcal 2016-03-27 Completed University o f Polysaccharide, 00:00:00 [place] Med ical PPSV23 (PNEUMOVAX) Branch Influenza Virus 2016-03-27 Completed Universit y of Vaccine 00:00:00 [facility] Pneumococcal 2016-03-27 Completed University o f Polysaccharide, 00:00:00 [place] Med ical PPSV23 (PNEUMOVAX) Branch Influenza Virus 2016-03-27 Completed Universit y of Vaccine 00:00:00 [facility] Pneumococcal 2016-03-27 Completed University o f Polysaccharide, 00:00:00 [facility] ical PPSV23 (PNEUMOVAX) Branch Influenza Virus 2016-03-27 Completed Universit y of Vaccine 00:00:00 [facility] Pneumococcal 2016-03-27 Completed University o f Polysaccharide, 00:00:00 [facility] ical PPSV23 (PNEUMOVAX) Branch TDAP 2012-01-26 Completed University of 00:00:00 [facility] TDAP 2012-01-26 Completed University of 00:00:00 [facility] TDAP 2012-01-26 Completed University of 00:00:00 [facility] TDAP 2012-01-26 Completed University of 00:00:00 [facility] TDAP 2012-01-26 Completed University of 00:00:00 [facility] HEPATITIS A 2009-11-12 Completed University of 00:00:00 [facility] HPV 2009-11-12 Completed University of 00:00:00 [facility] HEPATITIS A 2009-11-12 Completed University of 00:00:00 [facility] HPV 2009-11-12 Completed University of 00:00:00 [facility] HEPATITIS A 2009-11-12 Completed University of 00:00:00 [facility] HPV 2009-11-12 Completed University of 00:00:00 [facility] HEPATITIS A 2009-11-12 Completed University of 00:00:00 [facility] HPV 2009-11-12 Completed University of 00:00:00 [facility] HEPATITIS A 2009-11-12 Completed University of 00:00:00 [facility] HPV 2009-11-12 Completed University of 00:00:00 [facility] Varicella 2009-04-08 Completed University of (varivax)(chicken 00:00:00 [place] M edical pox) Branch HEPATITIS A 2009-04-08 Completed University of 00:00:00 [facility] HPV 2009-04-08 Completed University of 00:00:00 [facility] Varicella 2009-04-08 Completed University of (varivax)(chicken 00:00:00 [place] M edical pox) Branch HEPATITIS A 2009-04-08 Completed University of 00:00:00 [facility] HPV 2009-04-08 Completed University of 00:00:00 [facility] Varicella 2009-04-08 Completed University of (varivax)(chicken 00:00:00 [place] M edical pox) Branch HEPATITIS A 2009-04-08 Completed University of 00:00:00 [facility] HPV 2009-04-08 Completed University of 00:00:00 [facility] Varicella 2009-04-08 Completed University of (varivax)(chicken 00:00:00 [place] M edical pox) Branch HEPATITIS A 2009-04-08 Completed University of 00:00:00 [facility] HPV 2009-04-08 Completed University of 00:00:00 [facility] Varicella 2009-04-08 Completed University of (varivax)(chicken 00:00:00 [place] M edical pox) Branch HEPATITIS A 2009-04-08 Completed University of 00:00:00 [facility] HPV 2009-04-08 Completed University of 00:00:00 [facility] TDAP 2009-02-05 Completed University of 00:00:00 [facility] HPV 2009-02-05 Completed University of 00:00:00 [facility] Meningococcal 2009-02-05 Completed University of Polysaccharide 00:00:00 [place] Medi usha (groups A, C, Y and Branc h W-135) conjugate vaccine (MCV4P) TDAP 2009-02-05 Completed University of 00:00:00 [facility] HPV 2009-02-05 Completed University of 00:00:00 [facility] Meningococcal 2009-02-05 Completed University of Polysaccharide 00:00:00 [place] Medi usha (groups A, C, Y and Branc h W-135) conjugate vaccine (MCV4P) TDAP 2009-02-05 Completed University of 00:00:00 [facility] HPV 2009-02-05 Completed University of 00:00:00 [facility] Meningococcal 2009-02-05 Completed University of Polysaccharide 00:00:00 [place] Medi usha (groups A, C, Y and Branc h W-135) conjugate vaccine (MCV4P) TDAP 2009-02-05 Completed University of 00:00:00 [facility] HPV 2009-02-05 Completed University of 00:00:00 [facility] Meningococcal 2009-02-05 Completed University of Polysaccharide 00:00:00 [place] Medi usha (groups A, C, Y and Branc h W-135) conjugate vaccine (MCV4P) TDAP 2009-02-05 Completed University of 00:00:00 [facility] HPV 2009-02-05 Completed University of 00:00:00 [facility] Meningococcal 2009-02-05 Completed University of Polysaccharide 00:00:00 [facility] usha (groups A, C, Y and Branc h W-135) conjugate vaccine (MCV4P) Polio (IPV/OPV) 2001-03-08 Completed Universit y of 00:00:00 [facility] DTP 2001-03-08 Completed University of 00:00:00 [facility] MMR 2001-03-08 Completed University of 00:00:00 [facility] Polio (IPV/OPV) 2001-03-08 Completed Universit y of 00:00:00 [facility] DTP 2001-03-08 Completed University of 00:00:00 [facility] MMR 2001-03-08 Completed University of 00:00:00 [facility] Polio (IPV/OPV) 2001-03-08 Completed Universit y of 00:00:00 [facility] DTP 2001-03-08 Completed University of 00:00:00 [facility] MMR 2001-03-08 Completed University of 00:00:00 [facility] Polio (IPV/OPV) 2001-03-08 Completed Universit y of 00:00:00 [facility] DTP 2001-03-08 Completed University of 00:00:00 [facility] MMR 2001-03-08 Completed University of 00:00:00 [facility] Polio (IPV/OPV) 2001-03-08 Completed Universit y of 00:00:00 [facility] DTP 2001-03-08 Completed University of 00:00:00 [facility] MMR 2001-03-08 Completed University of 00:00:00 [facility] Varicella 1998-01-28 Completed University of (varivax)(chicken 00:00:00 [place] M edical pox) Branch MMR 1998-01-28 Completed University of 00:00:00 [facility] Varicella 1998-01-28 Completed University of (varivax)(chicken 00:00:00 [place] M edical pox) Branch MMR 1998-01-28 Completed University of 00:00:00 [facility] Varicella 1998-01-28 Completed University of (varivax)(chicken 00:00:00 [place] M edical pox) Branch MMR 1998-01-28 Completed University of 00:00:00 [facility] Varicella 1998-01-28 Completed University of (varivax)(chicken 00:00:00 [place] M edical pox) Branch MMR 1998-01-28 Completed University of 00:00:00 [facility] Varicella 1998-01-28 Completed University of (varivax)(chicken 00:00:00 [place] M edical pox) Branch MMR 1998-01-28 Completed University of 00:00:00 [facility] Polio (IPV/OPV) 1997 Completed Universit y of 00:00:00 [facility] Polio (IPV/OPV) 1997 Completed Universit y of 00:00:00 [facility] Polio (IPV/OPV) 1997 Completed Universit y of 00:00:00 [facility] Polio (IPV/OPV) 1997 Completed Universit y of 00:00:00 [facility] Polio (IPV/OPV) 1997 Completed Universit y of 00:00:00 [facility] DTP 1997 Completed University of 00:00:00 [facility] HIB 4 Dose Schedule 1997 Completed Unive rsity of 00:00:00 [facility] Hep B, Adol or Pedi 1997 Completed Unive rsity of Dosage 00:00:00 [facility] DTP 1997 Completed University of 00:00:00 [facility] HIB 4 Dose Schedule 1997 Completed Unive rsity of 00:00:00 [facility] Hep B, Adol or Pedi 1997 Completed Unive rsity of Dosage 00:00:00 [facility] DTP 1997 Completed University of 00:00:00 [facility] HIB 4 Dose Schedule 1997 Completed Unive rsity of 00:00:00 [facility] Hep B, Adol or Pedi 1997 Completed Unive rsity of Dosage 00:00:00 [facility] DTP 1997 Completed University of 00:00:00 [facility] HIB 4 Dose Schedule 1997 Completed Unive rsity of 00:00:00 [facility] Hep B, Adol or Pedi 1997 Completed Unive rsity of Dosage 00:00:00 [facility] DTP 1997 Completed University of 00:00:00 [facility] HIB 4 Dose Schedule 1997 Completed Unive rsity of 00:00:00 [facility] Hep B, Adol or Pedi 1997 Completed Unive rsity of Dosage 00:00:00 [facility] DTP 1997 Completed University of 00:00:00 [facility] HIB 4 Dose Schedule 1997 Completed Unive rsity of 00:00:00 [facility] Branch Polio (IPV/OPV) 1997 Completed Universit y of 00:00:00 [facility] DTP 1997 Completed University of 00:00:00 [facility] HIB 4 Dose Schedule 1997 Completed Unive rsity of 00:00:00 [facility] Polio (IPV/OPV) 1997 Completed Universit y of 00:00:00 [facility] DTP 1997 Completed University of 00:00:00 [facility] HIB 4 Dose Schedule 1997 Completed Unive rsity of 00:00:00 [facility] Polio (IPV/OPV) 1997 Completed Universit y of 00:00:00 [facility] DTP 1997 Completed University of 00:00:00 [facility] HIB 4 Dose Schedule 1997 Completed Unive rsity of 00:00:00 [facility] Polio (IPV/OPV) 1997 Completed Universit y of 00:00:00 [facility] DTP 1997 Completed University of 00:00:00 [facility] HIB 4 Dose Schedule 1997 Completed Unive rsity of 00:00:00 [facility] Polio (IPV/OPV) 1997 Completed Universit y of 00:00:00 [facility] Polio (IPV/OPV) 1997 Completed Universit y of 00:00:00 [facility] Polio (IPV/OPV) 1997 Completed Universit y of 00:00:00 [facility] Polio (IPV/OPV) 1997 Completed Universit y of 00:00:00 [facility] Polio (IPV/OPV) 1997 Completed Universit y of 00:00:00 [facility] Polio (IPV/OPV) 1997 Completed Universit y of 00:00:00 [facility] DTP 1997 Completed University of 00:00:00 [facility] HIB 4 Dose Schedule 1997 Completed Unive rsity of 00:00:00 [facility] Hep B, Adol or Pedi 1997 Completed Unive rsity of Dosage 00:00:00 [facility] DTP 1997 Completed University of 00:00:00 [facility] HIB 4 Dose Schedule 1997 Completed Unive rsity of 00:00:00 [facility] Hep B, Adol or Pedi 1997 Completed Unive rsity of Dosage 00:00:00 [facility] DTP 1997 Completed University of 00:00:00 [facility] HIB 4 Dose Schedule 1997 Completed Unive rsity of 00:00:00 [facility] Hep B, Adol or Pedi 1997 Completed Unive rsity of Dosage 00:00:00 [facility] DTP 1997 Completed University of 00:00:00 [facility] HIB 4 Dose Schedule 1997 Completed Unive rsity of 00:00:00 [place] [facility] Hep B, Adol or Pedi 1997 Completed Unive rsity of Dosage 00:00:00 [facility] DTP 1997 Completed University of 00:00:00 [facility] HIB 4 Dose Schedule 1997 Completed Unive rsity of 00:00:00 [place] [facility] Hep B, Adol or Pedi 1997 Completed Unive rsity of Dosage 00:00:00 [place] [facility] Hep B, Adol or Pedi 1997 Completed Unive rsity of Dosage 00:00:00 [place] [facility] Hep B, Adol or Pedi 1997 Completed Unive rsity of Dosage 00:00:00 [place] [facility] Hep B, Adol or Pedi 1997 Completed Unive rsity of Dosage 00:00:00 [place] [facility] Hep B, Adol or Pedi 1997 Completed Unive rsity of Dosage 00:00:00 [place] [facility] Hep B, Adol or Pedi 1997 Completed Unive rsity of Dosage 00:00:00 [facility] Vital Signs Vital Name Observation Time Observation Value Comments Source Systolic blood 2021-11-26 18:22:00 120 mm[Hg] Univer sity of pressure [facility] Diastolic blood 2021-11-26 18:22:00 89 mm[Hg] Unive rsity of pressure [facility] Heart rate 2021-11-26 18:22:00 97 /min Universi ty of [facility] Body temperature 2021-11-26 18:22:00 36.94 Patti Univ ers[facility] [place] [facility] Respiratory rate 2021-11-26 18:22:00 20 /min Univ ers[facility] [place] [facility] Body height 2021-11-26 18:22:00 149.9 cm [facility] [place] [facility] Body weight 2021-11-26 18:22:00 80.423 kg [facility] [place] [facility] BMI 2021-11-26 18:22:00 35.81 kg/m2 Universi ty of [facility] Systolic blood 2021-10-28 21:00:00 129 mm[Hg] Univer sity of pressure [place] [facility] Diastolic blood 2021-10-28 21:00:00 81 mm[Hg] Unive rsity of pressure [facility] Heart rate 2021-10-28 21:00:00 87 /min [facility] ty [facility] [place] [facility] Body temperature 2021-10-28 21:00:00 36.72 Patti Univ ersity of [facility] Respiratory rate 2021-10-28 21:00:00 16 /min Univ ers[facility] [place] [facility] Body height 2021-10-28 21:00:00 149.9 cm [facility] [place] [facility] Body weight 2021-10-28 21:00:00 83.008 kg [facility] [place] [facility] BMI 2021-10-28 21:00:00 36.96 kg/m2 [facility] [place] [facility] Procedures Procedure Date / Time Performed Performing Clinician Sourkathia e POCT URINALYSIS 2021-11-26 00:00:00 Jennifer Joseph [facility] POCT URINALYSIS 2021-10-28 21:01:00 Jennifer Joseph [facility] Encounters Start End Encounter Admission Attending Care Care Encounter Source Date/Time Date/Time Type Type Clinicians Facility Department ID 2022-01-07 2022-01-07 Outpatient R [facility] [id number] Univers 10:45:00 10:45:00 [id number] ity [facility] 2022-01-07 2022-01-07 Outpatient R [facility] [id number] Univers 10:45:00 10:45:00 ity [facility] 2021-12-24 2021-12-24 Outpatient R JAKE [facility] [id number] Univers 12:45:00 12:45:00 JENNIFER [id number] ity o [facility] 2021-12-24 2021-12-24 Outpatient R JAKE [facility] [id number] Univers 12:45:00 12:45:00 ROSMARIANNEA ity o [facility] 2021-11-26 2021-11-26 [id number] Univers 15:15:00 15:15:00 JENNIFER [id number] ity o [facility] 2021-11-26 2021-11-26 [id number] Univers 15:15:00 15:15:00 Jennifer R [facility] [id number] ity of Visit REGIONAL [id number] Steve as MATERNAL [id number] Med ical & CHILD 107 [facility] 2021-11-26 2021-11-26 [facility] [id number] Univers 15:15:00 14:06:13 ROSRAMANNDA ity o [facility] 2021-11-21 2021-11-21 [facility], [facility] [id number] Univers 08:30:00 09:00:00 Visit Arvin Erickson AIR DRIER [id number] ity of REGIONAL [id number] Steve as MATERNAL [phone] [facility] ical & [place]ILD [facility] 2021-11-21 2021-11-21 Outpatient P [facility] [id number] Univers 08:30:00 08:30:00 [id number] [facility] 2021-11-21 Outpatient P ARVIN ERICKSON [facility] [id number] Univers 08:30:00 08:30:00 [facility]SON [facility] 2021-11-21 2021-11-21 [facility] [id number] Univers 00:00:00 00:00:00 Roshunda R AIR DRIER [id number] ity of REGIONAL [id number] Steve as MATERNAL [phone] Med ical & CHILD [address] [place] [address] 2021-11-07 2021-11-07 Outpatient P [facility] [id number] Univers 11:00:00 11:00:00 [id number] [facility] 2021-11-07 2021-11-07 Outpatient P [facility] [id number] Univers 11:00:00 11:00:00 [facility] 2021-10-28 2021-10-28 [facility] [id number] Univers 15:45:00 16:22:35 ROSHUNDA ity o [facility] 2021-10-28 2021-10-28 [facility] [id number] Univers 15:45:00 16:22:35 Rosramannda R AIR DRIER [id number] ity of Visit REGIONAL [id number] Steve as MATERNAL [phone] [facility] ical & CHILD [address] [place] [address] 2021-10-20 2021-10-20 Outpatient P [facility] [id number] Univers 14:00:00 14:00:00 [facility] 2021-10-06 2021-10-06 [facility] [id number] Univers 14:30:00 14:30:00 ROSRAMANNDA ity o f [facility] 2021-10-01 2021-10-01 [facility] [id number] Univers 00:00:00 00:00:00 Roshunda R AIR DRIER [id number] ity of REGIONAL [id number] Steve as MATERNAL [phone] Med ical & [place] [facility] 2020-01-26 2020-01-26 Nurse Radha Bass 1.2.840.114 [id number] 00:00:00 00:00:00 Triage OBED [id number] [facility] 4.2.7.2.686 [id number] 2020-01-18 2020-01-[address] [facility] [id number] 18:33:40 19:28:00 Angeliquealexandra Zabala 350.1.13.10 [place] 4.2.7.2.686 [place] [id number] [id number] 2020-01-08 2020-01-08 Telephone CORDELL Adams 1.2.840.114 [id number] 00:00:00 00:00:00 Ann CLAY 350.1.13.10 [facility] 4.2.7.2.686 [id number] 2020-01-07 2020-01-07 Laboratory Lab, [facility] 1.2.840.114 [id number] 16:14:25 16:34:25 Only Fam [facility] 350.1.13.10 [place] 4.2.7.2.686 Professio [id number] nal [address] 2019-10-20 2019-10-20 Nurse Diamond Scott 1.2.840.114 [id number] 00:00:00 00:00:00 Triage OBED 350.1.13.10 [facility] 4.2.7.2.686 [id number] 2019-10-13 2019-10-13 Telephone Jake [facility] [id number] 00:00:00 00:00:00 Roshunda R AIR DRIER [id number] REGIONAL 4.2.7.2.686 MATERNAL [id number] & CHILD 107 [facility] [[email or web address]] 2019-10-05 2019-10-05 Telephone Luci Gordillo [facility] 1.2.840.114 [id number] 00:00:00 00:00:00 [facility] [id number] [place] 4.2.7.2.686 dorissreedhar [id number] [address] 2019-08-14 2019-08-14 Telephone Jake CARUBNIA [id number] 00:00:00 00:00:00 Roshunda R AIR DRIER [id number] [facility] [id number] MATERNAL [id number] & CHILD 107 [facility] [[email or web address]] 2019-07-11 2019-07-11 Office Jkae [facility] [id number] 12:48:46 13:19:03 Visit Pareshnda R AIR DRIER 350.1.13.10 [facility] [id number] MATERNAL [phone] & CHILD 107 [facility] [[email or web address]] 2019-07-11 2019-07-11 Telephone Jake [facility] [id number] 00:00:00 00:00:00 Pareshnda R AIR DRIER 350.1.13.10 [facility] [id number] MATERNAL [id number] & CHILD 107 [facility] [[email or web address]] Results Test Description Test Time Test Comments Results Result Comments Source POCT URINALYSIS W SPECIFIC GRAVITY 2021-11-26 18:25:00 Test Item Value Reference Range Interpretation Comme nts POCT U SP GRAV (test code = 3255) . 1.005-1.025 POCT PH U (test code = 3254) . 5-8 POCT U LEUK EST (test code = 3263) . Negative - Negative POCT U NIT (test code = 3262) . Negative - Negative POCT U PROT (test code = 3259) trace Negative - Negative POCT U GLU (test code = 3256) negative Negative - Negative POCT U KETONE (test code = 3258) . Negative - Negative POCT U UROBILI (test code = 3260) . 0.2-1 POCT U BILI (test code = 3261) . Negative - Negative POCT U BLD (test code = 3257) . Negative - Negative POCT U COLOR (test code = 3266) . POCT U APPEAR (test code = 3267) . [facility] [id number] 21:01:00 Test Item Value Reference Range Interpretation Comments POCT U SP GRAV (test code = 3255) . 1.005-1.025 POCT PH U (test code = 3254) . 5-8 POCT U LEUK EST (test code = 3263) . Negative - Negative POCT U NIT (test code = 3262) . Negative - Negative POCT U PROT (test code = 3259) trace Negative - Negative POCT U GLU (test code = 3256) neg Negative - Negative POCT U KETONE (test code = 3258) . Negative - Negative POCT U UROBILI (test code = 3260) . 0.2-1 POCT U BILI (test code = 3261) . Negative - Negative POCT U BLD (test code = 3257) . Negative - Negative POCT U COLOR (test code = 3266) POCT U APPEAR (test code = 3267) [facility]
[2021-12-11 03:19] LABS: Urine Blood 2+ (Negative); Urine Glucose Trace (Negative); Urine Protein Negative (Negative); Urine Specific Gravity >=1.030 (1.005-1.030)
[2021-12-11] MEDS ORDERED: NA CHLORIDE 0.9% 1,000 ML ONE (03:29)
[2021-12-11 03:38] LABS: Absolute Lymphocytes (CBC) 2.5 K/uL (0.7-4.9); Hematocrit 27.7 % (36.0-45.0); Lymphocytes % 25.7 % (15.3-44.8); RBC Red Blood Cell Count 3.43 M/uL (3.86-4.86)
[2021-12-11 03:39] LABS: Protime INR 1.01
[2021-12-11 03:42] LABS: Barbiturates NEGATIVE (NEGATIVE); Benzodiazepines NEGATIVE (NEGATIVE); Cocaine NEGATIVE (NEGATIVE); METHAMPHETAM NEGATIVE (NEGATIVE); Methadone NEGATIVE (NEGATIVE); Opiates NEGATIVE (NEGATIVE); Phencyclidine NEGATIVE (NEGATIVE); THC Cannibis NEGATIVE (NEGATIVE)
[2021-12-11] MEDS ORDERED: CEFTRIAXONE 1000 MG/VIAL ONE (04:00)
[2021-12-11 04:06] LABS: ALT/SGPT 19 U/L (12-78); AST/SGOT 12 U/L (15-37); Albumin 2.8 g/dL (3.4-5.0); Alkaline Phosphatase 59 U/L (45-117); BUN Blood Urea Nitrogen 7 mg/dL (7-18); Bicarbonate 22 mmol/L (21-32); Bilirubin Total 0.1 mg/dL (0.2-1.0); Glomerular Filtration Rate 141 ml/min (=/>90); Glucose Level 88 mg/dL (74-106); HCG, Quantitative 18132 mIU/mL (1-3); Potassium 3.2 mmol/L (3.5-5.1); Protein, Total 6.4 g/dL (6.4-8.2); Sodium Level 139 mmol/L (136-145)
[2021-12-11 04:10] LABS: Bilirubin Direct < 0.1 mg/dL (0-0.2)
[2021-12-11] MEDS ORDERED: POTASSIUM 25 MEQ EFFERV TAB ONE (04:25)
--- NOTE | 2021-12-11 05:00 | EDPHYS ---
Physician Documentation [facility] Name: Roberto Traore Age: 26 yrs Sex: Female : 1995 Arrival Date: 12/11/2021 Time: 02:54 Bed 6 Private MD: ED Physician Jean Taveras HPI: 12/11 03:04 This 26 yrs old Female presents to ER via EMS with complaints of PELVIC PAIN , nati WALKINGON ROADSIDE. 03:04 The patient presents to the emergency department with depression. Onset: The nati symptoms/episode began/occurred today. Past psychiatric history: Prior diagnosis: bipolar disorder, depression. The patient presents with pelvic pain, that is located in/on the suprapubic area and right inguinal area. Onset: The symptoms/episode began/occurred 3 day(s) ago. Modifying factors: The symptoms are alleviated by nothing, the symptoms are aggravated by movement. Associated signs and symptoms: Pertinent positives: cramping, . Severity of symptoms: At their worst the symptoms were mild, moderate, in the emergency department the symptoms are unchanged. The estimated gestational age is 17 weeks. 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 - Social history:: Smoking status: Patient denies any tobacco usage or history of. - Family history:: not pertinent. ROS: 03:04 Constitutional: Negative for fever, chills, and weight loss, Eyes: Negative for injury, nati pain, redness, and discharge, ENT: Negative for injury, pain, and discharge, Neck: Negative for injury, pain, and swelling, Cardiovascular: Negative for chest pain, palpitations, and edema, Respiratory: Negative for shortness of breath, cough, wheezing, and pleuritic chest pain, Back: Negative for injury and pain, : Negative for injury, bleeding, discharge, and swelling, MS/Extremity: Negative for injury and deformity, Skin: Negative for injury, rash, and discoloration, Neuro: Negative for headache, weakness, numbness, tingling, and seizure, Psych: Negative for depression, anxiety, suicide ideation, homicidal ideation, and hallucinations, Allergy/Immunology: Negative for hives, rash, and allergies, Endocrine: Negative for neck swelling, polydipsia, polyuria, polyphagia, and marked weight changes, Hematologic/Lymphatic: Negative for swollen nodes, abnormal bleeding, and unusual bruising. 03:04 Abdomen/GI: Positive for abdominal pain, abdominal distension. Exam: 03:04 Constitutional: This is a well developed, well nourished patient who is awake, alert, nati and in no acute distress. Head/Face: Normocephalic, atraumatic. Eyes: Pupils equal round and reactive to light, extra-ocular motions intact. Lids and lashes normal. Conjunctiva and sclera are non-icteric and not injected. Cornea within normal limits. Periorbital areas with no swelling, redness, or edema. ENT: Nares patent. No nasal discharge, no septal abnormalities noted. Tympanic membranes are normal and external auditory canals are clear. Oropharynx with no redness, swelling, or masses, exudates, or evidence of obstruction, uvula midline. Mucous membranes moist. Neck: Trachea midline, no thyromegaly or masses palpated, and no cervical lymphadenopathy. Supple, full range of motion without nuchal rigidity, or vertebral point tenderness. No Meningismus. Chest/axilla: Normal chest wall appearance and motion. Nontender with no deformity. No lesions are appreciated. Cardiovascular: Regular rate and rhythm with a normal S1 and S2. No gallops, murmurs, or rubs. Normal PMI, no JVD. No pulse deficits. Respiratory: Lungs have equal breath sounds bilaterally, clear to auscultation and percussion. No rales, rhonchi or wheezes noted. No increased work of breathing, no retractions or nasal flaring. Back: No spinal tenderness. No costovertebral tenderness. Full range of motion. Female : Normal external genitalia. Skin: Warm, dry with normal turgor. Normal color with no rashes, no lesions, and no evidence of cellulitis. MS/ Extremity: Pulses equal, no cyanosis. Neurovascular intact. Full, normal range of motion. Neuro: Awake and alert, GCS 15, oriented to person, place, time, and situation. Cranial nerves II-XII grossly intact. Motor strength 5/5 in all extremities. Sensory grossly intact. Cerebellar exam normal. Normal gait. Psych: Awake, alert, with orientation to person, place and time. Behavior, mood, and affect are within normal limits. 03:04 Abdomen/GI: Inspection: gravid appearance, is noted, Bowel sounds: normal, Palpation: mild abdominal tenderness, in the right lower quadrant, Indicators: Liver: no appreciated palpable abnormalities, Hernia: not appreciated. 03:50 ECG was reviewed by the Attending Physician. [facility] Vital Signs: 03:00 BP 119 / 60; Pulse 93; Resp 18 S; Temp 98.6(O); Pulse Ox 99% on R/A; Weight 77.11 kg as6 (R); Height 4 ft. 11 in. (149.86 cm) (R); Pain 3/10; 03:57 BP 116 / 69; Pulse 83; Resp 18 S; Pulse Ox 100% on R/A; as6 04:30 BP 109 / 71; Pulse 80; Resp 16; Pulse Ox 98% on R/A; ke1 06:09 BP 112 / 74; Pulse 84; Resp 17 S; Pulse Ox 99% on R/A; lg3 03:00 Body Mass Index 34.34 (77.11 kg, 149.86 cm) as6 MDM: 02:59 Patient medically screened. [facility] 03:08 Differential diagnosis: acute psychotic break, depression. Data reviewed: vital signs, [facility] nurses notes, lab test result(s), radiologic studies, ultrasound. Data interpreted: category development analyst: rate is 93 beats/min, rhythm is regular, Pulse oximetry: on room air is 99 %. Counseling: I had a detailed discussion with the patient and/or guardian regarding: the historical points, exam findings, and any diagnostic results supporting the discharge/admit diagnosis, lab results, radiology results. 12/11 03:03 Order name: Abo/rh Typing [facility] 12/11 03:03 Order name: Basic Metabolic Panel [facility] 12/11 03:03 Order name: CBC with Diff; Complete Time: 03:41 [facility] 12/11 03:03 Order name: Quantitative Hcg [facility] 12/11 03:03 Order name: Acetaminophen [facility] 12/11 03:03 Order name: ETOH Level; Complete Time: 03:52 [facility] 12/11 03:03 Order name: Hepatic Function 12/11 03:03 Order name: PT-INR; Complete Time: 03:41 [facility] 12/11 03:03 Order name: Ptt, Activated; Complete Time: 03:41 [facility] 12/11 03:03 Order name: Salicylate; Complete Time: 04:09 [facility] 12/11 03:03 Order name: Urine Drug Screen; Complete Time: 03:52 [facility] 12/11 03:20 Order name: Urine Dipstick-Ancillary; Complete Time: 03:41 [facility] 12/11 03:42 Order name: Urine Culture 12/11 03:03 Order name: IV Saline Lock; Complete Time: 03:20 [facility] 12/11 03:03 Order name: Labs collected and sent; Complete Time: 03:20 [facility] 12/11 03:03 Order name: NPO; Complete Time: 03:20 [facility] 12/11 03:03 Order name: Urine Dipstick-Ancillary (obtain specimen); Complete Time: 03:20 [facility] 12/11 03:03 Order name: Urine Test (obtain specimen); Complete Time: 03:20 [facility] 12/11 03:03 Order name: EKG; Complete Time: 03:04 [facility] 12/11 03:03 Order name: EKG - Nurse/Tech; Complete Time: 03:49 [facility] 12/11 03:03 Order name: Suicide Screening ([place]); Complete Time: 03:20 [facility] 12/11 03:03 Order name: US OB Limited 12/11 04:15 Order name: PO challenge: juice; Complete Time: 04:21 [facility] 12/11 07:19 Order name: Diet Regular; Complete Time: 07:20 ke1 EC:50 Rate is 85 beats/min. Rhythm is regular. QRS [place] is Normal. ID interval is normal. QRS nati interval is normal. QT interval is normal. No Q waves. T waves are Normal. No ST changes noted. Clinical impression: Normal ECG and No evidence of ischemia. Interpreted by me. Reviewed by me. Administered Medications: 03:49 Drug: NS 0.9% 1000 ml Route: IV; Rate: 1 bolus; Site: right antecubital; as6 06:10 Follow up: Response: No adverse reaction; IV Status: Completed infusion; IV Intake: lg3 1000ml 03:57 Drug: Rocephin (cefTRIAXone) 1 grams Route: IV; Rate: per protocol; Site: right as6 antecubital; 06:10 Follow up: Response: No adverse reaction; IV Status: Completed infusion; IV Intake: [id number] 04:22 Drug: Potassium Effervescent Tablet 25 mEq Route: PO; ke1 04:26 Follow up: Response: No adverse reaction ke1 Disposition Summary: 12/11/21 04:59 Discharge Ordered Location: Home nati Problem: new nati Symptoms: have improved nati Condition: Stable nati Diagnosis - 16 weeks gestation of nati - UTI/ Urinary tract infection, site not specified nati - Bipolar disorder, unspecified nati - Anemia, unspecified nati Followup: nati - With: Private Physician - When: 2 - 3 days - Reason: Recheck today's complaints, Continuance of care, Re-evaluation by your physician Followup: nati - With: - When: 2 - 3 days - Reason: Recheck today's complaints, Continuance of care, Re-evaluation by your physician Followup: nati - With: - When: 2 - 3 days - Reason: Recheck today's complaints, Re-evaluation by your physician Discharge Instructions: - Discharge Summary Sheet nati - Abdominal Pain During nati - Dysuria nati - Care nati - Urinary Tract Infection, Adult nati - Urinary Tract Infection, Adult, [id number] [facility] Forms: - Medication Reconciliation Form nati - Thank You Letter nati - Antibiotic Education nati - Prescription Opioid Use [facility] Prescriptions: - Macrobid 100 mg Oral Capsule - take 1 capsule by ORAL route every 12 hours for 7 days; 14 capsule; Refills: 0, nati Product Selection Permitted Signatures: Dispatcher [employer] Jean Quezada MD MD cha Slawson, Ashby RN RN as6 Liz Maciel RN RN ke1 Jyoti Aragon RN lg3
--- NOTE | 2021-12-11 05:00 | ER ---
Nurse's Notes [facility] Name: Roberto Traore Age: 26 yrs Sex: Female : 1995 Arrival Date: 12/11/2021 Time: 02:54 Bed 6 Private MD: Diagnosis: 16 weeks gestation of ;UTI/ Urinary tract infection, site not specified;Bipolar disorder, unspecified;Anemia, unspecified Presentation: 12/11 03:00 Chief complaint: Patient states: states she was walking from [place] to [place]. as6 Pt states she is 17 weeks EMS states: called out for pt walking on side of the road. Coronavirus screen: At this time, the client does not indicate any symptoms associated with coronavirus-19. Ebola Screen: No symptoms or risks identified at this time. Initial Sepsis Screen: Does the patient meet any 2 criteria? No. Patient's initial sepsis screen is negative. Does the patient have a suspected source of infection? No. Patient's initial sepsis screen is negative. Risk Assessment: Do you want to hurt yourself or someone else? Patient reports no desire to harm self or others. Onset of symptoms was December 11, 2021. 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 - Social history:: Smoking status: Patient denies any tobacco usage or history of. - Family history:: not pertinent. Screenin:21 Abuse screen: Denies threats or abuse. Denies injuries from another. Nutritional as6 screening: No deficits noted. Tuberculosis screening: No symptoms or risk factors identified. Fall Risk None identified. 04:15 Patient has been NPO before screening. The patient is alert, able to follow commands. ke1 The patient does not exhibit slurred or garbled speech The patient is not exhibiting difficulty speaking. The patient does not exhibit difficulty understanding words. The patient is able to swallow own secretions with no drooling or need for suction. Patient tolerated one teaspoon of water. No drooling, immediate coughing, gurgling, or clearing of the throat was noted. The patient tolerated 90mL of water. No drooling, immediate coughing, gurgling, or clearing of the throat was noted. The patient passed the bedside swallow screening. Oral medications may be given as ordered. Contact Physician for further diet orders. Assessment: 03:20 General: Appears in no apparent distress. Behavior is calm, cooperative. Pain: as6 Complains of pain in right lower quadrant and pelvis and right inguinal area and suprapubic area. Neuro: Level of Consciousness is awake, alert, obeys commands, Oriented to person, place, time, situation. Respiratory: Respiratory effort is even, unlabored. GI: Reports diarrhea. 03:58 Reassessment: Patient appears in no apparent distress at this time. Patient is alert, as6 oriented x 3, equal unlabored respirations, skin warm/dry/pink. 05:00 Reassessment: Patient is discharged but homeless, attempt will be made for placement ke1 during the day. 06:07 Reassessment: Patient appears in no apparent distress at this time. No changes from lg3 previously documented assessment. Patient is alert, oriented x 3, equal unlabored respirations, skin warm/dry/pink. General: pt is quietly resting at this time . 09:31 Reassessment: Awaiting return call from Land Acquisition Manager, Rae Hendrickson with additional community resources. 10:52 Reassessment: Patient appears in no apparent distress at this time. Patient and/or ss family updated on plan of care and expected duration. Pain level reassessed. Patient is alert, oriented x 3, equal unlabored respirations, skin warm/dry/pink. Neuro: Level of Consciousness is awake, alert, obeys commands, Oriented to person, place, time, situation. Cardiovascular: Capillary refill < 3 seconds is brisk in bilateral fingers. : No signs and/or symptoms were reported regarding the genitourinary system. Derm: Skin is intact, is healthy with good turgor, Skin is pink, warm \T\ dry. normal. Vital Signs: 03:00 BP 119 / 60; Pulse 93; Resp 18 S; Temp 98.6(O); Pulse Ox 99% on R/A; Weight 77.11 kg as6 (R); Height 4 ft. 11 in. (149.86 cm) (R); Pain 3/10; 03:57 BP 116 / 69; Pulse 83; Resp 18 S; Pulse Ox 100% on R/A; as6 04:30 BP 109 / 71; Pulse 80; Resp 16; Pulse Ox 98% on R/A; ke1 06:09 BP 112 / 74; Pulse 84; Resp 17 S; Pulse Ox 99% on R/A; lg3 03:00 Body Mass Index 34.34 (77.11 kg, 149.86 cm) as6 ED Course: 02:54 Patient arrived in ED. ds4 02:59 Jean Taveras MD is Attending Physician. nati 03:00 Duy Boogie, BENNIE is Primary Nurse. as6 03:02 Triage completed. as6 03:02 Arm band placed on. as6 03:19 Inserted saline lock: 20 gauge in right antecubital area, using aseptic technique. as6 Blood collected. 03:20 Quantitative Hcg Sent. as6 03:20 CBC with Diff Sent. as6 03:20 Basic Metabolic Panel Sent. as6 03:20 Abo/rh Typing Sent. as6 03:20 Urine Drug Screen Sent. as6 03:20 Salicylate Sent. as6 03:20 Ptt, Activated Sent. as6 03:20 PT-INR Sent. as6 03:20 Hepatic Function Sent. as6 03:20 ETOH Level Sent. as6 03:20 Acetaminophen Sent. as6 03:21 Placed in gown. Bed in low position. Call light in reach. Side rails up X2. Pulse ox as6 on. NIBP on. 03:46 US OB Limited In Process Unspecified. EDMS 04:59 Augustine Arndt MD is Referral Physician. nati 04:59 Rajan Omalley MD is Referral Physician. nati 06:08 No provider procedures requiring assistance completed. lg3 06:09 IV discontinued, intact, bleeding controlled, No redness/swelling at site. Pressure lg3 dressing applied. Administered Medications: 03:49 Drug: NS 0.9% 1000 ml Route: IV; Rate: 1 bolus; Site: right antecubital; as6 06:10 Follow up: Response: No adverse reaction; IV Status: Completed infusion; IV Intake: lg3 1000ml 03:57 Drug: Rocephin (cefTRIAXone) 1 grams Route: IV; Rate: per protocol; Site: right as6 antecubital; 06:10 Follow up: Response: No adverse reaction; IV Status: Completed infusion; IV Intake: [id number] 04:22 Drug: Potassium Effervescent Tablet 25 mEq Route: PO; ke1 04:26 Follow up: Response: No adverse reaction ke1 Medication: 06:09 VIS not applicable for this client. lg3 Intake: 06:10 IV: 10ml; Total: 10ml. lg3 06:10 IV: 1000ml; Total: 1010ml. lg3 Outcome: 04:59 Discharge ordered by . nati 06:08 Discharged to home ambulatory. lg3 06:08 Condition: stable 06:08 Discharge instructions given to patient, Instructed on discharge instructions, medication usage, Demonstrated understanding of instructions, medications, Prescriptions given X 1. 10:55 Patient left the ED. ss Signatures: Dispatcher [employer] EDPA Jean Taveras MD MD cha Smirch, Shelby, RN RN ss Clif Cano ds4 Jyoti Aragon RN RN lg3 Duy Boogie RN RN as6 Liz Maciel RN RN ke1 Corrections: (The following items were deleted from the chart) 06:58 06:56 Reassessment: Patient is discharged but homeless, attempt will be made for ke1 placement during the day. ke1
[2021-12-11 11:01] VITALS: TEMP 98.6
[2021-12-11 11:06] VITALS: BP 112/74; O2SAT 99
--- NOTE | 2021-12-11 15:38 | RAD REPORT ---
EXAM DESCRIPTION: US - OB Limited - 12/11/2021 4:42 am CLINICAL HISTORY: 26 years, Female, ABD CRAMPING, COMPARISON: None. FINDINGS: Multiple grayscale images of the female pelvis were performed. The right ovary was not visualized. The left ovary measures 3.3 x 1.7 x 2.0 cm with the presence of a small cyst measuring 1.9 x 2.1 x 2.1 cm. There is a single living intrauterine in breech presentation with multiple ultrasonographic measurements: AC mean measurement of 9.7 cm corresponding to an ultrasonographic gestational age of 16 weeks and 0 days. FL mean measurement of 2.02 cm corresponding to an ultrasonographic gestational age of 16 weeks and 0 days. Mean ultrasound gestational age of 16 weeks and 0 days with an estimated date of delivery of May 28, 2022. heart motion was detected at of 152 beats per minute. Placenta was anterior with no evidence for abruption. The cervix is closed. IMPRESSION: Single living intrauterine in breech presentation at 16 weeks and 0 days. Left ovarian cyst. No follow-up is recommended. Electronically signed by: Breezy Villarreal MD 12/11/2021 4:04 AM CDT Due to temporary technical issues with the PACS/Fluency reporting system, reports are being signed by the in house radiologists without. review as a courtesy to insure prompt reporting. The interpreting radiologist is fully responsible for the content of the report
--- NOTE | 2021-12-13 17:35 | EKG ---
Test Date: 2021-12-11 Test Time: 03:43:23 [employer]: MEASUREMENT RESULTS: Intervals: Rate: 85 MD: 136 QRSD: 84 QT: 392 QTc: 466 Freedom: P: 61 MD: 136 QRS: 43 T: 31 INTERPRETIVE STATEMENTS: Normal sinus rhythm with sinus arrhythmia Normal ECG Compared to ECG 05/31/2021 02:39:07 No significant changes Electronically Signed On 12-13-21 17:30:59 CDT by Moisés Baca
== END 2021-12-11 10:55 | disposition home or self-care (01) ==
LOC: ER 02:51
DX: O23.42 Unspecified infection of urinary tract in pregnancy, second trimester (principal); N39.0 Urinary tract infection, site not specified; O99.012 Anemia complicating pregnancy, second trimester; O99.342 Other mental disorders complicating pregnancy, second trimester; F31.9 Bipolar disorder, unspecified; Z3A.16 16 weeks gestation of pregnancy
CPT/HCPCS: 96365; 93005; 87088; 85025; 87086; 80048; 36415; 80320; 86900; 80329 ×2; 85610; 86901; 80076; 85730; 84702; 81003; 80307; 76815; 99284; 96366; J7030

== ENCOUNTER 2022-06-23 17:57 | Emergency (ER) | payer OTHER ==
--- OUTSIDE RECORDS SUMMARY | 2022-06-23 18:08 | XMS REPORT | Continuity of Care Document ---
:1995 Author Organization [facility] t Address [address] [place] [address] Care Team Providers Name Role Phone REDD SPARROW Primary Care Physician Unavailable REDD SPARROW Attending Clinician Unavailable JEAN MAGANA Attending Clinician Unavailable Michael Roy MD, Petty Attending Clinician [phone] Esau Tafoya MD Attending Clinician Jayashree Vanegas DO Attending Clinician Bandar Lal MD Attending Clinician CORDELL CASTANEDA Attending Clinician Unavailable Veda Redd BRITT Attending Clinician [phone] ARIELLE JOSEPH Attending Clinician Unavailable Ultrasound, Ang-Mfm Attending Clinician Unavailable Arielle Joseph MD Attending Clinician [phone] ROBERT VILLARREAL Attending Clinician Unavailable Jennifer Meade Attending Clinician JENNIFER JOSEPH Attending Clinician Unavailable RADHA MARTIN Attending Clinician Unavailable SHARYN SCHRADER Attending Clinician Unavailable Jonathan WHSharyn BRITT Sravanthi Attending Clinician [phone] NADIR CAMPBELL Attending Clinician Unavailable NADIR CAMPBELL Attending Clinician Unavailable [facility] Radha Belcher Attending Clinician Rojas Quinones RN, Cassandra Attending Clinician Unavailable Doctor Unassigned, [place] Attending Clinician Unavailable Marcell MCDOWELL, Arvin Attending Clinician ARVIN ERICKSON Attending Clinician Unavailable ARVIN ERICKSON Attending Clinician Unavailable TINO EASLEY Attending Clinician Unavailable Tino Easley DO Attending Clinician Tavo AVERY, Nasra Attending Clinician Unavailable Rico Chavarria DO Attending Clinician Shelia AVERY, Radha Attending Clinician Unavailable Parker CARLISLE, [place] Attending Clinician Ann Adams Attending Clinician HOMER ANGELO Attending Clinician Unavailable Lab, Adc Fam Pob I Attending Clinician Unavailable Gi PEREIRAP, Homer Attending Clinician Sonia AVERY, Diamond Crawford Attending Clinician Unavailable Luci Gordillo MD Attending Clinician Alexia Mcintyre Attending Clinician Manoj Mendoza Attending Clinician Chucho Gibson Attending Clinician Anamaria Bennett MD Attending Clinician Rigoberto Carolina MD Attending Clinician Cassandra Puckett PA-C Attending Clinician JEAN MAGANA Admitting Clinician Unavailable Payers Payer Name Policy Type Policy Number Effective Date Expiration Date [facility] [id number] 2019 CHOICE MEDICAID 00:00:00 Problems Condition Condition Condition Status Onset Resolution Last Treating Co mments Source Name Details Category Date Date Treatment Clinician Date 39 weeks 39 weeks Disease Active 2021-06 Unive rs gestation gestation 1-28 ity of of of 00:00: [place] 00 Medi usha Branch Anemia of Anemia of Disease Active Uni vers mother in mother in 929 [place]y of , , 00:[place] antepartum antepartum 00 Me dical Branch Rubella Rubella Disease Active Overview: Univ ers non-immune non-immune 4-13 Formattin ity of status, status, 00:00: g of this [place] antepartum antepartum 00 note Me dical might be Branch different from the original. Address in PP. Supervisio Supervisio Disease Active U nivers n of high n of high 4-12 ity of risk risk 00:00: [place] , , 00 Me dical antepartum antepartum Br anch Multiparit Multiparit Disease Active U nivers y y 4-12 ity of 00:00: [place] 00 Medical Branch H/O H/O Disease Active Univers pre-eclamp pre-eclamp 4-12 it y of jeanine in jeanine in 00:00: [place] prior prior 00 Medical , , Br anch currently currently , , first first trimester trimester Obesity in Obesity in Disease Active U nivers 4-12 ity of 00:00: [place] 00 Medical Branch Need for Need for Disease Active Unive rs HPV HPV 9-17 ity of vaccinatio vaccinatio 00:[place] n n 00 Medical Branch Well woman Well woman Disease Active U nivers exam exam 9-17 ity of 00:00: [place] 00 Medical Branch History of History of Disease Active U nivers bipolar bipolar 9-17 ity of disorder disorder 00:00: [place] 00 Medical Branch Closed Closed [...] depression depression 6-25 it y of 00:00: [place] 00 Medical Branch 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 00:00: [place] tissue tissue 00 Medical Branch Pre-eclamp Pre-eclamp Disease Active U nivers jeanine, jeannie, 4-23 ity of severe, severe, 00:00: [place] delivered delivered 00 [facility] BMI BMI Disease Active Univers 34.0-34.9, 34.0-34.9, 5-19 it y of adult adult 00:00: [place] 00 [facility] Branch Disease Active [facility] control control 7-13 ity of counseling counseling [place] [facility] Branch Thrombocyt Thrombocyt Disease Active Overview : [facility] [employer] 7-10 Formattin ity of 00:00: g of this [place] 00 note Medical might be Branch different from the original. 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 ICD10 Diagnosis Term [employer] Thrombocyt Thrombocyt Disease Active Overview : [facility] [employer] [place] [employer] 710 Formattin ity of 00:00: g of this [place] 00 note Medical might be Branch different from the original. ICD10 Diagnosis Term [employer] Allergies, Adverse Reactions, Alerts Allergy Allergy Status Severity Reaction(s) Onset Inactive Treating Comm ents Source Name Type Date Date Clinician NO KNOWN Drug Active [facility] ALLERGIE Class ity of S [facility] Social History Social Habit Start Date Stop Date Quantity Comments Source ASSERTION 2021-09-01 [facility] 00:00:00 [facility] Exposure to 2022-05-08 2022-05-18 Not sure [facility] SARS-CoV-2 00:00:00 08:51:00 [facility] (event) [place] Alcohol intake 2022-05-18 2022-05-18 0 /d [facility] 00:00:00 00:00:00 [facility] Tobacco use and 2022-03-19 2022-03-19 Smokeless tobacco Un iversity of exposure 00:00:00 00:00:00 non-user [facility] History of 2012-03-07 2018-10-19 Cigarette Smoker Universi ty of tobacco use 00:00:00 00:00:00 [facility][birth year] At [birth year] [facility] Smoking Status Start Date Stop Date Source Ex-smoker 2022-03-19 00:00:00 2022-03-19 00:00:00 [facility] Medical [place] Medications Ordered Filled Start Stop Current Ordering Indication Dosage Frequency Signature Comments Components Source Medication Medication Date Date Medication? Clinician (SIG) Name Name 2021-06 Yes [id number] 1{tbl} Take 1 U nivers [id number] 1-30 tablet by ity of fum-folic 00:[place] () 00 the Medical 27 mg iron- morning. Bran ch 1 mg folic tablet docusate 2021-06 Yes [id number] 200mg Take 2 Un clementina 100 mg 1-30 capsules ity of capsule 00:00: by mouth [place] 00 once daily Medical as needed Branch for Constipati on. ferrous 2021-06 Yes [id number] 325mg Take 1 Uni vers sulfate 325 1-30 tablet by ity of mg (65 mg 00:00: mouth [place] iron) 00 every Medical tablet other day. Branch ibuprofen 2021-06 Yes [id number] 600mg Take 1 U nivers 600 mg 1-30 tablet by ity of tablet 00:00: mouth [place] 00 every 6 Medical (six) Branch hours as needed (Pain). Take with food or milk. foLIC acid 2021-06 Yes [id number] 1mg Take 1 U nivers 1 mg tablet 1-30 tablet by ity of 00:00: mouth in [place] 00 the Medical morning. Branch 2021-06 Yes [id number] 1{tbl} Take 1 U nivers [id number] 1-30 tablet by ity of fum-folic 00:00: [place] () 00 the Medical 27 mg iron- morning. Bran ch 1 mg folic tablet docusate 2021-06 Yes [id number] 200mg Take 2 Un clementina 100 mg 1-30 capsules ity of capsule 00:00: by mouth [place] 00 once daily Medical as needed Branch for Constipati on. ferrous 2021-06 Yes [id number] 325mg Take 1 Uni vers sulfate 325 1-30 tablet by ity of mg (65 mg 00:00: mouth [place] iron) 00 every Medical tablet other day. Branch ibuprofen 2021-06 Yes [id number] 600mg Take 1 U nivers 600 mg 1-30 tablet by ity of tablet 00:00: mouth [place] 00 every 6 Medical (six) Branch hours as needed (Pain). Take with food or milk. foLIC acid 2021-06 Yes [id number] 1mg Take 1 U nivers 1 mg tablet 1-30 tablet by ity of 00:00: mouth in [place] 00 the Medical morning. Branch HYDROcodone 2021-06 Yes 1{tbl} 1 tablet, Univers -acetaminop 07-19 Oral, ity of hen (NORCO 16:05: Q6HPRN, [place] 5) 5-325 mg 21 Starting Medi usha tablet 1 on [facility] tablet 05/19/22 at 1005, Until Discontinu ed, Routine, Pain (scale 7-10) HYDROcodone 2021-06- No 1{tbl} 1 tablet, Univers -acetaminop 07-19 Oral, ity of hen (NORCO 16:05: 21:43 Q6HPRN, [place] 5) 5-325 mg 21 :33 Starting Medi usha tablet 1 on [facility] tablet 05/19/22 at 1005, Until Ann 05/21/22 at 1543, Routine, Pain (scale 7-10) bupivacaine 2021-06 Yes PRN, [place] s (preserv 07-19 Starting ity of free) 14:34: on [facility] (SENSORCAIN 00 05/19/22 Medi usha E MPF) 0.25 at 0834, Bran ch % (2.5 Until mg/mL) Discontinu injection ed, Routine, Intra-op bupivacaine 2021-06- No PRN, Unive rs (preserv 07-19 Starting ity of free) 14:34: 21:43 on [facility] (SENSORCAIN 00 :33 05/19/22 Medi usha E MPF) 0.25 at 0834, Bran ch % (2.5 Until Ann mg/mL) 05/21/22 at injection 1543, Routine, Intra-op sodium 2021-06 Yes 30mL 30 mL, Univers citrate-cit 07-19 Oral, ity of umair acid 14:06: PRE-PROCED [place] (BICITRA) 07 URE ONCE, Medic al 500-334 1 dose, Branch mg/5 mL Starting solution 30 on Wed mL 05/19/22 at 0806, Until Discontinu ed, Routine, Surgery/Pr ocedure sodium 2021-06- No 30mL 30 mL, Univers citrate-cit 07-19 Oral, ity of umair acid 14:06: 21:43 PRE-PROCED [place] (BICITRA) 07 :33 URE ONCE, Medic al 500-334 1 dose, Branch mg/5 mL Starting solution 30 on Wed mL 05/19/22 at 0806, Until Ann 05/21/22 at 1543, Routine, Surgery/Pr ocedure lactated 2021-06 Yes Intravenou Uni vers ringers IV 07-19 s, ity of infusion 14:06: CONTINUOUS [place] 00 PRN, Medical Starting Branch on Wed05/19/22 at 0806, Until Discontinu ed, Routine, Intra-op nalbuphine 2021-06 Yes 5mg 5 mg, Univer s (NUBAIN) 07-19 Intravenou ity o f injection 5 14:01: s, PRN, 1 [place] mg 32 dose, Medical Starting Branch on Wed05/19/22 at 0801, Until Discontinu ed, Routine, itching naloxone 2021-06- Yes .4mg 0.4 mg, Unive rs (NARCAN) 07-19 Slow IV ity of injection 14:01: 00:14 Push, PRN [place] 0.4 mg 32 :19 - SEE Medical INSTRUCTIO Branch NS, Starting on Wed05/19/22 at 0801, Until Ann 05/21/22 at 1814, Routine, Analgesia Recovery naloxone 2021-06- No .4mg 0.4 mg, Unive rs (NARCAN) 07-19 Slow IV ity of injection 14:01: 21:43 Push, PRN [place] 0.4 mg 32 :33 - SEE Medical INSTRUCTIO Branch NS, Starting on Wed05/19/22 at 0801, Until Ann 05/21/22 at 1543, Routine, Analgesia Recovery nalbuphine 2021-06- No 5mg 5 mg, Unive rs (NUBAIN) 07-19 Intravenou ity of injection 5 14:01: 21:43 s, PRN, 1 [place] mg 32 :33 dose, Medical Starting Branch on Wed05/19/22 at 0801, Until Ann 05/21/22 at 1543, Routine, itching sodium 2021-06 Yes PRN, Univers citrate-cit 07-19 Starting ity of umair acid 14:00: on Wed [place] (BICITRA) 05/19/22 Medica l 500-334 at 0800, Branch mg/5 mL Until solution Discontinu ed, Routine, Intra-op sodium 2021-06- No PRN, Univers citrate-cit 07-19 Starting ity of umair acid 14:00: 21:43 on Wed [place] (BICITRA) 00 :33 05/19/22 Medica l 500-334 at 0800, Branch mg/5 mL Until Ann solution 05/21/22 at 1543, Routine, Intra-op rho(D) 2021-06 Yes 300ug 300 mcg, Univer s immune 07-19 Intramuscu ity of globulin 06:09: lar, ONCE, [place] (RHOGAM) 56 For 1 Medical syringe 300 dose, Branch mcg Conditiona l, Routine rho(D) 2021-06- No 300ug 300 mcg, Unive rs immune 07-19 Intramuscu ity of globulin 06:09: 21:43 [place], ONCE, [place] (RHOGAM) 56 :33 For 1 Medical syringe 300 dose, Branch mcg Conditiona l, Routine ibuprofen 2021-06 Yes 600mg 600 mg, Univ ers (IBU) 07-19 Oral, ity of tablet 600 06:09: Q6HPRN, [place] mg 52 Starting Medical on Wed05/19/22 at 0009, Until Discontinu ed, Routine, Pain (scale 4-6) acetaminoph 2021-06 Yes 650mg 650 mg, Un clementina en 07-19 Oral, ity of (TYLENOL) 06:09: Q6HPRN, [place] tablet 650 52 Starting Medic al mg on Wed05/19/22 at 0009, Until Discontinu ed, Routine, Pain (scale 1-3) diphenhydrA 2021-06 Yes 25mg 25 mg, Univ ers MINE 07-19 Oral, ity of (BENADRYL) 06:09: Q6HPRN, [place] tablet 25 52 Starting Medica l mg on Branch 05/19/22 at 0009, Until Discontinu ed, Routine, Sleep, Itching ondansetron 2021-06 Yes 4mg 4 mg, Slow Univers (ZOFRAN 07-19 IV Push, ity of (PF)) 06:09: Q8HPRN, [place] injection 4 52 Starting Medi usha mg on Branch 05/19/22 at 0009, Until Discontinu ed, Routine, Nausea and Vomiting (N/V) simethicone 2021-06 Yes 160mg 160 mg, Un clementina (GAS RELIEF 07-19 Oral, ity of (SIMETHICON 06:09: PC+HSPRN, [place] E)) 52 Starting Medical chewable on Wed tablet 160 05/19/22 mg at 0009, Until Discontinu ed, Routine, Gas docusate 2021-06 Yes 200mg 200 mg, Unive rs (COLACE) 07-19 Oral, ity of capsule 200 06:09: QDAILYPRN, [place] mg 52 Starting Medical on [facility] Branch 05/19/22 at 0009, Until Discontinu ed, Routine, Constipati on magnesium 2021-06 Yes 30mL 30 mL, Univer s hydroxide 07-19 Oral, ity of (MILK OF 06:09: QDAILYPRN, [place] MAGNESIA) 52 Starting Medica l 400 mg/5 mL on [facility] suspension 05/19/22 30 mL at 0009, Until Discontinu ed, Routine, Constipati on benzocaine- 2021-06 Yes Topical, Un clementina menthol 07-19 PRN, ity of (DERMOPLAST 06:09: Starting [place] ) 20-0.5 % 52 on [facility] Medical topical 05/19/22 Branch spray at 0009, Until Discontinu ed, Routine, Perineum discomfort ibuprofen 2021-06 No 600mg 600 mg, Uni vers (IBU) 07-19 Oral, ity of tablet 600 06:09: 21:43 Q6HPRN, [place] mg 52 :33 Starting Medical on Branch 05/19/22 at 0009, Until Ann 05/21/22 at 1543, Routine, Pain (scale 4-6) acetaminoph 2021-06- No 650mg 650 mg, U nivers en 07-19 Oral, ity of (TYLENOL) 06:09: 21:43 Q6HPRN, [place] tablet 650 52 :33 Starting Medic al mg on e Branch 05/19/22 at 0009, Until Ann 05/21/22 at 1543, Routine, Pain (scale 1-3) diphenhydrA 2021-06- No 25mg 25 mg, Uni vers MINE 07-19 Oral, ity of (BENADRYL) 06:09: 21:43 Q6HPRN, [place] tablet 25 52 :33 Starting Medica l mg on [facility] 05/19/22 at 0009, Until Ann 05/21/22 at 1543, Routine, Sleep, Itching ondansetron 2021-06 No 4mg 4 mg, Slow Univers (ZOFRAN 07-19 IV Push, ity of (PF)) 06:09: 21:43 Q8HPRN, [place] injection 4 52 :33 Starting Medi usha mg on [facility] 05/19/22 at 0009, Until Ann 05/21/22 at 1543, Routine, Nausea and Vomiting (N/V) simethicone 2021-06- No 160mg 160 mg, U nivers (GAS RELIEF 07-19 Oral, ity of (SIMETHICON 06:09: 21:43 PC+HSPRN, [place] E)) 52 :33 Starting Medical chewable on [facility] tablet 160 05/19/22 mg at 0009, Until Ann 05/21/22 at 1543, Routine, Gas docusate 2021-06- No 200mg 200 mg, Univ ers (COLACE) 07-19 Oral, ity of capsule 200 06:09: 21:43 QDAILYPRN, [place] mg 52 :33 Starting Medical on e Branch 05/19/22 at 0009, Until Ann 05/21/22 at 1543, Routine, Constipati on magnesium 2021-06- No 30mL 30 mL, Unive rs hydroxide 07-19 Oral, ity of (MILK OF 06:09: 21:43 QDAILYPRN, [place] MAGNESIA) 52 :33 Starting Medica l 400 mg/5 mL on Wed Branch suspension 05/19/22 30 mL at 0009, Until Ann 05/21/22 at 1543, Routine, Constipati on benzocaine- 2021-06- No Topical, U nivers menthol 07-19 PRN, ity of (DERMOPLAST 06:09: 21:43 Starting [place] ) 20-0.5 % 52 :33 on Wed Medical topical 05/19/22 Branch spray at 0009, Until Ann 05/21/22 at 1543, Routine, Perineum discomfort ibuprofen 2021-06- No 600mg 600 mg, Uni vers (IBU) 07-19 Oral, ity of tablet 600 04:05: 06:09 Q6HPRN, [place] mg 43 :55 Starting Medical on Wed05/18/22 at 2205, Until Wed05/19/22 at 0009, Routine, Pain (scale 1-3) oxytocin 2021-06- No 600mL/h 600 mL/hr, Univers (PITOCIN) 07-19 IV ity of 30 units in 04:05: 06:09 Infusion, [place] NS 500 mL 39 :55 PRN, For Medica l IV infusion post Branch delivery uterine atony., Starting on Wed05/18/[address] at 600 mL/hr for 1 hr then 150 mL/hr for 1 hr.
HYDROcodone 2021-06- Yes [id number] 1{tbl} Take 1 U nivers -acetaminop 07-19 tablet by it y of hen 5-325 00:00: 05:59 mouth [place] mg tablet 00 :00 every 6 Medical (six) Branch hours as needed for Pain (scale 7-10) for up to 7 days. Indication s: acute pain HYDROcodone 2021-06- Yes [id number] 1{tbl} Take 1 U nivers -acetaminop 07-19 tablet by it y of hen 5-325 00:00: 05:59 mouth [place] mg tablet 00 :00 every 6 Medical (six) Branch hours as needed for Pain (scale 7-10) for up to 7 days. Indication s: acute pain ropivacaine 2021-06- No Epidural, Univers 0.2 % 07-18 CONTINUOUS ity of (NAROPIN 21:39: 04:57 PRN, [place] (PF)) 00 :38 Starting Medical epidural on Wed Branch infusion 05/18/22 at 1539, Until Wed05/18/22 at 2257, Routine, Intra-op ropivacaine 2021-06- No Epidural, Univers 0.2 % 07-18 CONTINUOUS ity of (NAROPIN 21:39: 04:57 PRN, [place] ()) 00 :38 Starting Medical epidural on Wed Branch infusion 05/18/22 at 1539, Until Wed05/18/22 at 2257, Routine, Intra-op lidocaine-e 2021-06- No Intraderma Univers pinephrine 07-18 1129 l, ONCE ity o f (XYLOCAINE 21:37: 04:57 INTRA [place] W/EPINEPHRI 00 :38 PROCEDURE, [place] dical NE) 1.5 Starting Branch %-1:200,000 on Mon injection 05/18/22 at 1537, Until Wed05/18/22 at 2257, Routine, Intra-op lidocaine-e 2021-06- No Intraderma Univers pinephrine 07-18 l, ONCE ity o f (XYLOCAINE 21:37: 04:57 INTRA [place] W/EPINEPHRI 00 :38 PROCEDURE, Me dical NE) 1.5 Starting Branch %-1:200,000 on Mon injection 05/18/22 at 1537, Until Wed05/18/22 at 2257, Routine, Intra-op butorphanol 2021-06- No 1mg 1 mg, Univ ers (STADOL) 07-18 Intravenou ity of injection 1 20:15: 19:40 s, ONCE, 1 [place] mg 00 :00 dose, On Medical Mon Branch 05/18/22 at 1415, Routine oxytocin 2021-06- No 2mU/min at 2-40 Un clementina (PITOCIN) 07-18 11-29 mL/hr, IV ity of 30 units in 18:32: 06:09 Infusion, [place] NS 500 mL 11 :55 TITRATE, Medica l IV infusion Starting Bran ch on Wed05/18/22 at 1232, Until Wed05/19/22 at 0009, JOE lactated 2021-06- No 500mL at 999 Unive rs ringers IV 07-18 mL/hr, 500 it y of infusion 15:45: 06:09 mL, IV [place] 500 mL 50 :55 Infusion, Medical PRN - SEE Branch INSTRUCTIO NS, Starting on Wed05/18/22 at 0945, Until Wed05/19/22 at 0009, Routine D5W-LR IV 2021-06- No 1000mL at 1-125 U nivers infusion 07-18 mL/hr, IV ity o f 1,000 mL 15:45: 06:09 Infusion, [place] 50 :55 TITRATE, Medical Starting Branch on Wed05/18/22 at 0945, Until Wed05/19/22 at 0009, Routine sodium 2021-06- No 30mL 30 mL, Univers citrate-cit 07-18 Oral, ity of umair acid 15:45: 21:24 PRE-PROCED [place] (BICITRA) 50 :00 URE ONCE, Medic al 500-334 1 dose, Branch mg/5 mL Starting solution 30 on Wed05/18/22 at 0945, Until Discontinu ed, Routine, Surgery/Pr ocedure ascorbic 2021-0 Yes [id number] 500mg Take 1 U nivers acid, 9 tablet by ity of vitamin C, 00:00: mouth in [place] 500 mg 00 the Medical tablet morning Branch and 1 tablet at noon and 1 tablet in the evening. ferrous 2021-0 Yes [id number] 325mg Take 1 Un clementina sulfate 325 -02 tablet by ity of mg (65 mg 00:00: [place] iron) 00 the Medical tablet morning Branch and 1 tablet in the evening. ascorbic 2021-0 Yes [id number] 500mg Take 1 U nivers acid, 9- tablet by ity of vitamin C, 00:00: mouth in [place] 500 mg 00 the Medical tablet morning Branch and 1 tablet at noon and 1 tablet in the evening. ferrous 2021-0 Yes [id number] 325mg Take 1 Un clementina sulfate 325 9-02 tablet by ity of mg (65 mg 00:00: mouth [place] iron) 00 the Medical tablet morning Branch and 1 tablet in the evening. ascorbic 2021-0 Yes [id number] 500mg Take 1 U nivers acid, 9-02 tablet by ity of vitamin C, 00:00: mouth in [place] 500 mg 00 the Medical tablet morning Branch and 1 tablet at noon and 1 tablet in the evening. ferrous 2021-0 Yes [id number] 325mg Take 1 Un clementina sulfate 325 9-02 tablet by ity of mg (65 mg 00:00: mouth [place] iron) 00 the Medical tablet morning Branch and 1 tablet in the evening. ascorbic 2021-0 Yes [id number] 500mg Take 1 U nivers acid, 9-02 tablet by ity of vitamin C, 00:00: mouth in [place] 500 mg 00 the Medical tablet morning Branch and 1 tablet at noon and 1 tablet in the evening. ferrous 2021-0 Yes [id number] 325mg Take 1 Un clementina sulfate 325 9-02 tablet by ity of mg (65 mg 00:00: mouth [place] iron) 00 the Medical tablet morning Branch and 1 tablet in the evening. ascorbic 2021-0 Yes [id number] 500mg Take 1 U nivers acid, 9-02 tablet by ity of vitamin C, 00:00: mouth in [place] 500 mg 00 the Medical tablet morning Branch and 1 tablet at noon and 1 tablet in the evening. ferrous 2021-0 Yes [id number] 325mg Take 1 Un clementina sulfate 325 9-02 tablet by ity of mg (65 mg 00:00: mouth [place] iron) 00 the Medical tablet morning Branch and 1 tablet in the evening. ascorbic 2021-0 Yes [id number] 500mg Take 1 U nivers acid, 9-02 tablet by ity of vitamin C, 00:00: mouth in [place] 500 mg 00 the Medical tablet morning Branch and 1 tablet at noon and 1 tablet in the evening. ferrous 2021-0 Yes [id number] 325mg Take 1 Un clementina sulfate 325 9-02 tablet by ity of mg (65 mg 00:00: mouth [place] iron) 00 the Medical tablet morning Branch and 1 tablet in the evening. ascorbic 2021-0 Yes [id number] 500mg Take 1 U nivers acid, 9-02 tablet by ity of vitamin C, 00:00: mouth in [place] 500 mg 00 the Medical tablet morning Branch and 1 tablet at noon and 1 tablet in the evening. ferrous 2021-0 Yes [id number] 325mg Take 1 Un clementina sulfate 325 9-02 tablet by ity of mg (65 mg 00:00: mouth [place] iron) 00 the Medical tablet morning Branch and 1 tablet in the evening. ascorbic 2021-0 Yes [id number] 500mg Take 1 U nivers acid, 9-02 tablet by ity of vitamin C, 00:00: mouth in [place] 500 mg 00 the Medical tablet morning Branch and 1 tablet at noon and 1 tablet in the evening. ferrous 2021-0 Yes [id number] 325mg Take 1 Un clementina sulfate 325 9-02 tablet by ity of mg (65 mg 00:00: mouth [place] iron) 00 the Medical tablet morning Branch and 1 tablet in the evening. ascorbic 0 Yes [id number] 500mg Take 1 U nivers acid, 9-02 tablet by ity of vitamin C, 00:00: mouth in [place] 500 mg 00 the Medical tablet morning Branch and 1 tablet at noon and 1 tablet in the evening. ferrous 0 Yes [id number] 325mg Take 1 Un clementina sulfate 325 9-02 tablet by ity of mg (65 mg 00:00: mouth [place] iron) 00 the Medical tablet morning Branch and 1 tablet in the evening. ascorbic 2021-0 Yes [id number] 500mg Take 1 U nivers acid, 9-02 tablet by ity of vitamin C, 00:00: mouth in [place] 500 mg 00 the Medical tablet morning Branch and 1 tablet at noon and 1 tablet in the evening. ferrous 2021-0 Yes [id number] 325mg Take 1 Un clementina sulfate 325 9-02 tablet by ity of mg (65 mg 00:00: mouth [place] iron) 00 the Medical tablet morning Branch and 1 tablet in the evening. ascorbic 2021-0 Yes [id number] 500mg Take 1 U nivers acid, 9-02 tablet by ity of vitamin C, 00:00: mouth in [place] 500 mg 00 the Medical tablet morning Branch and 1 tablet at noon and 1 tablet in the evening. ferrous 2021-0 Yes [id number] 325mg Take 1 Un clementina sulfate 325 9-02 tablet by ity of mg (65 mg 00:00: mouth [place] iron) 00 the Medical tablet morning Branch and 1 tablet in the evening. ascorbic 2021-0 Yes [id number] 500mg Take 1 U nivers acid, 9-02 tablet by ity of vitamin C, 00:00: mouth in [place] 500 mg 00 the Medical tablet morning Branch and 1 tablet at noon and 1 tablet in the evening. ferrous 2021-0 Yes [id number] 325mg Take 1 Un clementina sulfate 325 9-02 tablet by ity of mg (65 mg 00:00: mouth [place] iron) 00 the Medical tablet morning Branch and 1 tablet in the evening. ascorbic 2021-0 Yes [id number] 500mg Take 1 U nivers acid, 9-02 tablet by ity of vitamin C, 00:00: mouth in [place] 500 mg 00 the Medical tablet morning Branch and 1 tablet at noon and 1 tablet in the evening. ferrous 2021-0 Yes [id number] 325mg Take 1 Un clementina sulfate 325 9-02 tablet by [facility] mg (65 mg [place] [facility] tablet morning [facility] and 1 tablet in the evening. ascorbic 0 Yes [id number] 500mg Take 1 [facility] nivers acid, 9-02 tablet by ity of vitamin C, 00:00: mouth [place] 500 mg 00 the Medical tablet morning Branch and 1 tablet at noon and 1 tablet in the evening. ferrous 2021-0 Yes [id number] 325mg Take 1 Un clementina sulfate 325 9-02 tablet by [facility] mg (65 mg [place] [facility] tablet morning [facility] and 1 tablet in the evening. ascorbic 2021-0 Yes [id number] 500mg Take 1 [facility] nivers acid, 9-02 tablet by [facility]y of vitamin C, 00:00: mouth [place] 500 mg 00 the Medical tablet morning Branch and 1 tablet at noon and 1 tablet in the evening. ferrous 2021-0 Yes [id number] 325mg Take 1 Un clement[place] sulfate 325 9-02 tablet by [facility] mg (65 mg [place] [facility] tablet morning Branch and 1 tablet in the evening. ascorbic 2021-0 Yes [id number] 500mg Take 1 [facility] nivers acid, 9-02 tablet by [facility]y of vitamin C, 00:00: mouth [place] 500 mg 00 the Medical tablet morning Branch and 1 tablet at noon and 1 tablet in the evening. ferrous 2021-0 Yes [id number] 325mg Take 1 Un clementina sulfate 325 9-02 tablet by [facility] mg (65 mg [place] [facility] tablet morning Branch and 1 tablet in the evening. ascorbic 2021-0 Yes [id number] 500mg Take 1 [facility] nivers acid, 9-02 tablet by [facility]y of vitamin C, 00:00: mouth [place] 500 mg 00 the Medical tablet morning Branch and 1 tablet at noon and 1 tablet in the evening. ferrous 2021-0 Yes [id number] 325mg Take 1 Un clement[place] sulfate 325 9-02 tablet by [facility] mg (65 mg [place] [facility] tablet morning Branch and 1 tablet in the evening. ascorbic 2021-0 Yes [id number] 500mg Take 1 [facility] nivers acid, 9-02 tablet by [facility]y of vitamin C, 00:00: mouth [place] 500 mg 00 the Medical tablet morning Branch and 1 tablet at noon and 1 tablet in the evening. ferrous 2021-0 Yes [id number] 325mg Take 1 Un clement[place] sulfate 325 9-02 tablet by [facility] mg (65 mg [place]: [place] the [facility] tablet morning Branch and 1 tablet in the evening. ascorbic 2021-0 Yes [id number] 500mg Take 1 [facility] acid, 9-02 tablet by [facility]y of vitamin C, 00:00: mouth [place] 500 mg 00 the Medical tablet morning Branch and 1 tablet at noon and 1 tablet in the evening. ferrous 2021-0 Yes [id number] 325mg Take 1 Un clement[place] sulfate 325 9-02 tablet by [facility] mg (65 mg [place]: [place] the [facility] tablet morning Branch and 1 tablet in the evening. ascorbic 2021-0 Yes [id number] 500mg Take 1 [facility] nivers acid, 9-02 tablet by [facility]y of vitamin C, 00:00: mouth [place] 500 mg 00 the Medical tablet morning Branch and 1 tablet at noon and 1 tablet in the evening. ferrous 2021-0 Yes [id number] 325mg Take 1 Un clement[place] sulfate 325 9-02 tablet by [facility] mg (65 mg [place]: [place] the [facility] tablet morning Branch and 1 tablet in the evening. ascorbic 0 Yes [id number] 500mg Take 1 [facility] nivers acid, 9-02 tablet by [facility]y of vitamin C, 00:00: mouth [place] 500 mg 00 the Medical tablet morning Branch and 1 tablet at noon and 1 tablet in the evening. ferrous 2021-0 Yes [id number] 325mg Take 1 Un clement[place] sulfate 325 9-02 tablet by [facility] mg (65 mg 00:00: [place] the [facility] tablet morning Branch and 1 tablet in the evening. ascorbic Yes [id number] 500mg Take 1 [facility] nivers acid, 9-02 tablet by [facility]y of vitamin C, 00:00: mouth [place] 500 mg 00 the Medical tablet morning Branch and 1 tablet at noon and 1 tablet in the evening. ferrous Yes [id number] 325mg Take 1 Un clement[place] sulfate 325 9-02 tablet by [facility] mg (65 mg 00:00: [place] 00 the [facility] tablet morning Branch and 1 tablet in the evening. ascorbic Yes [id number] 500mg Take 1 [facility] nivers acid, 9-02 tablet by [facility] of vitamin C, 00:00: mouth [place] 500 mg 00 the Medical tablet morning Branch and 1 tablet at noon and 1 tablet in the evening. ferrous 0 Yes [id number] 325mg Take 1 Un clementina sulfate 325 9-02 tablet by [facility] mg (65 mg 00:00: [place] 00 the [facility] tablet morning Branch and 1 tablet in the evening. ascorbic 2021-0 Yes [id number] 500mg Take 1 [facility] nivers acid, 9-02 tablet by [facility] of vitamin C, 00:00: mouth [place] 500 mg 00 the Medical tablet morning Branch and 1 tablet at noon and 1 tablet in the evening. ferrous 0 Yes [id number] 325mg Take 1 Un clement[place] sulfate 325 9-02 tablet by [facility] mg (65 mg 00:00: [place] 00 the [facility] tablet morning Branch and 1 tablet in the evening. ascorbic 2021- No [id number] 500mg Take 1 [facility] acid, 02-20 tablet by [facility]y of vitamin C, 00:00: 00:00 [place] 500 mg 00 :00 the Medical tablet morning Branch and 1 tablet at noon and 1 tablet in the evening. ferrous 2021- No [id number] 325mg Take 1 U nivers sulfate 325 02-20 tablet by it y of mg (65 mg 00:00: 00:00 mouth [place] iron) 00 :00 the Medical tablet morning Branch and 1 tablet in the evening. ascorbic 2021- No [id number] 500mg Take 1 [facility] acid, 02-20 tablet by [facility] of vitamin C, 00:00: 00:00 [place] 500 mg 00 :00 the Medical tablet morning Branch and 1 tablet at noon and 1 tablet in the evening. ferrous 2021- No [id number] 325mg Take 1 [facility] nivers sulfate 325 02-20 tablet by it y of mg (65 mg 00:00: 00:00 mouth [place] iron) 00 :00 the Medical tablet morning Branch and 1 tablet in the evening. Yes [id number] 1{packe Take 1 [facility] vit 4-12 t} Packet by ity of 33-iron-fol 00:00: mouth [place] ic-dha 00 daily. Medical ([facility] + DHA) 29 mg iron-1 mg -250 mg combo pack Yes [id number] 1{packe Take 1 [facility] vit 4-12 t} Packet by ity of 33-iron-fol 00:00: mouth [place] ic-dha 00 daily. Medical ([facility] + DHA) 29 mg iron-1 mg -250 mg combo pack Yes [id number] 1{packe Take 1 [facility] vit 4-12 t} Packet by ity of 33-iron-fol 00:00: mouth [place] ic-dha 00 daily. Medical ([facility] + DHA) 29 mg iron-1 mg -250 mg combo pack Yes [id number] 1{packe Take 1 [facility] vit 4-12 t} Packet by ity of 33-iron-fol 00:00: mouth [place] ic-dha 00 daily. Medical ([facility] Branch + DHA) 29 mg iron-1 mg -250 mg combo pack Yes [id number] 1{packe Take 1 [facility] vit 4-12 t} Packet by ity of 33-iron-fol 00:00: mouth [place] ic-dha 00 daily. Medical ([facility] Branch + DHA) 29 mg iron-1 mg -250 mg combo pack Yes [id number] 1{packe Take 1 [facility] vit 4-12 t} Packet by ity of 33-iron-fol 00:00: mouth [place] ic-dha 00 daily. Medical ([facility] Branch + DHA) 29 mg iron-1 mg -250 mg combo pack Yes [id number] 1{packe Take 1 [facility] vit 4-12 t} Packet by ity of 33-iron-fol 00:00: mouth [place] ic-dha 00 daily. Medical ([facility] Branch + DHA) 29 mg iron-1 mg -250 mg combo pack Yes [id number] 1{packe Take 1 [facility] vit 4-12 t} Packet by ity of 33-iron-fol 00:00: mouth [place] ic-dha 00 daily. Medical ([facility] + DHA) 29 mg iron-1 mg -250 mg combo pack Yes [id number] 1{packe Take 1 [facility] vit 4-12 t} Packet by ity of 33-iron-fol 00:00: mouth [place] ic-dha 00 daily. Medical ([facility] Branch + DHA) 29 mg iron-1 mg -250 mg combo pack Yes [id number] 1{packe Take 1 [facility] vit 4-12 t} Packet by ity of 33-iron-fol 00:00: mouth [place] ic-dha 00 daily. Medical ([facility] + DHA) 29 mg iron-1 mg -250 mg combo pack Yes [id number] 1{packe Take 1 [facility] vit 4-12 t} Packet by ity of 33-iron-fol 00:00: mouth [place] ic-dha 00 daily. Medical ([facility] + DHA) 29 mg iron-1 mg -250 mg combo pack Yes [id number] 1{packe Take 1 [facility] vit 4-12 t} Packet by ity of 33-iron-fol 00:00: mouth [place] ic-dha 00 daily. Medical ([facility] + DHA) 29 mg iron-1 mg -250 mg combo pack Yes [id number] 1{packe Take 1 [facility] vit 4-12 t} Packet by ity of 33-iron-fol 00:00: mouth [place] ic-dha 00 daily. Medical ([facility] + DHA) 29 mg iron-1 mg -250 mg combo pack Yes [id number] 1{packe Take 1 [facility] vit 4-12 t} Packet by ity of 33-iron-fol 00:00: mouth [place] ic-dha 00 daily. Medical ([facility] + DHA) 29 mg iron-1 mg -250 mg combo pack Yes [id number] 1{packe Take 1 [facility] vit 4-12 t} Packet by ity of 33-iron-fol 00:00: mouth [place] ic-dha 00 daily. Medical ([facility] + DHA) 29 mg iron-1 mg -250 mg combo pack Yes [id number] 1{packe Take 1 [facility] vit 4-12 t} Packet by ity of 33-iron-fol 00:00: mouth [place] ic-dha 00 daily. Medical ([facility] + DHA) 29 mg iron-1 mg -250 mg combo pack Yes [id number] 1{packe Take 1 [facility] vit 4-12 t} Packet by ity of 33-iron-fol 00:00: mouth [place] ic-dha 00 daily. Medical ([facility] + DHA) 29 mg iron-1 mg -250 mg combo pack Yes [id number] 1{packe Take 1 [facility] vit 4-12 t} Packet by ity of 33-iron-fol 00:00: mouth [place] ic-dha 00 daily. Medical ([facility] Branch + DHA) 29 mg iron-1 mg -250 mg combo pack Yes [id number] 1{packe Take 1 [facility] vit 4-12 t} Packet by ity of 33-iron-fol 00:00: mouth [place] ic-dha 00 daily. Medical ([facility] Branch + DHA) 29 mg iron-1 mg -250 mg combo pack Yes [id number] 1{packe Take 1 [facility] vit 4-12 t} Packet by ity of 33-iron-fol 00:00: mouth [place] ic-dha 00 daily. Medical ([facility] Branch + DHA) 29 mg iron-1 mg -250 mg combo pack Yes [id number] 1{packe Take 1 [facility] vit 4-12 t} Packet by ity of 33-iron-fol 00:00: mouth [place] ic-dha 00 daily. Medical ([facility] + DHA) 29 mg iron-1 mg -250 mg combo pack Yes [id number] 1{packe Take 1 [facility] vit 4-12 t} Packet by ity of 33-iron-fol 00:00: mouth [place] ic-dha 00 daily. Medical ([facility] Branch + DHA) 29 mg iron-1 mg -250 mg combo pack Yes [id number] 1{packe Take 1 [facility] vit 4-12 t} Packet by ity of 33-iron-fol 00:00: mouth [place] ic-dha 00 daily. Medical ([facility] Branch + DHA) 29 mg iron-1 mg -250 mg combo pack Yes [id number] 1{packe Take 1 [facility] vit 4-12 t} Packet by ity of 33-iron-fol 00:00: mouth [place] ic-dha 00 daily. Medical ([facility] Branch + DHA) 29 mg iron-1 mg -250 mg combo pack Yes [id number] 1{packe Take 1 [facility] vit 4-12 t} Packet by ity of 33-iron-fol 00:00: mouth [place] ic-dha 00 daily. Medical ([facility] Branch + DHA) 29 mg iron-1 mg -250 mg combo pack 2022- No [id number] 1{packe Take 1 [facility] vit 4-12 11-30 t} Packet by ity of 33-iron-fol 00:00: 00:[place] 00 :00 daily. Medical ([facility] Branch + DHA) 29 mg iron-1 mg -250 mg combo pack 2021- No [id number] 1{packe Take 1 [facility] vit 4-12 11-30 t} Packet by ity of 33-iron-fol 00:00: 00:00 mouth [place] ic-dha 00 :00 daily. Medical ([facility] Branch + DHA) 29 mg iron-1 mg -250 mg combo pack Immunizations Ordered Immunization Filled Immunization Date Status Commen ts Source Name Name Influenza Virus 2022-03-30 Completed [facility], 00:[facility] [place] [facility] Preserv and ABX Free Bran ch 6 MO-64 YRS Influenza Virus 2022-03-30 Completed [facility], 00:00:00 [place] [facility] Preserv and ABX Free Bran ch 6 MO-64 YRS Influenza Virus 2022-03-30 Completed [facility], 00:00:00 [place] [facility] Preserv and ABX Free Bran ch 6 MO-64 YRS Influenza Virus 2022-03-30 Completed [facility] Vaccine [facility], 00:00:00 [place] [facility] Preserv and ABX Free Bran ch 6 MO-64 YRS Influenza Virus 2022-03-30 Completed [facility] Vaccine [facility], 00:00:00 [place] [facility] Preserv and ABX Free Bran ch 6 MO-64 YRS Influenza Virus 2022-03-30 Completed [facility] Vaccine [facility], 00:00:00 [place] [facility] Preserv and ABX Free Bran ch 6 MO-64 YRS Influenza Virus 2022-03-30 Completed [facility] Vaccine [facility], 00:00:00 [place] [facility] Preserv and ABX Free Bran ch 6 MO-64 YRS Influenza Virus 2022-03-30 Completed [facility] Vaccine [facility] IM, 00:00:00 [place] [facility] Preserv and ABX Free Bran ch 6 MO-64 YRS Influenza Virus 2022-03-30 Completed [facility] Vaccine [facility], 00:00:00 [place] [facility] Preserv and ABX Free Bran ch 6 MO-64 YRS Influenza Virus 2022-03-30 Completed [facility] Vaccine [facility], 00:00:00 [place] [facility] Preserv and ABX Free Bran ch 6 MO-64 YRS Influenza Virus 2022-03-30 Completed [facility] Vaccine [facility], 00:00:00 [place] [facility] Preserv and ABX Free Bran ch 6 MO-64 YRS Influenza Virus 2022-03-30 Completed [facility] Vaccine [facility] IM, 00:00:00 [place] [facility] Preserv and ABX Free Bran ch 6 MO-64 YRS Influenza Virus 2022-03-30 Completed [facility] Vaccine [facility] IM, 00:00:00 [place] [facility] Preserv and ABX Free Bran ch 6 MO-64 YRS Influenza Virus 2022-03-30 Completed [facility] Vaccine [facility], 00:00:00 [place] [facility] Preserv and ABX Free Bran ch 6 MO-64 YRS Influenza Virus 2022-03-30 Completed [facility] Vaccine [facility] IM, 00:00:00 [place] [facility] Preserv and ABX Free Bran ch 6 MO-64 YRS Influenza Virus 2022-03-30 Completed [facility] of Vaccine [facility] IM, 00:00:00 [place] [facility] Preserv and ABX Free Bran ch 6 MO-64 YRS Influenza Virus 2022-03-30 Completed [facility] Vaccine [facility] IM, 00:00:00 [place] [facility] Preserv and ABX Free Bran ch 6 MO-64 YRS Influenza Virus 2022-03-30 Completed [facility] Vaccine [facility] IM, 00:00:00 [place] [facility] Preserv and ABX Free Bran ch 6 MO-64 YRS Influenza Virus 2022-03-30 Completed [facility] Vaccine [facility] IM, 00:00:00 [place] [facility] Preserv and ABX Free Bran ch 6 MO-64 YRS Influenza Virus 2022-03-30 Completed [facility] of Vaccine [facility] IM, 00:00:00 [place] [facility] Preserv and ABX Free Bran ch 6 MO-64 YRS TDAP 2022-03-19 Completed University of 00:00:00 [facility] TDAP 2022-03-19 Completed University of 00:00:00 [facility] TDAP 2022-03-19 Completed University of 00:00:00 [facility] TDAP 2022-03-19 Completed University of 00:00:00 [facility] TDAP 2022-03-19 Completed University of 00:00:00 [facility] TDAP 2022-03-19 Completed University of 00:00:00 [facility] TDAP 2022-03-19 Completed University of 00:00:00 [facility] TDAP 2022-03-19 Completed University of 00:00:00 [facility] TDAP 2022-03-19 Completed University of 00:00:00 [place] [facility] TDAP 2022-03-19 Completed University of 00:00:00 [place] [facility] TDAP 2022-03-19 Completed University of 00:00:00 [place] [facility] TDAP 2022-03-19 Completed University of 00:00:00 [place] [facility] TDAP 2022-03-19 Completed University of 00:00:00 [place] [facility] TDAP 2022-03-19 Completed University of 00:00:00 [place] [facility] TDAP 2022-03-19 Completed [facility] of 00:00:00 [place] [facility] TDAP 2022-03-19 Completed [facility] of 00:00:00 [place] [facility] TDAP 2022-03-19 Completed University of 00:00:00 [place] [facility] TDAP 2022-03-19 Completed University of 00:00:00 [place] [facility] TDAP 2022-03-19 Completed University of 00:00:00 [facility] TDAP 2022-03-19 Completed University of 00:00:00 [facility] TDAP 2022-03-19 Completed University of 00:00:00 [facility] TDAP 2022-03-19 Completed University of 00:00:00 [facility] TDAP 2022-03-19 Completed University of 00:00:00 [facility] TDAP 2022-03-19 Completed University of 00:00:00 [facility] TDAP 2022-03-19 Completed University of 00:00:00 [facility] Branch HPV9 2019-03-07 Completed University of 00:00:00 [facility] HPV9 2019-03-07 Completed University of 00:00:00 [facility] HPV9 2019-03-07 Completed University of 00:00:00 [facility] HPV9 2019-03-07 Completed University of 00:00:00 [facility] HPV9 2019-03-07 Completed University of 00:00:00 [place] [facility] HPV9 2019-03-07 Completed [facility] of 00:00:00 [place] [facility] HPV9 2019-03-07 Completed University of 00:00:00 [place] [facility] HPV9 2019-03-07 Completed University of 00:00:00 [place] [facility] HPV9 2019-03-07 Completed University of 00:00:00 [place] [facility] HPV9 2019-03-07 Completed University of 00:00:00 [place] [facility] HPV9 2019-03-07 Completed University of 00:00:00 [facility] HPV9 2019-03-07 Completed University of 00:00:00 [facility] HPV9 2019-03-07 Completed University of 00:00:00 [facility] HPV9 2019-03-07 Completed University of 00:00:00 [facility] HPV9 2019-03-07 Completed University of 00:00:00 [facility] HPV9 2019-03-07 Completed University of 00:00:00 [facility] HPV9 2019-03-07 Completed University of 00:00:00 [facility] HPV9 2019-03-07 Completed University of 00:00:00 [facility] HPV9 2019-03-07 Completed University of 00:00:00 [facility] HPV9 2019-03-07 Completed University of 00:00:00 [facility] HPV9 2019-03-07 Completed University of 00:00:00 [facility] HPV9 2019-03-07 Completed University of 00:00:00 [facility] HPV9 2019-03-07 Completed University of 00:00:00 [facility] HPV9 2019-03-07 Completed University of 00:00:00 [facility] HPV9 2019-03-07 Completed University of 00:00:00 [facility] HPV9 2019-03-07 Completed University of 00:00:00 [facility] HPV9 2019-03-07 Completed University of 00:00:00 [facility] Influenza Virus 2016-03-27 Completed Universit y of Vaccine 00:00:00 [facility] Pneumococcal 2016-03-27 Completed University o f Polysaccharide, 00:00:00 [place] [facility] PPSV23 (PNEUMOVAX) [place] Influenza Virus 2016-03-27 Completed Universit y of Vaccine 00:00:00 [facility] Pneumococcal 2016-03-27 Completed University o f Polysaccharide, 00:00:00 [facility] ical PPSV23 (PNEUMOVAX) [place] Influenza Virus 2016-03-27 Completed Universit y of Vaccine 00:00:00 [facility] Pneumococcal 2016-03-27 Completed University o f Polysaccharide, 00:00:00 [facility] ical PPSV23 (PNEUMOVAX) [place] Influenza Virus 2016-03-27 Completed Universit y of Vaccine 00:00:00 [facility] Pneumococcal 2016-03-27 Completed University o f Polysaccharide, 00:00:00 [facility] ical PPSV23 (PNEUMOVAX) Branch Influenza Virus 2016-03-27 Completed Universit y of Vaccine 00:00:00 [facility] Pneumococcal 2016-03-27 Completed University o f Polysaccharide, 00:00:00 [place] [facility] PPSV23 (PNEUMOVAX) Branch Influenza Virus 2016-03-27 Completed [facility]it y of Vaccine 00:00:00 [facility] Pneumococcal 2016-03-27 Completed University o f Polysaccharide, 00:00:00 [place] [facility] PPSV23 (PNEUMOVAX) Branch Influenza Virus 2016-03-27 Completed [facility] y of Vaccine 00:00:00 [facility] Pneumococcal 2016-03-27 Completed University o f Polysaccharide, 00:00:00 [place] [facility] PPSV23 (PNEUMOVAX) Branch Influenza Virus 2016-03-27 Completed [facility]it y of Vaccine 00:00:00 [facility] Pneumococcal 2016-03-27 Completed University o f Polysaccharide, 00:00:00 [place] [facility] PPSV23 (PNEUMOVAX) Branch Influenza Virus 2016-03-27 Completed Universit y of Vaccine 00:00:00 [facility] Pneumococcal 2016-03-27 Completed University o f Polysaccharide, 00:00:00 [place] [facility] PPSV23 (PNEUMOVAX) Branch Influenza Virus 2016-03-27 Completed Universit y of Vaccine 00:00:00 [facility] Pneumococcal 2016-03-27 Completed University o f Polysaccharide, 00:00:00 [place] [facility] PPSV23 (PNEUMOVAX) Branch Influenza Virus 2016-03-27 Completed [facility] y of Vaccine 00:00:00 [facility] Pneumococcal 2016-03-27 Completed University o f Polysaccharide, 00:00:00 [place] [facility] PPSV23 (PNEUMOVAX) Branch Influenza Virus 2016-03-27 Completed [facility] y of Vaccine 00:00:00 [facility] Pneumococcal 2016-03-27 Completed University o f Polysaccharide, 00:00:00 [place] [facility] PPSV23 (PNEUMOVAX) Branch Influenza Virus 2016-03-27 Completed Universit y of Vaccine 00:00:00 [facility] Pneumococcal 2016-03-27 Completed University o f Polysaccharide, 00:00:00 [place] [facility] PPSV23 (PNEUMOVAX) Branch Influenza Virus 2016-03-27 Completed [facility] y of Vaccine 00:00:00 [facility] Pneumococcal 2016-03-27 Completed University o f Polysaccharide, 00:00:00 [place] [facility] PPSV23 (PNEUMOVAX) Branch Influenza Virus 2016-03-27 Completed [facility] y of Vaccine 00:00:00 [facility] Pneumococcal 2016-03-27 Completed University o f Polysaccharide, 00:00:00 [place] [facility] PPSV23 (PNEUMOVAX) Branch Influenza Virus 2016-03-27 Completed [facility] y of Vaccine 00:00:00 [facility] Pneumococcal 2016-03-27 Completed University o f Polysaccharide, 00:00:00 [place] [facility] PPSV23 (PNEUMOVAX) Branch Influenza Virus 2016-03-27 Completed Univers[facility] y of Vaccine 00:00:00 [facility] Pneumococcal 2016-03-27 Completed University o f Polysaccharide, 00:00:00 [place] [facility] PPSV23 (PNEUMOVAX) Branch Influenza Virus 2016-03-27 Completed [facility] y of Vaccine 00:00:00 [facility] Pneumococcal 2016-03-27 Completed University o f Polysaccharide, 00:00:00 [place] [facility] PPSV23 (PNEUMOVAX) Branch Influenza Virus 2016-03-27 Completed [facility] y of Vaccine 00:00:00 [facility] Pneumococcal 2016-03-27 Completed University o f Polysaccharide, 00:00:00 [facility] ical PPSV23 (PNEUMOVAX) Branch Influenza Virus 2016-03-27 Completed Universit y of Vaccine 00:00:00 [facility] Pneumococcal 2016-03-27 Completed University o f Polysaccharide, 00:00:00 [facility] ical PPSV23 (PNEUMOVAX) Branch Influenza Virus 2016-03-27 Completed Universit y of Vaccine 00:00:00 [facility] Pneumococcal 2016-03-27 Completed University o f Polysaccharide, 00:00:00 [place] [facility] PPSV23 (PNEUMOVAX) Branch Influenza Virus 2016-03-27 Completed Univers[facility] y of Vaccine 00:00:00 [facility] Pneumococcal 2016-03-27 Completed University o f Polysaccharide, 00:00:00 [place] [facility] PPSV23 (PNEUMOVAX) Branch Influenza Virus 2016-03-27 Completed [facility] y of Vaccine 00:00:00 [facility] Pneumococcal 2016-03-27 Completed University o f Polysaccharide, 00:00:00 [place] [facility] PPSV23 (PNEUMOVAX) Branch Influenza Virus 2016-03-27 Completed [facility] y of Vaccine 00:00:00 [facility] Pneumococcal 2016-03-27 Completed University o f Polysaccharide, 00:00:00 [place] [facility] PPSV23 (PNEUMOVAX) Branch Influenza Virus 2016-03-27 Completed [facility] y of Vaccine 00:00:00 [facility] Pneumococcal 2016-03-27 Completed University o f Polysaccharide, 00:00:00 [place] [facility] PPSV23 (PNEUMOVAX) Branch Influenza Virus 2016-03-27 Completed [facility] y of Vaccine 00:00:00 [facility] Pneumococcal 2016-03-27 Completed University o f Polysaccharide, 00:00:00 [place] [facility] PPSV23 (PNEUMOVAX) Branch Influenza Virus 2016-03-27 Completed Univers[facility] y of Vaccine 00:00:00 [facility] Pneumococcal 2016-03-27 Completed University o f Polysaccharide, 00:00:00 [facility] ical PPSV23 (PNEUMOVAX) Branch TDAP 2012-01-26 Completed University of 00:00:00 [facility] TDAP 2012-01-26 Completed University of 00:00:00 [facility] TDAP 2012-01-26 Completed University of 00:00:00 [facility] TDAP 2012-01-26 Completed University of 00:00:00 [facility] TDAP 2012-01-26 Completed University of 00:00:00 [facility] TDAP 2012-01-26 Completed University of 00:00:00 [facility] TDAP 2012-01-26 Completed [facility] 00:00:00 [place] [facility] [facility] TDAP 2012-01-26 Completed [facility] 00:00:00 [facility] TDAP 2012-01-26 Completed [facility] 00:00:00 [facility] TDAP 2012-01-26 Completed [facility] 00:00:00 [facility] TDAP 2012-01-26 Completed [facility] 00:00:00 [facility] TDAP 2012-01-26 Completed [facility] 00:00:00 [facility] TDAP 2012-01-26 Completed [facility] 00:00:00 [facility] TDAP 2012-01-26 Completed [facility] 00:00:00 [facility] TDAP 2012-01-26 Completed [facility] 00:00:00 [facility] TDAP 2012-01-26 Completed [facility] 00:00:00 [facility] TDAP 2012-01-26 Completed [facility] 00:00:00 [facility] TDAP 2012-01-26 Completed [facility] 00:00:00 [facility] TDAP 2012-01-26 Completed [facility] 00:00:00 [facility] TDAP 2012-01-26 Completed [facility] 00:00:00 [facility] TDAP 2012-01-26 Completed [facility] 00:00:00 [facility] TDAP 2012-01-26 Completed [facility] 00:00:00 [facility] TDAP 2012-01-26 Completed [facility] 00:00:00 [facility] TDAP 2012-01-26 Completed [facility] 00:00:00 [facility] TDAP 2012-01-26 Completed [facility] 00:00:00 [facility] TDAP 2012-01-26 Completed [facility] 00:00:00 [facility] TDAP 2012-01-26 Completed [facility] 00:00:00 [facility] HEPATITIS A 2009-11-12 Completed [facility] 00:00:00 [facility] HPV 2009-11-12 Completed [facility] 00:00:00 [facility] HEPATITIS A 2009-11-12 Completed [facility] 00:00:00 [facility] HPV 2009-11-12 Completed [facility] 00:00:00 [facility] HEPATITIS A 2009-11-12 Completed [facility] 00:00:00 [facility] HPV 2009-11-12 Completed [facility] 00:00:00 [facility] HEPATITIS A 2009-11-12 Completed [facility] 00:00:00 [facility] HPV 2009-11-12 Completed [facility] 00:00:00 [facility] HEPATITIS A 2009-11-12 Completed [facility] 00:00:00 [facility] HPV 2009-11-12 Completed [facility] 00:00:00 [facility] HEPATITIS A 2009-11-12 Completed [facility] 00:00:00 [facility] HPV 2009-11-12 Completed [facility] 00:00:00 [facility] HEPATITIS A 2009-11-12 Completed [facility] 00:00:00 [facility] HPV 2009-11-12 Completed [facility] 00:00:00 [facility] HEPATITIS A 2009-11-12 Completed [facility] 00:00:00 [facility] HPV 2009-11-12 Completed [facility] 00:00:00 [facility] HEPATITIS A 2009-11-12 Completed [facility] 00:00:00 [facility] HPV 2009-11-12 Completed [facility] 00:00:00 [facility] HEPATITIS A 2009-11-12 Completed [facility] 00:00:00 [facility] HPV 2009-11-12 Completed [facility] 00:00:00 [facility] HEPATITIS A 2009-11-12 Completed [facility] 00:00:00 [facility] HPV 2009-11-12 Completed [facility] 00:00:00 [facility] HEPATITIS A 2009-11-12 Completed [facility] 00:00:00 [facility] HPV 2009-11-12 Completed [facility] 00:00:00 [facility] HEPATITIS A 2009-11-12 Completed [facility] 00:00:00 [facility] HPV 2009-11-12 Completed [facility] 00:00:00 [facility] HEPATITIS A 2009-11-12 Completed [facility] 00:00:00 [facility] HPV 2009-11-12 Completed [facility] 00:00:00 [facility] HEPATITIS A 2009-11-12 Completed [facility] 00:00:00 [facility] HPV 2009-11-12 Completed [facility] 00:00:00 [facility] HEPATITIS A 2009-11-12 Completed [facility] 00:00:00 [facility] HPV 2009-11-12 Completed [facility] 00:00:00 [facility] HEPATITIS A 2009-11-12 Completed [facility] 00:00:00 [facility] HPV 2009-11-12 Completed [facility] 00:00:00 [facility] HEPATITIS A 2009-11-12 Completed [facility] 00:00:00 [facility] HPV 2009-11-12 Completed [facility] 00:00:00 [facility] HEPATITIS A 2009-11-12 Completed [facility] 00:00:00 [facility] HPV 2009-11-12 Completed [facility] 00:00:00 [facility] HEPATITIS A 2009-11-12 Completed [facility] 00:00:00 [facility] HPV 2009-11-12 Completed [facility] 00:00:00 [facility] HEPATITIS A 2009-11-12 Completed [facility] 00:00:00 [facility] HPV 2009-11-12 Completed [facility] 00:00:00 [facility] HEPATITIS A 2009-11-12 Completed [facility] 00:00:00 [facility] HPV 2009-11-12 Completed [facility] 00:00:00 [facility] HEPATITIS A 2009-11-12 Completed [facility] 00:00:00 [facility] HPV 2009-11-12 Completed [facility] 00:00:00 [facility] HEPATITIS A 2009-11-12 Completed [facility] 00:00:00 [facility] HPV 2009-11-12 Completed [facility] 00:00:00 [facility] HEPATITIS A 2009-11-12 Completed [facility] 00:00:00 [facility] HPV 2009-11-12 Completed [facility] 00:00:00 [facility] HEPATITIS A 2009-11-12 Completed [facility] 00:00:00 [facility] HPV 2009-11-12 Completed [facility] 00:00:00 [facility] HEPATITIS A 2009-11-12 Completed [facility] 00:00:00 [facility] HPV 2009-11-12 Completed [facility] 00:00:00 [facility] HEPATITIS A 2009-04-08 Completed [facility] 00:00:00 [facility] HPV 2009-04-08 Completed [facility] 00:00:00 [facility] Varicella 2009-04-08 Completed [facility] (varivax)(chicken 00:00:00 [facility] HEPATITIS A 2009-04-08 Completed [facility] 00:00:00 [facility] HPV 2009-04-08 Completed [facility] 00:00:00 [facility] Varicella 2009-04-08 Completed [facility] (varivax[facility]icken 00:00:00 [facility] HEPATITIS A 2009-04-08 Completed [facility] 00:00:00 [facility] HPV 2009-04-08 Completed [facility] 00:00:00 [facility] Varicella 2009-04-08 Completed [facility] (varivax)(chicken 00:00:00 [facility] HEPATITIS A 2009-04-08 Completed [facility] 00:00:00 [facility] HPV 2009-04-08 Completed [facility] 00:00:00 [facility] Varicella 2009-04-08 Completed [facility] (varivax)(chicken 00:00:00 [facility] HEPATITIS A 2009-04-08 Completed [facility] 00:00:00 [facility] HPV 2009-04-08 Completed [facility] 00:00:00 [facility] Varicella 2009-04-08 Completed [facility] (varivax)(chicken 00:00:00 [facility] HEPATITIS A 2009-04-08 Completed [facility] 00[facility]00:00 [facility] HPV 2009-04-08 Completed [facility] 00:00:00 [facility] Varicella 2009-04-08 Completed [facility] (varivax)(chicken 00:00:00 [facility] HEPATITIS A 2009-04-08 Completed [facility] 00:00:00 [facility] HPV 2009-04-08 Completed [facility] 00:00:00 [facility] Varicella 2009-04-08 Completed [facility] (varivax)(chicken 00:00:00 [facility] HEPATITIS A 2009-04-08 Completed [facility] 00:00:00 [facility] HPV 2009-04-08 Completed [facility] 00:00:00 [facility] Varicella 2009-04-08 Completed [facility] (varivax)(chicken 00:00:00 [facility] HEPATITIS A 2009-04-08 Completed [facility] 00:00:00 [facility] HPV 2009-04-08 Completed [facility] 00:00:00 [facility] Varicella 2009-04-08 Completed [facility] (varivax)(chicken 00:00:00 [facility] HEPATITIS A 2009-04-08 Completed [facility] 00:00:00 [facility] HPV 2009-04-08 Completed [facility] 00:00:00 [facility] Varicella 2009-04-08 Completed [facility] (varivax)(chicken 00:00:00 [facility] HEPATITIS A 2009-04-08 Completed [facility] 00:00:00 [facility] HPV 2009-04-08 Completed [facility] 00:00:00 [facility] Varicella 2009-04-08 Completed [facility] (varivax)(chicken 00:00:00 [facility] HEPATITIS A 2009-04-08 Completed [facility] 00:00:00 [facility] HPV 2009-04-08 Completed [facility] 00:00:00 [facility] Varicella 2009-04-08 Completed [facility] (varivax)(chicken 00:00:00 [facility] HEPATITIS A 2009-04-08 Completed [facility] 00:00:00 [facility] HPV 2009-04-08 Completed [facility] 00:00:00 [facility] Varicella 2009-04-08 Completed [facility] (varivax)(chicken 00:00:00 [facility] HEPATITIS A 2009-04-08 Completed [facility] 00:00:00 [facility] HPV 2009-04-08 Completed [facility] 00:00:00 [facility] Varicella 2009-04-08 Completed [facility] (varivax)(chicken 00:00:00 [facility] HEPATITIS A 2009-04-08 Completed [facility] 00:00:00 [facility] HPV 2009-04-08 Completed [facility] 00:00:00 [facility] Varicella 2009-04-08 Completed [facility] (varivax)(chicken 00:00:00 [facility] HEPATITIS A 2009-04-08 Completed [facility] 00:00:00 [facility] HPV 2009-04-08 Completed [facility] 00:00:00 [facility] Varicella 2009-04-08 Completed [facility] (varivax)(chicken 00:00:00 [facility] HEPATITIS A 2009-04-08 Completed [facility] 00:00:00 [facility] HPV 2009-04-08 Completed [facility] 00:00:00 [facility] Varicella 2009-04-08 Completed [facility] (varivax)(chicken 00:00:00 [facility] HEPATITIS A 2009-04-08 Completed [facility] 00:00:00 [facility] HPV 2009-04-08 Completed [facility] 00:00:00 [facility] Varicella 2009-04-08 Completed [facility] (varivax)(chicken 00:00:00 [facility] HEPATITIS A 2009-04-08 Completed [facility] 00:00:00 [facility] HPV 2009-04-08 Completed [facility] 00:00:00 [facility] Varicella 2009-04-08 Completed [facility] (varivax)(chicken 00:00:00 [facility] HEPATITIS A 2009-04-08 Completed [facility] 00:00:00 [facility] HPV 2009-04-08 Completed [facility] 00:00:00 [facility] Varicella 2009-04-08 Completed [facility] (varivax)(chicken 00:00:00 [facility] HEPATITIS A 2009-04-08 Completed [facility] 00:00:00 [facility] HPV 2009-04-08 Completed [facility] 00:00:00 [facility] Varicella 2009-04-08 Completed [facility] (varivax)(chicken 00:00:00 [facility] HEPATITIS A 2009-04-08 Completed [facility] 00:00:00 [facility] HPV 2009-04-08 Completed [facility] 00:00:00 [facility] Varicella 2009-04-08 Completed [facility] (varivax)(chicken 00:00:00 [facility] HEPATITIS A 2009-04-08 Completed [facility] 00:00:00 [facility] HPV 2009-04-08 Completed [facility] 00:00:00 [facility] Varicella 2009-04-08 Completed [facility] (varivax)(chicken 00:00:00 [facility] HEPATITIS A 2009-04-08 Completed [facility] 00:00:00 [facility] HPV 2009-04-08 Completed [facility] 00:00:00 [facility] Varicella 2009-04-08 Completed [facility] (varivax)(chicken 00:00:00 [facility] HEPATITIS A 2009-04-08 Completed [facility] 00:00:00 [facility] HPV 2009-04-08 Completed [facility] 00:00:00 [facility] Varicella 2009-04-08 Completed [facility] (varivax)(chicken 00:00:00 [facility] HEPATITIS A 2009-04-08 Completed [facility] 00:00:00 [facility] HPV 2009-04-08 Completed [facility] 00:00:00 [facility] Varicella 2009-04-08 Completed [facility] (varivax)(chicken 00:00:00 [facility] HEPATITIS A 2009-04-08 Completed [facility] 00:00:00 [facility] HPV 2009-04-08 Completed [facility] 00:00:00 [facility] Varicella 2009-04-08 Completed [facility] (varivax)(chicken 00:00:00 [facility] HPV 2009-02-05 Completed [facility] 00:00:00 [facility] Meningococcal 2009-02-05 Completed [facility] Polysaccharide 00:00:00 [facility] (groups A, C, Y and Branc h W-135) conjugate vaccine (MCV4P) TDAP 2009-02-05 Completed [facility] 00:00:00 [facility] HPV 2009-02-05 Completed [facility] 00:00:00 [facility] Meningococcal 2009-02-05 Completed [facility] Polysaccharide 00:00:00 [facility] (groups A, C, Y and Branc h W-135) conjugate vaccine (MCV4P) TDAP 2009-02-05 Completed [facility] 00:00:00 [facility] HPV 2009-02-05 Completed [facility] 00:00:00 [facility] Meningococcal 2009-02-05 Completed [facility] Polysaccharide 00:00:00 [facility] (groups A, C, Y and Branc h W-135) conjugate vaccine (MCV4P) TDAP 2009-02-05 Completed [facility] 00:00:00 [facility] HPV 2009-02-05 Completed [facility] 00:00:00 [facility] Meningococcal 2009-02-05 Completed [facility] Polysaccharide 00:00:00 [facility] (groups A, C, Y and Branc h W-135) conjugate vaccine (MCV4P) TDAP 2009-02-05 Completed [facility] 00:00:00 [facility] HPV 2009-02-05 Completed [facility] 00:00:00 [facility] Meningococcal 2009-02-05 Completed [facility] Polysaccharide 00:00:00 [facility] (groups A, C, Y and Branc h W-135) conjugate vaccine (MCV4P) TDAP 2009-02-05 Completed [facility] 00:00:00 [facility] HPV 2009-02-05 Completed [facility] 00:00:00 [facility] Meningococcal 2009-02-05 Completed [facility] Polysaccharide 00:00:00 [facility] (groups A, C, Y and Branc h W-135) conjugate vaccine (MCV4P) TDAP 2009-02-05 Completed [facility] 00:00:00 [facility] HPV 2009-02-05 Completed [facility] 00:00:00 [facility] Meningococcal 2009-02-05 Completed [facility] Polysaccharide 00:00:00 [facility] (groups A, C, Y and Branc h W-135) conjugate vaccine (MCV4P) TDAP 2009-02-05 Completed [facility] 00:00:00 [facility] HPV 2009-02-05 Completed [facility] 00:00:00 [facility] Meningococcal 2009-02-05 Completed [facility] Polysaccharide 00:00:00 [facility] (groups A, C, Y and Branc h W-135) conjugate vaccine (MCV4P) TDAP 2009-02-05 Completed [facility] 00:00:00 [facility] HPV 2009-02-05 Completed [facility] 00:00:00 [facility] Meningococcal 2009-02-05 Completed [facility] Polysaccharide 00:00:00 [facility] (groups A, C, Y and Branc h W-135) conjugate vaccine (MCV4P) TDAP 2009-02-05 Completed [facility] 00:00:00 [facility] HPV 2009-02-05 Completed [facility] 00:00:00 [facility] Meningococcal 2009-02-05 Completed [facility] Polysaccharide 00:00:00 [facility] (groups A, C, Y and Branc h W-135) conjugate vaccine (MCV4P) TDAP 2009-02-05 Completed [facility] 00:00:00 [facility] HPV 2009-02-05 Completed [facility] 00:00:00 [facility] Meningococcal 2009-02-05 Completed [facility] Polysaccharide 00:00:00 [facility] (groups A, C, Y and Branc h W-135) conjugate vaccine (MCV4P) TDAP 2009-02-05 Completed [facility] 00:00:00 [facility] HPV 2009-02-05 Completed [facility] 00:00:00 [facility] Meningococcal 2009-02-05 Completed [facility] Polysaccharide 00:00:00 [facility] (groups A, C, Y and Branc h W-135) conjugate vaccine (MCV4P) TDAP 2009-02-05 Completed [facility] 00:00:00 [facility] HPV 2009-02-05 Completed [facility] 00:00:00 [facility] Meningococcal 2009-02-05 Completed [facility] Polysaccharide 00:00:00 [facility] (groups A, C, Y and Branc h W-135) conjugate vaccine (MCV4P) TDAP 2009-02-05 Completed [facility] 00:00:00 [facility] HPV 2009-02-05 Completed [facility] 00:00:00 [facility] Meningococcal 2009-02-05 Completed [facility] Polysaccharide 00:00:00 [facility] (groups A, C, Y and Branc h W-135) conjugate vaccine (MCV4P) TDAP 2009-02-05 Completed [facility] 00:00:00 [facility] HPV 2009-02-05 Completed [facility] 00:00:00 [facility] Meningococcal 2009-02-05 Completed [facility] Polysaccharide 00:00:00 [facility] (groups A, C, Y and Branc h W-135) conjugate vaccine (MCV4P) TDAP 2009-02-05 Completed [facility] 00:00:00 [facility] HPV 2009-02-05 Completed [facility] 00:00:00 [facility] Meningococcal 2009-02-05 Completed [facility] Polysaccharide 00:00:00 [facility] (groups A, C, Y and Branc h W-135) conjugate vaccine (MCV4P) TDAP 2009-02-05 Completed [facility] 00:00:00 [facility] HPV 2009-02-05 Completed [facility] 00:00:00 [facility] Meningococcal 2009-02-05 Completed [facility] Polysaccharide 00:00:00 [facility] (groups A, C, Y and Branc h W-135) conjugate vaccine (MCV4P) TDAP 2009-02-05 Completed [facility] 00:00:00 [facility] HPV 2009-02-05 Completed [facility] 00:00:00 [facility] Meningococcal 2009-02-05 Completed [facility] Polysaccharide 00:00:00 [facility] (groups A, C, Y and Branc h W-135) conjugate vaccine (MCV4P) TDAP 2009-02-05 Completed [facility] 00:00:00 [facility] HPV 2009-02-05 Completed [facility] 00:00:00 [facility] Meningococcal 2009-02-05 Completed [facility] Polysaccharide 00:00:00 [facility] (groups A, C, Y and Branc h W-135) conjugate vaccine (MCV4P) TDAP 2009-02-05 Completed [facility] 00:00:00 [facility] HPV 2009-02-05 Completed [facility] 00:00:00 [facility] Meningococcal 2009-02-05 Completed [facility] Polysaccharide 00:00:00 [facility] (groups A, C, Y and Branc h W-135) conjugate vaccine (MCV4P) TDAP 2009-02-05 Completed [facility] 00:00:00 [facility] HPV 2009-02-05 Completed [facility] 00:00:00 [facility] Meningococcal 2009-02-05 Completed [facility] Polysaccharide 00:00:00 [facility] (groups A, C, Y and Branc h W-135) conjugate vaccine (MCV4P) TDAP 2009-02-05 Completed [facility] 00:00:00 [facility] HPV 2009-02-05 Completed [facility] 00:00:00 [facility] Meningococcal 2009-02-05 Completed [facility] Polysaccharide 00:00:00 [facility] (groups A, C, Y and Branc h W-135) conjugate vaccine (MCV4P) TDAP 2009-02-05 Completed [facility] 00:00:00 [facility] HPV 2009-02-05 Completed [facility] 00:00:00 [facility] Meningococcal 2009-02-05 Completed [facility] Polysaccharide 00:00:00 [facility] (groups A, C, Y and Branc h W-135) conjugate vaccine (MCV4P) TDAP 2009-02-05 Completed [facility] 00:00:00 [facility] HPV 2009-02-05 Completed [facility] 00:00:00 [facility] Meningococcal 2009-02-05 Completed [facility] Polysaccharide 00:00:00 [facility] (groups A, C, Y and Branc h W-135) conjugate vaccine (MCV4P) TDAP 2009-02-05 Completed [facility] 00:00:00 [facility] HPV 2009-02-05 Completed [facility] 00:00:00 [facility] Meningococcal 2009-02-05 Completed [facility] Polysaccharide 00:00:00 [facility] (groups A, C, Y and Branc h W-135) conjugate vaccine (MCV4P) TDAP 2009-02-05 Completed [facility] 00:00:00 [facility] HPV 2009-02-05 Completed [facility] 00:00:00 [facility] Meningococcal 2009-02-05 Completed [facility] Polysaccharide 00:00:00 [facility] (groups A, C, Y and Branc h W-135) conjugate vaccine (MCV4P) TDAP 2009-02-05 Completed [facility] 00:00:00 [facility] HPV 2009-02-05 Completed [facility] 00:00:00 [facility] Meningococcal 2009-02-05 Completed [facility] Polysaccharide 00:00:00 [facility] (groups A, C, Y and Branc h W-135) conjugate vaccine (MCV4P) TDAP 2009-02-05 Completed [facility] 00:00:00 [facility] MMR 2001-03-08 Completed [facility] 00:00:00 [facility] Polio (IPV/OPV) 2001-03-08 Completed [facility] 00:00:00 [facility] DTP 2001-03-08 Completed [facility] 00:00:00 [facility] MMR 2001-03-08 Completed [facility] 00:00:00 [facility] Polio (IPV/OPV) 2001-03-08 Completed [facility] 00:00:00 [facility] DTP 2001-03-08 Completed [facility] 00:00:00 [facility] MMR 2001-03-08 Completed [facility] 00:00:00 [facility] Polio (IPV/OPV) 2001-03-08 Completed [facility] 00:00:00 [facility] DTP 2001-03-08 Completed [facility] 00:00:00 [facility] MMR 2001-03-08 Completed [facility] 00:00:00 [facility] Polio (IPV/OPV) 2001-03-08 Completed [facility] 00:00:00 [facility] DTP 2001-03-08 Completed [facility] 00:00:00 [facility] MMR 2001-03-08 Completed [facility] 00:00:00 [facility] Polio (IPV/OPV) 2001-03-08 Completed [facility] 00:00:00 [facility] DTP 2001-03-08 Completed [facility] 00:00:00 [facility] MMR 2001-03-08 Completed [facility] 00:00:00 [facility] Polio (IPV/OPV) 2001-03-08 Completed [facility] 00:00:00 [facility] DTP 2001-03-08 Completed [facility] 00:00:00 [facility] MMR 2001-03-08 Completed [facility] 00:00:00 [facility] Polio (IPV/OPV) 2001-03-08 Completed [facility] 00:00:00 [facility] DTP 2001-03-08 Completed [facility] 00:00:00 [facility] MMR 2001-03-08 Completed [facility] 00:00:00 [facility] Polio (IPV/OPV) 2001-03-08 Completed [facility] 00:00:00 [facility] DTP 2001-03-08 Completed [facility] 00:00:00 [facility] MMR 2001-03-08 Completed [facility] 00:00:00 [facility] Polio (IPV/OPV) 2001-03-08 Completed [facility] 00:00:00 [facility] DTP 2001-03-08 Completed [facility] 00:00:00 [facility] MMR 2001-03-08 Completed [facility] 00:00:00 [facility] Polio (IPV/OPV) 2001-03-08 Completed [facility] 00:00:00 [facility] DTP 2001-03-08 Completed [facility] 00:00:00 [facility] MMR 2001-03-08 Completed [facility] 00:00:00 [facility] Polio (IPV/OPV) 2001-03-08 Completed [facility] 00:00:00 [facility] DTP 2001-03-08 Completed [facility] 00:00:00 [facility] MMR 2001-03-08 Completed [facility] 00:00:00 [facility] Polio (IPV/OPV) 2001-03-08 Completed [facility]00 [facility] DTP 2001-03-08 Completed [facility] 00:00:00 [facility] MMR 2001-03-08 Completed [facility] 00:00:00 [facility] Polio (IPV/OPV) 2001-03-08 Completed [facility] 00:00:00 [facility] DTP 2001-03-08 Completed [facility] 00:00:00 [facility] MMR 2001-03-08 Completed [facility] 00:00:00 [facility] Polio (IPV/OPV) 2001-03-08 Completed [facility] 00:00:00 [facility] DTP 2001-03-08 Completed [facility] 00:00:00 [facility] MMR 2001-03-08 Completed [facility] 00:00:00 [facility] Polio (IPV/OPV) 2001-03-08 Completed [facility] 00:00:00 [facility] DTP 2001-03-08 Completed [facility] 00:00:00 [facility] MMR 2001-03-08 Completed [facility] 00:00:00 [facility] Polio (IPV/OPV) 2001-03-08 Completed [facility] 00:00:00 [facility] DTP 2001-03-08 Completed [facility] 00:00:00 [facility] MMR 2001-03-08 Completed [facility] 00:00:00 [facility] Polio (IPV/OPV) 2001-03-08 Completed [facility] 00:00:00 [facility] DTP 2001-03-08 Completed [facility] 00:00:00 [facility] MMR 2001-03-08 Completed [facility] 00:00:00 [facility] Polio (IPV/OPV) 2001-03-08 Completed [facility] 00:00:00 [facility] DTP 2001-03-08 Completed [facility] 00:00:00 [facility] MMR 2001-03-08 Completed [facility] 00:00:00 [facility] Polio (IPV/OPV) 2001-03-08 Completed [facility] 00:00:00 [facility] DTP 2001-03-08 Completed [facility] 00:00:00 [facility] MMR 2001-03-08 Completed [facility] 00:00:00 [facility] Polio (IPV/OPV) 2001-03-08 Completed [facility] 00:00:00 [facility] DTP 2001-03-08 Completed [facility] 00:00:00 [facility] MMR 2001-03-08 Completed [facility] 00:00:00 [facility] Polio (IPV/OPV) 2001-03-08 Completed [facility] 00:00:00 [facility] DTP 2001-03-08 Completed [facility] 00:00:00 [facility] MMR 2001-03-08 Completed [facility] 00:00:00 [facility] Polio (IPV/OPV) 2001-03-08 Completed [facility] 00:00:00 [facility] DTP 2001-03-08 Completed [facility] 00:00:00 [facility] MMR 2001-03-08 Completed [facility] 00:00:00 [facility] Polio (IPV/OPV) 2001-03-08 Completed [facility] 00:00:00 [facility] DTP 2001-03-08 Completed [facility] 00:00:00 [facility] MMR 2001-03-08 Completed [facility] 00:00:00 [facility] Polio (IPV/OPV) 2001-03-08 Completed [facility] 00:00:00 [facility] DTP 2001-03-08 Completed [facility] 00:00:00 [facility] MMR 2001-03-08 Completed [facility] 00:00:00 [facility] Polio (IPV/OPV) 2001-03-08 Completed [facility] 00:00:00 [facility] DTP 2001-03-08 Completed [facility] 00:00:00 [facility] MMR 2001-03-08 Completed [facility] 00:00:00 [facility] Polio (IPV/OPV) 2001-03-08 Completed [facility] 00:00:00 [facility] DTP 2001-03-08 Completed [facility] 00:00:00 [facility] MMR 2001-03-08 Completed [facility] 00:00:00 [facility] Polio (IPV/OPV) 2001-03-08 Completed [facility] 00:00:00 [facility] DTP 2001-03-08 Completed [facility] 00:00:00 [facility] MMR 1998-01-28 Completed [facility] 00:00:00 [facility] Varicella 1998-01-28 Completed [facility] (varivax[facility] 00[facility]00[facility]00 [facility] 1998-01-28 Completed [facility] 00:00:00 [facility] Varicella 1998-01-28 Completed [facility] (varivax)(chicken 00:00:00 [facility] 1998-01-28 Completed [facility] 00:00:00 [facility] Varicella 1998-01-28 Completed [facility] (varivax)(chicken 00:00:00 [facility] 1998-01-28 Completed [facility] 00:00:00 [facility] Varicella 1998-01-28 Completed [facility] (varivax)(chicken 00:00:00 [facility] 1998-01-28 Completed [facility] 00:00:00 [facility] Varicella 1998-01-28 Completed [facility] (varivax)(chicken 00:00:00 [facility] 1998-01-28 Completed [facility] 00:00:00 [facility] Varicella 1998-01-28 Completed [facility] (varivax)(chicken 00:00:00 [facility] 1998-01-28 Completed [facility] 00:00:00 [facility] Varicella 1998-01-28 Completed [facility] (varivax)(chicken 00:00:00 [facility] 1998-01-28 Completed [facility] 00:00:00 [facility] Varicella 1998-01-28 Completed [facility] (varivax)(chicken 00:00:00 [facility] 1998-01-28 Completed [facility] 00:00:00 [facility] Varicella 1998-01-28 Completed [facility] (varivax)(chicken 00:00:00 [facility] 1998-01-28 Completed [facility] 00:00:00 [facility] Varicella 1998-01-28 Completed [facility] (varivax)(chicken 00:00:00 [facility] 1998-01-28 Completed [facility] 00:00:00 [facility] Varicella 1998-01-28 Completed [facility] (varivax)(chicken 00:00:00 [facility] 1998-01-28 Completed [facility] 00:00:00 [facility] Varicella 1998-01-28 Completed [facility] (varivax)(chicken 00:00:00 [facility] 1998-01-28 Completed [facility] 00:00:00 [facility] Varicella 1998-01-28 Completed [facility] (varivax)(chicken 00:00:00 [facility] 1998-01-28 Completed [facility] 00:00:00 [facility] Varicella 1998-01-28 Completed [facility] (varivax)(chicken 00:00:00 [facility] 1998-01-28 Completed [facility] 00:00:00 [facility] Varicella 1998-01-28 Completed [facility] (varivax)(chicken 00:00:00 [facility] 1998-01-28 Completed [facility] 00:00:00 [facility] Varicella 1998-01-28 Completed [facility] (varivax)(chicken 00:00:00 [facility] 1998-01-28 Completed [facility] 00:00:00 [facility] Varicella 1998-01-28 Completed [facility] (varivax)(chicken 00:00:00 [facility] 1998-01-28 Completed [facility] 00:00:00 [facility] Varicella 1998-01-28 Completed [facility] (varivax)(chicken 00:00:00 [facility] 1998-01-28 Completed [facility] 00:00:00 [facility] Varicella 1998-01-28 Completed [facility] (varivax)(chicken 00:00:00 [facility] 1998-01-28 Completed [facility] 00:00:00 [facility] Varicella 1998-01-28 Completed [facility] (varivax)(chicken 00:00:00 [facility] 1998-01-28 Completed [facility] 00:00:00 [facility] Varicella 1998-01-28 Completed [facility] (varivax)(chicken 00:00:00 [facility] 1998-01-28 Completed [facility] 00:00:00 [facility] Varicella 1998-01-28 Completed [facility] (varivax)(chicken 00:00:00 [facility] 1998-01-28 Completed [facility] 00[facility]00:00 [facility] Varicella 1998-01-28 Completed [facility] (varivax)(chicken 00:00:00 [facility] MMR 1998-01-28 Completed [facility] 00:00:00 [facility] Varicella 1998-01-28 Completed [facility] (varivax)(chicken 00:00:00 [facility] MMR 1998-01-28 Completed [facility] 00:00:00 [facility] Varicella 1998-01-28 Completed [facility] (varivax)(chicken 00:00:00 [facility] MMR 1998-01-28 Completed [facility] 00:00:00 [facility] Varicella 1998-01-28 Completed [facility] (varivax)(chicken 00:00:00 [facility] MMR 1998-01-28 Completed [facility] 00:00:00 [facility] Varicella 1998-01-28 Completed [facility] (varivax)(chicken 00:00:00 [facility] Polio (IPV/OPV) 1997 Completed [facility] 00:00:00 [facility] Polio (IPV/OPV) 1997 Completed [facility] 00:00:00 [facility] Polio (IPV/OPV) 1997 Completed [facility] 00:00:00 [facility] Polio (IPV/OPV) 1997 Completed [facility] 00:00:00 [facility] Polio (IPV/OPV) 1997 Completed [facility] 00:00:00 [facility] Polio (IPV/OPV) 1997 Completed [facility] 00:00:00 [facility] Polio (IPV/OPV) 1997 Completed [facility] 00:00:00 [facility] Polio (IPV/OPV) 1997 Completed [facility] 00:00:00 [facility] Polio (IPV/OPV) 1997 Completed [facility] 00:00:00 [facility] Polio (IPV/OPV) 1997 Completed [facility] 00:00:00 [facility] Polio (IPV/OPV) 1997 Completed [facility] 00:00:00 [facility] Polio (IPV/OPV) 1997 Completed [facility] 00:00:00 [facility] Polio (IPV/OPV) 1997 Completed [facility] 00:00:00 [facility] Polio (IPV/OPV) 1997 Completed [facility] 00:00:00 [facility] Polio (IPV/OPV) 1997 Completed [facility] 00:00:00 [facility] Polio (IPV/OPV) 1997 Completed [facility] 00:00:00 [facility] Polio (IPV/OPV) 1997 Completed [facility] 00:00:00 [facility] Polio (IPV/OPV) 1997 Completed [facility] 00:00:00 [facility] Polio (IPV/OPV) 1997 Completed [facility] 00:00:00 [facility] Polio (IPV/OPV) 1997 Completed [facility] 00:00:00 [facility] Polio (IPV/OPV) 1997 Completed [facility] 00:00:00 [facility] Polio (IPV/OPV) 1997 Completed [facility] 00:00:00 [facility] Polio (IPV/OPV) 1997 Completed [facility] 00:00:00 [facility] Polio (IPV/OPV) 1997 Completed [facility] 00:00:00 [facility] Polio (IPV/OPV) 1997 Completed [facility] 00:00:00 [facility] Polio (IPV/OPV) 1997 Completed [facility] 00:00:00 [facility] Polio (IPV/OPV) 1997 Completed [facility] 00:00:00 [facility] DTP 1997 Completed [facility] 00:00:00 [facility] HIB 4 Dose Schedule 1997 Completed [facility] 00:00:00 [facility] Hep B, Adol or Pedi 1997 Completed [facility] Dosage 00:00:00 [facility] DTP 1997 Completed [facility] 00:00:00 [facility] HIB 4 Dose Schedule 1997 Completed [facility] 00:00:00 [facility] Hep B, Adol or Pedi 1997 Completed [facility] Dosage 00:00:00 [facility] DTP 1997 Completed [facility] 00:00:00 [facility] HIB 4 Dose Schedule 1997 Completed [facility] 00:00:00 [facility] Hep B, Adol or Pedi 1997 Completed [facility] Dosage 00:00:00 [facility] DTP 1997 Completed [facility] 00:00:00 [facility] HIB 4 Dose Schedule 1997 Completed [facility] 00:00:00 [facility] Hep B, Adol or Pedi 1997 Completed [facility] Dosage 00:00:00 [facility] DTP 1997 Completed [facility] 00:00:00 [facility] HIB 4 Dose Schedule 1997 Completed [facility] 00:00:00 [facility] Hep B, Adol or Pedi 1997 Completed [facility] Dosage 00:00:00 [facility] DTP 1997 Completed [facility] 00:00:00 [facility] HIB 4 Dose Schedule 1997 Completed [facility] 00:00:00 [facility] Hep B, Adol or Pedi 1997 Completed [facility] Dosage 00:00:00 [facility] DTP 1997 Completed [facility] 00:00:00 [facility] HIB 4 Dose Schedule 1997 Completed [facility] 00:00:00 [facility] Hep B, Adol or Pedi 1997 Completed [facility] Dosage 00:00:00 [facility] DTP 1997 Completed [facility] 00:00:00 [facility] HIB 4 Dose Schedule 1997 Completed [facility] 00:00:00 [facility] Hep B, Adol or Pedi 1997 Completed [facility] Dosage 00:00:00 [facility] DTP 1997 Completed [facility] 00:00:00 [facility] HIB 4 Dose Schedule 1997 Completed [facility] 00:00:00 [facility] Hep B, Adol or Pedi 1997 Completed [facility] Dosage 00:00:00 [facility] DTP 1997 Completed [facility] 00:00:00 [facility] HIB 4 Dose Schedule 1997 Completed [facility] 00:00:00 [facility] Hep B, Adol or Pedi 1997 Completed [facility] Dosage 00:00:00 [facility] DTP 1997 Completed [facility] 00:00:00 [facility] HIB 4 Dose Schedule 1997 Completed [facility] 00:00:00 [facility] Hep B, Adol or Pedi 1997 Completed [facility] Dosage 00:00:00 [facility] DTP 1997 Completed [facility] 00:00:00 [facility] HIB 4 Dose Schedule 1997 Completed [facility] 00:00:00 [facility] Hep B, Adol or Pedi 1997 Completed [facility] Dosage 00:00:00 [facility] DTP 1997 Completed [facility] 00:00:00 [facility] HIB 4 Dose Schedule 1997 Completed [facility] 00:00:00 [facility] Hep B, Adol or Pedi 1997 Completed [facility] Dosage 00:00:00 [facility] DTP 1997 Completed [facility] 00:00:00 [facility] HIB 4 Dose Schedule 1997 Completed [facility] 00:00:00 [facility] Hep B, Adol or Pedi 1997 Completed [facility] Dosage 00:00:00 [facility] DTP 1997 Completed [facility] 00:00:00 [facility] HIB 4 Dose Schedule 1997 Completed [facility] 00:00:00 [facility] Hep B, Adol or Pedi 1997 Completed [facility] Dosage 00:00:00 [facility] DTP 1997 Completed [facility] 00:00:00 [facility] HIB 4 Dose Schedule 1997 Completed [facility] 00:00:00 [facility] Hep B, Adol or Pedi 1997 Completed [facility] Dosage 00:00:00 [facility] DTP 1997 Completed [facility] 00:00:00 [facility] HIB 4 Dose Schedule 1997 Completed [facility] 00:00:00 [facility] Hep B, Adol or Pedi 1997 Completed [facility] Dosage 00:00:00 [facility] DTP 1997 Completed [facility] 00:00:00 [facility] HIB 4 Dose Schedule 1997 Completed [facility] 00:00:00 [facility] Hep B, Adol or Pedi 1997 Completed [facility] Dosage 00:00:00 [facility] DTP 1997 Completed [facility] 00:00:00 [facility] HIB 4 Dose Schedule 1997 Completed [facility] 00:00:00 [facility] Hep B, Adol or Pedi 1997 Completed [facility] Dosage 00:00:00 [facility] DTP 1997 Completed [facility] 00:00:00 [facility] HIB 4 Dose Schedule 1997 Completed [facility] 00:00:00 [facility] Hep B, Adol or Pedi 1997 Completed [facility] Dosage 00:00:00 [facility] DTP 1997 Completed [facility] 00:00:00 [facility] HIB 4 Dose Schedule 1997 Completed [facility] 00:00:00 [facility] Hep B, Adol or Pedi 1997 Completed [facility] Dosage 00:00:00 [facility] DTP 1997 Completed [facility] 00:00:00 [facility] HIB 4 Dose Schedule 1997 Completed [facility] 00:00:00 [facility] Hep B, Adol or Pedi 1997 Completed [facility] Dosage 00:00:00 [facility] DTP 1997 Completed [facility] 00:00:00 [facility] HIB 4 Dose Schedule 1997 Completed [facility] 00:00:00 [facility] Hep B, Adol or Pedi 1997 Completed [facility] Dosage 00:00:00 [facility] DTP 1997 Completed [facility] 00:00:00 [facility] HIB 4 Dose Schedule 1997 Completed [facility] 00:00:00 [facility] Hep B, Adol or Pedi 1997 Completed [facility] Dosage 00:00:00 [facility] DTP 1997 Completed [facility] 00:00:00 [facility] HIB 4 Dose Schedule 1997 Completed [facility] 00:00:00 [facility] Hep B, Adol or Pedi 1997 Completed [facility] Dosage 00:00:00 [facility] DTP 1997 Completed [facility] 00:00:00 [facility] HIB 4 Dose Schedule 1997 Completed [facility] 00:00:00 [facility] Hep B, Adol or Pedi 1997 Completed [facility] Dosage 00:00:00 [facility] DTP 1997 Completed [facility] 00:00:00 [facility] HIB 4 Dose Schedule 1997 Completed [facility] 00:00:00 [facility] Hep B, Adol or Pedi 1997 Completed [facility] Dosage 00:00:00 [facility] DTP 1997 Completed [facility] 00:00:00 [facility] HIB 4 Dose Schedule 1997 Completed [facility] 00:00:00 [facility] Polio (IPV/OPV) 1997 Completed [facility] 00:00:00 [facility] DTP 1997 Completed [facility] 00:00:00 [facility] HIB 4 Dose Schedule 1997 Completed [facility] 00:00:00 [facility] Polio (IPV/OPV) 1997 Completed [facility] 00:00:00 [facility] DTP 1997 Completed [facility] 00:00:00 [facility] HIB 4 Dose Schedule 1997 Completed [facility] 00:00:00 [facility] Polio (IPV/OPV) 1997 Completed [facility] 00:00:00 [facility] DTP 1997 Completed [facility] 00:00:00 [facility] HIB 4 Dose Schedule 1997 Completed [facility] 00:00:00 [facility] Polio (IPV/OPV) 1997 Completed [facility] 00:00:00 [facility] DTP 1997 Completed [facility] 00:00:00 [facility] HIB 4 Dose Schedule 1997 Completed [facility] 00:00:00 [facility] Polio (IPV/OPV) 1997 Completed [facility] 00:00:00 [facility] DTP 1997 Completed [facility] 00:00:00 [facility] HIB 4 Dose Schedule 1997 Completed [facility] 00:00:00 [facility] Polio (IPV/OPV) 1997 Completed [facility] 00:00:00 [facility] DTP 1997 Completed [facility] 00:00:00 [facility] HIB 4 Dose Schedule 1997 Completed [facility] 00:00:00 [facility] Polio (IPV/OPV) 1997 Completed [facility] 00:00:00 [facility] DTP 1997 Completed [facility] 00:00:00 [facility] HIB 4 Dose Schedule 1997 Completed [facility] 00:00:00 [facility] Polio (IPV/OPV) 1997 Completed [facility] 00:00:00 [facility] DTP 1997 Completed [facility] 00:00:00 [facility] HIB 4 Dose Schedule 1997 Completed [facility] 00:00:00 [facility] Polio (IPV/OPV) 1997 Completed [facility] 00:00:00 [facility] DTP 1997 Completed [facility] 00:00:00 [facility] HIB 4 Dose Schedule 1997 Completed [facility] 00:00:00 [facility] Polio (IPV/OPV) 1997 Completed [facility] 00:00:00 [facility] DTP 1997 Completed [facility] 00:00:00 [facility] HIB 4 Dose Schedule 1997 Completed [facility] 00:00:00 [facility] Polio (IPV/OPV) 1997 Completed [facility] 00:00:00 [facility] DTP 1997 Completed [facility] 00:00:00 [facility] HIB 4 Dose Schedule 1997 Completed [facility] 00:00:00 [facility] Polio (IPV/OPV) 1997 Completed [facility] 00:00:00 [facility] DTP 1997 Completed [facility] 00:00:00 [facility] HIB 4 Dose Schedule 1997 Completed [facility] 00:00:00 [facility] Polio (IPV/OPV) 1997 Completed [facility] 00:00:00 [facility] DTP 1997 Completed [facility] 00:00:00 [facility] HIB 4 Dose Schedule 1997 Completed [facility] 00:00:00 [facility] Polio (IPV/OPV) 1997 Completed [facility] 00:00:00 [facility] DTP 1997 Completed [facility] 00:00:00 [facility] HIB 4 Dose Schedule 1997 Completed [facility] 00:00:00 [facility] Polio (IPV/OPV) 1997 Completed [facility] 00:00:00 [facility] DTP 1997 Completed [facility] 00:00:00 [facility] HIB 4 Dose Schedule 1997 Completed [facility] 00:00:00 [facility] Polio (IPV/OPV) 1997 Completed [facility] 00:00:00 [facility] DTP 1997 Completed [facility] 00:00:00 [facility] HIB 4 Dose Schedule 1997 Completed [facility] 00:00:00 [facility] Polio (IPV/OPV) 1997 Completed [facility] 00:00:00 [facility] DTP 1997 Completed [facility] 00:00:00 [facility] HIB 4 Dose Schedule 1997 Completed [facility] 00:00:00 [facility] Polio (IPV/OPV) 1997 Completed [facility] 00:00:00 [facility] DTP 1997 Completed [facility] 00:00:00 [facility] HIB 4 Dose Schedule 1997 Completed [facility] 00:00:00 [facility] Polio (IPV/OPV) 1997 Completed [facility] 00:00:00 [facility] DTP 1997 Completed [facility] 00:00:00 [facility] HIB 4 Dose Schedule 1997 Completed [facility] 00:00:00 [facility] Polio (IPV/OPV) 1997 Completed [facility] 00:00:00 [facility] DTP 1997 Completed [facility] 00:00:00 [facility] HIB 4 Dose Schedule 1997 Completed [facility] 00:00:00 [facility] Polio (IPV/OPV) 1997 Completed [facility] 00:00:00 [facility] DTP 1997 Completed [facility] 00:00:00 [facility] HIB 4 Dose Schedule 1997 Completed [facility] 00:00:00 [facility] Polio (IPV/OPV) 1997 Completed [facility] of 00:00:00 [facility] DTP 1997 Completed University of 00:00:00 [facility] HIB 4 Dose Schedule 1997 Completed Unive rsity of 00:00:00 [facility] Polio (IPV/OPV) 1997 Completed Universit y of 00:00:00 [facility] DTP 1997 Completed University of 00:00:00 [facility] HIB 4 Dose Schedule 1997 Completed Unive rsity of 00:00:00 [facility] Polio (IPV/OPV) 1997 Completed Universit y of 00:00:00 [facility] DTP 1997 Completed University of 00:00:00 [facility] HIB 4 Dose Schedule 1997 Completed Unive rsity of 00:00:00 [facility] Polio (IPV/OPV) 1997 Completed Universit y of 00:00:00 [facility] DTP 1997 Completed University of 00:00:00 [facility] HIB 4 Dose Schedule 1997 Completed Unive rsity of 00:00:00 [facility] Polio (IPV/OPV) 1997 Completed Universit y of 00:00:00 [facility] DTP 1997 Completed University of 00:00:00 [facility] HIB 4 Dose Schedule 1997 Completed Unive rsity of 00:00:00 [facility] Polio (IPV/OPV) 1997 Completed Universit y of 00:00:00 [facility] Polio (IPV/OPV) 1997 Completed Universit y of 00:00:00 [facility] Polio (IPV/OPV) 1997 Completed Universit y of 00:00:00 [facility] Polio (IPV/OPV) 1997 Completed Universit y of 00:00:00 [facility] Polio (IPV/OPV) 1997 Completed Universit y of 00:00:00 [facility] Polio (IPV/OPV) 1997 Completed Universit y of 00:00:00 [facility] Polio (IPV/OPV) 1997 Completed Universit y of 00:00:00 [facility] Polio (IPV/OPV) 1997 Completed Universit y of 00:00:00 [facility] Polio (IPV/OPV) 1997 Completed Universit y of 00:00:00 [facility] Polio (IPV/OPV) 1997 Completed Universit y of 00:00:00 [facility] Polio (IPV/OPV) 1997 Completed Universit y of 00:00:00 [facility] Polio (IPV/OPV) 1997 Completed Universit y of 00:00:00 [facility] Polio (IPV/OPV) 1997 Completed Universit y of 00:00:00 [facility] Polio (IPV/OPV) 1997 Completed Universit y of 00:00:00 [facility] Polio (IPV/OPV) 1997 Completed Universit y of 00:00:00 [facility] Polio (IPV/OPV) 1997 Completed Universit y of 00:00:00 [facility] Polio (IPV/OPV) 1997 Completed Universit y of 00:00:00 [facility] Polio (IPV/OPV) 1997 Completed Universit y of 00:00:00 [facility] Polio (IPV/OPV) 1997 Completed Universit y of 00:00:00 [facility] Polio (IPV/OPV) 1997 Completed Universit y of 00:00:00 [facility] Polio (IPV/OPV) 1997 Completed Universit y of 00:00:00 [facility] Polio (IPV/OPV) 1997 Completed Universit y of 00:00:00 [facility] Polio (IPV/OPV) 1997 Completed Universit y of 00:00:00 [facility] Polio (IPV/OPV) 1997 Completed Universit y of 00:00:00 [facility] Polio (IPV/OPV) 1997 Completed Universit y of 00:00:00 [facility] Polio (IPV/OPV) 1997 Completed Universit y of 00:00:00 [facility] Polio (IPV/OPV) 1997 Completed Universit y of 00:00:00 [facility] Polio (IPV/OPV) 1997 Completed Universit y of 00:00:00 [facility] DTP 1997 Completed University of 00:00:00 [facility] HIB 4 Dose Schedule 1997 Completed Unive rsity of 00:00:00 [facility] Hep B, Adol or Pedi 1997 Completed Unive rsity of Dosage 00:00:00 [facility] DTP 1997 Completed University of 00:00:00 [facility] HIB 4 Dose Schedule 1997 Completed Unive rsity of 00:00:00 [facility] Hep B, Adol or Pedi 1997 Completed Unive rsity of Dosage 00:00:00 [facility] DTP 1997 Completed University of 00:00:00 [facility] HIB 4 Dose Schedule 1997 Completed Unive rsity of 00:00:00 [facility] Hep B, Adol or Pedi 1997 Completed Unive rsity of Dosage 00:00:00 [facility] DTP 1997 Completed University of 00:00:00 [facility] HIB 4 Dose Schedule 1997 Completed Unive rsity of 00:00:00 [facility] Hep B, Adol or Pedi 1997 Completed Unive rsity of Dosage 00:00:00 [facility] DTP 1997 Completed University of 00:00:00 [facility] HIB 4 Dose Schedule 1997 Completed Unive rsity of 00:00:00 [facility] Hep B, Adol or Pedi 1997 Completed Unive rsity of Dosage 00:00:00 [facility] DTP 1997 Completed University of 00:00:00 [facility] HIB 4 Dose Schedule 1997 Completed Unive rsity of 00:00:00 [facility] Hep B, Adol or Pedi 1997 Completed Unive rsity of Dosage 00:00:00 [facility] DTP 1997 Completed University of 00:00:00 [facility] HIB 4 Dose Schedule 1997 Completed Unive rsity of 00:00:00 [facility] Hep B, Adol or Pedi 1997 Completed Unive rsity of Dosage 00:00:00 [facility] DTP 1997 Completed University of 00:00:00 [facility] HIB 4 Dose Schedule 1997 Completed Unive rsity of 00:00:00 [facility] Hep B, Adol or Pedi 1997 Completed Unive rsity of Dosage 00:00:00 [facility] DTP 1997 Completed University of 00:00:00 [facility] HIB 4 Dose Schedule 1997 Completed Unive rsity of 00:00:00 [facility] Hep B, Adol or Pedi 1997 Completed Unive rsity of Dosage 00:00:00 [facility] DTP 1997 Completed University of 00:00:00 [facility] HIB 4 Dose Schedule 1997 Completed Unive rsity of 00:00:00 [facility] Hep B, Adol or Pedi 1997 Completed Unive rsity of Dosage 00:00:00 [facility] DTP 1997 Completed University of 00:00:00 [facility] HIB 4 Dose Schedule 1997 Completed Unive rsity of 00:00:00 [facility] Hep B, Adol or Pedi 1997 Completed Unive rsity of Dosage 00:00:00 [facility] DTP 1997 Completed University of 00:00:00 [facility] HIB 4 Dose Schedule 1997 Completed Unive rsity of 00:00:00 [facility] Hep B, Adol or Pedi 1997 Completed Unive rsity of Dosage 00:00:00 [facility] DTP 1997 Completed University of 00:00:00 [facility] HIB 4 Dose Schedule 1997 Completed Unive rsity of 00:00:00 [facility] Hep B, Adol or Pedi 1997 Completed Unive rsity of Dosage 00:00:00 [facility] DTP 1997 Completed University of 00:00:00 [facility] HIB 4 Dose Schedule 1997 Completed Unive rsity of 00:00:00 [facility] Hep B, Adol or Pedi 1997 Completed Unive rsity of Dosage 00:00:00 [facility] DTP 1997 Completed University of 00:00:00 [facility] HIB 4 Dose Schedule 1997 Completed Unive rsity of 00:00:00 [facility] Hep B, Adol or Pedi 1997 Completed Unive rsity of Dosage 00:00:00 [facility] DTP 1997 Completed University of 00:00:00 [facility] HIB 4 Dose Schedule 1997 Completed Unive rsity of 00:00:00 [facility] Hep B, Adol or Pedi 1997 Completed Unive rsity of Dosage 00:00:00 [facility] DTP 1997 Completed University of 00:00:00 [facility] HIB 4 Dose Schedule 1997 Completed Unive rsity of 00:00:00 [facility] Hep B, Adol or Pedi 1997 Completed Unive rsity of Dosage 00:00:00 [facility] DTP 1997 Completed University of 00:00:00 [facility] HIB 4 Dose Schedule 1997 Completed Unive rsity of 00:00:00 [facility] Hep B, Adol or Pedi 1997 Completed Unive rsity of Dosage 00:00:00 [facility] DTP 1997 Completed University of 00:00:00 [facility] HIB 4 Dose Schedule 1997 Completed Unive rsity of 00:00:00 [facility] Hep B, Adol or Pedi 1997 Completed Unive rsity of Dosage 00:00:00 [facility] DTP 1997 Completed University of 00:00:00 [facility] HIB 4 Dose Schedule 1997 Completed Unive rsity of 00:00:00 [facility] Hep B, Adol or Pedi 1997 Completed Unive rsity of Dosage 00:00:00 [facility] DTP 1997 Completed University of 00:00:00 [facility] HIB 4 Dose Schedule 1997 Completed Unive rsity of 00:00:00 [facility] Hep B, Adol or Pedi 1997 Completed Unive rsity of Dosage 00:00:00 [facility] DTP 1997 Completed University of 00:00:00 [facility] HIB 4 Dose Schedule 1997 Completed Unive rsity of 00:00:00 [facility] Hep B, Adol or Pedi 1997 Completed Unive rsity of Dosage 00:00:00 [facility] DTP 1997 Completed University of 00:00:00 [facility] HIB 4 Dose Schedule 1997 Completed Unive rsity of 00:00:00 [facility] Hep B, Adol or Pedi 1997 Completed Unive rsity of Dosage 00:00:00 [facility] DTP 1997 Completed University of 00:00:00 [facility] HIB 4 Dose Schedule 1997 Completed Unive rsity of 00:00:00 [facility] Hep B, Adol or Pedi 1997 Completed Unive rsity of Dosage 00:00:00 [facility] DTP 1997 Completed University of 00:00:00 [facility] HIB 4 Dose Schedule 1997 Completed Unive rsity of 00:00:00 [facility] Hep B, Adol or Pedi 1997 Completed Unive rsity of Dosage 00:00:00 [facility] DTP 1997 Completed University of 00:00:00 [facility] HIB 4 Dose Schedule 1997 Completed Unive rsity of 00:00:00 [facility] Hep B, Adol or Pedi 1997 Completed Unive rsity of Dosage 00:00:00 [facility] DTP 1997 Completed University of 00:00:00 [facility] HIB 4 Dose Schedule 1997 Completed Unive rsity of 00:00:00 [facility] Hep B, Adol [...] Completed Unive rsity of Dosage 00:00:00 [facility] Vital Signs Vital Name Observation Time Observation Value Comments Source Systolic blood 2022-05-21 14:36:00 121 mm[Hg] Univer sity of pressure [facility] Diastolic blood 2022-05-21 14:36:00 84 mm[Hg] Unive rsity of pressure [facility] Heart rate 2022-05-21 14:36:00 88 /min [facility] Body temperature 2022-05-21 14:36:00 37.67 Patti Univ ersity of [facility] Respiratory rate 2022-05-21 14:36:00 17 /min Univ ersity of [facility] Oxygen saturation in 2022-05-21 14:36:00 99 /min University of Arterial blood by [facility] Pulse oximetry Branch Body height 2022-05-18 15:16:00 149.9 cm Univers[facility] ty [facility] Body weight 2022-05-18 15:16:00 79.833 kg [facility] BMI 2022-05-18 15:16:00 35.55 kg/m2 [facility] Systolic blood 2022-05-19 17:16:00 136 mm[Hg] Univer sity of pressure [facility] Diastolic blood 2022-05-19 17:16:00 88 mm[Hg] Unive rsity of pressure [facility] Heart rate 2022-05-19 17:16:00 73 /min [facility] Body temperature 2022-05-19 17:16:00 37.39 Patti Univ [facility] Respiratory rate 2022-05-19 17:16:00 18 /min Univ ers[facility] Oxygen saturation in 2022-05-19 17:16:00 100 /min University of Arterial blood by [facility] Pulse oximetry Branch Body height 2022-05-18 15:16:00 149.9 cm [facility] Body weight 2022-05-18 15:16:00 79.833 kg [facility] BMI 2022-05-18 15:16:00 35.55 kg/m2 [facility] Systolic blood 2022-05-07 21:42:00 124 mm[Hg] Univer sity of pressure [facility] Diastolic blood 2022-05-07 21:42:00 71 mm[Hg] Unive rsity of pressure [facility] Heart rate 2022-05-07 21:42:00 98 /min [facility] Body temperature 2022-05-07 21:42:00 37 Patti [facility] Respiratory rate 2022-05-07 21:42:00 18 /min Univ ers[facility] Body weight 2022-05-07 21:42:00 79.833 kg [facility] BMI 2022-05-07 21:42:00 35.55 kg/m2 [facility] Systolic blood 2022-04-30 20:33:00 115 mm[Hg] Univer sity of pressure [facility] Diastolic blood 2022-04-30 20:33:00 63 mm[Hg] Unive rsity of pressure [facility] Heart rate 2022-04-30 20:33:00 102 /min [facility] Body temperature 2022-04-30 20:33:00 36.78 Patti [facility] Respiratory rate 2022-04-30 20:33:00 18 /min Univ [facility] Body height 2022-04-30 20:33:00 149.9 cm [facility] Body weight 2022-04-30 20:33:00 79.55 kg [facility] BMI 2022-04-30 20:33:00 35.42 kg/m2 [facility] Systolic blood 2022-04-16 19:35:00 115 mm[Hg] Univer sity of pressure [facility] Diastolic blood 2022-04-16 19:35:00 71 mm[Hg] Unive rsity of pressure [facility] Heart rate 2022-04-16 19:35:00 115 /min [facility] Body temperature 2022-04-16 19:35:00 36.83 Patti [facility] Respiratory rate 2022-04-16 19:35:00 18 /min Univ [facility] Body height 2022-04-16 19:35:00 149.9 cm [facility] Body weight 2022-04-16 19:35:00 80.287 kg [facility] BMI 2022-04-16 19:35:00 35.75 kg/m2 [facility] Systolic blood 2022-03-30 19:08:00 108 mm[Hg] Univer sity of pressure [facility] Diastolic blood 2022-03-30 19:08:00 73 mm[Hg] Unive rsity of pressure [facility] Heart rate 2022-03-30 19:08:00 82 /min [facility] Body temperature 2022-03-30 19:08:00 37.33 Patti [facility] 2022-03-30 19:08:00 19 /min [facility] Body weight 2022-03-30 19:08:00 81.647 kg [facility] BMI 2022-03-30 19:08:00 36.36 kg/m2 [facility] Systolic blood 2022-02-17 15:37:00 111 mm[Hg] [facility] Diastolic blood 2022-02-17 15:37:00 70 mm[facility]Hg] [facility] 2022-02-17 15:37:00 84 /min [facility] Body temperature 2022-02-17 15:37:00 36.33 Patti [facility] Respiratory rate 2022-02-17 15:37:00 18 /min [facility] Body weight 2022-02-17 15:37:00 78.654 kg [facility] BMI 2022-02-17 15:37:00 35.02 kg/m2 [facility] Procedures Procedure Date / Time Performing Clinician Source Performed SGOT (ASPARTATE AMINO 2022-05-19 16:29:00 Kareen Johnson [facility] TRANSFER) [facility] CREATININE 2022-05-19 16:29:00 Elizabeth [facility] ALANINE AMINO 2022-05-19 16:29:00 Elizabeth [facility] TRANSFERASE(SGPT Medical Branch LACTATE DEHYDROGENASE 2022-05-19 16:29:00 Elizabeth [facility] URIC ACID 2022-05-19 16:29:00 Elizabeth [facility] CBC WITH DIFF 2022-05-19 16:29:00 Elizabeth [facility] URINALYSIS 2022-05-19 16:29:00 Elizabeth [facility] PROTEIN CREAT RATIO 2022-05-19 16:29:00 Kareen Johnson [facility] URINE RANDOM [facility] SGOT (ASPARTATE AMINO 2022-05-19 16:29:00 Elizabeth [facility] TRANSFER) Medical Branch CREATININE 2022-05-19 16:29:00 Elizabeth [facility] ALANINE AMINO 2022-05-19 16:29:00 Elizabeth [facility] TRANSFERASE(SGPT [facility] LACTATE DEHYDROGENASE 2022-05-19 16:29:00 Elizabeth [facility] URIC ACID 2022-05-19 16:29:00 Elizabeth [facility] CBC WITH DIFF 2022-05-19 16:29:00 Elizabeth [facility] URINALYSIS 2022-05-19 16:29:00 Elizabeth [facility] PROTEIN CREAT RATIO 2022-05-19 16:29:00 [facility] URINE RANDOM [facility] SURGICAL PATHOLOGY EXAM 2022-05-19 14:37:00 Michael Roy [facility] SURGICAL PATHOLOGY EXAM 2022-05-19 14:37:00 Michael Roy [facility] TUBAL LIGATION 2022-05-19 13:53:00 Michael Roy [facility] CBC WITH DIFF 2022-05-19 10:02:00 Jacqueline Zhang [facility] CBC WITH DIFF 2022-05-19 10:02:00 Jacqueline Zhang [facility] VENOUS CORD GAS 2022-05-19 03:51:00 Gerard Moon [facility] VENOUS CORD GAS 2022-05-19 03:51:00 Gerard Moon [facility] CENTRAL NEURAXIAL BLOCK 2022-05-18 21:39:43 Jayashree Vanegas [facility] CBC WITH DIFF 2022-05-18 17:47:00 Rosy Louie [facility] HEPATITIS B SURFACE 2022-05-18 17:47:00 Gerard Moon [facility] HCV ANTIBODY 2022-05-18 17:47:00 Gerard Moon [facility] HIV 1/2 AG-AB WITH 2022-05-18 17:47:00 Gerard Moon [facility] REFLEX [facility] GALV ONLY - SYPHILIS 2022-05-18 17:47:00 Gerard Moon [facility] IGG/IGM [facility] CBC WITH DIFF 2022-05-18 17:47:00 Rosy Louie Euless o f [facility] HEPATITIS B SURFACE 2022-05-18 17:47:00 Gerard Moon [facility] ANTIGEN [facility] HCV ANTIBODY 2022-05-18 17:47:00 Chelly Moonshua [facility] HIV 1/2 AG-AB WITH 2022-05-18 17:47:00 Gerard Moon [facility] REFLEX [facility] GALV ONLY - SYPHILIS 2022-05-18 17:47:00 Gerard Moon [facility] IGG/IGM [facility] HB ABO GROUPING 2022-05-18 16:30:00 Chelly Moonshua [facility] RHO (D) IMMUNE GLOBULIN 2022-05-18 16:30:00 Jacqueline Zhang [facility] HB ABO GROUPING 2022-05-18 16:30:00 [facility] IMM[facility] GLOBULIN 2022-05-18 16:30:00 Jacqueline Zhang [facility] POCT URINALYSIS 2022-05-07 21:43:00 [facility] POCT URINALYSIS 2022-04-30 20:37:00 [facility] POCT URINALYSIS 2022-04-16 19:35:00 [facility] FLU VACC ([id number]), 6 2022-03-30 19:18:43 Radha Martin [facility] [place]-66 YRS, .5ML, IM, Medical Bra nch QUAD (FLUCELVAX) POCT URINALYSIS 2022-03-30 19:09:00 [facility] STERILIZATION CONSENT 2022-03-19 05:01:00 Doctor Unassigned, No [facility] FORM Name [facility] POCT URINALYSIS 2022-02-17 15:38:00 [facility] Start End Encounter Admission Attending Care Care Encounter Source Date/Time Date/Time Type Type Clinicians Facility Department ID 2021-04-18 Emergency [facility] [id number] Univers 09:56:39 ity [facility] 2022-06-05 2022-06-05 Outpatient R AKINSIPE, [facility] [id number] Univers 13:00:00 13:00:00 REDD ity o f [facility] 2022-05-18 2022-05-21 Inpatient P BILL [facility] NIDIA [id number] Univers 08:53:00 13:38:00 JEAN ity [facility] 2022-05-18 2022-05-21 Hospital CORDELL Magana 1.2.840.114 [id number] Univers 08:53:00 13:38:00 [facility]counter [facility] 4[facility]2.7.2.686 Steve as [id number] [facility] 134 Branch 2022-05-19 2022-05-19 Surgery Michael LANDA 1.2.840.114 [id number] Univers 10:45:00 12:22:00 Kosu OBED 350.1.13.10 ity [facility] 4.2.7.2.686 Steve as [id number] [facility] 013 Branch 2022-05-19 2022-05-19 Anesthesia CORDELL Tafoya 1.2.840.114 [id number] Univers 08:00:21 08:00:21 Event Esau OBED 350.1.13.10 it y [facility] 4.2.7.2.686 Steve as [id number] [facility] 140 Branch 2022-05-18 2022-05-18 Anesthesia Jayashree Vanegas 1.2.840.11 [id number] Univers 15:28:00 22:57:00 Event Masel, Bandar OBED 350.1.13.10 ity of [facility] 4.2.7.2.686 Steve as [id number] [address] 2022-05-12 2022-05-12 Outpatient R VEDA [facility] [id number] Univers 13:30:00 13:30:00 REDD ity o f [facility] 2022-05-07 2022-05-07 [facility] [id number] Univers 15:45:00 16:04:44 Redd C PANTOGRAPH SETTER 350.1.13.10 ity of Visit [facility] 4.2.7.2.686 Steve as MATERNAL [id number] [facility] & CHILD [address] [place] [address] 2022-05-07 2022-05-07 Outpatient P JAKE [facility] [id number] Univers 14:15:00 14:54:33 ARIELLE [facility] 2022-05-07 2022-05-07 Product Manager Medical Device [facility] 1.2 .840.114 [id number] Univers 14:15:00 14:45:00 Visit Arielle Joseph Maeve PANTOGRAPH SETTER 350.1. 13.10 ity of [facility] 4.2.7.2.686 Steve as MATERNAL [id number] [facility] & CHILD [address] [place] [address] 2022-05-06 2022-05-06 Outpatient R CHERELLE [facility] [id number] Univers 15:00:00 15:00:00 ROBERT ity [facility] 2022-05-06 2022-05-06 Outpatient P [facility] [id number] Univers 13:00:00 13:00:00 ity [facility] 2022-05-04 2022-05-04 Telephone [facility] 1.2.840.114 [id number] Univers 00:00:00 00:00:00 Redd Mirza PANTOGRAPH SETTER 350.1.13.10 ity of [facility] 4.2.7.2.686 Steve as MATERNAL [id number] [facility] & CHILD [address] [place] [address] 2022-04-30 2022-04-30 Outpatient R CRISMAGALI, [facility] [id number] Univers 14:00:00 15:13:59 REDD ity o f [facility] 2022-04-30 2022-04-30 Routine Akinsipe, Redd C [facility] 1.2.8 40.114 [id number] Univers 14:00:00 15:13:59 Jennifer Joseph R PANTOGRAPH SETTER 350.1.13.1 0 ity of Visit REGIONAL 4.2.7.2.686 Steve as MATERNAL [id number] Med ical & CHILD 107 [facility] 2022-04-16 2022-04-16 [facility] [id number] Univers 14:15:00 15:24:01 REDD ity o [facility] 2022-04-16 2022-04-16 Routine Akinsipe, [facility] [id number] Univers 14:15:00 15:24:01 Redd C PANTOGRAPH SETTER 350.1.13.10 ity of Visit REGIONAL 4.2.7.2.686 Steve as MATERNAL [id number] Med ical & CHILD [address] [place] [address] 2022-04-15 2022-04-15 [facility] [id number] Univers 16:00:00 16:00:00 [facility] 2022-04-15 2022-04-15 Outpatient R [facility] [id number] Univers 14:45:00 14:45:00 SHARYN ity [facility] 2022-04-15 2022-04-15 Telephone [facility] 1.2.840.114 [id number] Univers 00:00:00 00:00:00 Sharyn Fishman PANTOGRAPH SETTER 350.1.13.10 i ty of REGIONAL 4.2.7.2.686 Steve as MATERNAL [id number] Med ical & CHILD 111 [facility] 2022-04-02 2022-04-02 Outpatient R [facility] [id number] Univers 13:45:00 13:45:00 ity [facility] 2022-04-01 2022-04-01 Telephone Mario [facility] 1.2.349.274 [id number] Univers 00:00:00 00:00:00 Radha D PANTOGRAPH SETTER 350.1.13.10 it y of REGIONAL 4.2.7.2.686 Steve as MATERNAL [phone] [facility] ical & CHILD [address] [place] [address] 2022-03-30 2022-03-30 [facility]patient [facility] [id number] Univers 13:45:00 14:31:01 RADHA ity [facility] 2022-03-30 2022-03-30 Routine [facility] 1.2.840.114 [id number] Univers 13:45:00 14:31:01 Radha Belcher PANTOGRAPH SETTER 350.1.13.10 i ty of Visit REGIONAL 4.2.7.2.686 Steve as MATERNAL [phone] [facility] & CHILD [address] [place] [address] 2022-03-30 2022-03-30 Telephone [facility] 1.2.079.292 [id number] Univers 00:00:00 00:00:00 [facility] PANTOGRAPH SETTER 350.1.13.10 ity of REGIONAL 4.2.7.2.686 Steve as MATERNAL [phone] [facility] ical & CHILD [address] [place] [address] 2022-03-26 2022-03-26 [place] [facility] 1.2.597.350 [id number] Univers 00:00:00 00:00:00 Rosnda R PANTOGRAPH SETTER 350.1.13.10 ity of REGIONAL 4.2.7.2.686 Steve as MATERNAL [phone] [facility] & CHILD [address] [place] [address] 2022-03-25 2022-03-25 Telephone [facility] 1.2.931.013 [id number] Univers 00:00:00 00:00:00 Roshunda R PANTOGRAPH SETTER 350.1.13.10 ity of REGIONAL 4.2.7.2.686 Steve as MATERNAL [phone] [facility] ical & CHILD [address] [place] [address] 2022-03-20 2022-03-20 Nurse Rojas LANDA 1.2.840.114 [id number] Univers 00:00:00 00:00:00 Triage OBED Quinones 350.1.13.10 ity of [facility] 4.2.7.2.686 St[place] as [id number] [facility] [address] 2022-03-19 2022-03-19 Outpatient [facility]undra [facility] [id number] Univers 14:45:00 15:44:34 ROSRAMANNDA blair o [facility] 2022-03-19 2022-03-19 Orders Doctor CORDELL 1.2.840.114 [id number] Univers 00:00:00 00:00:00 Only Unassigned, OBED 350.1.13.10 ity of [place] [facility] 4.2.7.2.686 Steve as [phone] [place] [address] [address] 2022-03-18 2022-03-18 Outpatient [facility]undra [facility] [id number] Univers 15:30:00 15:30:00 JENNIFER pinto o [facility] 2022-03-04 2022-03-04 Outpatient [facility]undra [facility] [id number] Univers 10:30:00 10:30:00 BELLOISHAANA blair o [facility] 2022-02-20 2022-02-20 Telephone [facility] 1.2.840.114 [id number] Univers 00:00:00 00:00:00 Redd Mirza PANTOGRAPH SETTER 350.1.13.10 ity of [facility] 4.2.7.2.686 Steve as MATERNAL [phone] [facility] ical & CHILD [address] [place] [address] 2022-02-17 2022-02-17 Outpatient Saundra [facility] [id number] Univers 10:30:00 10:57:42 ROSRAMANNDA blair o [facility] 2022-02-17 2022-02-17 Routine [facility] 1.2.840.114 [id number] Univers 10:30:00 10:57:42 Rosramannda R PANTOGRAPH SETTER 350.1.13.10 ity of Visit [facility] 4.2.7.2.686 Steve as MATERNAL [phone] [facility] & CHILD [address] [place] [address] 2022-02-05 2022-02-05 Outpatient R JAKE [facility] [id number] Univers 15:45:00 15:45:00 BANDARNDA ity o f [facility] 2022-02-04 2022-02-04 [facility] [id number] Univers 15:15:00 16:15:51 ROSRAMANNDA blair o [facility] 2022-02-04 2022-02-04 Routine [facility] 1.2.840.114 [id number] Univers 15:15:00 16:15:51 Roshunda R PANTOGRAPH SETTER 350.1.13.10 ity of Visit REGIONAL 4.2.7.2.686 Steve as MATERNAL [phone] [facility] & CHILD [address] [place] [address] 2022-01-26 2022-01-26 Outpatient [facility] [id number] Univers 14:30:00 14:30:00 BANDARNDA blair o [facility] 2022-01-26 2022-01-26 Outpatient R [facility] [id number] Univers 09:30:00 09:30:00 ity of [facility] 2022-01-21 2022-01-21 Outpatient [facility] [id number] Univers 12:45:00 12:45:00 BANDARNDA leony o [facility] 2022-01-08 2022-01-08 Abstract [facility] 1.2.840.114 [id number] Univers 00:00:00 00:00:00 Rosramannda R PANTOGRAPH SETTER 350.1.13.10 ity of REGIONAL 4.2.7.2.686 Steve as MATERNAL [phone] [facility] & CHILD [address] [place] [address] 2022-01-07 2022-01-07 Product Manager Medical Device Ultrasound, [facility] 1.2 .840.114 [id number] Univers 10:45:00 11:45:13 Visit Arvin Erickson PANTOGRAPH SETTER 350.1.13.10 ity of REGIONAL 4.2.7.2.686 Steve as MATERNAL [phone] [facility] & CHILD [address] [facility] 2022-01-07 2022-01-07 Outpatient P ARVIN ERICKSON [facility] [id number] Univers 10:45:00 10:45:00 ARVIN ERICKSON itdenise [facility] 2021-12-24 2021-12-24 Routine [facility] 1.2.840.114 [id number] Univers 12:45:00 14:08:02 Roshunda R PANTOGRAPH SETTER 350.1.13.10 ity of Visit [facility] 4.2.7.2.686 Steve as MATERNAL [phone] [facility] & CHILD [address] [place] [address] 2021-12-24 2021-12-24 Outpatient Saunrda [facility] [id number] Univers 12:45:00 14:08:02 ROSHUNDToño pinto o [facility] 2021-12-24 2021-12-24 Telephone [facility] 1.2.840.114 [id number] Univers 00:00:00 00:00:00 Redd Yuki PANTOGRAPH SETTER 350.1.13.10 ity of REGIONAL 4.2.7.2.686 Steve as MATERNAL [phone] [facility] & [address] 2021-11-26 2021-11-26 Routine [facility] 1.2.840.114 [id number] Univers 15:15:00 15:15:00 Roshunda R PANTOGRAPH SETTER 350.1.13.10 ity of Visit [facility] 4..7.2.686 Steve as MATERNAL [id number] [facility] & CHILD [address] [place] [address] 2021-11-26 2021-11-26 Outpatient Saundra [facility] [id number] Univers 15:15:00 14:06:13 ROSHUNDA ity o f [facility] 2021-11-21 2021-11-21 Product Manager Medical Device Ultrasound, [facility] 1.2 .840.114 [id number] Univers 08:30:00 09:00:00 Visit Erickson, Arvin PANTOGRAPH SETTER 350.1.13.10 ity of REGIONAL 4.2.7.2.686 Steve as MATERNAL [phone] [facility] ical & CHILD [address] [facility] 2021-11-21 2021-11-21 Outpatient P ARVIN ERICKSON [facility] [id number] Univers 08:30:00 08:30:00 [facility] 2021-11-21 2021-11-21 [facility] 1.2.840.114 [id number] Univers 00:00:00 00:00:00 Roshunda R PANTOGRAPH SETTER 350.1.13.10 ity of REGIONAL 4.2.7.2.686 Steve as MATERNAL [phone] [facility] & CHILD [address] [place] [address] 2021-11-07 2021-11-07 Outpatient P [facility] [id number] Univers 11:00:00 11:00:00 ity [facility] 2021-10-28 2021-10-28 [facility] [id number] Univers 15:45:00 16:22:35 ROSHUNDA ity o f [facility] 2021-10-28 2021-10-28 Routine [facility] 1.2.840.114 [id number] Univers 15:45:00 16:22:35 Roshunda R PANTOGRAPH SETTER 350.1.13.10 ity of Visit REGIONAL 4.2.7.2.686 Steve as MATERNAL [phone] [facility] & [address] 2021-10-28 2021-10-28 [facility] [id number] Univers 15:45:00 15:45:00 ROSHUNDA ity o f [facility] 2021-10-20 2021-10-20 Outpatient P [facility] [id number] Univers 14:00:00 14:00:00 ity [facility] 2021-10-20 2021-10-20 Outpatient P [facility] [id number] Univers 14:00:00 14:00:00 ity [facility] 2021-10-06 2021-10-06 Outpatient R JAKE [facility] [id number] Univers 14:30:00 14:30:00 BANDARNDA ity o f [facility] 2021-10-01 2021-10-01 Telephone [facility] 1.2.097.236 [id number] Univers 00:00:00 00:00:00 Bandarnda R PANTOGRAPH SETTER 350.1.13.10 ity of REGIONAL 4.2.7.2.686 Steve as MATERNAL [id number] [facility] & CHILD [address] [place] [address] 2021-10-01 2021-10-01 Telephone [facility] 1.2.436.566 [id number] Univers 00:00:00 00:00:00 Bandarnda R PANTOGRAPH SETTER 350.1.13.10 ity of REGIONAL 4.2.7.2.686 Steve as MATERNAL [id number] [address] 2021-09-30 2021-09-30 [facility] [id number] Univers 14:30:00 15:44:48 BANDARNDA ity o f [facility] 2021-09-30 2021-09-30 Initial [facility] 1.2.840.114 [id number] Univers 14:30:00 15:44:48 Bandarnda R PANTOGRAPH SETTER 350.1.13.10 ity of Visit REGIONAL 4.2.7.2.686 Steve as MATERNAL [phone] [facility] & [address] 2021-09-30 2021-09-30 Orders Doctor CORDELL 1.2.840.114 [id number] Univers 00:00:00 00:00:00 Only Unassigned, OBED 350.1.13.10 ity of [place] [facility] 4.2.7.2.686 Steve as [phone] [address] 2021-08-21 2021-08-21 Emergency X SINGER PRRUBINA ERT [id number] Univers 12:37:00 13:05:00 TINO pinto [facility] 2021-08-21 2021-08-21 Emergency Singer PRRUBINA 1.2.185.020 [id number] Univers 12:37:00 13:05:00 Tino SARKARELVA 350.1.13.10 i ty of [place] 4.2.7.2.686 [facility] [phone] [address] 2020-12-01 2020-12-01 Nurse CORDELL Vo 1.2.840.114 [id number] Univers 00:00:00 00:00:00 Triage Nasra CLAY 350.1.13.10 it y of HOSPITAL 4.2.7.2.686 Steve as [phone] [address] 2020-09-10 2020-09-10 Patient [facility] 1.2.840.114 [id number] Univers 00:00:00 00:00:00 Outreach Rico PRIMARY 350.1.13.[address] [facility] 4.2.7.2.686 [facility] [place] [phone] [facility] [address] 2020-01-26 2020-01-26 Nurse Radha Bass 1.2.840.114 [id number] Univers 00:00:00 00:00:00 Triage OBED 350.1.13.10 it y of HOSPITAL 4.2.7.2.686 Steve as [id number] [address] 2020-01-26 2020-01-26 Radha Lemus 1.2.840.114 [id number] 00:00:00 00:00:00 Triage OBED 350.1.13.10 [facility] 4.2.7.2.686 [id number] [facility] 2020-01-18 2020-01-18 Emergency [facility] 1.2.755.814 [id number] [facility] 18:33:40 19:28:00 [place] 350.1.13.10 i ty of [place] 4.2.7.2.686 [facility] [phone] [address] 2020-01-18 2020-01-18 Emergency [facility] 1.2.988.050 [id number] 18:33:40 19:28:00 [place] 350.1.13.10 [place] 4.2.7.2.686 [place] [id number] [facility] 2020-01-08 2020-01-08 Telephone CORDELL Adams 1.2.840.114 [id number] Univers 00:00:00 00:00:00 Ann ARAUJOY 350.1.13.10 ity of [facility] 4.2.7.2.686 Steve as [phone] [address] 2020-01-08 2020-01-08 Telephone CORDELL Adams 1.2.840.114 [id number] 00:00:00 00:00:00 Ann ARAUJOY 350.1.13.10 [facility] 4.2.7.2.686 [id number] 019 2020-01-07 2020-01-07 Outpatient R GI [facility] [id number] [facility] 17:00:00 17:00:00 HOMRE ity [facility] 2020-01-07 2020-01-07 Laboratory Lab, [facility] Fam Pob I [facility] 1.2. 840.114 [id number] [facility] 16:14:25 16:34:25 Only Homer Angelo Valerie 350.1.13.10 ity [facility] 4.2.7.2.686 Steve as Professio [phone] Nj dical [address] Office Building [facility] 2020-01-07 2020-01-07 Laboratory Lab, [facility] 1.2.840.114 [id number] 16:14:25 16:34:25 Only Felipe Pob I Health 350.1.13.10 [place] 4.2.7.2.686 Professio [id number] [place] [address] Office Building [facility] 2019-10-20 2019-10-20 [place] 1.2.840.114 [id number] [facility] 00:00:00 00:00:00 Triage OBED 350.1.13.10 it y of [facility] 4.2.7.2.686 Steve as [id number] [address] 2019-10-20 2019-10-20 [place] 1.2.840.114 [id number] 00:00:00 00:00:00 Triage OBED 350.1.13.10 [facility] 4.2.7.2.686 [id number] 019 2019-10-13 2019-10-13 Telephone [facility] 1.2.185.299 [id number] Univers 00:00:00 00:00:00 Roshunda R PANTOGRAPH SETTER 350.1.13.10 ity of REGIONAL 4.2.7.2.686 Steve as MATERNAL [phone] Med ical & CHILD [address] [place] [address] 2019-10-13 2019-10-13 Telephone Jake [facility] 1.2.990.397 [id number] 00:00:00 00:00:00 Roshunda R PANTOGRAPH SETTER 350.1.13.10 REGIONAL 4.2.7.2.686 MATERNAL [phone] & CHILD [address] [place] [address] 2019-10-05 2019-10-05 Telephone Luci Gordillo [facility] 1.2.840.114 [id number] Univers 00:00:00 00:00:00 Cam Vj 350.1.13.10 i ty of [place].2.7.2.686 [place] [phone] Nj dical [address] 2019-10-05 2019-10-05 Telephone Luci Gordillo [facility] 1.2.840.114 [id number] 00:00:00 00:00:00 Cam Vj 350.1.13.10 [place] 4.2.7.2.686 Professio [phone] [address] 2019-08-30 2019-08-30 [facility] [id number] Univers 15:15:00 15:15:00 ROSHUNDA ity o f [facility] 2019-08-15 2019-08-15 [facility] [id number] Univers 15:00:00 15:00:00 ROSHUNDA ity o f [facility] 2019-08-14 2019-08-14 [place] [facility] 1.2.341.457 [id number] Univers 00:00:00 00:00:00 Roshunda R PANTOGRAPH SETTER 350.1.13.10 ity of [facility] 4.2.7.2.686 Steve as MATERNAL [phone] Med ical & CHILD [address] [place] [address] 2019-08-14 2019-08-14 Telephone Jake PREETIRUBINA 1.2.409.348 [id number] 00:00:00 00:00:00 Roshunda R PANTOGRAPH SETTER 350.1.13.10 REGIONAL 4.2.7.2.686 MATERNAL [id number] & CHILD 107 [facility] 2019-07-11 2019-07-11 Office Jake CHAD 1.2.840.114 [id number] 12:48:46 13:19:03 Visit Roshunda R PANTOGRAPH SETTER 350.1.13.10 REGIONAL 4.2.7.2.686 MATERNAL [phone] & CHILD 107 [facility] 2019-07-11 2019-07-11 Office PREETI Joseph 1.2.840.114 [id number] Univers 12:48:46 13:19:03 Visit Roshunda R PANTOGRAPH SETTER 350.1.13.10 ity of REGIONAL 4.2.7.2.686 Steve as MATERNAL [phone] Med ical & CHILD [address] [place] [address] 2019-07-11 2019-07-11 Telephone Jake [facility] 1.2.137.130 [id number] 00:00:00 00:00:00 Roshunda R PANTOGRAPH SETTER 350.1.13.10 REGIONAL 4.2.7.2.686 MATERNAL [phone] & CHILD 107 [facility] 2019-07-11 2019-07-11 Telephone Jake [facility] 1.2.577.736 [id number] Univers 00:00:00 00:00:00 Roshunda R PANTOGRAPH SETTER 350.1.13.10 ity of [facility] 4.2.7.2.686 Steve as MATERNAL [phone] Med ical & CHILD [address] [place] [address] 2019-03-10 2019-03-10 Emergency Alexia Benitez [facility] 1.2.840.114 [id number] [facility] 15:52:59 18:03:00 Samara [place] 350.1.13.10 i ty [facility] 4.2.7.2.686 [place] [phone] [address] 2019-03-07 2019-03-07 Office CHAD Joseph 1.2.840.114 [id number] Univers 14:38:06 15:33:58 Visit Yuniortoño Arguello PANTOGRAPH SETTER 350.1.13.10 ity of REGIONAL 4.2.7.2.686 Steve as MATERNAL [phone] Med ical & CHILD [facility] 2019-03-07 2019-03-07 Orders Doctor CORDELL 1.2.840.114 [id number] Univers 00:00:00 00:00:00 Only Unassigned, OBED 350.1.13.10 ity of [place] [facility] 4.2.7.2.686 Steve as [id number] [address] 2019-03-02 2019-03-02 Emergency [facility] 1.2.891.990 [id number] Univers 15:06:15 15:51:00 Manoj Lundberg [place] 350.1.13.10 i ty of [place] 4.2.7.2.686 [place] [id number] [address] 2019-03-02 2019-03-02 Orders Doctor CORDELL 1.2.840.114 [id number] Univers 00:00:00 00:00:00 Only Unassigned, OBED 350.1.13.10 ity of [place] [facility] 4.2.7.2.686 Steve as [phone] [address] 2019-03-01 2019-03-01 [facility] 1.2.840.114 [id number] Univers 15:40:01 23:59:00 Encounter [facility] 350.1.13.10 ity of Surgical 4.2.7.2.686 Steve as Specialti [phone] Nj dical es 809 [facility] 2019-03-01 2019-03-01 Office [facility] 1.2.840.114 [id number] Univers 15:22:19 16:32:56 [facility] 350.1.13.10 it y of Surgical 4.2.7.2.686 Steve as Specialti [phone] Me dical es 198 [facility] 2019-03-01 2019-03-01 Emergency Count includes the [facility] 1.2.289.967 [id number] Univers 04:34:00 05:32:00 Anamaria Zabala 350.1.13.10 ity of [place] 4.2.7.2.686 Shaquille s [place] [phone] [facility] [address] 2019 2019 Office Ge [facility] 1.2.840.114 [id number] 03924 [facility] 15:34:06 16:36:15 Visit Rigoberto Zabala 350.1.13.10 i ty of [place] 4.2.7.2.686 [place] [facility] [phone] Nj dical nal 044 [facility] 2019-01-17 2019-01-17 Office [facility] 1.2.737.702 5301 2809 [facility] 15:13:07 15:46:27 Visit Cassandra Zabala 350.1.13.10 i ty of [place] 4.2.7.2.686 [place] [facility] [phone] Me dical nal 134 [facility] Results Test Description Test Time Test Comments Results Result Comments Source SURGICAL PATHOLOGY EXAM 2022-05-21 02:54:02 Test Item Value Reference Range Interpretation Comme nts Case Report (test code = 9491036892) Surgical Pathology ?Case: [id number] ? Authorizing Provider: ?Malinda Tim, ? Collected: ? 05/19/2022836 ? MD ? Ordering Location: ? ? Obstetrics and Gynecology ?Received: ?05/19/2022951 ? (CORDELL 3A) ?Pathologist: ? Betty Yancey, ? MD ? Specimens: ? A) - FALLOPIAN TUBE, LEFT ? B) - FALLOPIAN TUBE, RIGHT ? Final Diagnosis (test code = [id number]AwAlUz pc [id number]) tBMiXOnjimLpFGghkOokPXQvNRZoEA3kaNdkzYh0 mAzgCWEvfhI9fWRsJCcjp3vhXUI6p9epqblzPGEb CSgyLy0ozVOsmXlzMnSpNIAtKLy2oO07LBTopW4w aVVxHXkrqvYnIBkkxgDfuxOtFrf0WJP3kZvkVGKg eyzvNaA5TYgpGXQdqcteOBo3ZIjqRXXzdDY4SCZd rCFwS7YeGKOaIJ3pkph1MQA7EDwlCNTgPyQ0ZDFl pXHcOMMynPaiAZhzm104TLC9ObGnUABlhpFjjKkr lX3lRnVvTTeoPEPgv0ghKkCps3hmcFc8TXENXhKq C7QyZRROPSbHLQcLMpFSNXTXTDJtNVHQHTijS0YT EODSBXNCEFWJB1SJUGrTPwvftXFaCAAiTYFtLYYx QCXcCKAzQTRnPKGeEFKtPUEOW99FYDDCTZFMMt6R Gl7YIVDQFX1KFLrEVE2YELQGAMVlsGNoJGSrONxn DVQpMg9oUPZsMXVQTYbVO3DDHZ3qKABHDNxoJykD QBQjJ9RpGZcwY2JdWWCVSOsXAN7GTKxtJwHAEPYV ET8KAsjuUCXcK0QeFOMjUHHrU1LvZR4eI8PmSEWb L0AtNEXIZJINFEPQCQRXH0VIKAVFE3VGA70eIVRG TlRJRklFRFxwYXJccGFyZFxjZjBccGFyfXtccnRm KOhot0BbO1IbAeLjVUdgwcFeQIRxSiutfonuSRFz WVT9yjZtLSPoKSorUPCyJUmaCq6dlWKddKwaObWq QFWzf4islcUIKOyzHjQwK037FFJbOMncc8cnj6Wt ZHBubICix7W8FOXPuubehWc9v8xfLeYvHsZ6rVQv RQbjU8cvqeTmfMFtN1RxbVZieUj1pLnmA13qb7T4 XxsvO2vgBFTcMJXcD8GrJY5xETUnTgp9WFG1UEC0 QEXzBCVqJ7AoJB2mCVGruSYfHXd1l9fcmHqfPCZq DJE8f6iqDXjiorG6GP8pyl4kaMl1x9zttfQhGUVg OYDlsTREIMEcS8CawVthLa9cwNl3rFuqDxbyJBH7 Kxv8OV0qjb77jgj0jVayERXbpevkAnN7WChxMHVg yljtORs4HRplMUZjhJK6FQTkaCVxQ9RsDPCeWS9x gbc7YQJ2GSrvIMIwKmK0JFBssAMwTTHysEsfNFhr h803NNQ3YaHmMC5kW7Ugq7A1iO0jrPAsPJQhuKMk BlIrGMUfwf7zyIMzGXxru6IlHSF8jiF4mHYswIQe EACoNJ68Nveto3PfMqvlUSP2KNRndrMnb6Hlm1qt FmFxdrXeA6gwD1YsRMOtYECyBGAuWlNyahUsn0Rp d6IcbCRqjFs4z7edVSXcSKNnkRagw7vhEOO2ZJDt E8T6eEFuq9zxWUigDONlrOE9ceI0AXNyjFAgN7Gb mS0aGCWkVT6apei7m0coIXL8NDweCZGuSkO8gnZ1 XEYjoQJpWCIjoAvbXCzju684YAI8MpIxSAVlc2Gp S6GvuGwuC16huFtzC48sSSYjhRghwA2flRpwqU9k ZjBcZnMyNFxxbFxwbGFpblxmMVxmczIwXGxhbmcx FWDqREgoX2plIwNmFJQntHxsMZkro7ZlBTYuJGMu ThehxsZyAPOaipKLKJrqzgLzxIZln45iDPrzbVLc OGVgADslIVGkySfxi6BzS3svIU7dC0RfuIBjsiDe aeVvNDzdNQHrp9c1aEWruJngh7QegPJlJS59hdFi TZLhZGH2VAPjv4rgAY85zcynYqBivD48ncIuloFb DLCci2vmW2cxbDVgv6Qdx8OdzdGvKYaad7CuNX3p lFQhqkwyjST6UODbyJEqnlEgjbI6zWzkCZAnxQ0z kO4zvJfkhW6nNfNtIbZhBCaeZP4bNUNwD5rrqGLi SXIoILAvF2nlGyRpxZ5hhKmoMxeiugU6EMAcps90 Clinical Information (test code = 27 y.o s/p that desires [id number]) permanent sterilization Gross Description (test code = d0qynSHqZKZebXXRBFQvYVDqPS6noPpcvIo4 cGdw [id number]) FTNjmxR1uFWeNVyyw4avBMB6n2skjuHYIhncTPZy ZKwxTHSxckoqDhH6VOosZFQvaoyiGSr1ITeqTVFj xSR7QVLyrSLsN6XbICOuSX2mmda3KFO4EFiaSBMv PxP9SNRqAvKaZtfkLAa6LTPkgkD7Vks1PTGhUUSp jBAnx1L0TEeitraqQIYxyEYuU647UVvig0WajSPf KWgaiMBsDNSQDatdJqarcJyoy3BhzCYoOKarJORx TVStWYpubmisSWg5DHVcWNtnmLSiWS6bhCstYzsu fGeuq2RevFAhWBttXVVxNITsSXoiFXLdYL8NFjPo RIA4CtT6IiDtAOn9PSp7LK4FVaUcTRMgNRv9ClOn KHUaWQg4EAjgCJ0TGUD4BXZfNkB6MdgxBEPeGSqu ZZh9ISAcPQziQSCbjFRoTPeuEmSuDKNqLFowmCFi DL8ylZdeyACwexfemkTsESEUBRAZXFJZJVXucLOm PE9TEOSqEBpoGVIpyLKXEKS3HS4uYCFDYiugoLCm OZTygYevPJjskD2rIW2CHKb2qeIwRTXfWwTwG0Iy S5pnII3eKMFinwLeHJJflJPzQLUgmoWzp0SlUJsm biBsYWJlbGVkIHdpdGggdGhlIHBhdGllbnQncyBu QO9kPQVHKEZjeV2xQIQyQPDuMTlgd3DiEP9qNAte CoNoTIByNOByl28siVB0saWoAePaPRVardbyTJW8 IW2joIjmmnZuTRksDO54ZO0nFNTmwZqzoEcpyrD8 sNCyUCgoFtJgM57reZ7zvZPsO1SrTGmmYZ77YIFv BXdzKWGiUE1aeRCnOPH2xTvdmZXyleLlHZJlCJcz oDUzELR9aP2lOOIvtA1ecmF5KOZjZHEvao8cyC9s TSZuhe2em6d1VTRehiVpPDWgIVYeHUWggQFub5Wp NcUiUHIfSBRUWIPtVGUhzrOlkXa5KILdje8lgfXg FGB8wD7imzSgxgWmk8SpiJc6sDGvWZtmWCHnSysf KXDyXWqngIWuNW5WRFVmyKZWWSV0XA3oCHi2UBua VDRlW8IxY7OuulPsuEInSVPusoEki1inPFA1NLKv pWDhwRMrRgXwBkojJEG4MXHhNFwgCQ8Bc0rkBTJn cRYdGID8FVvccEPqGTIuSHDrYQfaXkWrB5JWZVNv UKXpNxjhLhTiHZa2ERsgC4BLNBBdWDRfNqGcTLPc XoQ5WBy5BGEINa6mOZZ3ZaI3Vue3HKE3EHY0ZNOy XHQgMiBcXGYgQXJpYWwgXFxmcyAxMCBcXGZsIFxc eaZ3BWMcNWikVBMlTvSjY9CZW5eEUY9jZkfxEGYm FCcyaKbscN7xYDSxZ83wl7PVt5CjVA5GKYg9gcCo qjcecM0jSVByahLnNLnjtHOlJ8wzOxHaOZGSwIGt lY8uwmHUGDazLGOvQ0MhtvWsQRugAWMxdu2jrGzq XZhvKeRhEKTou1l8hGA9qFSiaMC4oMYnbIltOF8d dWBiPGTICZ13kNKieteyWgYunUshuNxeuqF9bCQc DNVwpWuxiCPhBD3fXQOdeiCgk9VpSU0lQGDxn8co F8nmJYRxwf7cvY8dPTZnE93ldaMrf3OrWtXxgB9v vPYaHCT1KpPyCZDrMSJxfFBpfzQyYB0mtYjvkWOl HqccZ55qaO6bWBhgmCE0GVIyOLuloKAdFSlqYCQe dhwdeJc5GATfS7Cen95tEKW6vfVgYOHiIPgtkPUb RKWmpoybSMgeh0PgmCxbuL7rWV5ccztfRnysEFG5 hSEgiCRcWVFomy3aIWNffJTnz1OufJQ9cSZvTRDp i3XgXADlS0Fwj16mGCCuDZSucMQtvYD8UFDjgT2e LhHlXAOywmZPWbebGEJgGRfGKXPxdrYcXs96TVNH XNCIfYFoAB20IMkmQGAwK31fa5IGo1NcTKYog0hk nMxvk5FdyUBkORvuKYUvgBInLWldoH7eSwTjs1yd fKy9ZUqgzuZ0DWJhqr1uxRivdJ8oKCgvs1krOSO3 FSZhfALhaBJsOXcihRtozM4gWoRyMdp7GMfaSLFb Q8GwE8LaykW3KODiUZdtMCOqEGZuCZy4 Disclaimer (test code = [id number]) r3vrgMAjAIUre8txMKKhxHYqNbBqLfT cZnRuYmpc zLOyFSsynsVuBTkch3WuW7YhEcYpGSafxcAbBPUm LvgzzzjkACOgSMX6lnQzPHPrOQzxBUEfBLwzNx4v zSCrnKfnHlFzMIOeu5ywtfBOQBsiZwHoR325QONc JTgcq2opk4XjRPDbpJAcs5V7FIGOwimxvWr4zYdk C02xr7N9MochK1ttJDLyJDSnU4AlKE5eESLiDzu9 NTQ5ZTB8CNAwENGjD8QsRV2kCQAkjJFzSTf2m6ei cTagPKLdHRQ0m8ijVKtmkeOqYT6usl4oiEa3n2ix szXvCRDeGZQscVVILTVpS7HpeJpsTs4bmLd0gOpk KkjlFYG8Olo0PN4ydf69jma2yUkiYBXfcgwbRaX5 NBljWDKfkvkwKKg7TKwvVMDttHA9UAObvOJpP9Jf DFZuTA8tvvy4EBO8GUxfULBzSmD1GAFbfNBgYSQh hSctYAnkw522TIF2UiVpBX6hF9Dpl3M9kL7wcJZz SNSheWRbBrKhEIUajk1gkYDdEYwnx6MwYMR2iiG2 bZTtdUIyVIAeVF35Wsrip6NmSwojt8DdU06prRQ2 YTfiz4fhRV5lYgE1vxFsKZuvy8jggB2zMvN7VIww EK2lTT6aKJEqsP3gpqpvLJQhLkFnvrkmVTRivNxg vmItPv0gfTqdHLC3XSwqY1xiaV4iHhV1YXorM1ky aI9jLVj2IIflxVE4MQMxpU7pTX2nwhras0ykNAsd QBapGLEvjpI7zqD1TZWlnDVeZ8KnnR8aXMLzKZ0v lzghp4tnUAF8JOxgPTBzOWK6WyGoMRBin8Qqcwo8 VuCfc5RezCQeKPmoG36rq201WKXhfrAlQ3mtzJIa wjfpqUEwngceKYejmqX1HNSpgiVkf7GyOELoHYG3 PIveUMtbeKWtIZHozCqro2ycO7FrfPMrLPHcKLmu XGYxXGZzMjBcbGFuZzEwMzNcaGljaFxmMVxkYmNo [file] M9pfDwLkmR5ezQvmFUaoXiZoQtOyOQfrQMH6bW== Embedded Images (test code = [id number]) [facility] [id number] 02:54:02 Test Item Value Reference Range Interpretation Comments Case Report (test code Surgical Pathology ? ? = [id number]) ?Case: [id number] ? Authorizing Provider: ?Malinda Tim, ? Collected: ? 05/19/2022 0837 ? MD ? Ordering Location: ? ? Obstetrics and Gynecology ?Received: ?05/19/2022951 ? (CORDELL 3A) ?Pathologist: ? Bc, Betty Conway, ? MD ? Specimens: ? A) - FALLOPIAN TUBE, LEFT ? B) - FALLOPIAN TUBE, RIGHT ? Final Diagnosis (test j3rxmTFhPVBia2tbCEWosCN code = [id number]) uZzEwMzNcZnRuYmpcdWMxIH tccnRmMVxlcGljMTAxMDRcY F8kqGhjiHz3hBcpBAFietN1 tLXrGYesl8ojPOK5y0ryhvc rEZCaYWzkMs6giHUkvYbhMf YrEUFbXBg5zY44JRGgvB9cu GJsIDtccmVkMFxncmVlbjBc Mtx0QFI7gNyyOFCtanhsKuD 0BYnzPEMdowutJQg7LIpvCL QioKZ4FSBuePMsY2GcPNViI V2wtvl7DFX7QSzhCBQiUqC3 TMBetWImZKMbkSwjTUjyd97 0OJY8SyWxRAUgbcIfxEqfpW 5lNjFlNLguDLJdd4kwGzSzt 3lpsNz1LXJJIdXzJ9ExERYB TExPUElBTiBUVUJFLCAgTEV CVCpaF9VXHGLLGZGEECXUU5 VDVElPTjpccGFyXGNmMCAgI CAgXGNmMSAtXGNmMCAgXGNm LFSQO47RVCTMTBMPTn1HOg9 NVGTKIV7ZBHvEWH7ICJTBZU SojRPjNJUjCReiXOKcQk7oL NXuTVOOAEiAY2BDHQ9qXUKS FIknUqiLGCUdL2JsFUpcB9H cPTJGVLtDRA4ILZyeYvDEHE TFBD6AUznbUJXyR6NzZDMeP GCrZ7RmRH4pP3IpANBeT7Hw TBTRBSNPXPYPTHHOV5URFCM LF1KMN40rORESTmKBJtlPZZ xwYXJccGFyZFxjZjBccGFyf EdjyqLgQWtlx0TcE7PwQcYy MFxhbnNpXGRlZmxhbmcxMDM rJTC3fuVtFRUaGHyqIMZoQE cdQf8hkZIqxCabAyXrFPJsz 3uzrhSUCXatEjQcQ489DUXl VCfol9ncf4PpARVqcXJpi0D 4HFYRxiutsZq5c9kxIdByNz H3xPMxVTkmK2rrirMcvKLiD 9HfoFDkxGi0pDbsD54gj6H3 NuxpA6jyEYWmNYYtC5ZlXX3 eZQVqMld8GCU1GOY7LNPlBI ZoZ4SyRK2xCFAciPAkWUr0f 0nqaAsaCXRuPHQ6l9jsYCtz taH4VK4uwd7lpJr6u7uvvcR hHNXgEOSvrHNDPNQjL2XscH dsDe5gxSg9oSvpNjlmLNP6G zc2XS8bzy44hzh7rUinHSEd qaoeHoX9OVyjZLNliffhKAd 2HXseRQUpmLD3ZQVvhYDkR3 XpZDMeTL9epvp9DCX6VNgjD REgSpS7RIKmdEObPIYpmNtg ODlqe621FUM6JnEvTH7wZ7X tv7K0nI5qpKPwECIvdANyDf CrEBRmcw0zjUOmNDpqq9TuN AD6qiE5pVOjsNGcMIAvIL97 Zycsc8CbRemuKOO4FSRwhsU nn1Wkn9buFmZuimIuA0ogU2 JyZHJoZWFkXHBnYnJkcmZvb 4Exb4UdvQTwxPa2p1cuVYFr UORvbSeph4tgJDZ5RJRrI1W 5bAOum7lvKEvsOJCqdAX7km Y4LGHylORwT8CrwE8gRFMiF O7geof2q6snOZV6QIwxUSWt UsV6nlY3XKQhvLHjUTLesLu zCJmxz882TMN5YaVgDHGob1 FaZ1EsvImwO32hxZhoP79aD XBskNaegU9dkZarpP6bOkZb ZnMyNFxxbFxwbGFpblxmMVx mczIwXGxhbmcxMDMzXGhpY2 sfLxPwEOUmbGmdITluk0ErW GYxXGNmMlxmczIwXHBhciBJ FJoxkkIxbWOip95lSKkbaKW mMNFnEWrfEKGszPnrx1ZwL7 ibZH8jT8RosGTocgCkxaHfG CqzGMJox2z5iOCltMaod5Bj wXFdMZ10jfFhQNAjKJD5IRM ck0hvGL92uufeWuRuiK36uq VlnkOwOURmb5zpW4jjuIGnp 3Qmn6GtkwSjJAvii8AaSE9d cXRdwzoyvGW3EIArlPVpaoW azrC6eOvuSYJyrC7rmU8maL zuzD5iEmZxYwUtGYdkBB3fR SUoS2lefLStVREgGPPrA1ft OrBjqD9zrRxqVubtbbI5KLD hcn19 Clinical Information 27 y.o s/p (test code = that desires permanent [id number]) sterilization Gross Description m3vdjPQmCGTpuZUKBTQdEAO (test code = oSY2mfTivmMy7qMggFEDndp [id number]) Z0xBDjVSslj1guDUU4x4lru iANClxkZWZmMVxwYXBlcncx GqZ3UKrtWKGagdfgNDj3SAu jWNHyoWX1MQSmfDCqO9IpNN CwSH2xtyv1JXT9RMyiKYXjX oE7OVKyBfVhDgxwAVb9NWBd xvW5Lrm9LFJiBMLeqBPtv7I 6CLkqpwiyCAYivAVuA116KU umy5EvaODkPHpucPKlGDFMJ eikChakdIeie8BguOEnJGlg RDUdZXRhZJvhkjaaNIm5PCQ lCSjgoICrHJ5ydFicIzsckB yww6SqxOIiTSonRRWyEIIqY CshMBHnTR2JOzBgDGN2UaD8 EgHuURk2KYx8CM1OZhZzMMD wKZy4UsWgPUAvHLq5RJkaLW 3RUHU5DQIzOxN8BpayQEFdO TfvOWn4BHXyUEroZOExzTEh IFxcZnMgMTAgXFxmbCBcXG5 jfVxwbGFpblxmczIwIFNQRU ARBTSQQHKltBKcTX8OEJMtC DkxIKIqaGVSSOE7HX7oFIQP ClxsdHJwYXJcbGluMFxyaW4 sXB1CCNc7fjQnXYPeRySnW4 NvA5zmOA7wLYQgisCdMXDeo QApEMPpkmHsh2BlKJvfdtHs YWJlbGVkIHdpdGggdGhlIHB xzPihzwYqzwIzYA1oVXRPMP KyhJ3dQJDjWFTnTSesg1RxZ U1zWMwkQzJbTCIxUABpj94g gIR3jrXzFeUyTAEfgiboEGI 2SH6rqRfekpYgLCviHW59AC 3fCPQomPexiHpctvI3bFVqY MrsYtFjD97opG7gxXJsR3Nn WPmhOI16LSHgASgiJLAdHP8 pnEIyOAK6oSjbmOJzpqVbFL DlJKtvoPOpENR4yX5vWYZpx Y6rmrP5RNZoVWAppc4tvR4j DAJusa6me2n8PINrplOxNJT aMBUdHXPkfOEec3LdHqWzEQ JsUFJKKKGyQRUxuhYbnWy7E IDsbu3sdvFdGKO6rV1ofxQc uzVod5HndXz3oYUtIDmiLDJ lLkpgYJZxDEazhXKjTC7GVL TtrUNINII5TH0uTSo1KJacZ AMoO5NrL1OnmgMabYPbQZTq tbJvg7lzZBR3YCEqqRDdbKZ pGiLzAoooTZU5KOXeCNjrSI 0On3gqFOHfjXIhPWX2UPohe OXuTOWuQKAmAByfCtIfS2LJ BYHtWYXgHhqxIlYoJNt1CCq fC7BMBKOxTJOsRsFnQFXcOs A9ZYu6HLUETn9aWDG7DpS2K gp1SWX9GIE1BNZcQVBeVfTj XGYgQXJpYWwgXFxmcyAxMCB yWHBuATjqpoK7HFTpFLkqMV BaRoVpW3YEU4tZPM0jYcowZ UKlTTvpjErdhU9yJQYfE94z m2LBy4BpGV0GZQq3ejTmdyn spQ4jUYXjpmIfWImzlTYiE0 kaNoNrQGKBdGPazF1mkjUXW ChwMKCmB9WqksBmEMdxINBm zl9afEtxDJnmHaSwKNVmb4q 1uEL8xIWfbDT8kMFdtNyeLY 3mkRCyRFPYYQ12uAHihrdrL kFbaKwfnIsbywI8fIGlLHJd oTwptRAzIB4mONAqjbYbo9T xTW9kZJXjc0vcX7alETXtgh 9gtO2nVRBdW01ybsJnn8CkZ vYenI6zaPVeNDT5MzYpJEYp ZPFpqODvyiXzHQ8ltAppyKF sHmbpJ02qdV7wSPaytLB5JE IpIHdoaWNoIGlzIHNlcmlhb Gu9JQYrA1Qga65aCOX5xmHx ZXZlYWwgdGFuLXBpbmssIGd ab0EslQijrF4tYU2yyhlvWf ggTRB0gEHnjAIkAEQjdm3mX RGybZLbl1FztJQ1oVYtYQVr v0GhSUVqL0Xki81gVJNfBHV oxFObuHT6CCIbrS9nAiCxKD BhciANClxwYXIgDQpTZXJlb nYyIz92SEDKJHYNxDYhPR98 FDbrSPReH70lo9PWr5DxGKB xn8cedFinm6AogMOxBGwjMK MxpWGtQOfzgH9cJhZan9cxx Ie5ZOnecmV7UVFjvi7xeDml kW8pEKwtw5fjODI9CVDmtCO qdPOcHZaygHhsrC3sUqNrZd b8VBkiBYMuW2ZsZ4SgenP9G HBsYWluXGZzMTYgDQp9 Disclaimer (test code c7fyoLDfISWmu1jpXNShrGR = [id number]) uZzEwMzNcZnRuYmpcdWMxIH sqrxKeHHtef1DbB0OpJhMuX FxhbnNpXGRlZmxhbmcxMDMz ICG6xlTuKIQuAVosUZImGCg fBz6noLZxuVzqTnGyNOKdj2 kujpOCOVwfCzDuA884YYTqS Rqpc6sti3VfFRFjlOUph4Q3 ZJYWqjcahEc7cQhdP87gc2X 0KvvmM3rjKCWrHGShV5VcJL 8sIKVmLrj5HFP5TXK4XXTdS DVtZ8ItOY0oTHIngXTzEYv1 q3vvsJctCPShANB5k3ndERz gndHhJB0aoz4ugSv7e8lxrm MoYJZyWGNvsSSPEWAqT4Ndl SznRo5oiWh9aBbwBifwGWT5 Tgk3OM6rdt53qnx3jEstJQL gwhwmIfN4PQxyBKAsuuztEH r1BIahCFAqiNR3VJHwhGKjQ 0NcECPeTK5ehwk2USI4UKsi LLEzCtD3OOIraTHgEMImtAy zNNumr885WHA2YyFsME6uG3 Bze1Q2cI5utDSjQRDnxSDpN yYsBVHnea3qdLIlOWblq6Zn FNF2fnZ7eKWwgGOoUYDwYU5 7Vnxqt5TxLnguy6KsA57mmG Y2XSxua3teDD5cPwX7ujKpL Rvxl0eitE5sIaD0JGnxHB5w XA3uEKBykS2otmrrGRJnUiQ zzelaZRZyfYchxhIqZv1woQ epMTP6EKegQ8imwG2iElT1F BsjN6rgsS1tGRj8BTnylTR0 REStfL1bUW8prpfqh6daCZh pBEtwVMCjffP3lcF2KMInwH DtA8QyfC0fJLMePY1hxxtvb 8hiNGX4QZuoPOKcSSW9WeDl CZTvh9Zbggt5MtYmv8EguKG wHBhnF03jz835QKPyxbGgB9 xwbGFpblxwbGFpblxmMFxmc sY0SDOryvRld1AsZOGrAMD2 LTtgHMypeBNaNKJwbJshn5i oZ8RnePPwEUQkPRouNLQjPY ZzMjBcbGFuZzEwMzNcaGlja KgtQPusFpWwYEHuFQxnV4va JhLsW6TcFRRqWxYfyELvP8s kYUzyrkNcJNLijdTyvVH8YX eoN2h6HHTqsfCrwOp5unYpU lUdMJEcFHH9TOrsxMEjIYOc u1VtfhmtxDTyRb9xaEVsQHC zhW8zFLJuYADhFQioAX5ogU o3VSYDmOHjhOClPjQMPNTyF G24ndFoJICYcrcdv1B8PDna SZLrh2IycZAdM2muj6PaSCH dn59vYC1eb1S3e8esHBQ4SS 5ue5HfDVItiYJeuSEuNCXmt 8Luspmiv1GkEYQxkqCth9Hq ZCBhbmQgaXRzIHBlcmZvcm1 pkkPiRXCeWGSlV4HowfhqgC grkbAzGPDsaf3cqmVxNGR3K QUXZWQwXNFwd0XbvK5tbGRJ EFV4hSXleq5tebPIxFCyINF jur30IYUfBO3mQ3wjNFGxHI IhtgJomMWsu5JcDRMfvPY5r MAkQV8MZxHHi23tOZRxKIEJ zsKwJTSxgAklwIB7osE9tD4 uIChGREEpLlx+IFRoZSBGRE RsCS4ivfGdp0SqdbRcdKvcW ZAijGSna5JvoHUzy2GqgSdc o6FhyFHmkDMoJK2qFKYgzqh oVWNuUTYVZwVUOEKfleA5t3 FbAKKlBXFuLYA8wKewkaw8Z QJmtD7eKFCzD0yemvrkANke QNTip2ErmK1uxAWGdBKmc9K ofLYugAMLaHGoRU1wtaJyRJ vWPKvNVBG1nfQmXKJjd0MkN DroG7vtW12sxSdhgFl4eDF1 IBU3oN5dIzc+IFxwYXJccGF yIEFwcHJvcHJpYXRlbHkgcm GwE2GhmtYygB3ezIWjwrFjB Q7oDY5iE3D6dSUoHLAwhfKr h5ddVSrntwGmDqXhqzUyWJL qXGjrTCPux0RfEMipOQZ8NC lucyBpbmNsdWRpbmcgSCZFL FXMkZVtfDTmDNK0MRejluOe eeMsIY0hhN7yxCdprK1afAF xkCE9smklJURwCAYxzZldDO MhQZ0vbCPmYUResbMCfKerv EKuwR0hX3JyHGAsTWOnje6a EHUvyK1yZOygn1UwlgebXGO pYQDaYGMadmGmmf7aCCOchJ WAGK7AFFtpxMDbf8WreyFkB 7pCUNI7CMScYdVmSpjtRGUz wZFohIQyMKMrox55HWRsqM7 zkSjxYAXxbN4yyZ7xiKavlB 4zZyMcXgMhSLfhJV1xLRFlX 1cmuNOwKCRfHSHfP2jkYnYr eK8jcInkKQtjKpKuZdJqLCb zQFW4fU== Embedded Images (test code = 7674265950) [facility] Whcuhuzisybdf1317-83-57 19:51:25 Test Item Value Reference Range Interpretation Comments LDH (test code = 1824924473) 206 U/L 120-246 Lab Interpretation (test code = Normal 70749-2) [facility] Fwcwrxsuxkhuw8074-80-80 19:51:25 Test Item Value Reference Range Interpretation Comments LDH (test code = 2512378109) 206 U/L 120-246 Lab Interpretation (test code = Normal 79620-0) [facility] BranchUric Acid Ubbin1756-78-14 17:09:08 Test Item Value Reference Range Interpretation Comments URIC ACID (test code = 7506271908) 4.2 mg/dL 2.9-6.0 Lab Interpretation (test code = Normal 37593-6) [facility] Qrmgwookyj7453-91-33 17:09:08 Test Item Value Reference Range Interpretation Comments CREATININE (test code = 0.28 mg/dL 0.50-1.04 L 5421119518) eGFR (test code = mL/min/1.73m2 2364052364) LISA (test code = LISA) Association of Glomerular Filtration Rate (GFR) and Staging of Kidney Disease* + --+ --+ ------+| GFR (mL/min/1.73 m2) ?| With Kidney Damage ?| ?Without Kidney Damage+ --------+ --------+ +| ?>90 ?| ?Stage one ?| ? Normal ?+ ---+ ---+ -------+| ?60-89 ?| ?Stage two ?| ? Decreased GFR ? + --+ --+ ------+| ?30-59 ?| ?Stage three ?| ? Stage three ? + --+ --+ ------+| ?15-29 ?| ?Stage four ? | ? Stage four ?+ ---+ ---+ -------+| ?<15 (or dialysis) ? ?| ?Stage five ? | ? Stage five ?+ ---+ ---+ -------+ *Each stage assumes the associated GFR level has been in effect for at least three months. ?Stages 1 to 5, with or without kidney disease, indicate chronic kidney disease. Notes: Determination of stages one and two (with eGFR >59mL/min/1.73 m2) requires estimation of kidney damage for at least three months as defined by structural or functional abnormalities of the kidney, manifested by either:Pathological abnormalities or Markers of kidney damage (including abnormalities in the composition of the blood or urine or abnormalities in imaging tests). Lab Interpretation Abnormal (test code = 50460-8) [facility] (Asparate Amino Transfer)2022-05-19 17:09:08 Test Item Value Reference Range Interpretation Comments AST(SGOT) (test code = 1877171434) 21 U/L 13-40 Lab Interpretation (test code = Normal 51380-6) [facility] Amin[facility] Transferase (SGPT)2022-05-19 17:09:08 Test Item Value Reference Range Interpretation Comments ALTv (test code = 1742-6) 13 U/L 5-35 Lab Interpretation (test code = Normal 26607-1) [facility] Tyshb3222-44-51 17:09:08 Test Item Value Reference Range Interpretation Comments URIC ACID (test code = 5764334658) 4.2 mg/dL 2.9-6.0 Lab Interpretation (test code = Normal 57772-6) [facility] Zuathhrnke4172-11-31 17:09:08 Test Item Value Reference Range Interpretation Comments CREATININE (test code = 0.28 mg/dL 0.50-1.04 L 5007654908) eGFR (test code = mL/min/1.73m2 0051959958) LISA (test code = LISA) Association of Glomerular Filtration Rate (GFR) and Staging of Kidney Disease* + --+ --+ ------+| GFR (mL/min/1.73 m2) ?| With Kidney Damage ?| ?Without Kidney Damage+ --------+ --------+ +| ?>90 ?| ?Stage one ?| ? Normal ?+ ---+ ---+ -------+| ?60-89 ?| ?Stage two ?| ? Decreased GFR ? + --+ --+ ------+| ?30-59 ?| ?Stage three ?| ? Stage three ? + --+ --+ ------+| ?15-29 ?| ?Stage four ? | ? Stage four ?+ ---+ ---+ -------+| ?<15 (or dialysis) ? ?| ?Stage five ? | ? Stage five ?+ ---+ ---+ -------+ *Each stage assumes the associated GFR level has been in effect for at least three months. ?Stages 1 to 5, with or without kidney disease, indicate chronic kidney disease. Notes: Determination of stages one and two (with eGFR >59mL/min/1.73 m2) requires estimation of kidney damage for at least three months as defined by structural or functional abnormalities of the kidney, manifested by either:Pathological abnormalities or Markers of kidney damage (including abnormalities in the composition of the blood or urine or abnormalities in imaging tests). Lab Interpretation Abnormal (test code = 85786-2) [facility] (Asparate Amino Transfer)2022-05-19 17:09:08 Test Item Value Reference Range Interpretation Comments AST(SGOT) (test code = 2603449576) 21 U/L 13-40 Lab Interpretation (test code = Normal 40297-5) [facility] (SGPT)2022-05-19 17:09:08 Test Item Value Reference Range Interpretation Comments ALTv (test code = 1742-6) 13 U/L 5-35 Lab Interpretation (test code = Normal 20941-0) [facility] with Umwamndlcxoh8038-32-40 17:00:44 Test Item Value Reference Range Interpretation Comments WBC (test code = See_Comment [Automated 6690-2) message] The sy stem which generated this result transmitted reference range : 4.30 - 11.10 10*3/?L. The reference range was not used to interpret this result as normal/abnormal . RBC (test code = See_Comment L [Automated 789-8) message] The sy stem which generated this result transmitted reference range : 3.93 - 5.25 10*6/?L. The reference range was not used to interpret this result as normal/abnormal . HGB (test code = 7.8 g/dL 11.6-15.0 L 718-7) HCT (test code = 26.3 % 35.7-45.2 L 4544-3) MCV (test code = 78.7 fL 80.6-95.5 L 787-2) MCH (test code = 23.4 pg 25.9-32.8 L 785-6) MCHC (test code = 29.7 g/dL 31.6-35.1 L 786-4) RDW-SD (test code = 48.0 fL 39.0-49.9 19073-0) RDW-CV (test code = 16.9 % 12.0-15.5 H 788-0) PLT (test code = See_Comment L [Automated 777-3) message] The sy stem which generated this result transmitted reference range : 166 - 358 10*3/ ?L. The reference r noy was not used to interpret this result as normal/abnormal . MPV (test code = Not Measure d 21677-8) IPF % (test code = 30.6 % 1.3-7.7 H Platelet count [id number]) measured by fluorescence method. NRBC/100 WBC (test See_Comment [Automat ed code = 8070382488) message] The system which generated this result transmitted reference range : 0.0 - 10.0 /100 WBCs. The refer ence range was not u sed to interpret th is result as normal/abnormal . NRBC x10^3 (test code See_Comment [Auto mated = 0540698425) message] The s ystem which generated this result transmitted reference range : 10*3/?L. The reference range was not used to interpret this result as normal/abnormal . GRAN MAT (NEUT) % 68.4 % (test code = 770-8) IMM GRAN % (test code 0.60 % = 8690772236) LYMPH % (test code = 24.6 % 736-9) MONO % (test code = 5.5 % 5905-5) EOS % (test code = 0.6 % 713-8) BASO % (test code = 0.3 % 706-2) GRAN MAT x10^3(ANC) 7.39 10*3/uL 1.88-7.09 H (test code = 3182439427) IMM GRAN x10^3 (test 0.07 10*3/uL 0.00-0.06 H code = 2746526405) LYMPH x10^3 (test code 2.66 10*3/uL 1.32-3.29 = 731-0) MONO x10^3 (test code 0.59 10*3/uL 0.33-0.92 = 742-7) EOS x10^3 (test code = 0.06 10*3/uL 0.03-0.39 711-2) BASO x10^3 (test code 0.03 10*3/uL 0.01-0.07 = 704-7) Lab Interpretation Abnormal (test code = 74073-2) [facility] with Amxebvdidkml3983-40-51 17:00:44 Test Item Value Reference Range Interpretation Comments WBC (test code = See_Comment [Automated 6690-2) message] The sy stem which generated this result transmitted reference range : 4.30 - 11.10 10*3/?L. The reference range was not used to interpret this result as normal/abnormal . RBC (test code = See_Comment L [Automated 789-8) message] The sy stem which generated this result transmitted reference range : 3.93 - 5.25 10*6/?L. The reference range was not used to interpret this result as normal/abnormal . HGB (test code = 7.8 g/dL 11.6-15.0 L 718-7) HCT (test code = 26.3 % 35.7-45.2 L 4544-3) MCV (test code = 78.7 fL 80.6-95.5 L 787-2) MCH (test code = 23.4 pg 25.9-32.8 L 785-6) MCHC (test code = 29.7 g/dL 31.6-35.1 L 786-4) RDW-SD (test code = 48.0 fL 39.0-49.9 42823-4) RDW-CV (test code = 16.9 % 12.0-15.5 H 788-0) PLT (test code = See_Comment L [Automated 777-3) message] The sy stem which generated this result transmitted reference range : 166 - 358 10*3/ ?L. The reference r noy was not used to interpret this result as normal/abnormal . MPV (test code = Not Measure d 28459-5) IPF % (test code = 30.6 % 1.3-7.7 H Platelet count [id number]) measured by fluorescence method. NRBC/100 WBC (test See_Comment [Automat ed code = 4086822580) message] The system which generated this result transmitted reference range : 0.0 - 10.0 /100 WBCs. The refer ence range was not u sed to interpret th is result as normal/abnormal . NRBC x10^3 (test code See_Comment [Auto mated = 6549066059) message] The s ystem which generated this result transmitted reference range : 10*3/?L. The reference range was not used to interpret this result as normal/abnormal . GRAN MAT (NEUT) % 68.4 % (test code = 770-8) IMM GRAN % (test code 0.60 % = 6776982050) LYMPH % (test code = 24.6 % 736-9) MONO % (test code = 5.5 % 5905-5) EOS % (test code = 0.6 % 713-8) BASO % (test code = 0.3 % 706-2) GRAN MAT x10^3(ANC) 7.39 10*3/uL 1.88-7.09 H (test code = 3048284633) IMM GRAN x10^3 (test 0.07 10*3/uL 0.00-0.06 H code = [id number]) LYMPH x10^3 (test code 2.66 10*3/uL 1.32-3.29 = 731-0) MONO x10^3 (test code 0.59 10*3/uL 0.33-0.92 = 742-7) EOS x10^3 (test code = 0.06 10*3/uL 0.03-0.39 711-2) BASO x10^3 (test code 0.03 10*3/uL 0.01-0.07 = 704-7) Lab Interpretation Abnormal (test code = 40834-7) [facility] ONLY - SYPHILIS [id number] 15:41:30 Test Item Value Reference Range Interpretation Comments Syphilis IgG/IgM (test Non-reactive Non-reactive code = 14481-7) LISA (test code = LISA) Non-reactive - No serologic evidence of T. pallidum infection. Cannot exclude incubating or early syphilis. Submit a second specimen in 2-4 weeks if syphilis is clinically suspected. Equivocal - Further testing to follow. Reactive - Further testing to follow. Lab Interpretation (test Normal code = 14181-1) [facility] ONLY - SYPHILIS [id number] 15:41:30 Test Item Value Reference Range Interpretation Comments Syphilis IgG/IgM (test Non-reactive Non-reactive code = 81072-2) LISA (test code = LISA) Non-reactive - No serologic evidence of T. pallidum infection. Cannot exclude incubating or early syphilis. Submit a second specimen in 2-4 weeks if syphilis is clinically suspected. Equivocal - Further testing to follow. Reactive - Further testing to follow. Lab Interpretation (test Normal code = 69163-9) [facility] with [id number] 11:13:43 Test Item Value Reference Range Interpretation Comments WBC (test code = See_Comment H [Automated 6690-2) message] The sy stem which generated this result transmitted reference range : 4.30 - 11.10 10*3/?L. The reference range was not used to interpret this result as normal/abnormal . RBC (test code = See_Comment L [Automated 789-8) message] The sy stem which generated this result transmitted reference range : 3.93 - 5.25 10*6/?L. The reference range was not used to interpret this result as normal/abnormal . HGB (test code = 7.1 g/dL 11.6-15.0 L 718-7) HCT (test code = 22.9 % 35.7-45.2 L 4544-3) MCV (test code = 76.3 fL 80.6-95.5 L 787-2) MCH (test code = 23.7 pg 25.9-32.8 L 785-6) MCHC (test code = 31.0 g/dL 31.6-35.1 L 786-4) RDW-SD (test code = 46.6 fL 39.0-49.9 66730-0) RDW-CV (test code = 17.0 % 12.0-15.5 H 788-0) PLT (test code = See_Comment L [Automated 777-3) message] The sy stem which generated this result transmitted reference range : 166 - 358 10*3/ ?L. The reference r noy was not used to interpret this result as normal/abnormal . MPV (test code = Not Measure d 38771-5) IPF % (test code = 28.4 % 1.3-7.7 H Platelet count [id number]) measured by fluorescence method. NRBC/100 WBC (test See_Comment [Automat ed code = 7468819935) message] The system which generated this result transmitted reference range : 0.0 - 10.0 /100 WBCs. The refer ence range was not u sed to interpret th is result as normal/abnormal . NRBC x10^3 (test code See_Comment [Auto mated = 2620260607) message] The s ystem which generated this result transmitted reference range : 10*3/?L. The reference range was not used to interpret this result as normal/abnormal . GRAN MAT (NEUT) % 74.6 % (test code = 770-8) IMM GRAN % (test code 0.50 % = 8224002000) LYMPH % (test code = 18.3 % 736-9) MONO % (test code = 6.0 % 5905-5) EOS % (test code = 0.3 % 713-8) BASO % (test code = 0.3 % 706-2) GRAN MAT x10^3(ANC) 8.57 10*3/uL 1.88-7.09 H (test code = 6787688292) IMM GRAN x10^3 (test 0.06 10*3/uL 0.00-0.06 code = 7988768061) LYMPH x10^3 (test code 2.10 10*3/uL 1.32-3.29 = 731-0) MONO x10^3 (test code 0.69 10*3/uL 0.33-0.92 = 742-7) EOS x10^3 (test code = 0.04 10*3/uL 0.03-0.39 711-2) BASO x10^3 (test code 0.04 10*3/uL 0.01-0.07 = 704-7) GIANT PLATELETS (test Present See_Comment A [Auto mated code = 5908-9) message] The system which generated this result transmitted reference range : (none). The reference range was not used to interpret this result as normal/abnormal . Lab Interpretation Abnormal (test code = 57547-9) [facility] with [id number] 11:13:43 Test Item Value Reference Range Interpretation Comments WBC (test code = See_Comment H [Automated 6690-2) message] The sy stem which generated this result transmitted reference range : 4.30 - 11.10 10*3/?L. The reference range was not used to interpret this result as normal/abnormal . RBC (test code = See_Comment L [Automated 789-8) message] The sy stem which generated this result transmitted reference range : 3.93 - 5.25 10*6/?L. The reference range was not used to interpret this result as normal/abnormal . HGB (test code = 7.1 g/dL 11.6-15.0 L 718-7) HCT (test code = 22.9 % 35.7-45.2 L 4544-3) MCV (test code = 76.3 fL 80.6-95.5 L 787-2) MCH (test code = 23.7 pg 25.9-32.8 L 785-6) MCHC (test code = 31.0 g/dL 31.6-35.1 L 786-4) RDW-SD (test code = 46.6 fL 39.0-49.9 86408-6) RDW-CV (test code = 17.0 % 12.0-15.5 H 788-0) PLT (test code = See_Comment L [Automated 777-3) message] The sy stem which generated this result transmitted reference range : 166 - 358 10*3/ ?L. The reference r noy was not used to interpret this result as normal/abnormal . MPV (test code = Not Measure d 56653-8) IPF % (test code = 28.4 % 1.3-7.7 H Platelet count [id number]) measured by fluorescence method. NRBC/100 WBC (test See_Comment [Automat ed code = 8800478404) message] The system which generated this result transmitted reference range : 0.0 - 10.0 /100 WBCs. The refer ence range was not u sed to interpret th is result as normal/abnormal . NRBC x10^3 (test code See_Comment [Auto mated = 3047823706) message] The s ystem which generated this result transmitted reference range : 10*3/?L. The reference range was not used to interpret this result as normal/abnormal . GRAN MAT (NEUT) % 74.6 % (test code = 770-8) IMM GRAN % (test code 0.50 % = 2493185878) LYMPH % (test code = 18.3 % 736-9) MONO % (test code = 6.0 % 5905-5) EOS % (test code = 0.3 % 713-8) BASO % (test code = 0.3 % 706-2) GRAN MAT x10^3(ANC) 8.57 10*3/uL 1.88-7.09 H (test code = 4116389884) IMM GRAN x10^3 (test 0.06 10*3/uL 0.00-0.06 code = 8227256302) LYMPH x10^3 (test code 2.10 10*3/uL 1.32-3.29 = 731-0) MONO x10^3 (test code 0.69 10*3/uL 0.33-0.92 = 742-7) EOS x10^3 (test code = 0.04 10*3/uL 0.03-0.39 711-2) BASO x10^3 (test code 0.04 10*3/uL 0.01-0.07 = 704-7) GIANT PLATELETS (test Present See_Comment A [Auto mated code = 5908-9) message] The system which generated this result transmitted reference range : (none). The reference range was not used to interpret this result as normal/abnormal . Lab Interpretation Abnormal (test code = 82018-6) [facility] (D) IMMUNE [id number] 06:11:11 Test Item Value Reference Range Interpretation Comments RHIG CANDIDATE? No- see comment Patient i s not a (test code = candidate for R hIg- 5055) Patient is Rh Positive.Perfor med at [facility] Laboratory Services - [facility] Blood [id number] [place] [address] Free: [phone] A No. [id number] [facility] (D) IMMUNE [id number] 06:11:11 Test Item Value Reference Range Interpretation Comments RHIG CANDIDATE? No- see comment Patient i s not a (test code = candidate for R hIg- 5055) Patient is Rh Positive.Perfor med at [facility] Laboratory Services - [facility] Blood [id number] [place], [place] [address]Toll Free: [phone] A No. [id number] [facility] [id number] 04:08:28 Test Item Value Reference Range Interpretation Comments VENOUS BASE EXCESS, mEq/L CORD (test code = 3258890719) VENOUS PH, CORD (test 7.25-7.45 code = 0432163248) VENOUS PC02, CORD See_Comment [Automate d message] The (test code = system which ge nerated 2782612636) this result tra nsmitted reference range : 27 - 49 mmHg. The refer ence range was not used to interpret this result as normal/abnormal . VENOUS PO2, CORD (test See_Comment [Aut omated message] The code = 6441456631) system [facility] generated this result tra nsmitted reference range : 17 - 41 mmHg. The refer ence range was not used to interpret this result as normal/abnormal . VENOUS BICARBONATE, See_Comment QUES [Au tomated message] CORD (test code = The system which generated 4278717077) this result tra nsmitted reference range : 12 - 29 mEq/L. The refe rence range was not used to interpret this result as normal/abnormal . [facility] [id number] 04:08:28 Test Item Value Reference Range Interpretation Comments VENOUS BASE EXCESS, mEq/L CORD (test code = 4360994877) VENOUS PH, CORD (test 7.25-7.45 code = 1869155508) VENOUS PC02, CORD See_Comment [Automate d message] The (test code = system which ge nerated 7271442448) this result tra nsmitted reference range : 27 - 49 mmHg. The refer ence range was not used to interpret this result as normal/abnormal . VENOUS PO2, CORD (test See_Comment [Aut omated message] The code = 2935442979) system [employer] generated this result tra nsmitted reference range : 17 - 41 mmHg. The refer ence range was not used to interpret this result as normal/abnormal . VENOUS BICARBONATE, See_Comment QUES [Au tomated message] CORD (test code = The system which generated 1782299548) this result tra nsmitted reference range : 12 - 29 mEq/L. The refe rence range was not used to interpret this result as normal/abnormal . [facility] [id number] 04:07:48 Test Item Value Reference Range Interpretation Comments BASE EXCESS, CORD mEq/L QUES (test code = 0909421612) AC PH, CORD (BEAKER) 7.18-7.38 (test code = 6864058904) PC02, CORD (test code See_Comment [Auto mated message] The = 2396518882) system which g enerated this result transmit khadijah reference range : 32 - 66 mmHg. The refer ence range was not used to interpret this result as normal/abnormal . PO2, CORD (test code See_Comment [Autom ated message] The = 9179565471) system which g enerated this result transmit khadijah reference range : 10 - 30 mmHg. The refer ence range was not used to interpret this result as normal/abnormal . BICARBONATE, CORD See_Comment [Automate d message] The (test code = system which ge nerated this 0722205004) result transmit khadijah reference range : 17 - 27 mEq/L. The refe rence range was not used to interpret this result as normal/abnormal . [facility] [id number] 04:07:48 Test Item Value Reference Range Interpretation Comments BASE EXCESS, CORD mEq/L QUES (test code = 5250641456) AC PH, CORD (BEAKER) 7.18-7.38 (test code = 3708786524) PC02, CORD (test code See_Comment [Auto mated message] The = 0731740186) system which g enerated this result transmit khadijah reference range : 32 - 66 mmHg. The refer ence range was not used to interpret this result as normal/abnormal . PO2, CORD (test code See_Comment [Autom ated message] The = 4277980428) system which g enerated this result transmit khadijah reference range : 10 - 30 mmHg. The refer ence range was not used to interpret this result as normal/abnormal . BICARBONATE, CORD See_Comment [Automate d message] The (test code = system which ge nerated this 3847629573) result transmit khadijah reference range : 17 - 27 mEq/L. The refe rence range was not used to interpret this result as normal/abnormal . [facility] AG-AB WITH [id number] 20:11:09 Test Item Value Reference Range Interpretation Comments HIV Negative Negative Semi-quantitative (test code = 21604-1) LISA (test code = Non-reactive for HIV-1 LISA) antigen and HIV-1/HIV-2 antibodies. ?No laboratory evidence of HIV infection. ?Repeat in 2-4 weeks if acute HIV infection is suspected. [facility] AG-AB WITH [id number] 20:11:09 Test Item Value Reference Range Interpretation Comments HIV Negative Negative Semi-quantitative (test code = 48427-7) LISA (test code = Non-reactive for HIV-1 LISA) antigen and HIV-1/HIV-2 antibodies. ?No laboratory evidence of HIV infection. ?Repeat in 2-4 weeks if acute HIV infection is suspected. [facility] [id number] 19:15:45 Test Item Value Reference Range Interpretation Comments HCV Ab (test code = 45438-8) Negative HCV Semi-Quantitative (test code = 86658-2) [facility] [id number] 19:15:45 Test Item Value Reference Range Interpretation Comments HCV Ab (test code = 87300-1) Negative HCV Semi-Quantitative (test code = 66902-1) [facility] Screen - ONCE [id number] 18:58:43 Test Item Value Reference Range Interpretation Comments ABO & RH (test code A POSITIVE Performe d at [facility] = 20) Laboratory [facility] Blood [facility] [place] [address] s [id number] Free: [phone] A No. [id number] IAT (test code = Negative Performed a t [facility] 1185) Laboratory [facility] Blood [facility] [place] [address] s [id number] Free: [phone] A No. [id number] [facility] Screen - ONCE [id number] 18:58:43 Test Item Value Reference Range Interpretation Comments ABO & RH (test code A POSITIVE Performe d at [facility] = 20) Laboratory [facility] Blood [facility] [place] [address] s [id number] Free: [phone] A No. [id number] IAT (test code = Negative Performed a t [facility] 1185) Laboratory [facility] [address] [place], [place] [address]Shaquille dillard [id number] Free: [phone] A No. [id number] [facility] B Surface [id number] 18:58:26 Test Item Value Reference Range Interpretation Comments HBsAg Semi-Quantitative (test code = Negative Negative 5195-3) [facility] B Surface [id number] 18:58:26 Test Item Value Reference Range Interpretation Comments HBsAg Semi-Quantitative (test code = Negative Negative 5195-3) [facility] WITH [id number] 18:47:07 Test Item Value Reference Range Interpretation Comments WBC (test code = See_Comment [Automated 6690-2) message] The sy stem which generated this result transmitted reference range : 4.30 - 11.10 10*3/?L. The reference range was not used to interpret this result as normal/abnormal . RBC (test code = See_Comment L [Automated 789-8) message] The sy stem which generated this result transmitted reference range : 3.93 - 5.25 10*6/?L. The reference range was not used to interpret this result as normal/abnormal . HGB (test code = 7.5 g/dL 11.6-15.0 L 718-7) HCT (test code = 24.3 % 35.7-45.2 L 4544-3) MCV (test code = 77.9 fL 80.6-95.5 L 787-2) MCH (test code = 24.0 pg 25.9-32.8 L 785-6) MCHC (test code = 30.9 g/dL 31.6-35.1 L 786-4) RDW-SD (test code = 47.7 fL 39.0-49.9 15790-4) RDW-CV (test code = 16.9 % 12.0-15.5 H 788-0) PLT (test code = See_Comment L [Automated 777-3) message] The sy stem which generated this result transmitted reference range : 166 - 358 10*3/ ?L. The reference r noy was not used to interpret this result as normal/abnormal . MPV (test code = Not Measure d 14653-9) IPF % (test code = 31.4 % 1.3-7.7 H Platelet count [id number]) measured by fluorescence method. NRBC/100 WBC (test See_Comment [Automat ed code = 6830646252) message] The system which generated this result transmitted reference range : 0.0 - 10.0 /100 WBCs. The refer ence range was not u sed to interpret th is result as normal/abnormal . NRBC x10^3 (test code See_Comment [Auto mated = 6740201447) message] The s ystem which generated this result transmitted reference range : 10*3/?L. The reference range was not used to interpret this result as normal/abnormal . GRAN MAT (NEUT) % 65.6 % (test code = 770-8) IMM GRAN % (test code 1.00 % = 5061814273) LYMPH % (test code = 26.9 % 736-9) MONO % (test code = 5.4 % 5905-5) EOS % (test code = 0.7 % 713-8) BASO % (test code = 0.4 % 706-2) GRAN MAT x10^3(ANC) 5.36 10*3/uL 1.88-7.09 (test code = 8969557833) IMM GRAN x10^3 (test 0.08 10*3/uL 0.00-0.06 H code = 0644813601) LYMPH x10^3 (test code 2.20 10*3/uL 1.32-3.29 = 731-0) MONO x10^3 (test code 0.44 10*3/uL 0.33-0.92 = 742-7) EOS x10^3 (test code = 0.06 10*3/uL 0.03-0.39 711-2) BASO x10^3 (test code 0.03 10*3/uL 0.01-0.07 = 704-7) POLYCHROMASIA (test 2+ See_Comment [Automa khadijah code = 40577-9) message] The system which generated this result transmitted reference range : 2+. The referen ce range was not u sed to interpret th is result as normal/abnormal . Lab Interpretation Abnormal (test code = 20806-3) [facility] WITH [id number] 18:47:07 Test Item Value Reference Range Interpretation Comments WBC (test code = See_Comment [Automated 6690-2) message] The sy stem which generated this result transmitted reference range : 4.30 - 11.10 10*3/?L. The reference range was not used to interpret this result as normal/abnormal . RBC (test code = See_Comment L [Automated 789-8) message] The sy stem which generated this result transmitted reference range : 3.93 - 5.25 10*6/?L. The reference range was not used to interpret this result as normal/abnormal . HGB (test code = 7.5 g/dL 11.6-15.0 L 718-7) HCT (test code = 24.3 % 35.7-45.2 L 4544-3) MCV (test code = 77.9 fL 80.6-95.5 L 787-2) MCH (test code = 24.0 pg 25.9-32.8 L 785-6) MCHC (test code = 30.9 g/dL 31.6-35.1 L 786-4) RDW-SD (test code = 47.7 fL 39.0-49.9 03873-1) RDW-CV (test code = 16.9 % 12.0-15.5 H 788-0) PLT (test code = See_Comment L [Automated 777-3) message] The sy stem which generated this result transmitted reference range : 166 - 358 10*3/ ?L. The reference r noy was not used to interpret this result as normal/abnormal . MPV (test code = Not Measure d 00330-7) IPF % (test code = 31.4 % 1.3-7.7 H Platelet count [id number]) measured by fluorescence method. NRBC/100 WBC (test See_Comment [Automat ed code = 6278216183) message] The system which generated this result transmitted reference range : 0.0 - 10.0 /100 WBCs. The refer ence range was not u sed to interpret th is result as normal/abnormal . NRBC x10^3 (test code See_Comment [Auto mated = 6676330108) message] The s ystem which generated this result transmitted reference range : 10*3/?L. The reference range was not used to interpret this result as normal/abnormal . GRAN MAT (NEUT) % 65.6 % (test code = 770-8) IMM GRAN % (test code 1.00 % = 3028228624) LYMPH % (test code = 26.9 % 736-9) MONO % (test code = 5.4 % 5905-5) EOS % (test code = 0.7 % 713-8) BASO % (test code = 0.4 % 706-2) GRAN MAT x10^3(ANC) 5.36 10*3/uL 1.88-7.09 (test code = 5387663149) IMM GRAN x10^3 (test 0.08 10*3/uL 0.00-0.06 H code = 4281452737) LYMPH x10^3 (test code 2.20 10*3/uL 1.32-3.29 = 731-0) MONO x10^3 (test code 0.44 10*3/uL 0.33-0.92 = 742-7) EOS x10^3 (test code = 0.06 10*3/uL 0.03-0.39 711-2) BASO x10^3 (test code 0.03 10*3/uL 0.01-0.07 = 704-7) POLYCHROMASIA (test 2+ See_Comment [Automa khadijah code = 80064-7) message] The system which generated this result transmitted reference range : 2+. The referen ce range was not u sed to interpret th is result as normal/abnormal . Lab Interpretation Abnormal (test code = 76514-6) [facility] URINALYSIS W SPECIFIC [id number] 21:44:00 Test Item Value Reference Range Interpretation Comments POCT U SP GRAV (test code = . 1.005-1.025 3255) POCT PH U (test code = 3254) . 5-8 POCT U LEUK EST (test code = . Negative - Negative 3263) POCT U NIT (test code = 3262) . Negative - Negative POCT U PROT (test code = 3259) 1+ Negative - Negative POCT U GLU (test code = 3256) negative Negative - Negative POCT U KETONE (test code = 3258) . Negative - Negative POCT U UROBILI (test code = . 0.2-1 3260) POCT U BILI (test code = 3261) . Negative - Negative POCT U BLD (test code = 3257) . Negative - Negative POCT U COLOR (test code = 3266) POCT U APPEAR (test code = 3267) [facility] URINALYSIS W SPECIFIC [id number] 21:44:00 Test Item Value Reference Range Interpretation Comments POCT U SP GRAV (test code = . 1.005-1.025 3255) POCT PH U (test code = 3254) . 5-8 POCT U LEUK EST (test code = . Negative - Negative 3263) POCT U NIT (test code = 3262) . Negative - Negative POCT U PROT (test code = 3259) 1+ Negative - Negative POCT U GLU (test code = 3256) negative Negative - Negative POCT U KETONE (test code = 3258) . Negative - Negative POCT U UROBILI (test code = . 0.2-1 3260) POCT U BILI (test code = 3261) . Negative - Negative POCT U BLD (test code = 3257) . Negative - Negative POCT U COLOR (test code = 3266) POCT U APPEAR (test code = 3267) [facility] URINALYSIS W SPECIFIC [id number] 21:44:00 Test Item Value Reference Range Interpretation Comments POCT U SP GRAV (test code = . 1.005-1.025 3255) POCT PH U (test code = 3254) . 5-8 POCT U LEUK EST (test code = . Negative - Negative 3263) POCT U NIT (test code = 3262) . Negative - Negative POCT U PROT (test code = 3259) 1+ Negative - Negative POCT U GLU (test code = 3256) negative Negative - Negative POCT U KETONE (test code = 3258) . Negative - Negative POCT U UROBILI (test code = . 0.2-1 3260) POCT U BILI (test code = 3261) . Negative - Negative POCT U BLD (test code = 3257) . Negative - Negative POCT U COLOR (test code = 3266) POCT U APPEAR (test code = 3267) [facility] URINALYSIS W SPECIFIC [id number] 20:37:00 Test Item Value Reference Range Interpretation Comments POCT U SP GRAV (test code = . 1.005-1.025 A 3255) POCT PH U (test code = 3254) 6 mg/dl 5-8 POCT U LEUK EST (test code = Trace Negative - Negative 3263) POCT U NIT (test code = 3262) Pos Negative - Negative POCT U PROT (test code = 3259) Trace Negative - Negative POCT U GLU (test code = 3256) Neg Negative - Negative POCT U KETONE (test code = 3258) Small Negative - Negative POCT U UROBILI (test code = . 0.2-1 3260) POCT U BILI (test code = 3261) . Negative - Negative POCT U BLD (test code = 3257) Trace Negative - Negative POCT U COLOR (test code = 3266) POCT U APPEAR (test code = 3267) Lab Interpretation (test code = Abnormal 40683-0) [facility] URINALYSIS W SPECIFIC [id number] 20:37:00 Test Item Value Reference Range Interpretation Comments POCT U SP GRAV (test code = . 1.005-1.025 A 3255) POCT PH U (test code = 3254) 6 mg/dl 5-8 POCT U LEUK EST (test code = Trace Negative - Negative 3263) POCT U NIT (test code = 3262) Pos Negative - Negative POCT U PROT (test code = 3259) Trace Negative - Negative POCT U GLU (test code = 3256) Neg Negative - Negative POCT U KETONE (test code = 3258) Small Negative - Negative POCT U UROBILI (test code = . 0.2-1 3260) POCT U BILI (test code = 3261) . Negative - Negative POCT U BLD (test code = 3257) Trace Negative - Negative POCT U COLOR (test code = 3266) POCT U APPEAR (test code = 3267) Lab Interpretation (test code = Abnormal 21491-3) [facility] URINALYSIS W SPECIFIC [id number] 20:37:00 Test Item Value Reference Range Interpretation Comments POCT U SP GRAV (test code = . 1.005-1.025 A 3255) POCT PH U (test code = 3254) 6 mg/dl 5-8 POCT U LEUK EST (test code = Trace Negative - Negative 3263) POCT U NIT (test code = 3262) Pos Negative - Negative POCT U PROT (test code = 3259) Trace Negative - Negative POCT U GLU (test code = 3256) Neg Negative - Negative POCT U KETONE (test code = 3258) Small Negative - Negative POCT U UROBILI (test code = . 0.2-1 3260) POCT U BILI (test code = 3261) . Negative - Negative POCT U BLD (test code = 3257) Trace Negative - Negative POCT U COLOR (test code = 3266) POCT U APPEAR (test code = 3267) Lab Interpretation (test code = Abnormal 77379-8) [facility] URINALYSIS W SPECIFIC [id number] 19:36:00 Test Item Value Reference Range Interpretation Comments POCT U SP GRAV (test code = 3255) . 1.005-1.025 POCT PH U (test code = 3254) . 5-8 POCT U LEUK EST (test code = 3263) . Negative - Negative POCT U NIT (test code = 3262) . Negative - Negative POCT U PROT (test code = 3259) Trace Negative - Negative POCT U GLU (test code = 3256) Neg Negative - Negative POCT U KETONE (test code = 3258) . Negative - Negative POCT U UROBILI (test code = 3260) . 0.2-1 POCT U BILI (test code = 3261) . Negative - Negative POCT U BLD (test code = 3257) . Negative - Negative POCT U COLOR (test code = 3266) POCT U APPEAR (test code = 3267) [facility] URINALYSIS W SPECIFIC [id number] 19:36:00 Test Item Value Reference Range Interpretation Comments POCT U SP GRAV (test code = 3255) . 1.005-1.025 POCT PH U (test code = 3254) . 5-8 POCT U LEUK EST (test code = 3263) . Negative - Negative POCT U NIT (test code = 3262) . Negative - Negative POCT U PROT (test code = 3259) Trace Negative - Negative POCT U GLU (test code = 3256) Neg Negative - Negative POCT U KETONE (test code = 3258) . Negative - Negative POCT U UROBILI (test code = 3260) . 0.2-1 POCT U BILI (test code = 3261) . Negative - Negative POCT U BLD (test code = 3257) . Negative - Negative POCT U COLOR (test code = 3266) POCT U APPEAR (test code = 3267) [facility] URINALYSIS W SPECIFIC [id number] 19:36:00 Test Item Value Reference Range Interpretation Comments POCT U SP GRAV (test code = 3255) . 1.005-1.025 POCT PH U (test code = 3254) . 5-8 POCT U LEUK EST (test code = 3263) . Negative - Negative POCT U NIT (test code = 3262) . Negative - Negative POCT U PROT (test code = 3259) Trace Negative - Negative POCT U GLU (test code = 3256) Neg Negative - Negative POCT U KETONE (test code = 3258) . Negative - Negative POCT U UROBILI (test code = 3260) . 0.2-1 POCT U BILI (test code = 3261) . Negative - Negative POCT U BLD (test code = 3257) . Negative - Negative POCT U COLOR (test code = 3266) POCT U APPEAR (test code = 3267) [facility] URINALYSIS W SPECIFIC [id number] 19:36:00 Test Item Value Reference Range Interpretation Comments POCT U SP GRAV (test code = 3255) . 1.005-1.025 POCT PH U (test code = 3254) . 5-8 POCT U LEUK EST (test code = 3263) . Negative - Negative POCT U NIT (test code = 3262) . Negative - Negative POCT U PROT (test code = 3259) Trace Negative - Negative POCT U GLU (test code = 3256) Neg Negative - Negative POCT U KETONE (test code = 3258) . Negative - Negative POCT U UROBILI (test code = 3260) . 0.2-1 POCT U BILI (test code = 3261) . Negative - Negative POCT U BLD (test code = 3257) . Negative - Negative POCT U COLOR (test code = 3266) POCT U APPEAR (test code = 3267) [facility] URINALYSIS W SPECIFIC [id number] 19:09:00 Test Item Value Reference Range Interpretation Comments POCT U SP GRAV (test code = 3255) na 1.005-1.025 POCT PH U (test code = 3254) na 5-8 POCT U LEUK EST (test code = 3263) na Negative - Negative POCT U NIT (test code = 3262) na Negative - Negative POCT U PROT (test code = 3259) neg Negative - Negative POCT U GLU (test code = 3256) neg Negative - Negative POCT U KETONE (test code = 3258) na Negative - Negative POCT U UROBILI (test code = 3260) na 0.2-1 POCT U BILI (test code = 3261) na Negative - Negative POCT U BLD (test code = 3257) na Negative - Negative POCT U COLOR (test code = 3266) POCT U APPEAR (test code = 3267) Lab Interpretation (test code = Normal 78926-6) [facility] URINALYSIS W SPECIFIC [id number] 15:38:00 Test Item Value Reference Range Interpretation Comments POCT U SP GRAV (test code = * 1.005-1.025 3255) POCT PH U (test code = 3254) * 5-8 POCT U LEUK EST (test code = * Negative - Negative 3263) POCT U NIT (test code = 3262) * Negative - Negative POCT U PROT (test code = 3259) trace Negative - Negative POCT U GLU (test code = 3256) negative Negative - Negative POCT U KETONE (test code = 3258) * Negative - Negative POCT U UROBILI (test code = * 0.2-1 3260) POCT U BILI (test code = 3261) * Negative - Negative POCT U BLD (test code = 3257) * Negative - Negative POCT U COLOR (test code = 3266) POCT U APPEAR (test code = 3267) [facility]"
--- NOTE | 2022-06-23 18:11 | EDPHYS ---
Physician Documentation [facility] Name: Roberto Traore Age: 27 yrs Sex: Female : 1995 Arrival Date: 06/23/2022 Time: 18:01 Bed Waiting Private MD: ED Physician Kavon Iniguez HPI: 06/23 08:08 This 27 yrs old Female presents to ER via Ambulatory with complaints of jh7 Surgical site problem. 08:08 Onset: The symptoms/episode began/occurred 5 week(s) ago. Associated signs and jh7 symptoms: Pertinent negatives: fever, Erythema, tenderness to palpation, drainage. Patient reports that she is concerned that her surgical site where she received a tubal ligation is beginning to open up. Denies fever, redness, or tenderness to palpation.. 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 - Social history:: Smoking status: Patient reports the use of cigarette tobacco products, denies chronic smoking, but will smoke occasionally. ROS: 08:08 Constitutional: Negative for fever, chills, and weight loss, Cardiovascular: Negative jh7 for chest pain, palpitations, and edema, Respiratory: Negative for shortness of breath, cough, wheezing, and pleuritic chest pain, Abdomen/GI: Negative for abdominal pain, nausea, vomiting, diarrhea, and constipation, MS/Extremity: Negative for injury and deformity, Neuro: Negative for headache, weakness, numbness, tingling, and seizure. 08:08 Skin: Positive for surgical site around umbilicus where the patient had a tubal ligation. 08:08 All other systems are negative. Exam: 08:08 Constitutional: This is a well developed, well nourished patient who is awake, alert, jh7 and in no acute distress. Head/Face: Normocephalic, atraumatic. Cardiovascular: Regular rate and rhythm with a normal S1 and S2. No gallops, murmurs, or rubs. Normal PMI, no JVD. No pulse deficits. Respiratory: Lungs have equal breath sounds bilaterally, clear to auscultation and percussion. No rales, rhonchi or wheezes noted. No increased work of breathing, no retractions or nasal flaring. Abdomen/GI: Soft, non-tender, with normal bowel sounds. No distension or tympany. No guarding or rebound. No evidence of tenderness throughout. MS/ Extremity: Pulses equal, no cyanosis. Neurovascular intact. Full, normal range of motion. Neuro: Awake and alert, GCS 15, oriented to person, place, time, and situation. Motor strength 5/5 in all extremities. Sensory grossly intact. Normal gait. 08:08 Skin: Wound recheck: Scars where tubal ligation occurred appear to be healing normally. No dehiscence/evisceration, erythema, drainage, swelling, or tenderness to palpation.. Vital Signs: 18:06 BP 135 / 89; Pulse 86; Resp 17; Temp 98.8; Pulse Ox 100% ; Weight 83.91 kg; Height 4 ap3 ft. 11 in. (149.86 cm); 18:06 Body Mass Index 37.37 (83.91 kg, 149.86 cm) ap3 MDM: 18:08 Patient medically screened. [facility] 18:12 Differential diagnosis: Surgical site infection, surgical site dehiscence, well-healed [facility] surgical site. Data reviewed: vital signs, nurses notes. Data interpreted: Pulse oximetry: is 100 %. Interpretation: normal. Counseling: I had a detailed discussion with the patient and/or guardian regarding: the historical points, exam findings, and any diagnostic results supporting the discharge/admit diagnosis, to return to the emergency department if symptoms worsen or persist or if there are any questions or concerns that arise at home. Administered Medications: No medications were administered Disposition Summary: 06/23/22 18:10 Discharge Ordered Location: Home [facility] Problem: new [facility] Symptoms: are resolved [facility] Condition: Stable [facility] Diagnosis - Person with feared health complaint in whom no diagnosis is made [facility] Followup: [facility] - With: Private Physician - When: 2 - 3 days - Reason: Recheck today's complaints Discharge Instructions: - Discharge Summary Sheet 7 - Baby Blues 7 - Care After Delivery 7 - Care After Vaginal Delivery [facility] Forms: - Medication Reconciliation Form [facility] - Thank You Letter [facility] Signatures: Rosalina Ramon RN RN ap3 Berkley Costa, COMPOUND MACHINE OPERATOR COMPOUND MACHINE OPERATOR jh7 Corrections: (The following items were deleted from the chart) 18:23 08:08 This 27 yrs old Female presents to ER via Ambulatory with complaints of jh7 Surgical site problem. jh7
--- NOTE | 2022-06-23 18:11 | ER ---
Nurse's Notes [facility] Name: Roberto Traore Age: 27 yrs Sex: Female : 1995 Arrival Date: 06/23/2022 Time: 18:01 Bed Waiting Private MD: Diagnosis: Person with feared health complaint in whom no diagnosis is made Presentation: 06/23 18:06 Chief complaint: Patient states: she is concerned about a sx scar healing. patient is ap3 also concerned about feeling pain where her epidural was. Coronavirus screen: At this time, the client does not indicate any symptoms associated with coronavirus-19. Ebola Screen: No symptoms or risks identified at this time. Initial Sepsis Screen: Does the patient meet any 2 criteria? No. Patient's initial sepsis screen is negative. Does the patient have a suspected source of infection? No. Patient's initial sepsis screen is negative. Risk Assessment: Do you want to hurt yourself or someone else? Patient reports no desire to harm self or others. Onset of symptoms was June 23, 2022. 18:06 Method Of Arrival: Ambulatory ap3 18:06 Acuity: MARANDA 5 ap3 Triage Assessment: 18:08 General: Appears in no apparent distress. Behavior is calm, cooperative. Pain: Denies ap3 pain. Neuro: Level of Consciousness is awake, alert, obeys commands, Oriented to person, place, time, situation. Cardiovascular: Patient's skin is warm and dry. Respiratory: Airway is patent Respiratory effort is even, unlabored, Respiratory pattern is regular, symmetrical. 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 - Social history:: Smoking status: Patient reports the use of cigarette tobacco products, denies chronic smoking, but will smoke occasionally. Screenin:08 [facility] ED Fall Risk Assessment (Adult) History of falling in the last 3 months, ap3 including since admission No falls in past 3 months (0 pts). Abuse screen: Denies threats or abuse. Nutritional screening: No deficits noted. Tuberculosis screening: No symptoms or risk factors identified. Vital Signs: 18:06 BP 135 / 89; Pulse 86; Resp 17; Temp 98.8; Pulse Ox 100% ; Weight 83.91 kg; Height 4 ap3 ft. 11 in. (149.86 cm); 18:06 Body Mass Index 37.37 (83.91 kg, 149.86 cm) ap3 ED Course: 18:01 Patient arrived in ED. mr 18:08 Triage completed. ap3 18:08 Berkley Costa F[facility] jh7 18:08 Kavon Iniguez MD is Attending Physician. jh7 18:08 Arm band placed on right wrist. ap3 18:09 Patient has correct armband on for positive identification. ap3 18:09 No provider procedures requiring assistance completed. Patient did not have IV access ap3 during this emergency room visit. Administered Medications: No medications were administered Medication: 18:09 VIS not applicable for this client. ap3 Outcome: 18:10 Discharge ordered by . 7 18:13 Discharged to home ambulatory. ap3 18:13 Condition: good 18:13 Discharge instructions given to patient, Instructed on discharge instructions, follow up and referral plans. Demonstrated understanding of instructions, follow-up care. 18:13 Patient left the ED. ap3 Signatures: Sergio Deidra ruano LyterriRosalina RN RN ap3 Berkley Costa FNP FNP [facility]
[2022-06-23 18:30] VITALS: BP 135/89; TEMP 98.8; O2SAT 100
== END 2022-06-23 18:13 | disposition home or self-care (01) ==
LOC: ER 17:57
DX: Z71.1 Person with feared health complaint in whom no diagnosis is made (principal)
CPT/HCPCS: 99281